=== PATIENT | female | born 1990 | race Caucasian/White ===

== ENCOUNTER 2018-04-22 08:08 | Emergency (ER) | payer MEDICAID, SELFPAY ==
[2018-04-22 08:12] VITALS: BP 136/86; PULSE 71; RESP 16; TEMP 36.7; O2SAT 98
--- NOTE | 2018-04-22 08:23 | W.ED.GENAD ---
Discharge Plan Discharge Details Chief Complaint: Nausea/Vomit/Diar Clinical Impression: Diarrhea Reason For Visit: diarrhea Primary Care Provider: Linda Mason ED Provider: Leroy Nguyen Disposition Patient Disposition: HOME Home Meds and New Rx's Prescriptions: Continue omeprazole 40 MG capsule,delayed release(DR/EC) 40 mg PO DAILY RF: 0 famotidine [Pepcid] 20 MG tablet 20 mg PO DAILY RF: 0 albuterol sulfate [ProAir RespiClick] 90 MCG aerosol powdr breath activated 90 mcg Inhalation 2 inh q 4-6 hours RF: 0 etonogestrel [Nexplanon] 68 MG implant 1 ea Intradermal DIRECTED RF: 0 ondansetron 4 MG tablet,disintegrating 4 mg PO Q6H PRN PRN (Reason: Nausea) Qty: 7 RF: 0 Discharge Instructions Instructions: Acute Diarrhea (ED) Stand Alone Forms: Work Release Discharge Data Discharge Physician: Leroy Nguyen Medical Decision Making MDM Narrative Medical decision making narrative: Patient here with diarrhea since 3am otherwise no symptoms. no recent travel, fevres, abx so do not feel stool studies indicated at this time. She has no abdominal pain or other symptoms to warrant imaging and is well hyddrated on exam so do not feel labs or IVF indicated. She states she came because she had to call out of work and they demanded a work note so she came here. I encouraged pcp f/u if no better in a week and return precautions given HPI - General Adult General Mode of arrival: ambulatory. Date/Time Provider Initiated Documentation: 04/22/18 08:23. Limitations to Documentation: no limitations. Information obtained by: patient. History of Present Illness 28 year old F presents to the emergency department with the chief complaint of diarrhea, described as mild, with intensity rated at 3. Quality is described as other (diarrhea), Patient reports no radiation. Patient started experiencing this hour(s) (5) and it has been other (improving). other things that improve symptom(s), (imodium) No exacerbating factors reported . Patient notes no other symptoms.. Patient did receive the following treatments prior to arrival, other (immodium) Related Data Home Medications Medication Instructions Recorded Confirmed etonogestrel [Nexplanon] 1 ea INTRADERMAL DIRECTED 07/07/16 04/22/18 albuterol sulfate [ProAir 90 mcg INHALATION 2 inh q 4-6 hours 02/06/18 04/22/18 RespiClick] famotidine [Pepcid] 20 mg PO DAILY tab-cap 02/06/18 04/22/18 omeprazole 40 mg PO DAILY tab-cap 02/06/18 02/08/18 Previous Rx's Medication Instructions Recorded ondansetron 4 mg PO Q6H PRN PRN #7 tabef 12/26/17 Allergies Allergy/AdvReac Type Severity Reaction Status Date / Time No Known Allergies Allergy Unverified 02/08/18 08:46 General Stated Complaint: Nausea/Vomit/Diar LO: 4 Review of Systems Review of Systems All systems reviewed & are unremarkable except as noted in HPI and below Constitutional Denies chills, Denies fever(s) and Denies weakness Eyes Patient Denies loss of vision ENT Denies change in voice Cardiovascular Denies chest pain and Denies dyspnea Respiratory Denies dyspnea Gastrointestinal Denies abdominal pain, Reports diarrhea, Denies nausea and Denies vomiting Genitourinary Denies dysuria Musculoskeletal Denies joint swelling Integumentary/Breasts Denies rash Neurologic Denies loss of vision and Denies weakness Psychiatric Denies depression Endocrine Denies cold intolerance and Denies heat intolerance Allergic/Immunologic Reports urticaria PFSH Family History Mother Diabetes Essential hypertension Hyperlipidemia Thyroid disease Grandmother Diabetes Breast cancer Grandmother Cancer Medical History BV (bacterial vaginosis) COPD (chronic obstructive pulmonary disease) Dyspepsia Foot pain Gestational diabetes HSV (herpes simplex virus) infection Left wrist pain Obesity Palpitations Social History Smoking/Tobacco Use Status: Current-Occasional Surgical History Open Carpal Tunnel release Tonsillectomy and adenoidectomy Exam Const General: no acute distress Orientation: alert [facility] Head: normal to inspection Ears: external ears normal General nose exam: external nose normal Mouth: moist mucous membranes Eyes General: appearance normal, both eyes and all related structures Neck Neck: normal visual inspection Resp Effort & Inspection: normal respiratory effort and able to speak in complete sentences Cardio Rate: regular rate GI Palpation: soft and nontender Skin General skin exam: no rashes or lesions noted Neuro General: alert and oriented x3 Extrem General: normal to inspection Psych Mental Status: mental status grossly normal Course Vital Signs Temperature 36.7 C 04/22/18 08:12 Pulse 71 04/22/18 08:12 Respiratory Rate 16 04/22/18 08:12 Blood Pressure 136/86 04/22/18 08:12 Pulse Oximetry 98 04/22/18 08:12 Temperature 36.7 C 04/22/18 08:12 Pulse 71 04/22/18 08:12 Respiratory Rate 16 04/22/18 08:12 Blood Pressure 136/86 04/22/18 08:12 Pulse Oximetry 98 04/22/18 08:12
--- NOTE | 2018-04-22 08:28 | ED.GENADUL_ITS ---
Discharge Plan Discharge Details Chief Complaint: Nausea/Vomit/Diar Clinical Impression: Diarrhea Reason For Visit: diarrhea Primary Care Provider: Linda Mason ED Provider: Leroy Nguyen Disposition Patient Disposition: HOME Home Meds and New Rx's Prescriptions: Continue omeprazole 40 MG capsule,delayed release(DR/EC) 40 mg PO DAILY RF: 0 famotidine [Pepcid] 20 MG tablet 20 mg PO DAILY RF: 0 albuterol sulfate [ProAir RespiClick] 90 MCG aerosol powdr breath activated 90 mcg Inhalation 2 inh q 4-6 hours RF: 0 etonogestrel [Nexplanon] 68 MG implant 1 ea Intradermal DIRECTED RF: 0 ondansetron 4 MG tablet,disintegrating 4 mg PO Q6H PRN PRN (Reason: Nausea) Qty: 7 RF: 0 Discharge Instructions Instructions: Acute Diarrhea (ED) Stand Alone Forms: Work Release Discharge Data Discharge Physician: Leroy Nguyen Medical Decision Making MDM Narrative Medical decision making narrative: Patient here with diarrhea since 3am otherwise no symptoms. no recent travel, fevres, abx so do not feel stool studies indicated at this time. She has no abdominal pain or other symptoms to warrant imaging and is well hyddrated on exam so do not feel labs or IVF indicated. She states she came because she had to call out of work and they demanded a work note so she came here. I encouraged pcp f/u if no better in a week and return precautions given HPI - General Adult General Mode of arrival: ambulatory . Date/Time Provider Initiated Documentation: 04/22/18 08:23 . Limitations to Documentation: no limitations . Information obtained by: patient . History of Present Illness 28 year old F presents to the emergency department with the chief complaint of diarrhea, described as mild, with intensity rated at 3. Quality is described as other (diarrhea), Patient reports no radiation. Patient started experiencing this hour(s) (5) and it has been other (improving). other things that improve symptom(s), (imodium) No exacerbating factors reported . Patient notes no other symptoms.. Patient did receive the following treatments prior to arrival, other (immodium) Related Data Home Medications Medication Instructions Recorded Confirmed etonogestrel [Nexplanon] 1 ea INTRADERMAL DIRECTED 07/07/16 04/22/18 albuterol sulfate [ProAir 90 mcg INHALATION 2 inh q 4-6 hours 02/06/18 04/22/18 RespiClick] famotidine [Pepcid] 20 mg PO DAILY tab-cap 02/06/18 04/22/18 omeprazole 40 mg PO DAILY tab-cap 02/06/18 02/08/18 Previous Rx's Medication Instructions Recorded ondansetron 4 mg PO Q6H PRN PRN #7 tabef 12/26/17 Allergies Allergy/AdvReac Type Severity Reaction Status Date / Time No Known Allergies Allergy Unverified 02/08/18 08:46 General Stated Complaint: Nausea/Vomit/Diar LO: 4 Review of Systems Review of Systems All systems reviewed & are unremarkable except as noted in HPI and below Constitutional Denies chills, Denies fever(s) and Denies weakness Eyes Patient Denies loss of vision ENT Denies change in voice Cardiovascular Denies chest pain and Denies dyspnea Respiratory Denies dyspnea Gastrointestinal Denies abdominal pain, Reports diarrhea, Denies nausea and Denies vomiting Genitourinary Denies dysuria Musculoskeletal Denies joint swelling Integumentary/Breasts Denies rash Neurologic Denies loss of vision and Denies weakness Psychiatric Denies depression Endocrine Denies cold intolerance and Denies heat intolerance Allergic/Immunologic Reports urticaria PFSH Family History Mother Diabetes Essential hypertension Hyperlipidemia Thyroid disease Grandmother Diabetes Breast cancer Grandmother Cancer Medical History BV (bacterial vaginosis) COPD (chronic obstructive pulmonary disease) Dyspepsia Foot pain Gestational diabetes HSV (herpes simplex virus) infection Left wrist pain Obesity Palpitations Social History Smoking/Tobacco Use Status: Current-Occasional Surgical History Open Carpal Tunnel release Tonsillectomy and adenoidectomy Exam Const General: no acute distress Orientation: alert [facility] Head: normal to inspection Ears: external ears normal General nose exam: external nose normal Mouth: moist mucous membranes Eyes General: appearance normal, both eyes and all related structures Neck Neck: normal visual inspection Resp Effort & Inspection: normal respiratory effort and able to speak in complete sentences Cardio Rate: regular rate GI Palpation: soft and nontender Skin General skin exam: no rashes or lesions noted Neuro General: alert and oriented x3 Extrem General: normal to inspection Psych Mental Status: mental status grossly normal Course Vital Signs Temperature 36.7 C 04/22/18 08:12 Pulse 71 04/22/18 08:12 Respiratory Rate 16 04/22/18 08:12 Blood Pressure 136/86 04/22/18 08:12 Pulse Oximetry 98 04/22/18 08:12 Temperature 36.7 C 04/22/18 08:12 Pulse 71 04/22/18 08:12 Respiratory Rate 16 04/22/18 08:12 Blood Pressure 136/86 04/22/18 08:12 Pulse Oximetry 98 04/22/18 08:12
== END 2018-04-22 08:39 | disposition home or self-care (01) ==
PROVIDERS: Emergency Provider Emergency Medicine; PCP Nurse Practitioner Family
DX: R19.7 Diarrhea, unspecified (principal); J44.9 Chronic obstructive pulmonary disease, unspecified; F17.210 Nicotine dependence, cigarettes, uncomplicated
CPT/HCPCS: 99281

== ENCOUNTER 2018-07-07 18:51 | Emergency (ER) | payer MEDICAID, SELFPAY ==
[2018-07-07 19:01] VITALS: BP 159/89; PULSE 81; RESP 17; TEMP 36.5; O2SAT 98
--- NOTE | 2018-07-07 19:05 | W.ED.GENAD ---
Discharge Plan Disposition Patient Disposition: HOME Condition: Good Discharge Details Chief Complaint: Headache Clinical Impression: Migraine Reason For Visit: bad head ache ED Provider: Cecilio Lemus Home Meds and New Rx's Prescriptions: No Action sumatriptan succinate [Imitrex] 25 mg Tablet 25 mg PO ONCE RF: 0 famotidine [Pepcid] 20 mg Tablet 20 mg PO DAILY RF: 0 etonogestrel [Nexplanon] 68 mg Implant RF: 0 Discharge Instructions Instructions: Migraine Headache (ED) Additional Instructions: If you notice any worsening of your symptoms, or any new symptoms such as vomiting, diarrhea, fever, chills, shortness of breath, chest pain, numbness, weakness, or fainting , please return immediately to the emergency department for reevaluation. Please follow up with your primary care provider as soon as possible for reassessment and reevaluation. As always, it was a pleasure participating in your medical care today. Stand Alone Forms: Work Release Medical Decision Making This is a pleasant 28-year-old female with a past medical history of migraine headaches, who presents today for headache. She states that her headache is consistent with her previous migraines that she has had in the past. She comes in today though because it is not alleviated by her Imitrex and home treatments. Physical exam demonstrates no neurologic deficits, no red flags and family history, no signs of meningitis or nuchal rigidity. We will give a migraine cocktail, hydrate, and reassess. 8 PM The patient's headache is completely resolved after medical management. She feels well, and still demonstrates a normal neurologic exam. I feel she can be safely discharged home with close follow-up with her PCP. I have extensively reviewed the treatment plan with the patient. I have addressed all patient concerns at this time. I have also discussed the plan with the admitting physician and they agree with the current assessment and plan and have agreed to assume responsibility for the patient. All parties demonstrate verbal understanding and agreement with our assessment and plan at this time. HPI General Date/Time Provider Initiated Documentation: 07/07/18 19:03. HPI Narrative: This is a pleasant 28-year-old female with no significant past medical history except for migraines for which she takes occasional Imitrex who presents today for evaluation of headache. The patient states that her headache began 2 days ago, it was mild in nature and similar to her previous migraine headaches. She drank some fluids and took NSAIDs, and then tried taking Imitrex today but she has had no improvement of her symptoms in spite of this. She states that the headache is worse with light and loud noise, improved by nothing. She does have some funny squiggles in her vision occasionally, but denies any dark curtain over her vision, or other ocular complaints. Patient states that her headache is the same consistency as other headaches but just usually does not last this long. The patient denies any headache red flags of worst headache of life, thunderclap headache, neck pain, fever, chills, concerning family history of polycystic kidney disease, Marfan syndrome, Aaliyah-Danlos syndrome, abdominal aortic aneurysm, aortic dissection, or intracranial aneurysm. Patient has no other complaints at this time. She denies any IV or illicit drug use. She denies any pertinent family history. She does admit to some mild nausea but denies any significant vomiting. She denies any fever or chills. She denies any other sick contacts. Related Data Home Medications Medication Instructions Recorded Confirmed etonogestrel [Nexplanon] 07/07/18 famotidine [Pepcid] 20 mg PO DAILY 07/07/18 07/07/18 sumatriptan succinate [Imitrex] 25 mg PO ONCE 07/07/18 07/07/18 Allergies Allergy/AdvReac Type Severity Reaction Status Date / Time No Known Allergies Allergy Unverified 07/07/18 19:05 General Stated Complaint: Headache LO: 2 Review of Systems Review of Systems All systems reviewed & are unremarkable except as noted in HPI and below PFSH Social History Smoking/Tobacco Use Status: Never Exam Narrative Exam Narrative: 1.Const: Well-nourished, Well-developed, appearing stated age 2.Eyes: PERRL, no conjunctival injection, and symmetrical lids. 3.ENT: Atraumatic external nose and ears. Moist MM. Neck: Symmetric, trachea midline, No thyromegaly. Patient demonstrates good movement of cervical neck. There is no nuchal rigidity, no nuchal tenderness. Patient is able to flex the neck without any difficulty or significant pain. Negative Kernig's and Brudzinski sign. 4.CVS: +S1/S2, No murmurs or gallops. Peripheral pulses 2+ and equal in all extremities. Brisk capillary refill in all extremities. 5.RESP: Unlabored respiratory effort. Clear to auscultation bilaterally. No wheezes rales or rhonchi 6.GI: Soft, Nontender/Nondistended, No hepatosplenomegaly. No guarding or rebound. 7.MSK: Normocephalic/Atraumatic, Extremities w/o deformity or ttp No cyanosis or clubbing, Normal movement of all extremities 8.Skin: Warm, Dry. No rashes or lesions. 9.Neuro: aquatic centre manager II-XII grossly intact. Sensation grossly intact, no focal neurologic deficits. There is no evidence of raccoon eyes, barfield sign, CSF rhinorrhea, mastoid tenderness, cranial crepitus, hemotympanum, exophthalmos, or hyphema. 10.Psych: (AAO) x3. Appropriate mood and affect Course Vital Signs Temperature 36.5 C 07/07/18 19:01 Pulse 81 07/07/18 19:01 Respiratory Rate 17 07/07/18 19:01 Blood Pressure 159/89 H 07/07/18 19:01 Pulse Oximetry 98 07/07/18 19:01 Temperature 36.5 C 07/07/18 19:01 Temperature Source Temporal Artery Scan 07/07/18 19:01 Pulse 81 07/07/18 19:01 Respiratory Rate 17 07/07/18 19:01 Blood Pressure 159/89 H 07/07/18 19:01 Blood Pressure Position Supine 07/07/18 19:01 Pulse Oximetry 98 07/07/18 19:01 Oxygen Delivery Method Room Air 07/07/18 19:01 Oxygen Flow Rate 0 07/07/18 19:01 Pain Level 10 07/07/18 19:01
[2018-07-07] MEDS: Normal Saline 1,000 ML 1000 ML IV (19:17)
[2018-07-07] MEDS: Acetaminophen 500 MG TAB 1000 MG PO (19:18)
[2018-07-07] MEDS: diphenhydrAMINE 25 MG CAP PO (19:18)
[2018-07-07] MEDS: Prochlorperazine 10 MG/2 ML VIAL IVP (19:19)
[2018-07-07] MEDS: Ketorolac 30 MG/ML VIAL IVP (19:19)
[2018-07-07] MEDS: methylPREDNISolone SUCC 125 MG VIAL IVP (19:20)
[2018-07-07 20:05] VITALS: BP 140/66; PULSE 76; RESP 16; TEMP 36.5; O2SAT 98
== END 2018-07-07 20:07 | disposition home or self-care (01) ==
LOC: ER 20:12
PROVIDERS: Emergency Provider Student in an Organized Health Care Education/Training Program
DX: G43.909 Migraine, unspecified, not intractable, without status migrainosus (principal)
CPT/HCPCS: 96361; 96374; 96375; 99284; J0780; J1885; J2930

== ENCOUNTER 2019-02-01 06:44 | Emergency (ER) | payer MEDICAID, SELFPAY ==
[2019-02-01] VITALS (8 sets, daily range): BP systolic 114–130; BP diastolic 67–103; PULSE 64–88; RESP 16–18; TEMP 36.3–36.6; O2SAT 86–100
--- NOTE | 2019-02-01 06:50 | ED.GENADUL_ITS ---
Discharge Plan Disposition Patient Disposition: HOME Condition: Good Discharge Details Chief Complaint: Nausea/Vomit/Diar Clinical Impression: Gastroenteritis Primary Care Provider: Linda Mason ED Provider: Cecilio Lemus Home Meds and New Rx's Prescriptions: New prochlorperazine maleate [Compazine] 10 mg tablet 10 mg PO DAILY Qty: 5 RF: 0 No Action omeprazole 40 MG capsule,delayed release(DR/EC) 40 mg PO DAILY RF: 0 famotidine [Pepcid] 20 MG tablet 20 mg PO DAILY RF: 0 albuterol sulfate [ProAir RespiClick] 90 MCG aerosol powdr breath activated 90 mcg Inhalation 2 inh q 4-6 hours RF: 0 etonogestrel [Nexplanon] 68 MG implant 1 ea Intradermal DIRECTED RF: 0 ondansetron 4 MG tablet,disintegrating 4 mg PO Q6H PRN PRN (Reason: Nausea) Qty: 7 RF: 0 Discharge Instructions Instructions: Gastroenteritis (ED) Additional Instructions: Please take the Compazine as needed for nausea. I suspect your symptoms are secondary to a mild viral illness. Please continue to hydrate and drink 10 to 12 cups of water or Gatorade per day. If you notice any worsening of your symptoms, or any new symptoms such as worsening vomiting, worse diarrhea, fever, chills, shortness of breath, chest pain, numbness, weakness, or fainting , please return immediately to the emergency department for reevaluation. Please follow up with your primary care provider as soon as possible for reassessment and reevaluation. As always, it was a pleasure participating in your medical care today. Stand Alone Forms: Work Release Referrals: Linda Mason [Primary Care Provider] - Discharge Data Discharge Date/Time-TO BE ENTERED AT DEPARTURE: 02/01/19 08:58 Medical Decision Making <Junaid Mohamud MD - Last Filed: 02/01/19 20:46> Patient presents to ED with nausea, vomiting and diarrhea for the last 24 hours. She is afebrile here with normal vital signs. Her abdomen is benign. Will place IV to give fluids and Phenergan. Laboratory studies are pending. Patient is not . Patient will be signed out to Dr. Lemus to follow-up on labs and reevaluate patient for ability to tolerate p.o. <Cecilio Lemus DO - Last Filed: 02/01/19 08:49> The case is signed out to me by my colleague Dr. Mohamud. We are pending labs and reassessment. Labs have returned, no significant abnormalities are noted, minimally elevated white count, no electrolyte abnormalities, normal renal function. The patient does have control on board, and had her period 2 days ago. Not . The patient denies any red flags of recent foreign travel, fever, recent antibiotic use. Repeat abdominal exam demonstrates no abdominal tenderness. Signs and symptoms appear consistent with a mild gastroenteritis. Patient has been able to tolerate p.o. here well, shows no more significant complaints. She states that she feels much better at this time. I did discuss further work-up and hydration versus going home, and the patient states that she is she feels much better she would like to go home. I do feel this is notably reasonable. Patient's vital signs remain reassuring. I suspect her symptoms are secondary to a mild viral etiology. We discussed the importance of continued fluids at home, close follow-up, and reassess. I have extensively reviewed the treatment plan and discharge instructions with the patient. I have addressed all patient concerns at this time. The patient was made aware of what symptoms to monitor for that would warrant a return to the emergency department. Discussed the plan with the patient, they demonstrate verbal understanding and agreement with our assessment and plan at this time. HPI <Junaid Mohamud MD - Last Filed: 02/01/19 20:46> General Mode of arrival: ambulatory . Date/Time Provider Initiated Documentation: 02/01/19 06:46 . Limitations to Documentation: no limitations . Information obtained by: patient . HPI Narrative: Patient presents to ED with complaint of nausea, vomiting and diarrhea for 24 hours now. At this point she is unable to keep anything down. She continues to have dry heaves and diarrhea. She did try taking Zofran ODT this morning but is continued to vomit. She has no abdominal pain. She has had hot flashes and cold spells but no fevers and chills per se. She continues to make urine. There is no hematemesis or hematochezia. There has been no travel outside of the [place], consumption of contaminated food or water that she is aware of, association with ill contacts. Related Data Home Medications Medication Instructions Recorded Confirmed etonogestrel [Nexplanon] 1 ea INTRADERMAL DIRECTED 07/07/16 04/22/18 ondansetron 4 mg PO Q6H PRN PRN #7 tabef 12/26/17 04/22/18 albuterol sulfate [ProAir 90 mcg INHALATION 2 inh q 4-6 hours 02/06/18 04/22/18 RespiClick] famotidine [Pepcid] 20 mg PO DAILY tab-cap 02/06/18 04/22/18 omeprazole 40 mg PO DAILY tab-cap 02/06/18 02/08/18 prochlorperazine maleate 10 mg PO DAILY #5 tab 02/01/19 [Compazine] Previous Rx's Medication Instructions Recorded ondansetron 4 mg PO Q6H PRN PRN #7 tabef 12/26/17 prochlorperazine maleate 10 mg PO DAILY #5 tab 02/01/19 [Compazine] Allergies Allergy/AdvReac Type Severity Reaction Status Date / Time No Known Allergies Allergy Unverified 02/08/18 08:46 General LO: 4 Review of Systems <Junaid Mohamud MD - Last Filed: 02/01/19 20:46> Review of Systems As documented in HPI otherwise negative as below. Const: no fever, chills, weakness Resp: no cough, SOB, pleuritic pain CV: no CP, diaphoresis, edema, syncope GI: no abdominal pain; positive nausea, vomiting, diarrhea Neuro: no headache, numbness, focal weakness, confusion PFSH <Junaid Mohamud MD - Last Filed: 02/01/19 20:46> Medical History Dyspepsia (Chronic) HSV (herpes simplex virus) infection (Chronic) Obesity (Chronic) Palpitations (Chronic) Gestational diabetes (Resolved) Surgical History Open Carpal Tunnel release (Inactive) Tonsillectomy and adenoidectomy (Inactive) Social History Smoking/Tobacco Use Status: Current-Occasional Tobacco Type: cigarettes Alcohol Intake: never Drug use: Never Substance use type: does not use Do you feel safe at home: Yes Do you feel safe in your relationship?: Yes Exam <Junaid Mohamud MD - Last Filed: 02/01/19 20:46> Narrative Exam Narrative: Vitals: Afebrile, normal vitals. Const: Obese female in NAD. HEENT: NC/AT. Normal facial exam. Eyes: Normal conjunctiva and sclera. Neck: Supple. Trachea midline. Lungs: Normal respiratory effort. Lungs with a few scattered wheezes. Cor: RRR without murmur/gallop. GI: Soft. NT/ND. No guarding or rebound. Neuro: A+O x 3. CN grossly in tact. Good strength and no focal deficit. Ext: No C/C/E. No deformity or tenderness. Skin: Warm and dry without rash. Sign Out <Junaid Mohamud MD - Last Filed: 02/01/19 20:46> Sign Out Data: Sign Out Comment: follow up on labs and evaluate for ability to tolerate PO Last updated by Junaid Mohamud MD at 02/01/19 07:49
[2019-02-01] MEDS: Lactated Ringers 1,000 ML 1000 ML IV (07:18)
[2019-02-01] MEDS: Normal Saline Flush 10 ML SYR IVP (07:19)
--- NOTE | 2019-02-01 07:31 | NUR.NOTE ---
Nursing Note: Patient was asked for a urine to test a prior to the administration of medication. She reported to this ad writer that i have the nexplenon, and i just finished my period so No i am not and so you don't need a pee for that.
[2019-02-01 07:34] LABS: Abs Immature Grans 0.03 k/cumm (0.0-0.09); Absolute Basophil Count 0.03 k/cumm (0.0-0.2); Absolute Eosinophil Count 0.08 k/cumm (0.0-0.7); Absolute Lymphocyte Count 1.24 k/cumm (1.2-3.4); Basophils % 0.2; Eosinophils % 0.6; HCT 41.6 % (36.0-46.0); HGB 13.9 g/dL (12.0-15.5); Immature Grans % 0.2; Lymphocytes % 9.3; Mean Corp. HGB Concentration 33.4 g/dL (32.0-36.0); Mean Corpuscular Hemoglobin 29.1 pg (27.0-33.0); Mean Platelet Volume 11.2 fL (8.0-11.0); Neutrophils % 86.7; Platelet Count 288 x1000/uL (130-400); RBC 4.78 m/cumm (4.00-5.20); RBC Distribution Width 13.1 % (11.7-14.6); White Blood Cell Count 13.28 k/cumm (4.4-10.8)
[2019-02-01 07:35] LABS: Absolute Neutrophil Count 11.51 k/cumm (1.2-6.7)
[2019-02-01 07:56] LABS: ALT 24 U/L (12-78); AST 15 U/L (15-37); Albumin 3.8 g/dL (3.4-5.0); Alkaline Phosphatase 68 U/L (46-116); Anion Gap 11.1 mmol/L (3-11); BUN 11 mg/dL (7-18); Bilirubin, Total 0.6 mg/dL (0.2-1.0); CO2 23.9 mmol/L (21.0-32.0); CREATININE 0.86 mg/dL (0.55-1.02); Calcium 9.3 mg/dL (8.5-10.1); Chloride 102 mmol/L (98-107); Glucose 132 mg/dL (70-100); Magnesium 2.1 mg/dL (1.8-2.4); Potassium 3.9 mmol/L (3.5-5.1); Sodium 137 mmol/L (136-145); Total Protein 7.9 g/dL (6.4-8.2)
== END 2019-02-01 08:58 | disposition home or self-care (01) ==
PROVIDERS: Emergency Medicine; Emergency Provider Student in an Organized Health Care Education/Training Program; PCP Nurse Practitioner Family
DX: K52.9 Noninfective gastroenteritis and colitis, unspecified (principal)
CPT/HCPCS: 36415; 80053; 81025; 96361; 96365; 83735; 85025

== ENCOUNTER 2019-02-22 05:35 | Emergency (ER) | payer MEDICAID, SELFPAY ==
[2019-02-22 05:39] VITALS: BP 138/73; PULSE 57; RESP 20; TEMP 36.8; O2SAT 100
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
[2019-02-22] MEDS: Ondansetron 4 MG/2 ML VIAL IVP (05:53)
[2019-02-22] MEDS: Normal Saline Flush 10 ML SYR IVP (05:54)
[2019-02-22] MEDS: Lactated Ringers 1,000 ML 1000 ML IV (05:54)
[2019-02-22 07:13] LABS: Abs Immature Grans 0.06 k/cumm (0.0-0.09); Basophils % 0.2; Eosinophils % 0.1; HCT 38.1 % (36.0-46.0); HGB 13.2 g/dL (12.0-15.5); Immature Grans % 0.3; Lymphocytes % 10.2; Mean Corp. HGB Concentration 34.6 g/dL (32.0-36.0); Mean Corpuscular Hemoglobin 29.3 pg (27.0-33.0); Mean Corpuscular Volume 84.7 fL (80-95); Mean Platelet Volume 11.5 fL (8.0-11.0); Neutrophils % 82.2; Platelet Count 279 x1000/uL (130-400); RBC Distribution Width 12.6 % (11.7-14.6); White Blood Cell Count 18.55 k/cumm (4.4-10.8)
[2019-02-22 07:16] LABS: Absolute Basophil Count 0.04 k/cumm (0.0-0.2); Absolute Eosinophil Count 0.02 k/cumm (0.0-0.7); Absolute Lymphocyte Count 1.89 k/cumm (1.2-3.4); Absolute Neutrophil Count 15.25 k/cumm (1.2-6.7)
[2019-02-22] MEDS: FAMOTIDINE 20 MG/50 ML BAG 200 MG IVPB (07:30)
[2019-02-22 07:41] LABS: ALT 19 U/L (12-78); AST 11 U/L (15-37); Alkaline Phosphatase 65 U/L (46-116); Anion Gap 14.2 mmol/L (3-11); BUN 11 mg/dL (7-18); Bilirubin, Total 1.2 mg/dL (0.2-1.0); CO2 19.8 mmol/L (21.0-32.0); CREATININE 1.05 mg/dL (0.55-1.02); Calcium 9.4 mg/dL (8.5-10.1); Chloride 105 mmol/L (98-107); Glucose 123 mg/dL (70-100); Lipase 112 U/L (73-393); Potassium 3.5 mmol/L (3.5-5.1); Sodium 139 mmol/L (136-145); Total Protein 7.9 g/dL (6.4-8.2)
[2019-02-22 07:58] VITALS: BP 128/62; PULSE 68; RESP 20; TEMP 36.8; O2SAT 100
== END 2019-02-22 07:57 | disposition home or self-care (01) ==
PROVIDERS: Emergency Provider Emergency Medicine; PCP Nurse Practitioner Family
DX: R11.2 Nausea with vomiting, unspecified (principal)
CPT/HCPCS: 36415; 80053; 83690; 96361; 96374; 99284; 85025

== ENCOUNTER 2019-03-14 18:03 | Emergency (ER) | payer MEDICAID, SELFPAY ==
[2019-03-14 18:10] VITALS: BP 133/86; PULSE 84; RESP 16; TEMP 36.6; O2SAT 99
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
== END 2019-03-14 19:05 | disposition other institution (70) ==
PROVIDERS: Emergency Provider Emergency Medicine; PCP Nurse Practitioner Family
DX: S90.852A Superficial foreign body, left foot, initial encounter (principal); W45.8XXA Other foreign body or object entering through skin, initial encounter; Z53.29 Procedure and treatment not carried out because of patient's decision for other reasons
CPT/HCPCS: 99282

== ENCOUNTER 2019-03-15 11:33 | Emergency (ER) | payer MEDICAID, SELFPAY ==
[2019-03-15 11:36] VITALS: BP 158/107; PULSE 85; RESP 20; TEMP 37; O2SAT 100
--- NOTE | 2019-03-15 11:41 | DI.RAD_ITS ---
SYMPTOMS/DIAGNOSIS: STEPPED ON GLASS, PLANTAR ASPECT PROXIMAL TO 3RD TOE LEFT FOOT: No fracture or dislocation is seen. There is a small ossicle near the navicular as well as an additional ossicle lateral to the cuboid. There is a tiny plantar spur. IMPRESSION: No acute abnormality.
--- NOTE | 2019-03-15 11:43 | ED.GENADUL_ITS ---
Discharge Plan Disposition Patient Disposition: HOME Condition: Good Discharge Details Chief Complaint: Laceration Clinical Impression: Laceration Primary Care Provider: Linda Mason ED Provider: Cecilio Lemus Home Meds and New Rx's Prescriptions: No Action omeprazole 40 MG capsule,delayed release(DR/EC) 40 mg PO DAILY RF: 0 famotidine [Pepcid] 20 MG tablet 20 mg PO DAILY RF: 0 ProAir RespiClick 90 MCG aerosol powdr breath activated 90 mcg Inhalation 2 inh q 4-6 hours RF: 0 Nexplanon 68 MG implant 1 ea Intradermal DIRECTED RF: 0 ondansetron 4 MG tablet,disintegrating 4 mg PO Q6H PRN PRN (Reason: Nausea) Qty: 7 RF: 0 prochlorperazine maleate [Compazine] 10 mg tablet 10 mg PO DAILY Qty: 5 RF: 0 Discharge Instructions Instructions: Laceration (ED) Additional Instructions: At this time there is no radiographic evidence or exam evidence of significant foreign body can be seen. There may be extremely small pieces that we cannot see, however the risk of further exploration and probing of your foot is higher than the risk of their presence. The body will be able to exude on its own any very small pieces. Please apply triple antibiotic regularly to your foot. Use the walking boot as needed to help reduce the stress and pressure on your foot. If you notice any worsening of your symptoms, or any new symptoms such as vomiting, diarrhea, fever, chills, shortness of breath, chest pain, numbness, weakness, or fainting , please return immediately to the emergency department for reevaluation. Please follow up with your primary care provider as soon as possible for reassessment and reevaluation. As always, it was a pleasure participating in your medical care today. Stand Alone Forms: Work Release Referrals: Linda Mason [Primary Care Provider] - Medical Decision Making This is a 28-year-old female whose tetanus status is up-to-date who presents today for laceration/abrasion potential foreign body in her left foot. Yesterday she stepped on something which cause notable pain while barefoot. She did wash out her foot. She came to the ER for further assessment but unfortunately eloped before imaging was performed. She went home and states that she was able to get out a very small tiny piece of glass, but she comes in now wanting to make sure that there is still no foreign body. Patient denies any other complaints, no neurovascular compromise, no involvement of deep structures. Bedside probing shows no evidence of foreign body. We will get an x-ray and reassess. X-ray shows no evidence of foreign body per radiology. No other significant abnormalities. Recommend triple antibiotic ointment, and keeping off the foot as often as possible to allow for good healing. We discussed red flags which return. I have extensively reviewed the treatment plan and discharge instructions with the patient. I have addressed all patient concerns at this time. The patient was made aware of what symptoms to monitor for that would warrant a return to the emergency department. Discussed the plan with the patient, they demonstrate verbal understanding and agreement with our assessment and plan at this time. HPI General Date/Time Provider Initiated Documentation: 03/15/19 11:35 . HPI Narrative: This is a 28-year-old female who presents today for evaluation of mild laceration to the plantar aspect of her left foot. Yesterday she was walking around barefoot when she felt that she stepped on something with her left foot. She came to the ER, but unfortunately eloped prior to imaging. While at home she did pick at the lesion on the plantar aspect of her foot and to take out a very small piece of glass. However today she notes still continued mild pain she want to be checked out when the ER was less busy to make sure that there was nothing left in the foot. Including any glass. Patient denies any numbness tingling or weakness. Pain is only located at the distal aspect of the foot. She denies any active bleeding or other complaints. Tetanus is been updated in the last 10 years. Related Data Home Medications Medication Instructions Recorded Confirmed Nexplanon 1 ea INTRADERMAL DIRECTED 07/07/16 03/15/19 ondansetron 4 mg PO Q6H PRN PRN #7 tabef 12/26/17 03/15/19 ProAir RespiClick 90 mcg INHALATION 2 inh q 4-6 hours 02/06/18 03/15/19 famotidine [Pepcid] 20 mg PO DAILY tab-cap 02/06/18 03/15/19 omeprazole 40 mg PO DAILY tab-cap 02/06/18 03/15/19 prochlorperazine maleate 10 mg PO DAILY #5 tab 02/01/19 03/15/19 [Compazine] Previous Rx's Medication Instructions Recorded ondansetron 4 mg PO Q6H PRN PRN #7 tabef 12/26/17 prochlorperazine maleate 10 mg PO DAILY #5 tab 02/01/19 [Compazine] Allergies Allergy/AdvReac Type Severity Reaction Status Date / Time No Known Allergies Allergy Unverified 03/15/19 11:37 General Stated Complaint: Laceration LO: 4 Review of Systems Review of Systems All systems reviewed & are unremarkable except as noted in HPI and below PFSH Social History Smoking/Tobacco Use Status: Former Tobacco Use Alcohol Intake: never Drug use: Never Substance use type: does not use Do you feel safe at home: Yes Do you feel safe in your relationship?: Yes Exam Narrative Exam Narrative: 1.Const: Well-nourished, Well-developed, appearing stated age 2.Eyes: PERRL, no conjunctival injection, and symmetrical lids. 3.ENT: Atraumatic external nose and ears. Moist MM. Neck: Symmetric, trachea midline, No thyromegaly. 4.CVS: +S1/S2, No murmurs or gallops. Peripheral pulses 2+ and equal in all extremities. Brisk capillary refill in all extremities. 5.RESP: Unlabored respiratory effort. Clear to auscultation bilaterally. No wheezes rales or rhonchi 6.GI: Soft, Nontender/Nondistended, No hepatosplenomegaly. No guarding or rebound. 7.MSK: Normocephalic, Extremities w/o deformity or ttp No cyanosis or clubbing, Normal movement of all extremities. Plantar aspect of the foot just proximal to the third toe at the ball of the foot demonstrates a small superficial laceration. Exploration shows no evidence of foreign body, active bleeding or other significant abnormality. No evidence of deep tissue involvement. Normal flexion and extension of the toes with no other abnormalities or deficits. Brisk capillary refill distally to the injury site. 8.Skin: Warm, Dry. 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 Sensation grossly intact, no focal neurologic deficits. 10.Psych: (AAO) x3. Appropriate mood and affect Course Vital Signs Temperature 37.0 C 03/15/19 11:36 Pulse 85 03/15/19 11:36 Respiratory Rate 20 03/15/19 11:36 Blood Pressure 158/107 H 03/15/19 11:36 Pulse Oximetry 100 03/15/19 11:36 Temperature 37.0 C 03/15/19 11:36 Pulse 85 03/15/19 11:36 Respiratory Rate 20 03/15/19 11:36 Respiratory Effort Non-Labored 03/15/19 11:36 Blood Pressure 158/107 H 03/15/19 11:36 Pulse Oximetry 100 03/15/19 11:36 Oxygen Delivery Method Room Air 03/15/19 11:36 Oxygen Flow Rate 0 03/15/19 11:36
== END 2019-03-15 11:58 | disposition home or self-care (01) ==
PROVIDERS: Emergency Provider Student in an Organized Health Care Education/Training Program; PCP Nurse Practitioner Family
DX: S91.312A Laceration without foreign body, left foot, initial encounter (principal); W25.XXXA Contact with sharp glass, initial encounter
CPT/HCPCS: 29515; 99283; 73630

== ENCOUNTER 2019-06-04 14:31 | Outpatient (REF) | payer MEDICAID, SELFPAY ==
[2019-06-05 14:17] LABS: Chlamydia Result Negative; GC Result Negative; Specimen Description URINE
== END 2019-06-04 14:51 ==
LOC: LBN 14:31
PROVIDERS: PCP Nurse Practitioner Family; Visit Provider Nurse Practitioner Women's Health
DX: Z11.3 Encounter for screening for infections with a predominantly sexual mode of transmission (principal)
CPT/HCPCS: 87491; 87591

== ENCOUNTER 2019-06-07 20:22 | Emergency (ER) | payer OTHER, SELFPAY ==
[2019-06-07 20:26] VITALS: BP 122/71; PULSE 89; RESP 16; TEMP 36.7; O2SAT 100
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
[2019-06-07 22:06] VITALS: BP 127/72; PULSE 80; RESP 14; TEMP 36.4; O2SAT 99
== END 2019-06-07 22:10 | disposition home or self-care (01) ==
PROVIDERS: Emergency Provider Student in an Organized Health Care Education/Training Program; PCP Nurse Practitioner Family
DX: S06.0X0A Concussion without loss of consciousness, initial encounter (principal); S00.83XA Contusion of other part of head, initial encounter; M79.645 Pain in left finger(s); V43.52XA Car driver injured in collision with other type car in traffic accident, initial encounter
CPT/HCPCS: 99284; 70450; 73140

== ENCOUNTER 2019-08-05 08:21 | Emergency (ER) | payer MEDICAID, SELFPAY ==
[2019-08-05 08:26] VITALS: BP 132/99; PULSE 70; RESP 16; TEMP 36.9; O2SAT 99
--- NOTE | 2019-08-05 08:41 | ED.GENADUL_ITS ---
Discharge Plan Disposition Patient Disposition: HOME Condition: Improving Discharge Details Chief Complaint: Nausea/Vomit/Diar Clinical Impression: Gastroenteritis and colitis, viral Primary Care Provider: Linda Mason ED Provider: Linda Noriega Home Meds and New Rx's Prescriptions: Continued promethazine 25 mg tablet 25 mg PO Q6H PRN (Reason: nausea and vomiting) Qty: 10 RF: 0 sumatriptan succinate [Imitrex] 25 mg Tablet 25 mg PO ONCE RF: 0 famotidine [Pepcid] 20 mg Tablet 20 mg PO DAILY RF: 0 Nexplanon 68 mg Implant RF: 0 Discharge Instructions Instructions: Gastroenteritis (ED) Additional Instructions: Drink plenty of fluids. Advance diet as tolerated. Avoid dairy products for the next 2 days. Rest activities as tolerated. Use nausea medication as prescribed this will cause mild drowsiness. Observe for any increase in abdominal pain, development of fevers, worsening ill feeling or alarming symptoms. Return for any worsening or concerns sooner if needed. Recheck with PCP for persistence of symptoms lasting greater than 2 to 3 days as discussed Stand Alone Forms: Work Release Medical Decision Making This is a 29-year-old patient who presents for complaints of nausea vomiting and diarrhea which began at 10:00 last evening. Patient reports several episodes of vomiting overnight reports approximately 6-10 episodes. Patient does report associated nonbloody diarrhea. Patient reports intermittent abdominal cramping which is diffuse also reported as epigastric discomfort. Patient denies radiating pain to the back. Patient did try a Zofran around 530 this morning wi thout relief of her vomiting. Patient does report body aches and malaise. Denies measured fever or chills but does report mild nasal congestion and cough. Patient does report feeling mildly dehydrated at this time. 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 Patient denies chest pain, difficulty breathing of shortness of breath or wheezing. Again patient reports her abdominal discomfort as cramping and intermittent. Patient's abdominal exam does reveal mild diffuse abdominal discomfort. No obvious peritoneal signs, rebound or guarding. No right lower quadrant abdominal pain with palpation of McBurney's point. Patient's vital signs reviewed. Labs as well as IV fluids and nausea medication ordered. Patient is currently menstruating and does not have a concern of however will do [id number] urine to be sure. After reevaluation after patient received IV and initial dose of medication patient has not persistently vomited, abdominal pain feels improved and she is feeling significantly better resting comfortably at the bedside. CBC reviewed, remainder of labs still pending. Patient continues to feel improved. Vital signs remained stable. Patient reports abdominal pain improved. Reexamination of abdomen exam; remains benign. Patient's labs were reviewed. No significant lab abnormalities. Patient's urinalysis reviewed. Urine testing negative. At this time will provide patient prescription for Phenergan as this was most effective to control her nausea and improve her abdominal discomfort. Encouraged conservative treatments as well as pushing fluids by mouth. Alarming symptoms of abdominal pain were discussed for which patient should have return. Patient reports her understanding, is requesting discharge at this time. The patient was stable and requested discharge. Prior to discharge, my usual and customary return precautions were reviewed with the patient - this included follow-up i nstructions and reasons to return to the Emergency Department if conditions worsens, does not improve as expected, or other new concerns arise. HPI General Date/Time Provider Initiated Documentation: 08/05/19 08:29 . HPI Narrative: This is a 29-year-old patient who presents to the emergency room this morning for several episodes of nausea vomiting and diarrhea. Patient reports symptoms began at approximately 10:00 last evening. Patient reports vomiting approximately 5-10 times overnight. Patient reports 2-3 episodes of nonbloody diarrhea. Patient does report abdominal cramping intermittently. Patient does report cramping is diffuse. Patient does report resolution of abdominal pain intermittently. Patient currently menstruating and is not concerned with . Patient denies blood in the vomitus. Patient does report mild epigastric discomfort. Mild body ache, mild nasal congestion, mild cough. No fevers. No headache or dizziness. Denies urinary urgency, frequency or dysuria. No other concerns or complaints. Try to Zofran at approximately 530 this morning from her mother with no relief. Related Data Home Medications Medication Instructions Recorded Confirmed Nexplanon 07/07/18 famotidine [Pepcid] 20 mg PO DAILY 07/07/18 02/22/19 sumatriptan succinate [Imitrex] 25 mg PO ONCE 07/07/18 02/22/19 promethazine 25 mg PO Q6H PRN #10 tab 02/22/19 Previous Rx's Medication Instructions Recorded promethazine 25 mg PO Q6H PRN #10 tab 02/22/19 Allergies Allergy/AdvReac Type Severity Reaction Status Date / Time No Known Allergies Allergy Unverified 08/05/19 08:28 General Stated Complaint: Nausea/Vomit/Diar LO: 3 PFSH Social History Smoking/Tobacco Use Status: Former Tobacco Use Alcohol Intake: never Drug use: Never Do you feel safe at home: Yes Do you feel safe in your relationship?: Yes Course Vital Signs Vital signs: Vital Signs Temperature 36.9 C 08/05/19 08:26 Pulse 70 08/05/19 08:26 Respiratory Rate 16 08/05/19 08:26 Blood Pressure 132/99 H 08/05/19 08:26 Pulse Oximetry 99 08/05/19 08:26 Temperature 36.9 C 08/05/19 08:26 Temperature Source Temporal Artery Scan 08/05/19 08:26 Pulse 70 08/05/19 08:26 Respiratory Rate 16 08/05/19 08:26 Respiratory Effort Non-Labored 08/05/19 08:26 Blood Pressure 132/99 H 08/05/19 08:26 Blood Pressure Position Sitting 08/05/19 08:26 Pulse Oximetry 99 08/05/19 08:26 Oxygen Delivery Method Room Air 08/05/19 08:26 Oxygen Flow Rate 0 08/05/19 08:26 Pain Level 4 08/05/19 08:26
[2019-08-05] MEDS: Normal Saline 1,000 ML 1000 ML IV (08:54)
[2019-08-05 09:03] LABS: Abs Immature Grans 0.02 k/cumm (0.0-0.09); Absolute Basophil Count 0.02 k/cumm (0.0-0.2); Absolute Lymphocyte Count 1.58 k/cumm (1.2-3.4); Absolute Monocyte Count 0.56 k/cumm (0.11-0.7); Absolute Neutrophil Count 8.21 k/cumm (1.2-6.7); Basophils % 0.2; HCT 43.1 % (36.0-46.0); HGB 14.3 g/dL (12.0-15.5); Immature Grans % 0.2; Lymphocytes % 15.1; Mean Corp. HGB Concentration 33.2 g/dL (32.0-36.0); Mean Corpuscular Hemoglobin 28.3 pg (27.0-33.0); Mean Corpuscular Volume 85.2 fL (80-95); Mean Platelet Volume 11.2 fL (8.0-11.0); Monocytes % 5.3; Neutrophils % 78.2; Platelet Count 293 x1000/uL (130-400); RBC 5.06 m/cumm (4.00-5.20); RBC Distribution Width 12.7 % (11.7-14.6); White Blood Cell Count 10.49 k/cumm (4.4-10.8)
[2019-08-05 09:14] LABS: ALT 12 U/L (14-59); AST 12 U/L (15-37); Albumin 4.1 g/dL (3.4-5.0); Alkaline Phosphatase 55 U/L (46-116); Anion Gap 10.2 mmol/L (3-11); BUN 10 mg/dL (7-18); Bilirubin, Total 0.9 mg/dL (0.2-1.0); CO2 25.8 mmol/L (21.0-32.0); CREATININE 0.91 mg/dL (0.55-1.02); Calcium 9.1 mg/dL (8.5-10.1); Chloride 106 mmol/L (98-107); Glucose 109 mg/dL (74-106); Magnesium 2.1 mg/dL (1.8-2.4); Potassium 3.8 mmol/L (3.5-5.1); Sodium 142 mmol/L (136-145); Total Protein 8.2 g/dL (6.4-8.2)
[2019-08-05 09:58] LABS: Bilirubin Negative (Negative); Blood Trace-intact (Negative); Clarity Clear (Clear); Glucose Negative (Negative); Ketones 15 mg/dL (Negative); Leukocyte Esterase Negative (Negative); Nitrite Negative (Negative); Specific Gravity 1.015 (1.005-1.025)
[2019-08-05 10:07] LABS: Bacteria Rare HPF (Negative); Casts Negative LPF (Negative); Crystals Negative HPF (Negative); Epithelial Cells Few HPF (Negative); Mucus Moderate (Negative); RBC 0-2 HPF (0-2); WBC 0-2 HPF (0-5)
[2019-08-05 10:08] LABS: C & S Indicated? No
[2019-08-05 11:02] VITALS: BP 121/77; PULSE 77; RESP 16; O2SAT 100
== END 2019-08-05 11:30 | disposition home or self-care (01) ==
PROVIDERS: Emergency Provider Physician Assistant; PCP Nurse Practitioner Family
DX: A08.4 Viral intestinal infection, unspecified (principal); R10.13 Epigastric pain
CPT/HCPCS: 36415; 80053; 81025; 87449; 96361; 96365; 99284; 81003; 81015; 83735; 85025; 99281

== ENCOUNTER 2019-08-22 08:41 | Emergency (ER) | payer MEDICAID, SELFPAY ==
[2019-08-22 08:44] VITALS: BP 135/95; PULSE 70; RESP 16; TEMP 36.7; O2SAT 99
--- NOTE | 2019-08-22 08:47 | W.ED.GENAD ---
Discharge Plan Disposition Patient Disposition: HOME Condition: Good Discharge Details Chief Complaint: Nausea/Vomit/Diar Clinical Impression: URI (upper respiratory infection), Nausea & vomiting Primary Care Provider: Linda Mason ED Provider: Kayla Stark Home Meds and New Rx's Prescriptions: New albuterol sulfate 90 mcg/actuation aerosol powdr breath activated 2 inh IH Q4H PRN (Reason: shortness of breath or wheezing) Qty: 1 RF: 0 benzonatate [Tessalon Perles] 100 mg capsule 100 mg PO TID PRN (Reason: cough) Qty: 14 RF: 0 ondansetron 4 mg tablet,disintegrating 4 mg PO Q6H PRN (Reason: nausea and vomiting) Qty: 14 RF: 0 Continued Nexplanon 68 mg implant 1 implant Intradermal DIRECTED Qty: 1 RF: 0 omeprazole 40 MG capsule,delayed release(DR/EC) 40 mg PO DAILY RF: 0 ProAir RespiClick 90 MCG aerosol powdr breath activated 90 mcg Inhalation 2 inh q 4-6 hours RF: 0 promethazine 25 mg tablet 25 mg PO Q6H PRN (Reason: nausea and vomiting) Qty: 10 RF: 0 sumatriptan succinate [Imitrex] 25 mg Tablet 25 mg PO ONCE RF: 0 famotidine [Pepcid] 20 mg Tablet 20 mg PO DAILY RF: 0 Discharge Instructions Instructions: Upper Respiratory Infection (ED), Acute Nausea and Vomiting (ED) Additional Instructions: Encourage nausea and vomiting. You may use the Zofran as prescribed if you have any recurrent nausea. Tessalon Perles to help with cough. Please use your albuterol inhaler as previously advised to help with any recurrence of wheezing or shortness of breath. Attached is information on cyclical vomiting syndrome. Please begin cutting back on marijuana usage. Please follow-up with primary care next week for reevaluation. If you develop fever/chills, difficulty breathing, inability stay hydrated or other new/worsening symptoms please seek care urgently once again. Stand Alone Forms: Work Release Referrals: Linda Mason [Primary Care Provider] - Discharge Data Discharge Date/Time-TO BE ENTERED AT DEPARTURE: 08/22/19 10:08 Medical Decision Making Patient is a pleasant 29-year-old female presenting today with chief complaint of URI. States that she has had upper respiratory symptoms for the past 3 days with sore throat, cough, congestion. She reports the cough is worse when supine. States she is had difficulty sleeping secondary to this. She denies any fevers or chills. Endorses intermittent body aches. Also reports that this morning she developed nausea and vomiting. Reports she is vomited x3. No hematemesis. No change in bowel habits. Denies any abdominal pain. Patient reports she did receive her yearly influenza vaccine. Patient does have a history of asthma but reports she has not been taking her any inhaler as she typically does. Says she has not used her inhaler since prior to becoming ill. On exam, patient appears nontoxic. Vital signs within normal limits. Lung exam significant for expiratory wheezing. She does sound quite congested but no focal areas of crackles or rhonchi are noted. Will obtain chest x-ray and give nebulizer. Patient does have an albuterol inhaler but reports she has not been using this. Abdominal exam is benign. Patient feels improved after nebulizer. Lungs are since cleared. She does still have a nonproductive cough and intermittent laryngitis. She reports improvement of her nausea after the ODT Zofran. We will refill her Zofran. She reports she does still have Phenergan at home. Encourage hydration. She does appear hydrated with stable vital signs, I do not feel that further IV hydration is warranted at this time. Her symptoms are most consistent with viral etiology. We discussed supportive care. Will prescribe Tessalon Perles to help with cough. Advised more upright position his cough is worse at night when laying supine. We will refill her inhaler. Will give work note at patient request. Regard to the patient's nausea and vomiting. She is been here multiple times this year for this and reports that she has had this more so than just when she came here. I did discuss with her the possibility of cannabinoid induced hyperemesis syndrome as the patient reports she smokes 5-6 bowls of marijuana daily. She does believe that this may be the driving source of recurrent issue and is interested in cutting back. We will give her further information on this. Chest x-ray reviewed by radiologist: The heart is not enlarged. The lungs are clear and well expanded. No pleural effusion seen. Mediastinal contours appear intact. The chartIMPRESSION: That sounds him the iron is a computer questions Normal chest Discussed these findings with the patient. She did have such good relief with the nebulizer, I feel that her beginning her inhaled albuterol would likely be of great benefit. I advised that her symptoms sound viral in nature and there is no focal finding to suggest a bacterial source and the need for antibiotics. I did advise symptomatic management. I will refill her albuterol. Will prescribe Tessalon Perles. We will also prescribe Zofran as this seemed to work well for her here. She will cut back on marijuana usage with goal of cessation. I did advise that she should follow-up with her primary care for reevaluation in 1 week. She was given return precautions. She is feeling much improved at this point. All of her questions and concerns were addressed and she is agreement this plan. HPI General Mode of arrival: ambulatory. Date/Time Provider Initiated Documentation: 08/22/19 08:42. Limitations to Documentation: no limitations. Information obtained by: patient and RN notes reviewed. History of Present Illness 29 year old F presents to the emergency department with the chief complaint of URI with GI upset, described as moderate, with intensity rated at 6 (endorses sore throat). Quality is described as aching, Patient started experiencing this day(s) (URI x 3 days, N/V this AM) and it has been constant. No relieving factors improve symptom(s), No exacerbating factors reported . Patient notes cough, fever/chills (endorses chills, no fevers), loss of appetite, nausea/vomiting (currently nauseated, vomited x 3 this AM) and shortness of breath; denies chest pain, diaphoresis, headaches, rash and weakness. Patient did receive the following treatments prior to arrival, none Related Data Home Medications Medication Instructions Recorded Confirmed ProAir RespiClick 90 mcg INHALATION 2 inh q 4-6 hours 02/06/18 08/22/19 omeprazole 40 mg PO DAILY tab-cap 02/06/18 08/22/19 famotidine [Pepcid] 20 mg PO DAILY 07/07/18 08/22/19 sumatriptan succinate [Imitrex] 25 mg PO ONCE 07/07/18 08/22/19 promethazine 25 mg PO Q6H PRN #10 tab 02/22/19 08/22/19 etonogestrel 68 mg subdermal 1 implant INTRADERMAL DIRECTED 10/15/19 01/02/20 implant #1 each albuterol sulfate 2 inh IH Q4H PRN #1 each 08/22/19 benzonatate [Tessalon Perles] 100 mg PO TID PRN #14 cap 08/22/19 ondansetron 4 mg PO Q6H PRN #14 tab 08/22/19 Previous Rx's Medication Instructions Recorded promethazine 25 mg PO Q6H PRN #10 tab 02/22/19 etonogestrel 68 mg subdermal 1 implant INTRADERMAL DIRECTED 06/04/19 implant #1 each albuterol sulfate 2 inh IH Q4H PRN #1 each 08/22/19 benzonatate [Tessalon Perles] 100 mg PO TID PRN #14 cap 08/22/19 ondansetron 4 mg PO Q6H PRN #14 tab 08/22/19 Allergies Allergy/AdvReac Type Severity Reaction Status Date / Time No Known Allergies Allergy Unverified 08/22/19 08:49 General LO: 3 Review of Systems Constitutional Constitutional: Reports as per HPI, Reports chills, Reports fatigue, Denies fever(s), Denies headache(s) and Reports poor appetite Eyes Eyes: Reports as per HPI, Denies eye discharge and Denies irritation ENT Ears, Nose, Mouth, and Throat: Reports as per HPI and Denies headache(s) Cardiovascular Cardiovascular: Reports as per HPI, Denies chest pain and Reports dyspnea Respiratory Respiratory: Reports as per HPI, Reports chest congestion, Reports cough, Denies excessive phlegm production, Denies pain on inspiration, Denies pain with cough, Reports dyspnea and Reports wheezing Gastrointestinal Gastrointestinal: Reports as per HPI, Denies abdominal pain, Denies change in bowel habits, Reports nausea and Reports vomiting Genitourinary Genitourinary: Denies system reviewed and no additional complaints, except as docu, Denies abnormal vaginal bleeding, Denies dysuria, Denies flank pain, Denies urinary urgency and Denies vaginal discharge Integumentary/Breasts Skin/Breast: Reports as per HPI and Denies rash Neurologic Neurologic: Reports as per HPI and Denies headache(s) Endocrine Endocrine: Reports fatigue Allergic/Immunologic Allergic/Immunologic: Reports wheezing PFSH Medical History GERD (gastroesophageal reflux disease) (Chronic) HSV (herpes simplex virus) infection (Chronic) Migraine (Chronic) Obesity (Chronic) Palpitations (Chronic) Presence of subdermal contraceptive implant (Acute) Surgical History Open Carpal Tunnel release (Inactive) 04/08/[address] Pemberton Tonsillectomy and adenoidectomy (Inactive) Social History Smoking/Tobacco Use Status: Former Tobacco Use Alcohol Intake: never Drug use: Daily Substance use type: marijuana Do you feel safe at home: Yes Do you feel safe in your relationship?: Yes Exam Const General: cooperative, healthy appearing, comfortable, no acute distress, well developed and well groomed Nutritional Appearance: well nourished and overweight Orientation: alert and awake [facility] Head: normal to inspection, normocephalic and atraumatic Ears: hearing grossly normal bilaterally, external ears normal and TM's normal bilaterally General nose exam: external nose normal and nares normal Face and sinus: normal facial exam, sinuses nontender and face symmetric Mouth: oral mucosae normal, lip normal, tongue normal, oropharynx normal and moist mucous membranes Teeth and gingiva: dentition normal Throat: posterior oropharynx abnormal (mild erythema), tonsils normal and uvula midline Eyes General: appearance normal, both eyes and all related structures Neck Neck: normal visual inspection, full ROM, no lymphadenopathy and no meningeal signs Resp Effort & Inspection: normal respiratory effort, able to speak in complete sentences and no respiratory distress Auscultation: no rales, no rhonchi and wheezes (diffuse intermittent expiratory wheezes) Cardio Rate: regular rate Rhythm: regular rhythm Heart Sounds: S1 normal and S2 normal GI Inspection: normal to inspection Palpation: soft, no hepatosplenomegaly, not firm, no guarding, not rigid and nontender Percussion: normal to percussion Auscultation: normal bowel sounds Skin General skin exam: no rashes or lesions noted Neuro General: alert and awake Cognition: normal cognition Speech: speech normal Gait: normal gait Psych Appearance: grossly normal and well kempt Mental Status: mental status grossly normal Speech and Movement: speech and movement normal
[2019-08-22] MEDS: Ondansetron O.D.T. 4 MG TABEF PO (09:05)
[2019-08-22] MEDS: Albuterol 2.5 MG/3 ML INH SOLN VIAL UPD (09:10)
--- NOTE | 2019-08-22 09:30 | DI.RAD_ITS ---
EXAM: XR CHEST 2V PA LATERAL XR CHEST 2V PA LATERAL CLINICAL HISTORY: cough cough TECHNIQUE: 2D digital imaging was performed. COMPARISON: CHEST 2 VIEWS PA,LAT from 09/21/2017 FINDINGS: The heart is not enlarged. The lungs are clear and well expanded. No pleural effusion seen. Mediastin al contours appear intact. IMPRESSION: Normal chest
== END 2019-08-22 10:08 | disposition home or self-care (01) ==
PROVIDERS: Emergency Provider Physician Assistant; PCP Nurse Practitioner Family
DX: J06.9 Acute upper respiratory infection, unspecified (principal); R11.2 Nausea with vomiting, unspecified
CPT/HCPCS: 94640; 99284; 71046; 99283; J7613

== ENCOUNTER 2020-02-05 21:37 | Emergency (ER) | payer MEDICAID, SELFPAY ==
[2020-02-05 21:50] VITALS: PULSE 96; RESP 18; TEMP 36.6; O2SAT 98
--- NOTE | 2020-02-05 22:17 | ED.GENADUL_ITS ---
Discharge Plan Disposition Patient Disposition: HOME Condition: Stable Discharge Details Chief Complaint: Nausea/Vomit/Diar Clinical Impression: Nausea vomiting and diarrhea Primary Care Provider: Linda Mason ED Provider: Tsohia Peres Home Meds and New Rx's Prescriptions: New ondansetron HCl [Zofran] 4 mg tablet 4 mg PO Q8H PRN (Reason: nausea and vomiting) Qty: 10 RF: 0 promethazine 25 mg tablet 25 mg PO Q6H PRN (Reason: nausea and vomiting) Qty: 10 RF: 0 No Action Nexplanon 68 mg implant 1 implant Intradermal DIRECTED Qty: 1 RF: 0 omeprazole 40 MG capsule,delayed release(DR/EC) 40 mg PO DAILY RF: 0 ProAir RespiClick 90 MCG aerosol powdr breath activated 90 mcg Inhalation 2 inh q 4-6 hours RF: 0 promethazine 25 mg tablet 25 mg PO Q6H PRN (Reason: nausea and vomiting) Qty: 10 RF: 0 albuterol sulfate 90 mcg/actuation aerosol powdr breath activated 2 inh IH Q4H PRN (Reason: shortness of breath or wheezing) Qty: 1 RF: 0 benzonatate [Tessalon Perles] 100 mg capsule 100 mg PO TID PRN (Reason: cough) Qty: 14 RF: 0 ondansetron 4 mg tablet,disintegrating 4 mg PO Q6H PRN (Reason: nausea and vomiting) Qty: 14 RF: 0 sumatriptan succinate [Imitrex] 25 mg Tablet 25 mg PO ONCE RF: 0 famotidine [Pepcid] 20 mg Tablet 20 mg PO DAILY RF: 0 Discharge Instructions Instructions: Acute Nausea and Vomiting (ED) Additional Instructions: Follow up with primary care provider in 3-5 days. Return to ED sooner if any worsening or concerns. Increase oral fluids. Take medications as prescribed. Try to abstain from marijuana for approximately 3 days see if this alleviates her symptoms. Also try capsaicin topical cream which get [id number] apply to your abdomen and see if this helps nausea and vomiting. Stand Alone Forms: Work Release Referrals: Linda Mason [Primary Care Provider] - Medical Decision Making 29-year-old female presents to the ED for nausea vomiting diarrhea last 3 days. She does have a history of cyclical vomiting syndrome, GERD, migraine headaches. Patient does state that she smokes daily marijuana. She has generalized abdominal tenderness to palpation. She denies any sick contacts. Patient states she has been unable to hold anything down today. She denies any hematemesis or hematochezia. No other complaints at this time. She does state that she ran out of her ondansetron prescription and promethazine prescription. Exam: CT Abdomen And Pelvis With Contrast Exam date and time: 02/05/2020 10:39 PM Age: 29 years old Clinical indication: Nausea and vomiting; Abdominal pain; Generalized; Patient HX: N/v/d/ abd COMPARISON: CT ABD PELVIS WITH CONTRAST 02/08/2018 10:47 AM FINDINGS: Liver: Normal. No mass. Gallbladder and bile ducts: Normal. No calcified stones. No ductal dilation. Pancreas: Normal. No ductal dilation. Spleen: Normal. No splenomegaly. Adrenals: Normal. No mass. Kidneys and ureters: Normal. No hydronephrosis. Stomach and bowel: Large and small bowel loops are unremarkable. No obstruction. No edema. Appendix: No evidence of appendicitis. Intraperitoneal space: No free pelvic fluid. Vasculature: Unremarkable. No abdominal aortic aneurysm. Lymph nodes: Unremarkable. No enlarged lymph nodes. Bladder: Unremarkable as visualized. Reproductive: 3.3 cm left ovarian nonspecific cyst. No surrounding inflammation. Normal appearing uterus. Normal right ovary. Bones/joints: Unremarkable. No acute fracture. Soft tissues: Unremarkable. IMPRESSION: 1. No bowel obstruction or inflammatory bowel features. No gastric distention or outlet obstruction evident. 2. No gallstones. No biliary dilatation. 3. Normal pancreas. 4. Left ovarian 3.3 cm nonspecific cyst. Outpatient nonemergent ultrasound is recommended. Thank you for allowing us to participate in the care of your patient. Dictated and Authenticated by: Guillermo De La Cruz, 00 14: Patient has been resting comfortably with no further vomiting after 1 dose of Zofran IV here in department. CT abdomen pelvis due to WBC count of 20.24. No other signs of infection or explanation for leukocytosis. No evidence for UTI however there is large blood, 20-50 RBCs. Patient is requesting work note and prescription for Zofran and Phenergan plan is patient discharged home discussed strict return instructions, verbalized understanding. This text was generated using [employer] system, please disregard any oddities of phrase or misspellings. HPI General Mode of arrival: ambulatory . Date/Time Provider Initiated Documentation: 02/05/20 22:05 . Limitations to Documentation: no limitations . Information obtained by: patient . HPI Narrative: 29-year-old female presents to the ED for nausea vomiting diarrhea last 3 days. She does have a history of cyclical vomiting syndrome, GERD, migraine headaches. Patient does state that she smokes daily marijuana. She has generalized abdominal tenderness to palpation. She denies any sick contacts. Patient states she has been unable to hold anything down today. She denies any hematemesis or hematochezia. No other complaints at this time. She does state that she ran out of her ondansetron prescription and promethazine prescription. Related Data Home Medications Medication Instructions Recorded Confirmed ProAir RespiClick 90 mcg INHALATION 2 inh q 4-6 hours 02/06/18 02/05/20 omeprazole 40 mg PO DAILY tab-cap 02/06/18 02/05/20 famotidine [Pepcid] 20 mg PO DAILY 07/07/18 02/05/20 sumatriptan succinate [Imitrex] 25 mg PO ONCE 07/07/18 02/05/20 promethazine 25 mg PO Q6H PRN #10 tab 02/22/19 02/05/20 etonogestrel 68 mg subdermal 1 implant INTRADERMAL DIRECTED 06/04/19 02/05/20 implant #1 each albuterol sulfate 2 inh IH Q4H PRN #1 each 08/22/19 02/05/20 benzonatate [Tessalon Perles] 100 mg PO TID PRN #14 cap 08/22/19 02/05/20 ondansetron 4 mg PO Q6H PRN #14 tab 08/22/19 02/05/20 ondansetron HCl [Zofran] 4 mg PO Q8H PRN #10 tab 02/06/20 promethazine 25 mg PO Q6H PRN #10 tab 02/06/20 Previous Rx's Medication Instructions Recorded promethazine 25 mg PO Q6H PRN #10 tab 02/22/19 etonogestrel 68 mg subdermal 1 implant INTRADERMAL DIRECTED 06/04/19 implant #1 each albuterol sulfate 2 inh IH Q4H PRN #1 each 08/22/19 benzonatate [Tessalon Perles] 100 mg PO TID PRN #14 cap 08/22/19 ondansetron 4 mg PO Q6H PRN #14 tab 08/22/19 ondansetron HCl [Zofran] 4 mg PO Q8H PRN #10 tab 02/06/20 promethazine 25 mg PO Q6H PRN #10 tab 02/06/20 Allergies Allergy/AdvReac Type Severity Reaction Status Date / Time No Known Allergies Allergy Unverified 08/22/19 08:49 General Stated Complaint: Nausea/Vomit/Diar LO: 3 Review of Systems Narrative: Constitutional: Negative for weight loss, alert and oriented, well groomed, normal body habitus, appears comfortable. HEENT: Denies trauma, headaches, blurry vision, nasal discharge, sore throat, trouble swallowing. Chest: Denies chest pain, palpitations, irregular rhythm, hypertension. Respiratory: Denies Shortness of breath, cough, hemoptysis. GI: Denies constipation. Positive nausea vomiting diarrhea. Positive abdominal pain. : Denies dysuria, hematuria, flank pain, rectal bleeding. Neuro: Denies dizziness, blurry vision, weakness, syncope, headache or facial numbness. Hematologic: Denies easy bruising, intolerance to heat or cold, hair loss. PFSH Medical History GERD (gastroesophageal reflux disease) (Chronic) HSV (herpes simplex virus) infection (Chronic) Migraine (Chronic) Obesity (Chronic) Palpitations (Chronic) Presence of subdermal contraceptive implant (Acute) Surgical History Open Carpal Tunnel release (Inactive) 04/08/[address] Pemberton Tonsillectomy and adenoidectomy (Inactive) Family History Mother Diabetes Essential hypertension Hyperlipidemia Thyroid disease Grandmother Diabetes Breast cancer Grandmother Cancer Social History Smoking/Tobacco Use Status: Former Tobacco Use Alcohol Intake: never Drug use: Never Substance use type: marijuana Do you feel safe at home: Yes Do you feel safe in your relationship?: Yes Exam Narrative Exam Narrative: Constitutional: Alert and oriented x3. Appears stated age. Normal body habitus. Head: Normocephalic, no trauma. Eyes: Pupils PERRLA, Red reflex noted, EOM's intact. Eyelids symmetrical without lesions, discharge, or swelling. ENT: Bilateral TM's WNL, External ear normal to inspection, no mastoid TTP, swelling, or erythema, Nasal turbinates WNL, no nasal discharge. Normal dentition, Posterior pharynx WNL, no exudate. Chest: RRR, Normal S1, S2, distal pulses intact. Resp: Lungs clear to auscultation bilaterally, no wheezes, rales, or rhonchi. Abdominal: Generalized abdominal pain with palpation. Musculoskeletal: Normal gait, 5/5 strength to all four extremities. Skin: No suspicious rashes or lesions. Capillary refill less than 2 sec. Neurologic: Cranial nerves II-XII intact. Alert and oriented x 3. DTR's intact. Hematologic/Lymphatic: No ecchymosis, no lymphadenopathy. Course Vital Signs Vital signs: Vital Signs Temperature 36.6 C 02/05/20 21:50 Pulse 96 H 02/05/20 21:50 Respiratory Rate 18 02/05/20 21:50 Pulse Oximetry 98 02/05/20 21:50 Temperature 36.6 C 02/05/20 21:50 Temperature Source Temporal Artery Scan 02/05/20 21:50 Pulse 96 H 02/05/20 21:50 Respiratory Rate 18 02/05/20 21:50 Respiratory Effort 02/05/20 21:53 Blood Pressure Position Sitting 02/05/20 21:50 Pulse Oximetry 98 02/05/20 21:50 Oxygen Delivery Method Room Air 02/05/20 21:50 Oxygen Flow Rate 0 02/05/20 21:50 Pain Level 4 02/05/20 21:50
--- NOTE | 2020-02-05 22:30 | DI.CT_ITS ---
EXAM: CT ABDOMEN PELVIS W CLINICAL HISTORY: N/V/D abdominal pain. TECHNIQUE: Imaging Protocol: Axial computed tomography images with coronal and sagittal reformatted images were created and reviewed CONTRAST MATERIAL: Intravenous: Omnipaque 350 Contrast volume:100 ml Oral: no COMPARISON: CT ABD PELVIS WITH CONTRAST from 02/08/2018 FINDINGS: ABDOMEN: Lung Bases: Normal where visualized. Liver: Normal density. No measurable mass. Gallbladder and biliary tract: No radiodense calculus or dilation. Pancreas: Normal density, no abnormal calcifications or inflammatory process. Spleen: Normal. Kidneys: Normal size, contour and axis. No radiodense stones or obstructive uropathy. No masses seen. Adrenal glands: No masses seen. Abdominal Aorta: Abdominal portion non-dilated. PELVIS: Bladder: Symmetric distention, no gross wall thickening. Bowel: No obstruction or bowel wall thickening. No evidence of appendicitis. Peritoneal cavity: No ascites, collection or mesenteric inflammatory response. Bones: Within normal limits. Reproductive organs: Small left ovarian cyst versus dominant follicle.. Lymph nodes: Unremarkable. Impression: Unremarkable CT scan of the abdomen and pelvis. RADIATION DOSE DELIVERED: 1,082.64mGy.cm Total DLP DATA REPOSITORY: All CT scans at this facility are submitted to the National Radiology Data Registry (NRDR) Dose Index Registry (DIR) with the [employer] (A[employer]). RADIATION OPTIMIZATION: All CT scans at this facility use at least one of these dose optimization te chniques: automated exposure control; mA and/or kV adjustment per patient size (includes targeted exa ms where dose is matched to clinical indication); or iterative reconstruction.
[2020-02-05 22:32] LABS: Abs Immature Grans 0.06 k/cumm (0.0-0.09); Absolute Basophil Count 0.04 k/cumm (0.0-0.2); Absolute Eosinophil Count 0.12 k/cumm (0.0-0.7); Absolute Lymphocyte Count 1.76 k/cumm (1.2-3.4); Absolute Monocyte Count 0.87 k/cumm (0.11-0.7); Absolute Neutrophil Count 17.39 k/cumm (1.2-6.7); Basophils % 0.2; Eosinophils % 0.6; HGB 14.5 g/dL (12.0-15.5); Immature Grans % 0.3 %; Lymphocytes % 8.7; Mean Corp. HGB Concentration 33.7 g/dL (32.0-36.0); Mean Corpuscular Hemoglobin 29.1 pg (27.0-33.0); Mean Corpuscular Volume 86.3 fL (80-95); Mean Platelet Volume 11.2 fL (8.0-11.0); Monocytes % 4.3; Neutrophils % 85.9; Platelet Count 290 x1000/uL (130-400); RBC 4.98 m/cumm (4.00-5.20); RBC Distribution Width 12.5 % (11.7-14.6); White Blood Cell Count 20.24 k/cumm (4.4-10.8)
[2020-02-05 22:45] LABS: ALT 25 U/L (14-59); AST 17 U/L (15-37); Albumin 4.5 g/dL (3.4-5.0); Alkaline Phosphatase 62 U/L (46-116); Anion Gap 11.2 mmol/L (3-11); BUN 13 mg/dL (7-18); CO2 24.8 mmol/L (21.0-32.0); CREATININE 1.15 mg/dL (0.55-1.02); Calcium 9.3 mg/dL (8.5-10.1); Chloride 102 mmol/L (98-107); Glucose 128 mg/dL (74-106); Lipase 140 U/L (73-393); Potassium 3.9 mmol/L (3.5-5.1); Sodium 138 mmol/L (136-145); Total Protein 8.5 g/dL (6.4-8.2)
[2020-02-05] MEDS: Ondansetron 4 MG/2 ML VIAL IVP (22:56)
[2020-02-05] MEDS: Normal Saline - Diluent 50 ML VIAL IV (23:00)
[2020-02-05] MEDS: Omnipaque 350 MG/ML 100 ML BTL IJ (23:00)
[2020-02-05 23:40] LABS: Bilirubin Negative (Negative); Blood Large (Negative); Clarity Sl Cloudy (Clear); Glucose Negative (Negative); Ketones Negative (Negative); Leukocyte Esterase Negative (Negative); Nitrite Negative (Negative)
[2020-02-05 23:44] LABS: Bacteria Few HPF (Negative); C & S Indicated? No; Casts Negative LPF (Negative); Crystals Negative HPF (Negative); Epithelial Cells Few HPF (Negative); Mucus Negative (Negative); RBC 20-50 HPF (0-2); WBC Negative HPF (0-5)
--- NOTE | 2020-02-06 00:07 | DI.VRAD_ITS ---
PROCEDURE INFORMATION: Exam: CT Abdomen And Pelvis With Contrast Exam date and time: 02/05/2020 10:39 PM Age: 29 years old Clinical indication: Nausea and vomiting; Abdominal pain; Generalized; Patient HX: N/v/d/ abd TECHNIQUE: Imaging protocol: Computed tomography of the abdomen and pelvis with intravenous contrast. Radiation optimization: All CT scans at this facility use at least one of these dose optimization techniques: automated exposure control; mA and/or kV adjustment per patient size (includes targeted exams where dose is matched to clinical indication); or iterative reconstruction. Contrast material: OMNI 350; Contrast volume: 100 ml; Contrast route: INTRAVENOUS (IV); COMPARISON: CT ABD PELVIS WITH CONTRAST 02/08/2018 10:47 AM FINDINGS: Liver: Normal. No mass. Gallbladder and bile ducts: Normal. No calcified stones. No ductal dilation. Pancreas: Normal. No ductal dilation. Spleen: Normal. No splenomegaly. Adrenals: Normal. No mass. Kidneys and ureters: Normal. No hydronephrosis. Stomach and bowel: Large and small bowel loops are unremarkable. No obstruction. No edema. Appendix: No evidence of appendicitis. Intraperitoneal space: No free pelvic fluid. Vasculature: Unremarkable. No abdominal aortic aneurysm. Lymph nodes: Unremarkable. No enlarged lymph nodes. Bladder: Unremarkable as visualized. Reproductive: 3.3 cm left ovarian nonspecific cyst. No surrounding inflammation. Normal appearing uterus. Normal right ovary. Bones/joints: Unremarkable. No acute fracture. Soft tissues: Unremarkable. IMPRESSION: 1. No bowel obstruction or inflammatory bowel features. No gastric distention or outlet obstruction evident. 2. No gallstones. No biliary dilatation. 3. Normal pancreas. 4. Left ovarian 3.3 cm nonspecific cyst. Outpatient nonemergent ultrasound is recommended. Dictated and Authenticated by: Guillermo De La Cruz MD. Ordering:OVI Pope MD
[2020-02-06 00:16] VITALS: BP 121/59; PULSE 74; RESP 16; O2SAT 98
== END 2020-02-06 00:20 | disposition home or self-care (01) ==
PROVIDERS: Emergency Provider Registered Nurse Emergency; PCP Nurse Practitioner Family
DX: R11.2 Nausea with vomiting, unspecified (principal); R19.7 Diarrhea, unspecified; R10.84 Generalized abdominal pain; R11.15 Cyclical vomiting syndrome unrelated to migraine; K21.9 Gastro-esophageal reflux disease without esophagitis; F12.10 Cannabis abuse, uncomplicated; D72.829 Elevated white blood cell count, unspecified
CPT/HCPCS: 36415; 80053; 81025; 83690; 96374; 99285; 74177; 81003; 81015; 85025; 99284; J2405; J3490

== ENCOUNTER 2020-04-14 08:16 | Outpatient (CLI) | payer MEDICAID, SELFPAY ==
[2020-04-16 09:35] LABS: SARS-CoV-2 RNA Undetected (Undetected); SARS-CoV-2 Specimen Source Nasopharynx
== END 2020-04-14 08:36 ==
PROVIDERS: PCP Nurse Practitioner Family; Visit Provider Nurse Practitioner Family
DX: Z20.828 Contact with and (suspected) exposure to other viral communicable diseases (principal)
CPT/HCPCS: U0003

== ENCOUNTER 2020-06-20 05:07 | Emergency (ER) | payer MEDICAID, SELFPAY ==
[2020-06-20 05:11] VITALS: BP 145/94; PULSE 94; RESP 16; TEMP 36; O2SAT 98
--- NOTE | 2020-06-20 05:19 | W.ED.GENAD ---
Discharge Plan Disposition Patient Disposition: HOME Condition: Good Discharge Details Clinical Impression: Diarrhea Primary Care Provider: Linda Mason ED Provider: Cecilio Lmeus Home Meds and New Rx's Prescriptions: Continued Nexplanon 68 mg implant 1 implant Intradermal DIRECTED Qty: 1 RF: 0 omeprazole 40 MG capsule,delayed release(DR/EC) 40 mg PO DAILY RF: 0 ProAir RespiClick 90 MCG aerosol powdr breath activated 90 mcg Inhalation 2 inh q 4-6 hours RF: 0 promethazine 25 mg tablet 25 mg PO Q6H PRN (Reason: nausea and vomiting) Qty: 10 RF: 0 albuterol sulfate 90 mcg/actuation aerosol powdr breath activated 2 inh IH Q4H PRN (Reason: shortness of breath or wheezing) Qty: 1 RF: 0 benzonatate [Tessalon Perles] 100 mg capsule 100 mg PO TID PRN (Reason: cough) Qty: 14 RF: 0 sumatriptan succinate [Imitrex] 25 mg Tablet 25 mg PO ONCE RF: 0 famotidine [Pepcid] 20 mg Tablet 20 mg PO DAILY RF: 0 ondansetron HCl [Zofran] 4 mg tablet 4 mg PO Q8H PRN (Reason: nausea and vomiting) Qty: 10 RF: 0 Discharge Instructions Instructions: Acute Diarrhea (ED) Additional Instructions: Please bring back a stool sample for further testing. Please continue to take the Imodium at home as needed. Please feel free to advance your diet with small amounts of Pepto-Bismol and yogurt with live culture to revitalize your gut cheyanne. Drink plenty of fluids. If you notice any worsening of your symptoms, or any new symptoms such as vomiting, diarrhea, fever, chills, shortness of breath, chest pain, numbness, weakness, or fainting , please return immediately to the emergency department for reevaluation. Please follow up with your primary care provider as soon as possible for reassessment and reevaluation. As always, it was a pleasure participating in your medical care today. Stand Alone Forms: Work Release Referrals: Linda Mason [Primary Care Provider] - Medical Decision Making 30-year-old female presents today for evaluation of diarrhea. Patient states that for the last 2 days she has had roughly 20 episodes of diarrhea per day. It is watery, nonbloody, with no associated pain. She does admit to mild occasional cramping. This all started she states that after she went and ate [employer]. She states that she has had some coworkers with similar symptoms. She denies any vomiting. She denies any numbness tingling or weakness. She denies any antibiotics foreign travel camping or drinking from streams or ponds. She has no other complaints at this time. No other modifying factors. She has been taking Imodium and this has not been helping significantly. She has been able to drink plenty of fluids well and feels well hydrated. Exam demonstrates a well-hydrated female, vital signs stable. No signs of abdominal tenderness or acute surgical abdomen. No indication for emergent imaging. Discussed IV, fluids, and labs, but patient has deferred stating she feels well hydrated feels otherwise fine and does not need additional IV work-up at this time. I did offer stool studies, and the patient states that she just had a bowel movement and would like to take a cab home for this for further testing. Patient has requested a work note for work, I do feel this is reasonable and we will give this. This time patient feels otherwise well and would like to go home. Will recommend starting Pepto-Bismol and yogurt with live culture to reestablish gut cheyanne. Discussed red flags for which to return. At this time patient shows no signs of toxic megacolon, or acute life-threatening etiology requiring further work-up. I have extensively reviewed the treatment plan and discharge instructions with the patient. I have addressed all patient concerns at this time. The patient was made aware of what symptoms to monitor for that would warrant a return to the emergency department. Discussed the plan with the patient, they demonstrate verbal understanding and agreement with our assessment and plan at this time. Of note I did discuss with the patient the importance of following up with her PCP for follow-up with the stool study cultures. HPI General Date/Time Provider Initiated Documentation: 06/20/20 05:10. HPI Narrative: 30-year-old female presents today for evaluation of diarrhea. Patient states that for the last 2 days she has had roughly 20 episodes of diarrhea per day. It is watery, nonbloody, with no associated pain. She does admit to mild occasional cramping. This all started she states that after she went and ate [employer]. She states that she has had some coworkers with similar symptoms. She denies any vomiting. She denies any numbness tingling or weakness. She denies any antibiotics foreign travel camping or drinking from streams or ponds. She has no other complaints at this time. No other modifying factors. She has been taking Imodium and this has not been helping significantly. She has been able to drink plenty of fluids well and feels well hydrated. Related Data Home Medications Medication Instructions Recorded Confirmed ProAir RespiClick 90 mcg INHALATION 2 inh q 4-6 hours 02/06/18 02/05/20 omeprazole 40 mg PO DAILY tab-cap 02/06/18 02/05/20 famotidine [Pepcid] 20 mg PO DAILY 07/07/18 02/05/20 sumatriptan succinate [Imitrex] 25 mg PO ONCE 07/07/18 02/05/20 promethazine 25 mg PO Q6H PRN #10 tab 02/22/19 02/05/20 etonogestrel 68 mg subdermal 1 implant INTRADERMAL DIRECTED 06/04/19 02/05/20 implant #1 each albuterol sulfate 2 inh IH Q4H PRN #1 each 08/22/19 02/05/20 benzonatate [Tessalon Perles] 100 mg PO TID PRN #14 cap 08/22/19 02/05/20 ondansetron HCl [Zofran] 4 mg PO Q8H PRN #10 tab 02/06/20 Previous Rx's Medication Instructions Recorded promethazine 25 mg PO Q6H PRN #10 tab 02/22/19 etonogestrel 68 mg subdermal 1 implant INTRADERMAL DIRECTED 06/04/19 implant #1 each albuterol sulfate 2 inh IH Q4H PRN #1 each 08/22/19 benzonatate [Tessalon Perles] 100 mg PO TID PRN #14 cap 08/22/19 ondansetron HCl [Zofran] 4 mg PO Q8H PRN #10 tab 02/06/20 Allergies Allergy/AdvReac Type Severity Reaction Status Date / Time No Known Allergies Allergy Unverified 06/20/20 05:19 General Stated Complaint: Abd Prob LO: 3 Review of Systems All systems reviewed & are unremarkable except as noted in HPI and below PFSH Medical History GERD (gastroesophageal reflux disease) HSV (herpes simplex virus) infection Migraine Obesity Palpitations Presence of subdermal contraceptive implant Surgical History Open Carpal Tunnel release 04/08/[address] Pemberton Tonsillectomy and adenoidectomy Family History Mother Diabetes Essential hypertension Hyperlipidemia Thyroid disease Grandmother Diabetes Breast cancer Grandmother Cancer Social History Smoking/Tobacco Use Status: Current every day Tobacco Type: cigarettes Smoking risk assessment performed?: Yes Alcohol Intake: current Alcohol Intake frequency: holidays/special occasions only Drug use: Daily Substance use type: marijuana Do you feel safe at home: Yes Do you feel safe in your relationship?: Yes Exam Narrative Exam Narrative: 1.Const: Well-nourished, Well-developed, appearing stated age 2.Eyes: PERRL, no conjunctival injection, and symmetrical lids. 3.ENT: Atraumatic external nose and ears. Moist MM. Neck: Symmetric, trachea midline, No thyromegaly. 4.CVS: +S1/S2, No murmurs or gallops. Peripheral pulses 2+ and equal in all extremities. Brisk capillary refill in all extremities. 5.RESP: Unlabored respiratory effort. Clear to auscultation bilaterally. No wheezes rales or rhonchi 6.GI: Soft, Nontender/Nondistended, No hepatosplenomegaly. No guarding or rebound. No pain McBurney's point, negative Pete sign 7.MSK: Normocephalic/Atraumatic, Extremities w/o deformity or ttp No cyanosis or clubbing, Normal movement of all extremities 8.Skin: Warm, Dry. No rashes or lesions. 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 Sensation grossly intact, no focal neurologic deficits. 10.Psych: (AAO) x3. Appropriate mood and affect Course Vital Signs Vital signs: Vital Signs Temperature 36.0 C L 06/20/20 05:11 Pulse 94 H 06/20/20 05:11 Respiratory Rate 16 06/20/20 05:11 Blood Pressure 145/94 H 06/20/20 05:11 Pulse Oximetry 98 06/20/20 05:11 Temperature 36.0 C L 06/20/20 05:11 Temperature Source Temporal Artery Scan 06/20/20 05:11 Pulse 94 H 06/20/20 05:11 Respiratory Rate 16 06/20/20 05:11 Blood Pressure 145/94 H 06/20/20 05:11 Blood Pressure Position Sitting 06/20/20 05:11 Pulse Oximetry 98 06/20/20 05:11 Oxygen Delivery Method Room Air 06/20/20 05:11 Oxygen Flow Rate 0 06/20/20 05:11
== END 2020-06-20 05:25 | disposition home or self-care (01) ==
PROVIDERS: Emergency Provider Student in an Organized Health Care Education/Training Program; PCP Nurse Practitioner Family
DX: R19.7 Diarrhea, unspecified (principal)
CPT/HCPCS: 99282

== ENCOUNTER 2020-06-22 07:05 | Emergency (ER) | payer MEDICAID, SELFPAY ==
[2020-06-22 07:12] VITALS: BP 140/98; PULSE 80; TEMP 36.9; O2SAT 99
--- NOTE | 2020-06-22 07:20 | ED.GENADUL_ITS ---
Discharge Plan Disposition Patient Disposition: HOME Condition: Stable Discharge Details Clinical Impression: Vomiting Primary Care Provider: Linda Mason ED Provider: Odalys Pierre Home Meds and New Rx's Prescriptions: Continued Nexplanon 68 mg implant 1 implant Intradermal DIRECTED Qty: 1 RF: 0 omeprazole 40 MG capsule,delayed release(DR/EC) 40 mg PO DAILY RF: 0 ProAir RespiClick 90 MCG aerosol powdr breath activated 90 mcg Inhalation 2 inh q 4-6 hours RF: 0 albuterol sulfate 90 mcg/actuation aerosol powdr breath activated 2 inh IH Q4H PRN (Reason: shortness of breath or wheezing) Qty: 1 RF: 0 benzonatate [Tessalon Perles] 100 mg capsule 100 mg PO TID PRN (Reason: cough) Qty: 14 RF: 0 sumatriptan succinate [Imitrex] 25 mg Tablet 25 mg PO ONCE RF: 0 famotidine [Pepcid] 20 mg Tablet 20 mg PO DAILY RF: 0 ondansetron HCl [Zofran] 4 mg tablet 4 mg PO Q8H PRN (Reason: nausea and vomiting) Qty: 10 RF: 0 Discharge Instructions Instructions: Acute Nausea and Vomiting (ED) Additional Instructions: Please return immediately to the emergency department if you develop any new or worsening symptoms, if your condition does not improve as expected, or if you become otherwise concerned. It is extremely important that you call soon as possible to make an appointment to be seen in follow-up for this visit by your primary care doctor. Stand Alone Forms: Work Release Referrals: Linda Mason [Primary Care Provider] - Discharge Data Discharge Date/Time-TO BE ENTERED AT DEPARTURE: 06/22/20 12:25 Medical Decision Making <Cecilio Lemus DO - Last Filed: 06/27/20 01:36> 30-year-old female who presents for nausea vomiting. Exam demonstrates noted with benign abdomen, nontender, no evidence of an acute surgical abdomen. No evidence of tympanic bowel sounds, distention, hypoactive bowel sounds to suggest obstruction. Mucous membranes are dry. No indication for emergent imaging at this time. This time I do feel it reasonable to sergio ydrate the patient, give Zofran, treat her current symptoms. We will give Zofran, liter normal saline, monitor electrolytes, monitor closely and reassess. Patient will be signed out to my colleague Dr. Odalys Pierre. <Odalys Pierre MD - Last Filed: 06/30/20 21:12> Pt signed out to me at time of shift change by Dr. Lemus with labs, reassessment pending. Pt states to me on my assessment that her symptoms are exactly consistent with her episodic nausea/vomiting that occurs every 1-2 months, at times requiring ED visits for rehydration. Pt states that as her symptoms are expected for her and in no way atypical she would like to defer imaging. Plan for continued hydration, will monitor. Labs show WBC 10.08, normal AG, normal lipase. Pt continuing to recieve IVF, states that she is feeling improved and would like to go home. Awaiting UA. UA shows ketones, RBCs. Pt not per nursing. Currently having her period. Pt requesting d/c, states that she feels much better and would like to go home, states that she has zofran at home. I had a lengthy discussion with Patient regarding return to emergency department precautions, home care, and importance of outpatient follow-up. Pt verbalizes understanding of the plan and is amenable. Patient discharged to home with clear plan for outpatient follow- up. All questions were answered. Disposition decision was made weighing the risks and benefits of hospitalization versus outpatient treatment, the risk for further decompensation, and the patient's wishes. Medical Records Medical records reviewed: Yes I reviewed the patient's medical records. Lab Data Lab results reviewed: Yes I reviewed the patient's lab results. Labs: Laboratory Tests Range/Units 06/22/20 06/22/20 06/22/20 07:37 07:37 07:37 WBC (4.4-10.8) 10^3/uL 10.08 RBC (3.93-5.22) 10^6/uL 4.87 Hgb (11.2-15.7) g/dL 14.1 Hct (36.0-46.0) % 43.2 MCV (80-95) fL 88.7 MCH (27.0-33.0) pg 29.0 MCHC (32.0-36.0) % 32.6 RDW (11.7-14.6) % 12.3 Plt Count (130-400) 10^3/uL 315 MPV (8.0-11.0) fL 10.8 Immature Gran % 0.5 Neutrophils % 75.4 Lymphocytes % 16.0 Monocytes % 6.0 Eosinophils % 1.5 Basophils % 0.6 Nucleated RBC % % 0 Absolute Neutrophils (1.2-6.7) 10^3/uL 7.61 H Absolute Lymphocytes (1.2-3.4) 10^3/uL 1.61 Absolute Monocytes (0.1-0.8) 10^3/uL 0.60 Absolute Eosinophils (0.0-0.7) 10^3/uL 0.15 Absolute Basophils (0.0-0.2) 10^3/uL 0.06 Sodium (136-145) mmol/L 136 Potassium (3.5-5.1) mmol/L 3.7 Chloride (98-107) mmol/L 102 Carbon Dioxide (21.0-32.0) mmol/L 26.5 Anion Gap (3-11) mmol/L 7.5 BUN (7-18) mg/dL 12 Creatinine (0.55-1.02) mg/dL 0.92 Estimated GFR/1.73 m2 (mL/min/1.73m2) >= 60.00 Glucose (74-106) mg/dL 110 H Calcium (8.5-10.1) mg/dL 9.0 Total Bilirubin (0.2-1.0) mg/dL 1.2 H AST (15-37) U/L 20 ALT (14-59) U/L 23 Alkaline Phosphatase (46-116) U/L 60 Total Protein (6.4-8.2) g/dL 8.2 Albumin (3.4-5.0) g/dL 4.0 Lipase (73-393) U/L 86 Urine Color (Yellow) Urine Clarity (Clear) Urine pH (5-8) Ur Specific [place] (1.005-1.025) Urine Protein (Negative) mg/dL Urine Ketones (Negative) mg/dL Urine Blood (Negative) Urine Nitrite (Negative) Urine Bilirubin (Negative) Urine Urobilinogen (Up TO 0.2) EU/dL Ur Leukocyte Esterase (Negative) Urine RBC (0-2) HPF Urine WBC (0-5) HPF Ur Epithelial Cells (Negative) HPF Urine Crystals (Negative) HPF Urine Bacteria (Negative) HPF Urine Casts (Negative) LPF Urine Mucus (Negative) Urine Other (Negative) Ur Culture Indicated? Urine Glucose (Negative) mg/dL Range/Units 06/22/20 06/22/20 09:08 10:13 WBC (4.4-10.8) 10^3/uL RBC (3.93-5.22) 10^6/uL Hgb (11.2-15.7) g/dL Hct (36.0-46.0) % MCV (80-95) fL MCH (27.0-33.0) pg MCHC (32.0-36.0) % RDW (11.7-14.6) % Plt Count (130-400) 10^3/uL MPV (8.0-11.0) fL Immature Gran % Neutrophils % Lymphocytes % Monocytes % Eosinophils % Basophils % Nucleated RBC % % Absolute Neutrophils (1.2-6.7) 10^3/uL Absolute Lymphocytes (1.2-3.4) 10^3/uL Absolute Monocytes (0.1-0.8) 10^3/uL Absolute Eosinophils (0.0-0.7) 10^3/uL Absolute Basophils (0.0-0.2) 10^3/uL Sodium (136-145) mmol/L Potassium (3.5-5.1) mmol/L Chloride (98-107) mmol/L Carbon Dioxide (21.0-32.0) mmol/L Anion Gap (3-11) mmol/L BUN (7-18) mg/dL Creatinine (0.55-1.02) mg/dL Estimated GFR/1.73 m2 (mL/min/1.73m2) Glucose (74-106) mg/dL Calcium (8.5-10.1) mg/dL Total Bilirubin (0.2-1.0) mg/dL AST (15-37) U/L ALT (14-59) U/L Alkaline Phosphatase (46-116) U/L Total Protein (6.4-8.2) g/dL Albumin (3.4-5.0) g/dL Lipase (73-393) U/L Urine Color (Yellow) [place] Yellow Urine Clarity (Clear) Sl cloudy Clear Urine pH (5-8) 5.5 6.5 Ur Specific [place] (1.005-1.025) >= 1.030 H >= 1.030 H Urine Protein (Negative) mg/dL 30 H Negative Urine Ketones (Negative) mg/dL 15 H 80 H Urine Blood (Negative) Large H Moderate H Urine Nitrite (Negative) Negative Negative Urine Bilirubin (Negative) Small H Small H Urine Urobilinogen (Up TO 0.2) EU/dL 2.0 H >=8.0 Ur Leukocyte Esterase (Negative) Trace H Negative Urine RBC (0-2) HPF 5-10 H 3-5 H Urine WBC (0-5) HPF 10-20 H 0-2 Ur Epithelial Cells (Negative) HPF Many Moderate Urine Crystals (Negative) HPF Negative Negative Urine Bacteria (Negative) HPF Few Few Urine Casts (Negative) LPF Negative Negative Urine Mucus (Negative) Moderate Moderate Urine Other (Negative) Rare spermatozoa Ur Culture Indicated? No/sq. contamination No/sq. contamination Urine Glucose (Negative) mg/dL Negative Negative HPI <Cecilio Lemus, - Last Filed: 06/27/20 01:36> General Date/Time Provider Initiated Documentation: 06/22/20 07:13 . HPI Narrative: 30-year-old female with a past medical history of GERD, asthma, control, currently on her period, presents today for evaluation of nausea and vomiting. Patient was seen and assessed Monday 3 days ago at that time she had complaint of prolonged diarrhea. She deferred work-up at that time, and lose given the option for stool studies outpatient. Thankfully her symptoms actually resolved that day with continued Imodium use. However she states that since then her symptoms have transitioned from diarrhea to now having nausea and vomiting. She states that she has vomited 10-20 times per day for the last 2 days, she denies any blood or hematemesis. She denies any significant abdominal pain. She moved to the improvement of her symptoms with hot showers. She denies any other sick contacts. No other complaints at this time. Related Data Home Medications Medication Instructions Recorded Confirmed ProAir RespiClick 90 mcg INHALATION 2 inh q 4-6 hours 02/06/18 06/29/20 omeprazole 40 mg PO DAILY tab-cap 02/06/18 06/29/20 famotidine [Pepcid] 20 mg PO DAILY 07/07/18 06/29/20 sumatriptan succinate [Imitrex] 25 mg PO ONCE 07/07/18 06/29/20 etonogestrel 68 mg subdermal 1 implant INTRADERMAL DIRECTED 06/04/19 06/29/20 implant #1 each albuterol sulfate 2 inh IH Q4H PRN #1 each 08/22/19 06/29/20 benzonatate [Tessalon Perles] 100 mg PO TID PRN #14 cap 08/22/19 06/29/20 ondansetron HCl [Zofran] 4 mg PO Q8H PRN #10 tab 02/06/20 06/29/20 Previous Rx's Medication Instructions Recorded etonogestrel 68 mg subdermal 1 implant INTRADERMAL DIRECTED 06/04/19 implant #1 each albuterol sulfate 2 inh IH Q4H PRN #1 each 08/22/19 benzonatate [Tessalon Perles] 100 mg PO TID PRN #14 cap 08/22/19 ondansetron HCl [Zofran] 4 mg PO Q8H PRN #10 tab 02/06/20 Allergies Allergy/AdvReac Type Severity Reaction Status Date / Time No Known Allergies Allergy Unverified 06/22/20 07:15 General Stated Complaint: Nausea/Vomit/Diar LO: 3 Review of Systems <Cecilio Lemus DO - Last Filed: 06/27/20 01:36> All systems reviewed & are unremarkable except as noted in HPI and below PFSH <Cecilio Lemus DO - Last Filed: 06/27/20 01:36> Medical History GERD (gastroesophageal reflux disease) HSV (herpes simplex virus) infection Migraine Obesity Palpitations Presence of subdermal contraceptive implant Surgical History Open Carpal Tunnel release 04/08/[address] Pemberton Tonsillectomy and adenoidectomy Family History Mother Diabetes Essential hypertension Hyperlipidemia Thyroid disease Grandmother Diabetes Breast cancer Grandmother Cancer Social History Smoking/Tobacco Use Status: Current every day Tobacco Type: cigarettes Smoking risk assessment performed?: Yes Alcohol Intake: current Alcohol Intake frequency: holidays/special occasions only Drug use: Daily Substance use type: marijuana Do you feel safe at home: Yes Do you feel safe in your relationship?: Yes Exam <Cecilio Metcalf MariahDO - Last Filed: 06/27/20 01:36> Narrative Exam Narrative: 1.Const: Well-nourished, Well-developed, appearing stated age 2.Eyes: PERRL, no conjunctival injection, and symmetrical lids. 3.ENT: Atraumatic external nose and ears. Dry MM. Neck: Symmetric, trachea midline, No thyromegaly. 4.CVS: +S1/S2, No murmurs or gallops. Peripheral pulses 2+ and equal in all extremities. Brisk capillary refill in all extremities. 5.RESP: Unlabored respiratory effort. Clear to auscultation bilaterally. No wheezes rales or rhonchi 6.GI: Soft, Nontender/Nondistended, No hepatosplenomegaly. No guarding or rebound. No pain McBurney's point, negative Pete sign. 7.MSK: Normocephalic/Atraumatic, Extremities w/o deformity or ttp No cyanosis or clubbing, Normal movement of all extremities 8.Skin: Warm, Dry. No rashes or lesions. 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 Sensation grossly intact, no focal neurologic deficits. 10.Psych: (AAO) x3. Appropriate mood and affect Course <Cecilio Metcalf Mariah - Last Filed: 06/27/20 01:36> Vital Signs Vital signs: Vital Signs Temperature 36.9 C 06/22/20 07:12 Pulse 80 06/22/20 07:12 Blood Pressure 140/98 H 06/22/20 07:12 Pulse Oximetry 99 06/22/20 07:12 Temperature 36.9 C 06/22/20 07:12 Temperature Source Temporal Artery Scan 06/22/20 07:12 Pulse 80 06/22/20 07:12 Respiratory Effort Non-Labored 06/22/20 07:14 Blood Pressure 140/98 H 06/22/20 07:12 Blood Pressure Position Sitting 06/22/20 07:12 Pulse Oximetry 99 06/22/20 07:12 Oxygen Delivery Method Room Air 06/22/20 07:12 Oxygen Flow Rate 0 06/22/20 07:12 Pain Level 4 06/22/20 07:12 Sign Out <Cecilio Lemus DO - Last Filed: 06/27/20 01:36> Sign Out Data: Sign Out Comment: Nausea and vomiting for the last 2 days, requesting to hold off on CT imaging. Rehydrating, checking labs and giving Zofran. Last updated by Cecilio Lemus DO at 06/22/20 07:40
[2020-06-22] MEDS: Normal Saline 1,000 ML 1000 ML IV ×2 (07:48→09:55)
[2020-06-22] MEDS: Ondansetron 4 MG/2 ML VIAL IVP (07:48)
[2020-06-22 07:52] LABS: Abs Immature Grans 0.05 10^3/uL (0.0-0.06); Absolute Basophil Count 0.06 10^3/uL (0.0-0.2); Absolute Eosinophil Count 0.15 10^3/uL (0.0-0.7); Absolute Lymphocyte Count 1.61 10^3/uL (1.2-3.4); Absolute Neutrophil Count 7.61 10^3/uL (1.2-6.7); Basophils % 0.6; Eosinophils % 1.5; HCT 43.2 % (36.0-46.0); HGB 14.1 g/dL (11.2-15.7); Immature Grans % 0.5; MCHC 32.6 % (32.0-36.0); MCV 88.7 fL (80-95); MPV 10.8 fL (8.0-11.0); Neutrophils % 75.4; Nucleated RBC 0 %; Platelet Count 315 10^3/uL (130-400); RBC 4.87 10^6/uL (3.93-5.22); RDW 12.3 % (11.7-14.6); RDW-SD 39.8 fL; WBC 10.08 10^3/uL (4.4-10.8)
[2020-06-22 07:58] LABS: Lipase 86 U/L (73-393)
[2020-06-22 08:02] LABS: ALT 23 U/L (14-59); AST 20 U/L (15-37); Alkaline Phosphatase 60 U/L (46-116); Anion Gap 7.5 mmol/L (3-11); BUN 12 mg/dL (7-18); Bilirubin, Total 1.2 mg/dL (0.2-1.0); CO2 26.5 mmol/L (21.0-32.0); CREATININE 0.92 mg/dL (0.55-1.02); Chloride 102 mmol/L (98-107); Glucose 110 mg/dL (74-106); Potassium 3.7 mmol/L (3.5-5.1); Sodium 136 mmol/L (136-145); Total Protein 8.2 g/dL (6.4-8.2)
--- NOTE | 2020-06-22 09:10 | NUR.NOTE ---
06/22/2020 @ 0910. spoke with patient and after verifying her identity, relayed negative covid test result to her.
[2020-06-22 09:16] LABS: Bilirubin Small (Negative); Blood Large (Negative); Clarity Sl Cloudy (Clear); Glucose Negative (Negative); Ketones 15 mg/dL (Negative); Leukocyte Esterase Trace (Negative); Nitrite Negative (Negative); Specific Gravity >= 1.030 (1.005-1.025); pH 5.5 (5-8)
[2020-06-22 09:34] LABS: Bacteria Few HPF (Negative); C & S Indicated? No/Sq. Contamination; Casts Negative LPF (Negative); Crystals Negative HPF (Negative); Epithelial Cells Many HPF (Negative); Mucus Moderate (Negative)
[2020-06-22 10:17] LABS: Bilirubin Small (Negative); Blood Moderate (Negative); Clarity Clear (Clear); Glucose Negative (Negative); Ketones 80 mg/dL (Negative); Leukocyte Esterase Negative (Negative); Nitrite Negative (Negative); Specific Gravity >= 1.030 (1.005-1.025); Urobilinogen >=8.0 EU/dL (Up TO 0.2); pH 6.5 (5-8)
[2020-06-22 10:35] LABS: Bacteria Few HPF (Negative); C & S Indicated? No/Sq. Contamination; Casts Negative LPF (Negative); Crystals Negative HPF (Negative); Epithelial Cells Moderate HPF (Negative); Mucus Moderate (Negative); WBC 0-2 HPF (0-5)
== END 2020-06-22 12:25 | disposition home or self-care (01) ==
PROVIDERS: Student in an Organized Health Care Education/Training Program; Emergency Provider Student in an Organized Health Care Education/Training Program; PCP Nurse Practitioner Family
DX: R11.2 Nausea with vomiting, unspecified (principal); Z03.818 Encounter for observation for suspected exposure to other biological agents ruled out
CPT/HCPCS: 36415; 80053; 81025; 83690; 96361; 96374; 99284; 81003; 81015; 85025; J2405

== ENCOUNTER 2020-06-29 03:42 | Emergency (ER) | payer MEDICAID, SELFPAY ==
[2020-06-29 03:46] VITALS: BP 138/91; PULSE 77; RESP 16; TEMP 36.4; O2SAT 98
--- NOTE | 2020-06-29 03:55 | ED.GENADUL_ITS ---
Discharge Plan Disposition Patient Disposition: HOME Condition: Good Discharge Details Clinical Impression: Nausea & vomiting, Cyclic vomiting syndrome Primary Care Provider: Linda Mason ED Provider: Cecilio Lemus Home Meds and New Rx's Prescriptions: Continued Nexplanon 68 mg implant 1 implant Intradermal DIRECTED Qty: 1 RF: 0 omeprazole 40 MG capsule,delayed release(DR/EC) 40 mg PO DAILY RF: 0 ProAir RespiClick 90 MCG aerosol powdr breath activated 90 mcg Inhalation 2 inh q 4-6 hours RF: 0 albuterol sulfate 90 mcg/actuation aerosol powdr breath activated 2 inh IH Q4H PRN (Reason: shortness of breath or wheezing) Qty: 1 RF: 0 benzonatate [Tessalon Perles] 100 mg capsule 100 mg PO TID PRN (Reason: cough) Qty: 14 RF: 0 sumatriptan succinate [Imitrex] 25 mg Tablet 25 mg PO ONCE RF: 0 famotidine [Pepcid] 20 mg Tablet 20 mg PO DAILY RF: 0 ondansetron HCl [Zofran] 4 mg tablet 4 mg PO Q8H PRN (Reason: nausea and vomiting) Qty: 10 RF: 0 Discharge Instructions Instructions: Cyclic Vomiting Syndrome (ED) Additional Instructions: At this time your blood work is very reassuring. Your vomiting may be secondary to a virus, however there is a chance this could be something called cyclic vomiting syndrome. This is oftentimes related to chronic marijuana use. Hot s howers often help improve the symptoms. Usually the resolution is to be completely off of all cannabinoid products for greater than a month. Please continue to drink plenty of fluids at home. Take the Zofran as needed. If you notice any worsening of your symptoms, or any new symptoms such as vomiting, diarrhea, fever, chills, shortness of breath, chest pain, numbness, weakness, or fainting , please return immediately to the emergency department for reevaluation. Please follow up with your primary care provider as soon as possible for reassessment and reevaluation. As always, it was a pleasure participating in your medical care today. Stand Alone Forms: Work Release Referrals: Linda Mason [Primary Care Provider] - Medical Decision Making 30-year-old female with a past medical history of GERD, HSV, migraine, control, presents today for vomiting. Actually seen the patient about a week and a half ago, at which time she had had an episode of vomiting with some diarrhea. This eventually resolved on its own and she had complete resolution of her symptoms, her daughter then subsequently came down with a viral gastroenteritis illness, had vomiting and diarrhea and then her symptoms just resolved in the past 48 hours. In the early hours of the morning the patient again woke up and had multiple episodes of vomiting. No blood. No diarrhea. No abdominal pain. Just mild nausea. She denies any other complaints at this time. She does take hot showers this is slightly improved her symptoms. She does smoke marijuana daily. She did take Zofran at home but this did not help her symptoms. She demonstrates dry mucous membranes on exam, no abdominal tenderness or signs of acute surgical abdomen whatsoever. Will rehydrate, get basic labs, give Zofran, monitor closely and reassess. Differential again includes viral gastroenteritis, mild gastritis, or potentially cyclic vomiting syndrome. 5 AM Patient doing well, symptoms resolved, labs normal. Tolerating p.o. with no vomiting. Patient feels ready to go home. Symptoms consistent with mild gastroenteritis versus cyclic vomiting syndrome. Discussed the importance of potentially avoiding cannabis, as well as home remedies. I have extensively reviewed the treatment plan and discharge instructions with the patient. I have addressed all patient concerns at this time. The patient was made aware of what symptoms to monitor for that would warrant a return to the emergency department. Discussed the plan with the patient, they demonstrate verbal understanding and agreement with our assessment and plan at this time. HPI General Date/Time Provider Initiated Documentation: 06/29/20 03:47 . HPI Narrative: 30-year-old female with a past medical history of GERD, HSV, migraine, control, presents today for vomiting. Actually seen the patient about a week and a half ago, at which time she had had an episode of vomiting with some diarrhea. This eventually resolved on its own and she had complete resolution of her symptoms, her daughter then subsequently came down with a viral gastroenteritis illness, had vomiting and diarrhea and then her symptoms just resolved in the past 48 hours. In the early hours of the morning the patient again woke up and had multiple episodes of vomiting. No blood. No diarrhea. No abdominal pain. Just mild nausea. She denies any other complaints at this time. She does take hot showers this is slightly improved her symptoms. She does smoke marijuana daily. She did take Zofran at home but this did not help her symptoms. Related Data Home Medications Medication Instructions Recorded Confirmed ProAir RespiClick 90 mcg INHALATION 2 inh q 4-6 hours 02/06/18 06/29/20 omeprazole 40 mg PO DAILY tab-cap 02/06/18 06/29/20 famotidine [Pepcid] 20 mg PO DAILY 07/07/18 06/29/20 sumatriptan succinate [Imitrex] 25 mg PO ONCE 07/07/18 06/29/20 etonogestrel 68 mg subdermal 1 implant INTRADERMAL DIRECTED 06/04/19 06/29/20 implant #1 each albuterol sulfate 2 inh IH Q4H PRN #1 each 08/22/19 06/29/20 benzonatate [Tessalon Perles] 100 mg PO TID PRN #14 cap 08/22/19 06/29/20 ondansetron HCl [Zofran] 4 mg PO Q8H PRN #10 tab 02/06/20 06/29/20 Previous Rx's Medication Instructions Recorded etonogestrel 68 mg subdermal 1 implant INTRADERMAL DIRECTED 06/04/19 implant #1 each albuterol sulfate 2 inh IH Q4H PRN #1 each 08/22/19 benzonatate [Tessalon Perles] 100 mg PO TID PRN #14 cap 08/22/19 ondansetron HCl [Zofran] 4 mg PO Q8H PRN #10 tab 02/06/20 Allergies Allergy/AdvReac Type Severity Reaction Status Date / Time No Known Allergies Allergy Unverified 06/22/20 07:15 General Stated Complaint: Nausea/Vomit/Diar LO: 3 Review of Systems All systems reviewed & are unremarkable except as noted in HPI and below PFSH Medical History GERD (gastroesophageal reflux disease) HSV (herpes simplex virus) infection Migraine Obesity Palpitations Presence of subdermal contraceptive implant Surgical History Open Carpal Tunnel release 04/08/[address] Pemberton Tonsillectomy and adenoidectomy Family History Mother Diabetes Essential hypertension Hyperlipidemia Thyroid disease Grandmother Diabetes Breast cancer Grandmother Cancer Social History Smoking/Tobacco Use Status: Current every day Tobacco Type: cigarettes Smoking risk assessment performed?: Yes Alcohol Intake: current Alcohol Intake frequency: holidays/special occasions only Drug use: Daily Substance use type: marijuana Do you feel safe at home: Yes Do you feel safe in your relationship?: Yes Exam Narrative Exam Narrative: 1.Const: Well-nourished, Well-developed, appearing stated age 2.Eyes: PERRL, no conjunctival injection, and symmetrical lids. 3.ENT: Atraumatic external nose and ears. Dry MM. Neck: Symmetric, trachea midline, No thyromegaly. 4.CVS: +S1/S2, No murmurs or gallops. Peripheral pulses 2+ and equal in all extremities. Brisk capillary refill in all extremities. 5.RESP: Unlabored respiratory effort. Clear to auscultation bilaterally. No wheezes rales or rhonchi 6.GI: Soft, Nontender/Nondistended, No hepatosplenomegaly. No guarding or rebound. No pain at McBurney point, negative Pete sign 7.MSK: Normocephalic/Atraumatic, Extremities w/o deformity or ttp No cyanosis or clubbing, Normal movement of all extremities 8.Skin: Warm, Dry. No rashes or lesions. 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 Sensation grossly intact, no focal neurologic deficits. 10.Psych: (AAO) x3. Appropriate mood and affect Course Vital Signs Vital signs: Vital Signs Temperature 36.4 C L 06/29/20 03:46 Pulse 77 06/29/20 03:46 Respiratory Rate 16 06/29/20 03:46 Blood Pressure 138/91 H 06/29/20 03:46 Pulse Oximetry 98 06/29/20 03:46 Temperature 36.4 C L 06/29/20 03:46 Temperature Source Skin 06/29/20 03:46 Pulse 77 06/29/20 03:46 Respiratory Rate 16 06/29/20 03:46 Blood Pressure 138/91 H 06/29/20 03:46 Blood Pressure Position Sitting 06/29/20 03:46 Pulse Oximetry 98 06/29/20 03:46 Pain Level 0 06/29/20 03:46
[2020-06-29] MEDS: Normal Saline 1,000 ML 1000 ML IV (04:11)
[2020-06-29] MEDS: Ondansetron 4 MG/2 ML VIAL IVP (04:12)
[2020-06-29 04:19] LABS: Abs Immature Grans 0.04 10^3/uL (0.0-0.06); Absolute Basophil Count 0.07 10^3/uL (0.0-0.2); Absolute Eosinophil Count 0.32 10^3/uL (0.0-0.7); Absolute Lymphocyte Count 1.76 10^3/uL (1.2-3.4); Absolute Monocyte Count 0.61 10^3/uL (0.1-0.8); Absolute Neutrophil Count 7.37 10^3/uL (1.2-6.7); Basophils % 0.7; Eosinophils % 3.1; HCT 38.7 % (36.0-46.0); HGB 12.6 g/dL (11.2-15.7); Immature Grans % 0.4; Lymphocytes % 17.3; MCHC 32.6 % (32.0-36.0); MCV 89.2 fL (80-95); MPV 11.2 fL (8.0-11.0); Neutrophils % 72.5; Nucleated RBC 0 %; Platelet Count 277 10^3/uL (130-400); RBC 4.34 10^6/uL (3.93-5.22); RDW 12.4 % (11.7-14.6); RDW-SD 40.6 fL; WBC 10.17 10^3/uL (4.4-10.8)
[2020-06-29 04:36] LABS: ALT 18 U/L (14-59); AST 15 U/L (15-37); Albumin 3.6 g/dL (3.4-5.0); Alkaline Phosphatase 53 U/L (46-116); Anion Gap 9.3 mmol/L (3-11); BUN 9 mg/dL (7-18); Bilirubin, Total 0.4 mg/dL (0.2-1.0); CO2 26.7 mmol/L (21.0-32.0); CREATININE 0.92 mg/dL (0.55-1.02); Calcium 8.7 mg/dL (8.5-10.1); Chloride 104 mmol/L (98-107); Glucose 113 mg/dL (74-106); Lipase 132 U/L (73-393); Potassium 3.9 mmol/L (3.5-5.1); Sodium 140 mmol/L (136-145); Total Protein 7.4 g/dL (6.4-8.2)
[2020-06-29 04:58] VITALS: BP 120/70; PULSE 70; RESP 16; O2SAT 100
== END 2020-06-29 05:05 | disposition home or self-care (01) ==
LOC: ER 04:49
PROVIDERS: Emergency Provider Student in an Organized Health Care Education/Training Program; PCP Nurse Practitioner Family
DX: R11.2 Nausea with vomiting, unspecified (principal); R11.15 Cyclical vomiting syndrome unrelated to migraine; F12.10 Cannabis abuse, uncomplicated
CPT/HCPCS: 80053; 83690; 96361; 96374; 99284; 85025; 99283; J2405

== ENCOUNTER 2020-07-18 02:56 | Emergency (ER) | payer MEDICAID, SELFPAY ==
[2020-07-18 03:01] VITALS: BP 130/86; PULSE 70; RESP 16; TEMP 36.5; O2SAT 99
--- NOTE | 2020-07-18 03:51 | ED.GENADUL_ITS ---
Discharge Plan Disposition Patient Disposition: HOME Condition: Good Discharge Details Clinical Impression: Nausea & vomiting Primary Care Provider: Linda Mason ED Provider: Junaid Mohamud Home Meds and New Rx's Prescriptions: Continued Nexplanon 68 mg implant 1 implant Intradermal DIRECTED Qty: 1 RF: 0 omeprazole 40 MG capsule,delayed release(DR/EC) 40 mg PO DAILY RF: 0 ProAir RespiClick 90 MCG aerosol powdr breath activated 90 mcg Inhalation 2 inh q 4-6 hours RF: 0 albuterol sulfate 90 mcg/actuation aerosol powdr breath activated 2 inh IH Q4H PRN (Reason: shortness of breath or wheezing) Qty: 1 RF: 0 benzonatate [Tessalon Perles] 100 mg capsule 100 mg PO TID PRN (Reason: cough) Qty: 14 RF: 0 sumatriptan succinate [Imitrex] 25 mg Tablet 25 mg PO ONCE RF: 0 famotidine [Pepcid] 20 mg Tablet 20 mg PO DAILY RF: 0 ondansetron HCl [Zofran] 4 mg tablet 4 mg PO Q8H PRN (Reason: nausea and vomiting) Qty: 10 RF: 0 Discharge Instructions Instructions: Acute Nausea and Vomiting (ED) Additional Instructions: Clear liquids until able to tolerate and advance slowly. May repeat zofran is necessary. Follow-up with primary care if continued symptoms over the weekend. Return to ED for persistent vomiting, abdominal pain, spiking fevers. Referrals: Linda Mason [Primary Care Provider] - Medical Decision Making Patient reports continued nausea despite taking Zofran at home before coming in. Patient has history of multiple visits to the ED for nausea vomiting. States that she stopped smoking marijuana since her last visit. Has a benign abdomen and otherwise looks well. IV was placed. CMP ordered. Fluids and Compazine ordered. CMP hemolyzed. Patient did receive Compazine and some of the fluid. However, her mother called stating that she had to go into work. Patient therefore reque sted discharge as there was no one home to watch her children. She did report feeling better. Repeat CMP not obtained. Patient discharged at her request. Medical Records Medical records reviewed: Yes I reviewed the patient's medical records. HPI General Mode of arrival: ambulatory . Date/Time Provider Initiated Documentation: 07/18/20 03:51 . Limitations to Documentation: no limitations . Information obtained by: patient, RN notes reviewed and old records reviewed . HPI Narrative: Patient presents to ED with complaint of nausea, vomiting and diarrhea. Patient reports diarrhea for the last couple of days. It does seem to be getting better but tonight she developed vomiting about 6 hours prior to arrival. She has nausea but no real abdominal pain. No fever that she is aware of. No Covid exposure. No respiratory symptoms. No loss of smell or taste. She has had multiple visits to this ED for similar complaints. Reports that she stopped using marijuana since her last visit. Reports that mother has had vomiting and diarrhea earlier this week. Related Data Home Medications Medication Instructions Recorded Confirmed ProAir RespiClick 90 mcg INHALATION 2 inh q 4-6 hours 02/06/18 06/29/20 omeprazole 40 mg PO DAILY tab-cap 02/06/18 06/29/20 famotidine [Pepcid] 20 mg PO DAILY 07/07/18 06/29/20 sumatriptan succinate [Imitrex] 25 mg PO ONCE 07/07/18 06/29/20 etonogestrel 68 mg subdermal 1 implant INTRADERMAL DIRECTED 06/04/19 06/29/20 implant #1 each albuterol sulfate 2 inh IH Q4H PRN #1 each 08/22/19 06/29/20 benzonatate [Tessalon Perles] 100 mg PO TID PRN #14 cap 08/22/19 06/29/20 ondansetron HCl [Zofran] 4 mg PO Q8H PRN #10 tab 02/06/20 06/29/20 Previous Rx's Medication Instructions Recorded etonogestrel 68 mg subdermal 1 implant INTRADERMAL DIRECTED 06/04/19 implant #1 each albuterol sulfate 2 inh IH Q4H PRN #1 each 08/22/19 benzonatate [Tessalon Perles] 100 mg PO TID PRN #14 cap 08/22/19 ondansetron HCl [Zofran] 4 mg PO Q8H PRN #10 tab 02/06/20 Allergies Allergy/AdvReac Type Severity Reaction Status Date / Time No Known Allergies Allergy Unverified 06/22/20 07:15 General Stated Complaint: Nausea/Vomit/Diar LO: 3 Review of Systems Narrative: As documented in HPI otherwise negative as below. Const: no fever, chills, weakness Resp: no cough, SOB, pleuritic pain CV: no CP, diaphoresis, edema, syncope GI: no abdominal pain Neuro: no headache, numbness, focal weakness, confusion PFSH Medical History GERD (gastroesophageal reflux disease) HSV (herpes simplex virus) infection Migraine Obesity Palpitations Presence of subdermal contraceptive implant Surgical History Open Carpal Tunnel release 04/08/[address] Pemberton Tonsillectomy and adenoidectomy Family History Mother Diabetes Essential hypertension Hyperlipidemia Thyroid disease Grandmother Diabetes Breast cancer Grandmother Cancer Social History Smoking/Tobacco Use Status: Current every day Tobacco Type: cigarettes Smoking risk assessment performed?: Yes Alcohol Intake: current Alcohol Intake frequency: holidays/special occasions only Drug use: Daily Substance use type: marijuana Do you feel safe at home: Yes Do you feel safe in your relationship?: Yes Exam Narrative Exam Narrative: Const: Obese female in NAD. HEENT: NC/AT. Normal facial exam. Eyes: Normal conjunctiva and sclera. Neck: Supple. Trachea midline. Lungs: Normal respiratory effort. Lungs are clear. Cor: RRR without murmur/gallop. Good radial pulses. GI: Soft. NT/ND. No guarding or rebound. Neuro: A+O x 3. Normal speech, mentation, gait. Cranial nerves II - XII g rossly intact. No gross motor or sensory deficit. Ext: No C/C/E. Skin: Warm and dry without rash. Course Vital Signs Vital signs: Vital Signs Temperature 97.7 F 07/18/20 03:01 Pulse 70 07/18/20 03:01 Respiratory Rate 16 07/18/20 03:01 Blood Pressure 130/86 07/18/20 03:01 Pulse Oximetry 99 07/18/20 03:01 Temperature 97.7 F 07/18/20 03:01 Temperature Source Skin 07/18/20 03:01 Pulse 70 07/18/20 03:01 Respiratory Rate 16 07/18/20 03:01 Respiratory Effort Non-Labored 07/18/20 03:15 Blood Pressure 130/86 07/18/20 03:01 Pulse Oximetry 99 07/18/20 03:01 Oxygen Delivery Method Room Air 07/18/20 03:01 Oxygen Flow Rate 0 07/18/20 03:01 Pain Level 0 07/18/20 03:01
[2020-07-18] MEDS: Lactated Ringers 1,000 ML 1000 ML IV (04:11)
[2020-07-18] MEDS: Prochlorperazine 10 MG/2 ML VIAL IVP (04:11)
== END 2020-07-18 04:30 | disposition home or self-care (01) ==
PROVIDERS: Emergency Provider Emergency Medicine; PCP Nurse Practitioner Family
DX: R11.2 Nausea with vomiting, unspecified (principal); R19.7 Diarrhea, unspecified
CPT/HCPCS: 36415; 80053; 81025; 96361; 96374; 99284; J0780

== ENCOUNTER 2020-10-08 10:08 | Emergency (ER) | payer MEDICAID, SELFPAY ==
[2020-10-08 10:10] VITALS: BP 161/92; PULSE 71; TEMP 36.6; O2SAT 99
--- NOTE | 2020-10-08 10:15 | DI.RAD_ITS ---
EXAM: XR RIBS RT W PA LAT CHEST CLINICAL HISTORY: s/p fall onto R side, r/o fx. TECHNIQUE: 2D digital imaging was performed. COMPARISON: CR XR CHEST 2V PA LATERAL from 08/22/2019 FINDINGS: There are no obvious right rib fractures identified on these right rib views. No lung contusion or p neumothorax. No pleural effusion. Lungs are clear. Heart size normal. No mediastinal widening IMPRESSION: No significant pulmonary findings. No pneumothorax. No obvious rib fractures. DATA REPOSITORY: RADIATION DOSE DELIVERED:
--- NOTE | 2020-10-08 10:24 | W.ED.GENAD ---
Discharge Plan Disposition Patient Disposition: HOME Condition: Stable Discharge Details Clinical Impression: Fracture of proximal phalanx of digit of right hand, Sprain of shoulder, right Primary Care Provider: Linda Mason ED Provider: Adriana Dos Santos Home Meds and New Rx's Prescriptions: Continued Nexplanon 68 mg implant 1 implant Intradermal DIRECTED Qty: 1 RF: 0 omeprazole 40 MG capsule,delayed release(DR/EC) 40 mg PO DAILY RF: 0 ProAir RespiClick 90 MCG aerosol powdr breath activated 90 mcg Inhalation 2 inh q 4-6 hours RF: 0 albuterol sulfate 90 mcg/actuation aerosol powdr breath activated 2 inh IH Q4H PRN (Reason: shortness of breath or wheezing) Qty: 1 RF: 0 benzonatate [Tessalon Perles] 100 mg capsule 100 mg PO TID PRN (Reason: cough) Qty: 14 RF: 0 sumatriptan succinate [Imitrex] 25 mg Tablet 25 mg PO DIRECTED PRNRF: 0 famotidine [Pepcid] 20 mg Tablet 20 mg PO DAILY RF: 0 ondansetron HCl [Zofran] 4 mg tablet 4 mg PO Q8H PRN (Reason: nausea and vomiting) Qty: 10 RF: 0 Discharge Instructions Instructions: Finger Fracture (ED), Shoulder Sprain (ED) Additional Instructions: Rest, ice, and elevate the affected area as much as possible. Alternate tylenol and motrin as needed and directed for pain. Take the tramadol for pain not relieved with Tylenol or ibuprofen. Call the orthopedist office today to schedule a follow-up appointment for reevaluation within the next week. Return immediately to the emergency department if you develop any worsening or new concerning symptoms. Stand Alone Forms: Work Release Referrals: Trino Chavez MD [ [facility] STAFF PHYSICIAN] - Discharge Data Discharge Physician: Adriana Dos Santos Medical Decision Making 30 old female presents with right shoulder and hand pain status post fall onto her right upper extremity onto ice yesterday. She has tenderness palpation overlying the right mid to distal clavicle, right shoulder, right scapula, right trapezius and right anterior lateral shoulder. She also has edema and ecchymosis of the right dorsal and volar hand. There is no deformity. She has neurovascular intact. She has fairly good range of motion at the right shoulder so doubt proximal humerus fracture. Will refer for x-rays and give a dose of Tylenol and place Lidoderm patch and reassess. Right shoulder, clavicle, scapula, ribs x-rays negative. Right hand x-ray notes a right fourth proximal phalanx fracture. X-rays reviewed with Dr. Chavez and agrees with plan for volar splint. Volar splint placed at bedside. Patient placed on orthopedic follow-up list. She was given 2 tabs of tramadol ago. Instructed on the importance of RICE. Usual and customary return precautions given prior to discharge. Medical Records Medical records reviewed: Yes I reviewed the patient's medical records. Imaging Data Radiologic Study: Radiologist's impression: XR RIBS RT W PA LAT CHEST CLINICAL HISTORY: s/p fall onto R side, r/o fx. TECHNIQUE: 2D digital imaging was performed. COMPARISON: CR XR CHEST 2V PA LATERAL from 08/22/2019 FINDINGS: There are no obvious right rib fractures identified on these right rib views. No lung contusion or pneumothorax. No pleural effusion. Lungs are clear. Heart size normal. No mediastinal widening IMPRESSION: No significant pulmonary findings. No pneumothorax. No obvious rib fractures. XR SHOULDER RT COMPLETE 2+V CLINICAL HISTORY: s/p fall, r/o acute fx. TECHNIQUE: 2D digital imaging was performed. COMPARISON: No exams were available for comparison FINDINGS: There is no evidence fracture or dislocation no abnormal soft tissue calcifications. Subacromial space is not diminished. AC joint is not distracted. No obvious clavicle fracture IMPRESSION: No fractures evident in the right shoulder. XR HAND RT COMPLETE CLINICAL HISTORY: s/p fall onto R arm, r/o fx. TECHNIQUE: 2D digital imaging was performed. COMPARISON: CR,XR XR THUMB LT from 06/07/2019 FINDINGS: There is a fracture on the medial aspect of the base of the proximal phalanx of the 4th-ring finger. This violates the metacarpophalangeal joint surface. There is overlying soft tissue swelling. No radiopaque foreign body. IMPRESSION: There is a fracture at the base of the proximal phalanx of the 4th finger. HPI General Mode of arrival: ambulatory. Date/Time Provider Initiated Documentation: 10/08/20 10:12. Limitations to Documentation: no limitations. Information obtained by: patient. HPI Narrative: Patient is a 30-year-old female who presents to the ED with complaint of right shoulder and hand pain after slip and fall onto ice yesterday. Patient states she fell onto her outstretched right arm. She took ibuprofen 2 hours ago. She denies head injury, LOC or vomiting. She denies difficulty breathing or abdominal pain. Related Data Home Medications Medication Instructions Recorded Confirmed ProAir RespiClick 90 mcg INHALATION 2 inh q 4-6 hours 02/06/18 10/08/20 omeprazole 40 mg PO DAILY tab-cap 02/06/18 10/08/20 famotidine [Pepcid] 20 mg PO DAILY 07/07/18 10/08/20 sumatriptan succinate [Imitrex] 25 mg PO DIRECTED PRN 07/07/18 10/08/20 etonogestrel 68 mg subdermal 1 implant INTRADERMAL DIRECTED 06/04/19 10/08/20 implant #1 each albuterol sulfate 2 inh IH Q4H PRN #1 each 08/22/19 10/08/20 benzonatate [Tessalon Perles] 100 mg PO TID PRN #14 cap 08/22/19 10/08/20 ondansetron HCl [Zofran] 4 mg PO Q8H PRN #10 tab 02/06/20 10/08/20 Previous Rx's Medication Instructions Recorded etonogestrel 68 mg subdermal 1 implant INTRADERMAL DIRECTED 06/04/19 implant #1 each albuterol sulfate 2 inh IH Q4H PRN #1 each 08/22/19 benzonatate [Tessalon Perles] 100 mg PO TID PRN #14 cap 08/22/19 ondansetron HCl [Zofran] 4 mg PO Q8H PRN #10 tab 02/06/20 Allergies Allergy/AdvReac Type Severity Reaction Status Date / Time No Known Allergies Allergy Unverified 10/08/20 10:16 General Stated Complaint: Orthopedic LO: 3 Review of Systems All systems reviewed & are unremarkable except as noted in HPI and below Constitutional Constitutional: Reports as per HPI, Denies chills and Denies fever(s) Eyes Eyes: Denies blurry vision ENT Ears, Nose, Mouth, and Throat: Denies dizziness, Denies sore throat and Denies throat swelling Cardiovascular Cardiovascular: Denies chest pain and Denies dyspnea Respiratory Respiratory: Denies cough and Denies dyspnea Gastrointestinal Gastrointestinal: Denies abdominal pain, Denies diarrhea and Denies vomiting Genitourinary Genitourinary: Denies hematuria and Denies dysuria Musculoskeletal Musculoskeletal: Denies back pain, Denies numbness and Reports other (R clavicle/shoulder/rib/hand pain) Integumentary/Breasts Skin/Breast: Denies lesions and Denies rash Neurologic Neurologic: Denies dizziness, Denies localized weakness and Denies numbness Allergic/Immunologic Allergic/Immunologic: Denies throat swelling PFSH Medical History GERD (gastroesophageal reflux disease) HSV (herpes simplex virus) infection Migraine Obesity Palpitations Presence of subdermal contraceptive implant Surgical History Open Carpal Tunnel release 04/08/[address] Pemberton Tonsillectomy and adenoidectomy Family History Mother Diabetes Essential hypertension Hyperlipidemia Thyroid disease Grandmother Diabetes Breast cancer Grandmother Cancer Social History Smoking/Tobacco Use Status: Current every day Tobacco Type: cigarettes Smoking risk assessment performed?: Yes Alcohol Intake: current Alcohol Intake frequency: holidays/special occasions only Drug use: Daily Substance use type: marijuana Do you feel safe at home: Yes Do you feel safe in your relationship?: Yes Exam Const General: cooperative, healthy appearing and no acute distress [place] Head: normal to inspection Mouth: oral mucosae normal Eyes General: appearance normal, both eyes and all related structures Neck Neck: normal visual inspection Chest Chest/axillae images: 1. Tenderness to palpation to right anterior superior chest. No crepitus, ecchymosis, edema, or open wounds. Resp Effort & Inspection: normal respiratory effort and able to speak in complete sentences Cardio Rate: regular rate Skin General skin exam: no rashes or lesions noted Neuro General: patient alert, patient awake and patient oriented x3 Motor: muscle tone normal throughout Extrem General: normal to inspection and full ROM Shoulder/upper arm images: 1. Tender to palpation of the mid to distal clavicle. 2. Tenderness palpation overlying right trapezius. 3. Tenderness to palpation overlying right superior scapula. 4. Tender to palpation to right anterior lateral shoulder. Hand/finger images: 1. Tenderness, edema, ecchymosis 2. Tenderness, edema, ecchymosis. Other: She has fairly good active range of motion of right shoulder. There is no right shoulder deformity noted. There is no right snuffbox tenderness. She has normal range of motion at the right wrist and elbow. Right radial and ulnar pulses intact. Psych Appearance: grossly normal Affect: normal affect Course Vital Signs Vital signs: Vital Signs Temperature 97.9 F 10/08/20 10:10 Pulse 71 10/08/20 10:10 Blood Pressure 161/92 H 10/08/20 10:10 Pulse Oximetry 99 10/08/20 10:10 Temperature 97.9 F 10/08/20 10:10 Temperature Source Temporal Artery Scan 10/08/20 10:10 Pulse 71 10/08/20 10:10 Respiratory Effort Non-Labored 10/08/20 10:15 Blood Pressure 161/92 H 10/08/20 10:10 Blood Pressure Position Sitting 10/08/20 10:10 Pulse Oximetry 99 10/08/20 10:10 Oxygen Delivery Method Room Air 10/08/20 10:10 Oxygen Flow Rate 0 10/08/20 10:10 Pain Level 8 10/08/20 10:10 Procedures Orthopedic Splinting/Casting Injury #1: Side: right Upper Extremity Injury Location: finger Upper Extremity Immobilizer: volar splint
--- NOTE | 2020-10-08 10:30 | DI.RAD_ITS ---
EXAM: XR HAND RT COMPLETE CLINICAL HISTORY: s/p fall onto R arm, r/o fx. TECHNIQUE: 2D digital imaging was performed. COMPARISON: CR,XR XR THUMB LT from 06/07/2019 FINDINGS: There is a fracture on the medial aspect of the base of the proximal phalanx of the 4th-ring finger. This violates the metacarpophalangeal joint surface. There is overlying soft tissue swelling. No r adiopaque foreign body. IMPRESSION: There is a fracture at the base of the proximal phalanx of the 4th finger. DATA REPOSITORY: RADIATION DOSE DELIVERED:
--- NOTE | 2020-10-08 10:30 | DI.RAD_ITS ---
EXAM: XR SHOULDER RT COMPLETE 2+V CLINICAL HISTORY: s/p fall, r/o acute fx. TECHNIQUE: 2D digital imaging was performed. COMPARISON: No exams were available for comparison FINDINGS: There is no evidence fracture or dislocation no abnormal soft tissue calcifications. Subacromial spa ce is not diminished. AC joint is not distracted. No obvious clavicle fracture IMPRESSION: No fractures evident in the right shoulder. DATA REPOSITORY: RADIATION DOSE DELIVERED:
[2020-10-08] MEDS: Lidocaine 5% Patch 1 PATCH TP (10:55)
[2020-10-08] MEDS: Acetaminophen 325 MG TAB 650 MG PO (10:55)
[2020-10-08 12:01] VITALS: BP 141/91; PULSE 72; RESP 20; TEMP 36.6; O2SAT 100
== END 2020-10-08 12:17 | disposition home or self-care (01) ==
PROVIDERS: Emergency Provider Physician Assistant; PCP Nurse Practitioner Family
DX: S62.644A Nondisplaced fracture of proximal phalanx of right ring finger, initial encounter for closed fracture (principal); S43.401A Unspecified sprain of right shoulder joint, initial encounter; R07.81 Pleurodynia; W00.0XXA Fall on same level due to ice and snow, initial encounter
CPT/HCPCS: 29105; 81025; 99284; 71046; 71100; 73030; 73130

== ENCOUNTER 2020-12-04 04:35 | Emergency (ER) | payer MEDICAID, SELFPAY ==
[2020-12-04 04:38] VITALS: BP 164/93; PULSE 77; RESP 16; TEMP 36.6; O2SAT 100
--- NOTE | 2020-12-04 04:44 | ED.GENADUL_ITS ---
Discharge Plan Disposition Patient Disposition: HOME Condition: Improving Discharge Details Clinical Impression: Cannabinoid hyperemesis syndrome Primary Care Provider: Linda Mason ED Provider: Junaid Mohamud Home Meds and New Rx's Prescriptions: Continued Nexplanon 68 mg implant 1 implant Intradermal DIRECTED Qty: 1 RF: 0 omeprazole 40 MG capsule,delayed release(DR/EC) 40 mg PO DAILY RF: 0 ProAir RespiClick 90 MCG aerosol powdr breath activated 90 mcg Inhalation 2 inh q 4-6 hours RF: 0 albuterol sulfate 90 mcg/actuation aerosol powdr breath activated 2 inh IH Q4H PRN (Reason: shortness of breath or wheezing) Qty: 1 RF: 0 benzonatate [Tessalon Perles] 100 mg capsule 100 mg PO TID PRN (Reason: cough) Qty: 14 RF: 0 sumatriptan succinate [Imitrex] 25 mg Tablet 25 mg PO DIRECTED PRNRF: 0 famotidine [Pepcid] 20 mg Tablet 20 mg PO DAILY RF: 0 ondansetron HCl [Zofran] 4 mg tablet 4 mg PO Q8H PRN (Reason: nausea and vomiting) Qty: 10 RF: 0 Discharge Instructions Instructions: Acute Nausea and Vomiting (ED) Additional Instructions: You should consider discontinuing use of marijuana. Clear liquid/bland diet for today. Follow-up with primary care next week if continued problems. Return to ED for fever, abdominal pain, persistent vomiting. Referrals: Linda Mason [Primary Care Provider] - Medical Decision Making Patient presenting with nausea/vomiting since after midnight. History of si milar event with ED visits in the past. Is a daily marijuana smoker. Has a benign abdomen. test is negative. Has not had prolonged emesis only a few hours. With prior history of same, do not feel laboratory studies indicated. Will treat with IM promethazine and reevaluate. 05:30 -patient feeling better and tolerating oral liquids. Mother will come and pick her up as she is quite sleepy from the medication. Follow-up with primary care as needed. Return to ED if problems. Medical Records Medical records reviewed: Yes I reviewed the patient's medical records. HPI General Mode of arrival: ambulatory . Date/Time Provider Initiated Documentation: 12/04/20 04:44 . Limitations to Documentation: no limitations . Information obtained by: patient and RN notes reviewed . HPI Narrative: Patient presents to ED with complaint of nausea and vomiting onset after midnight today. She has previous ED visits for same. She continues to smoke marijuana on a daily basis. She did try her Zofran at home prior to coming in. She has no abdominal pain just discomfort from vomiting. She has no fever, cough, shortness of breath, chest pain. No real diarrhea. Related Data Home Medications Medication Instructions Recorded Confirmed ProAir RespiClick 90 mcg INHALATION 2 inh q 4-6 hours 02/06/18 10/08/20 omeprazole 40 mg PO DAILY tab-cap 02/06/18 10/08/20 famotidine [Pepcid] 20 mg PO DAILY 07/07/18 10/08/20 sumatriptan succinate [Imitrex] 25 mg PO DIRECTED PRN 07/07/18 10/08/20 etonogestrel 68 mg subdermal 1 implant INTRADERMAL DIRECTED 06/04/19 10/08/20 implant #1 each albuterol sulfate 2 inh IH Q4H PRN #1 each 08/22/19 10/08/20 benzonatate [Tessalon Perles] 100 mg PO TID PRN #14 cap 08/22/19 10/08/20 ondansetron HCl [Zofran] 4 mg PO Q8H PRN #10 tab 02/06/20 10/08/20 Previous Rx's Medication Instructions Recorded etonogestrel 68 mg subdermal 1 implant INTRADERMAL DIRECTED 06/04/19 implant #1 each albuterol sulfate 2 inh IH Q4H PRN #1 each 08/22/19 benzonatate [Tessalon Perles] 100 mg PO TID PRN #14 cap 08/22/19 ondansetron HCl [Zofran] 4 mg PO Q8H PRN #10 tab 02/06/20 Allergies Allergy/AdvReac Type Severity Reaction Status Date / Time No Known Allergies Allergy Unverified 10/08/20 10:16 General Stated Complaint: Nausea/Vomit/Diar LO: 4 Review of Systems Narrative: As documented in HPI otherwise negative as below. Const: no fever, chills, weakness Resp: no cough, SOB, pleuritic pain CV: no CP, diaphoresis, edema, syncope GI: no abdominal pain, diarrhea Neuro: no headache, numbness, focal weakness, confusion PFSH Medical History GERD (gastroesophageal reflux disease) HSV (herpes simplex virus) infection Migraine Obesity Palpitations Presence of subdermal contraceptive implant Surgical History Open Carpal Tunnel release 04/08/[address] Pemberton Tonsillectomy and adenoidectomy Family History Mother Diabetes Essential hypertension Hyperlipidemia Thyroid disease Grandmother Diabetes Breast cancer Grandmother Cancer Social History Smoking/Tobacco Use Status: Current every day Tobacco Type: cigarettes Smoking risk assessment performed?: Yes Alcohol Intake: current Alcohol Intake frequency: holidays/special occasions only Drug use: Daily Substance use type: marijuana Do you feel safe at home: Yes Do you feel safe in your relationship?: Yes Exam Narrative Exam Narrative: Const: WDWN female in NAD. HEENT: NC/AT. Normal facial exam. Eyes: Normal conjunctiva and sclera. Neck: Supple. Trachea midline. Lungs: Normal respiratory effort. Cor: RRR. Good radial pulses. GI: Soft. NT/ND. No guarding or rebound. Neuro: A+O x 3. Normal speech, mentation, gait. Cranial nerves II - XII grossly intact. No gross motor or sensory deficit. Skin: Warm and dry without rash. Course Vital Signs Vital signs: Vital Signs Temperature 97.9 F 12/04/20 04:38 Pulse 77 12/04/20 04:38 Respiratory Rate 16 12/04/20 04:38 Blood Pressure 164/93 H 12/04/20 04:38 Pulse Oximetry 100 12/04/20 04:38 Temperature 97.9 F 12/04/20 04:38 Temperature Source Temporal Artery Scan 12/04/20 04:38 Pulse 77 12/04/20 04:38 Respiratory Rate 16 12/04/20 04:38 Respiratory Effort 12/04/20 04:43 Blood Pressure 164/93 H 12/04/20 04:38 Blood Pressure Position Sitting 12/04/20 04:38 Pulse Oximetry 100 12/04/20 04:38 Oxygen Delivery Method Room Air 12/04/20 04:38 Oxygen Flow Rate 0 12/04/20 04:38
[2020-12-04 05:35] VITALS: BP 122/84; PULSE 71; RESP 18; TEMP 36.6; O2SAT 100
== END 2020-12-04 05:38 | disposition home or self-care (01) ==
PROVIDERS: Emergency Provider Emergency Medicine; PCP Nurse Practitioner Family
DX: F12.188 Cannabis abuse with other cannabis-induced disorder (principal)
CPT/HCPCS: 96372; 99284; 99283

== ENCOUNTER 2020-12-27 14:21 | Emergency (ER) | payer MEDICAID, SELFPAY ==
[2020-12-27 14:28] VITALS: BP 166/96; PULSE 60; RESP 20; TEMP 36.7; O2SAT 100
[2020-12-27] MEDS: diphenhydrAMINE 50 MG/ML VIAL 25 MG IVP (14:57)
[2020-12-27] MEDS: Prochlorperazine 10 MG/2 ML VIAL IVP (14:59)
--- NOTE | 2020-12-27 15:05 | ED.GENADUL_ITS ---
Discharge Plan Disposition Patient Disposition: HOME Condition: Stable Discharge Details Clinical Impression: Nausea and vomiting, Cannabinoid hyperemesis syndrome Primary Care Provider: Linda Mason ED Provider: Carmine Pierre Home Meds and New Rx's Prescriptions: Continued Nexplanon 68 mg implant 1 implant Intradermal DIRECTED Qty: 1 RF: 0 omeprazole 40 MG capsule,delayed release(DR/EC) 40 mg PO DAILY RF: 0 ProAir RespiClick 90 MCG aerosol powdr breath activated 90 mcg Inhalation 2 inh q 4-6 hours RF: 0 albuterol sulfate 90 mcg/actuation aerosol powdr breath activated 2 inh IH Q4H PRN (Reason: shortness of breath or wheezing) Qty: 1 RF: 0 sumatriptan succinate [Imitrex] 25 mg Tablet 25 mg PO DIRECTED PRNRF: 0 famotidine [Pepcid] 20 mg Tablet 20 mg PO DAILY RF: 0 ondansetron HCl [Zofran] 4 mg tablet 4 mg PO Q8H PRN (Reason: nausea and vomiting) Qty: 10 RF: 0 Discharge Instructions Instructions: Acute Nausea and Vomiting (ED) Additional Instructions: Please drink small amounts of fluid often in order to stay hydrated. Maintain a clear liquid diet today. You may advance your diet slowly tomorrow to bland foods including rice and chicken soup. Advance diet slowly the following day as tolerated. Please stop smoking marijuana now. This is causing your episodes of nausea and vomiting. Please contact your primary care physician to arrange follow-up. Please talk to your doctor about COVID-19 vaccination as soon as possible. Return to the ER for any worsening or new concerning symptoms. Referrals: Linda Mason [Primary Care Provider] - Discharge Data Discharge Date/Time-TO BE ENTERED AT DEPARTURE: 12/27/20 16:10 Medical Decision Making 1515 -- 30-year-old female with history of cannabinoid hyperemesis syndrome, continues to use marijuana, here with nausea and vomiting since early this morning. Patient has no abdominal pain and abdominal exam is benign. Plan to check screening labs to assess for electrolyte abnormalities and biliary disease. We will give IV fluid and antiemetic Compazine IV as well as Benadryl IV. 1600 --patient reassessed and is feeling much better after antiemetic. Labs reviewed and nondiagnostic. LFTs normal. Electrolytes normal. Plan for outpatient follow-up. Patient was encouraged to stop using marijuana. She is also encouraged to have COVID-19 vaccination. She will speak with her doctor about this. Disposition decision was made weighing the risks and benefits of hospitalization versus outpatient treatment, the risk for further decompensation, and the patient's wishes. The patient was stable and requested discharge. Prior to discharge, my usual and customary return precautions were reviewed with the patient - this included follow-up instructions and reason to return to the emergency department if condition worsens, does not improve as expected, or other new concerns arise. HPI General Mode of arrival: ambulatory . Date/Time Provider Initiated Documentation: 12/27/20 14:30 . Limitations to Documentation: no limitations . Information obtained by: patient . HPI Narrative: 30-year-old female with history of cannabinoid hyperemesis syndrome, presents with chief complaint of n ausea. Patient notes nausea and vomiting since 3 AM today. Patient states she is vomited approximately 10-15 times. She denies associated abdominal pain. No fever. She did try a Zofran ODT but notes that oral Zofran typically does not help her symptoms when severe. Related Data Home Medications Medication Instructions Recorded Confirmed ProAir RespiClick 90 mcg INHALATION 2 inh q 4-6 hours 02/06/18 12/27/20 omeprazole 40 mg PO DAILY tab-cap 02/06/18 12/27/20 famotidine [Pepcid] 20 mg PO DAILY 07/07/18 12/27/20 sumatriptan succinate [Imitrex] 25 mg PO DIRECTED PRN 07/07/18 12/27/20 etonogestrel 68 mg subdermal 1 implant INTRADERMAL DIRECTED 06/04/19 12/27/20 implant #1 each albuterol sulfate 2 inh IH Q4H PRN #1 each 08/22/19 12/27/20 ondansetron HCl [Zofran] 4 mg PO Q8H PRN #10 tab 02/06/20 12/27/20 Previous Rx's Medication Instructions Recorded etonogestrel 68 mg subdermal 1 implant INTRADERMAL DIRECTED 06/04/19 implant #1 each albuterol sulfate 2 inh IH Q4H PRN #1 each 08/22/19 ondansetron HCl [Zofran] 4 mg PO Q8H PRN #10 tab 02/06/20 Allergies Allergy/AdvReac Type Severity Reaction Status Date / Time No Known Allergies Allergy Unverified 12/27/20 14:33 General Stated Complaint: Nausea/Vomit/Diar LO: 3 Review of Systems All systems reviewed & are unremarkable except as noted in HPI and below Constitutional Constitutional: Denies fever(s) Gastrointestinal Gastrointestinal: Reports as per HPI and Denies abdominal pain Genitourinary Genitourinary: Denies dysuria PFSH Medical History GERD (gastroesophageal reflux disease) HSV (herpes simplex virus) infection Migraine Obesity Palpitations Presence of subdermal contraceptive implant Surgical History Open Carpal Tunnel release 04/08/[address] Pemberton Tonsillectomy and adenoidectomy Family History Mother Diabetes Essential hypertension Hyperlipidemia Thyroid disease Grandmother Diabetes Breast cancer Grandmother Cancer Social History Smoking/Tobacco Use Status: Former Tobacco Use Smoking risk assessment performed?: Yes Alcohol Intake: current Alcohol Intake frequency: holidays/special occasions only Drug use: Daily Substance use type: marijuana Do you feel safe at home: Yes Do you feel safe in your relationship?: Yes Exam Const General: cooperative and no acute distress Nutritional Appearance: well nourished Orientation: alert and awake HENMT Mouth: moist mucous membranes Eyes Conjunctivae: normal conjunctivae Sclera: normal sclerae Neck Neck: trachea midline Resp Auscultation: clear to auscultation bilaterally, no rales, no rhonchi and no wheezes Cardio Rate: regular rate and not tachycardic Rhythm: regular rhythm GI Palpation: soft, not firm, no guarding, no masses, not rigid and nontender Skin General skin exam: no rashes or lesions noted Neuro General: patient alert, patient awake, patient oriented x3 and tone normal Extrem General: no edema Psych Appearance: grossly normal Mental Status: mental status grossly normal Speech and Movement: speech and movement normal Course Vital Signs Vital signs: Vital Signs Temperature 36.7 C 12/27/20 14:28 Pulse 60 12/27/20 14:28 Respiratory Rate 20 12/27/20 14:28 Blood Pressure 166/96 H 12/27/20 14:28 Pulse Oximetry 100 12/27/20 14:28 Temperature 36.7 C 12/27/20 14:28 Temperature Source Skin 12/27/20 14:28 Pulse 60 12/27/20 14:28 Respiratory Rate 20 12/27/20 14:28 Respiratory Effort Non-Labored 12/27/20 14:32 Blood Pressure 166/96 H 12/27/20 14:28 Blood Pressure Position Sitting 12/27/20 14:28 Pulse Oximetry 100 12/27/20 14:28 Oxygen Delivery Method Room Air 12/27/20 14:28 Oxygen Flow Rate 0 12/27/20 14:28 Pain Level 0 12/27/20 14:28
[2020-12-27 15:09] LABS: Abs Immature Grans 0.04 10^3/uL (0.0-0.06); Absolute Basophil Count 0.07 10^3/uL (0.0-0.2); Absolute Eosinophil Count 0.08 10^3/uL (0.0-0.7); Absolute Lymphocyte Count 1.25 10^3/uL (1.2-3.4); Absolute Monocyte Count 0.59 10^3/uL (0.1-0.8); Absolute Neutrophil Count 11.42 10^3/uL (1.2-6.7); Basophils % 0.5; Eosinophils % 0.6; HGB 14.7 g/dL (11.2-15.7); Immature Grans % 0.3; Lymphocytes % 9.3; MCH 29.3 pg (27.0-33.0); MCHC 33.4 % (32.0-36.0); MCV 87.8 fL (80-95); MPV 11.6 fL (8.0-11.0); Monocytes % 4.4; Neutrophils % 84.9; Nucleated RBC 0 %; Platelet Count 268 10^3/uL (130-400); RBC 5.01 10^6/uL (3.93-5.22); RDW 12.6 % (11.7-14.6); RDW-SD 40.5 fL; WBC 13.45 10^3/uL (4.4-10.8)
[2020-12-27] MEDS: Lactated Ringers 1,000 ML 1000 ML IV (15:09)
[2020-12-27 15:54] LABS: ALT 21 U/L (14-59); AST 16 U/L (15-37); Alkaline Phosphatase 62 U/L (46-116); Anion Gap 10.8 mmol/L (3-11); BUN 7 mg/dL (7-18); Bilirubin, Total 0.9 mg/dL (0.2-1.0); CO2 24.2 mmol/L (21.0-32.0); CREATININE 0.9 mg/dL (0.55-1.02); Calcium 8.8 mg/dL (8.5-10.1); Chloride 105 mmol/L (98-107); Glucose 111 mg/dL (74-106); Potassium 4.2 mmol/L (3.5-5.1); Sodium 140 mmol/L (136-145); Total Protein 7.9 g/dL (6.4-8.2)
[2020-12-27 16:00] VITALS: BP 120/60; PULSE 69; RESP 18; TEMP 36.4; O2SAT 100
[2020-12-27 16:01] LABS: Lipase 133 U/L (73-393)
== END 2020-12-27 16:10 | disposition home or self-care (01) ==
PROVIDERS: Emergency Provider Student in an Organized Health Care Education/Training Program; PCP Nurse Practitioner Family
DX: R11.2 Nausea with vomiting, unspecified (principal); F12.90 Cannabis use, unspecified, uncomplicated
CPT/HCPCS: 36415; 80053; 83690; 96361; 96374; 96375; 99284; 85025; 99283; J0780; J1200

== ENCOUNTER 2021-04-16 16:41 | Emergency (ER) | payer MEDICAID, SELFPAY ==
[2021-04-16 16:46] VITALS: BP 131/96; PULSE 78; RESP 16; TEMP 36.5; O2SAT 97
--- NOTE | 2021-04-16 16:55 | W.ED.GENAD ---
Discharge Plan Disposition Patient Disposition: HOME Condition: Stable Discharge Details Clinical Impression: Migraine Primary Care Provider: Linda Mason ED Provider: Leroy Nguyen Home Meds and New Rx's Prescriptions: Continued ProAir RespiClick 90 MCG aerosol powdr breath activated 90 mcg Inhalation 2 inh q 4-6 hours RF: 0 albuterol sulfate 90 mcg/actuation aerosol powdr breath activated 2 inh IH Q4H PRN (Reason: shortness of breath or wheezing) Qty: 1 RF: 0 sumatriptan succinate [Imitrex] 25 mg Tablet 25 mg PO DIRECTED PRNRF: 0 famotidine [Pepcid] 20 mg Tablet 20 mg PO DAILY RF: 0 ondansetron HCl [Zofran] 4 mg tablet 4 mg PO Q8H PRN (Reason: nausea and vomiting) Qty: 10 RF: 0 Discharge Instructions Instructions: Migraine Headache (ED) Additional Instructions: follow up with your primary care provider within 1-2 weeks if you feel more ill, have fevers or persistent vomit return to the emergency department Stand Alone Forms: Work Release Medical Decision Making 30 yo female with hx of migraines, cannabinoid hypermesis in the past and continues to smoke marijuana daily and denies other drug use, comes in with pain in her head similar to her prior migraines. She states it started around 1am and she took imitrex without relief and has had n/v so came here. She denies fevers, chills, chest pain, dyspnea. She has no meningismus on exam. She has no swelling around the eye or face, perrl, eomi with no pain. She localizes the pain to the left frontal head. The pain started slowly, not thunderclap in description so doubt SAH. Her headache seems typical of her prior migraines, will hold on imaging and treat with compazine, decadron and benadryl and reassess. 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 She has antiemetics at home per patient. Advised to f/u with pcp and return precautions given Differential Diagnosis Differential Diagnosis: migraine, tension headache, cluster headache Medical Records Medical records reviewed: Yes I reviewed the patient's medical records. HPI General Mode of arrival: ambulatory. Date/Time Provider Initiated Documentation: 04/16/21 16:43. Limitations to Documentation: no limitations. Information obtained by: patient. History of Present Illness 30 year old F presents to the emergency department with the chief complaint of migraine, described as moderate, Patient started experiencing this hour(s) (16) and it has been constant. No relieving factors improve symptom(s), No exacerbating factors reported . Patient notes nausea/vomiting. Patient did receive the following treatments prior to arrival, none Related Data Home Medications Medication Instructions Recorded Confirmed ProAir RespiClick 90 mcg INHALATION 2 inh q 4-6 hours 02/06/18 04/16/21 famotidine [Pepcid] 20 mg PO DAILY 07/07/18 04/16/21 sumatriptan succinate [Imitrex] 25 mg PO DIRECTED PRN 07/07/18 04/16/21 albuterol sulfate 2 inh IH Q4H PRN #1 each 08/22/19 04/16/21 ondansetron HCl [Zofran] 4 mg PO Q8H PRN #10 tab 02/06/20 04/16/21 Previous Rx's Medication Instructions Recorded albuterol sulfate 2 inh IH Q4H PRN #1 each 08/22/19 ondansetron HCl [Zofran] 4 mg PO Q8H PRN #10 tab 02/06/20 Allergies Allergy/AdvReac Type Severity Reaction Status Date / Time No Known Allergies Allergy Unverified 04/16/21 16:50 General Stated Complaint: Headache LO: 3 Review of Systems All systems reviewed & are unremarkable except as noted in HPI and below Constitutional Constitutional: Denies chills, Denies fever(s) and Denies weakness Cardiovascular Cardiovascular: Denies chest pain and Denies dyspnea Respiratory Respiratory: Denies cough and Denies dyspnea Gastrointestinal Gastrointestinal: Denies abdominal pain Musculoskeletal Musculoskeletal: Denies joint swelling Neurologic Neurologic: Denies weakness Psychiatric Psychiatric: Denies depression [facility] Medical History (Updated 04/16/21 @ 18:20 by Leroy Nguyen MD) Encounter for removal of subdermal contraceptive implant 01/2021. Pt declines reinsertion 2/2 bleeding pattern. Will decide on LARC in near future. GERD (gastroesophageal reflux disease) HSV (herpes simplex virus) infection Migraine Obesity Palpitations Surgical History Open Carpal Tunnel release 04/08/[address] Pemberton Tonsillectomy and adenoidectomy Family History Mother Diabetes Essential hypertension Hyperlipidemia Thyroid disease Grandmother Diabetes Breast cancer Grandmother Cancer Social History (Updated 02/01/21 @ 10:05 by Bibi Birmingham MD) Smoking/Tobacco Use Status: Former Tobacco Use Smoking risk assessment performed?: Yes Alcohol Intake: current Alcohol Intake frequency: holidays/special occasions only Drug use: Daily Substance use type: marijuana Household members: other Details: Children: Festus Barboza. BF. Number of Children: 2 current occupation: [employer]. Do you feel safe at home: Yes Do you feel safe in your relationship?: Yes Exam Const General: no acute distress Orientation: alert HENMT Head: normal to inspection Ears: external ears normal General nose exam: external nose normal Mouth: moist mucous membranes Eyes General: appearance normal, both eyes and all related structures Neck Neck: normal visual inspection Resp Effort & Inspection: normal respiratory effort and able to speak in complete sentences Cardio Rate: regular rate Skin General skin exam: no rashes or lesions noted Neuro General: patient alert and patient oriented x3 Extrem General: normal to inspection Psych Mental Status: mental status grossly normal Course Vital Signs Vital signs: Vital Signs Temperature 36.5 C 04/16/21 16:46 Pulse 78 04/16/21 16:46 Respiratory Rate 16 04/16/21 16:46 Blood Pressure 131/96 H 04/16/21 16:46 Pulse Oximetry 97 04/16/21 16:46 Temperature 36.5 C 04/16/21 16:46 Temperature Source Skin 04/16/21 16:46 Pulse 78 04/16/21 16:46 Respiratory Rate 16 04/16/21 16:46 Respiratory Effort Non-Labored 04/16/21 16:51 Blood Pressure 131/96 H 04/16/21 16:46 Blood Pressure Position Sitting 04/16/21 16:46 Pulse Oximetry 97 04/16/21 16:46 Oxygen Delivery Method Room Air 04/16/21 16:46 Oxygen Flow Rate 0 04/16/21 16:46 Pain Level 9 04/16/21 16:46
[2021-04-16] MEDS: Normal Saline 1,000 ML 1000 ML IV (17:24)
[2021-04-16] MEDS: Dexamethasone 10 MG/ML VIAL IVP (17:24)
[2021-04-16] MEDS: diphenhydrAMINE 50 MG/ML VIAL 25 MG IVP (17:24)
[2021-04-16] MEDS: Prochlorperazine 10 MG/2 ML VIAL IVP (17:25)
[2021-04-16 18:15] VITALS: BP 122/73; PULSE 68; TEMP 36.3; O2SAT 99
== END 2021-04-16 18:33 | disposition home or self-care (01) ==
PROVIDERS: Emergency Provider Emergency Medicine; PCP Nurse Practitioner Family
DX: G43.809 Other migraine, not intractable, without status migrainosus (principal)
CPT/HCPCS: 36415; 96361; 96374; 96375; 99284; J0780; J1100; J1200

== ENCOUNTER 2021-05-17 10:22 | Emergency (ER) | payer MEDICAID, SELFPAY ==
[2021-05-17 10:28] VITALS: BP 129/84; PULSE 82; RESP 16; TEMP 36.8; O2SAT 99
--- NOTE | 2021-05-17 10:51 | ED.GENADUL_ITS ---
Discharge Plan Disposition Patient Disposition: HOME Condition: Good Discharge Details Clinical Impression: Fever, Rash Primary Care Provider: Linda Mason ED Provider: Kamilla Harris Home Meds and New Rx's Prescriptions: Continued ProAir RespiClick 90 MCG aerosol powdr breath activated 90 mcg Inhalation 2 inh q 4-6 hours RF: 0 albuterol sulfate 90 mcg/actuation aerosol powdr breath activated 2 inh IH Q4H PRN (Reason: shortness of breath or wheezing) Qty: 1 RF: 0 sumatriptan succinate [Imitrex] 25 mg Tablet 25 mg PO DIRECTED PRNRF: 0 famotidine [Pepcid] 20 mg Tablet 20 mg PO DAILY RF: 0 ondansetron HCl [Zofran] 4 mg tablet 4 mg PO Q8H PRN (Reason: nausea and vomiting) Qty: 10 RF: 0 Nexplanon 68 mg Implant 1 implant SUBDERMAL DIRECTED RF: 0 Discharge Instructions Instructions: Fever in Adults (ED), Acute Rash (ED) Additional Instructions: Do not return to work until you have been negative Covid test and youv are fever free greater than 24 hours Please return earlier should you have any new or worsening symptoms including persistent fever greater than 5 days Take ibuprofen 600 mg every 8 hours with food Take Tylenol 650 mg every 4-6 hours May take Benadryl as needed for rash Stand Alone Forms: Work Release Discharge Data Discharge Date/Time-TO BE ENTERED AT DEPARTURE: 05/17/21 11:10 Medical Decision Making Patient appears well, she is alert and oriented, she is afebrile and nontoxic here Her family has coxsackievirus and I suspect she likely has the same She only had a fever for 12 hours, I will have her follow-up with her doctor I did do a Covid swab and have given her ibuprofen and Tylenol She given low threshold to return and is aware that she should have reassessment within the 48 hours She is alert and oriented and otherwise appears well Given low threshold to return with new or worsening complaints No evidence of meningismus Medical Records Medical records reviewed: Yes I reviewed the patient's medical records. Lab Data Lab results reviewed: Yes I reviewed the patient's lab results. HPI General Mode of arrival: ambulatory . Date/Time Provider Initiated Documentation: 05/17/21 10:38 . Limitations to Documentation: no limitations . Information obtained by: patient . HPI Narrative: This 31-year-old female presents with rash and fever. She states her symptoms started yesterday. She states that she has rash to bilateral hands and feet. She is also had fever. Last night temp was 102. She took Tylenol and ibuprofen this morning and did not check her temperature. She denies any chance of . She states her kids are both sick with [id number]-[id number]-mouth syndrome. She denies history of IV drug abuse. She is otherwise reportedly healthy and vaccinated. She does not have her Covid vaccine reportedly. She denies any cough, runny nose, nausea, vomiting, dizziness. She denies any urinary symptoms. Related Data Home Medications Medication Instructions Recorded Confirmed ProAir RespiClick 90 mcg INHALATION 2 inh q 4-6 hours 02/06/18 05/17/21 famotidine [Pepcid] 20 mg PO DAILY 07/07/18 05/17/21 sumatriptan succinate [Imitrex] 25 mg PO DIRECTED PRN 07/07/18 05/17/21 albuterol sulfate 2 inh IH Q4H PRN #1 each 08/22/19 05/17/21 ondansetron HCl [Zofran] 4 mg PO Q8H PRN #10 tab 02/06/20 05/17/21 Nexplanon 1 implant SUBDERMAL DIRECTED 05/17/21 05/17/21 Previous Rx's Medication Instructions Recorded albuterol sulfate 2 inh IH Q4H PRN #1 each 08/22/19 ondansetron HCl [Zofran] 4 mg PO Q8H PRN #10 tab 02/06/20 Allergies Allergy/AdvReac Type Severity Reaction Status Date / Time No Known Allergies Allergy Unverified 05/17/21 10:36 General Stated Complaint: RashLesion LO: 3 Review of Systems All systems reviewed & are unremarkable except as noted in HPI and below PFSH Medical History (Updated 05/17/21 @ 10:54 by ZACK Pritchard) Encounter for removal of subdermal contraceptive implant 01/2021. Pt declines reinsertion 2/2 bleeding pattern. Will decide on LARC in near future. GERD (gastroesophageal reflux disease) HSV (herpes simplex virus) infection Migraine Obesity Palpitations Surgical History Open Carpal Tunnel release 8/19/[address] Pemberton Tonsillectomy and adenoidectomy Family History Mother Diabetes Essential hypertension Hyperlipidemia Thyroid disease Grandmother Diabetes Breast cancer Grandmother Cancer Social History (Updated 02/01/21 @ 10:05 by Bibi Birmingham MD) Smoking/Tobacco Use Status: Former Tobacco Use Smoking risk assessment performed?: Yes Alcohol Intake: current Alcohol Intake frequency: holidays/special occasions only Drug use: Daily Substance use type: marijuana Household members: other Details: Children: Festus Barboza. BF. Number of Children: 2 current occupation: [employer]. Do you feel safe at home: Yes Do you feel safe in your relationship?: Yes Exam Const General: cooperative, comfortable and no acute distress HENMT Other: Uvula midline, oropharynx patent Eyes Pupils: PERRL Neck Other: No meningismus Resp Effort & Inspection: normal respiratory effort Auscultation: clear to auscultation bilaterally Skin Other: see note Neuro General: patient alert and patient oriented x3 Extrem General: normal to inspection Other: Lacy rash noted to dorsum of hand and feet, no additional rashes, neurovascularly intact No petechiae or purpura Course Vital Signs Vital signs: Vital Signs Temperature 36.8 C 05/17/21 10:28 Pulse 82 05/17/21 10:28 Respiratory Rate 16 05/17/21 10:28 Blood Pressure 129/84 05/17/21 10:28 Pulse Oximetry 99 05/17/21 10:28 Temperature 36.8 C 05/17/21 10:28 Temperature Source Skin 05/17/21 10:28 Pulse 82 05/17/21 10:28 Respiratory Rate 16 05/17/21 10:28 Respiratory Effort 05/17/21 10:38 Blood Pressure 129/84 05/17/21 10:28 Blood Pressure Position Sitting 05/17/21 10:28 Pulse Oximetry 99 05/17/21 10:28 Oxygen Delivery Method Room Air 05/17/21 10:28 Oxygen Flow Rate 0 05/17/21 10:28 Pain Level 3 05/17/21 10:28
[2021-05-18 15:52] LABS: COVID-19 RT-PCR UVMMC Result Negative (Negative)
== END 2021-05-17 11:10 | disposition home or self-care (01) ==
PROVIDERS: Emergency Provider Physician Assistant; PCP Nurse Practitioner Family
DX: R21 Rash and other nonspecific skin eruption (principal); R50.9 Fever, unspecified; Z20.822 Contact with and (suspected) exposure to COVID-19; Z03.818 Encounter for observation for suspected exposure to other biological agents ruled out
CPT/HCPCS: 99282; U0003; 99283

== ENCOUNTER 2021-08-11 08:51 | Emergency (ER) | payer MEDICAID, SELFPAY ==
--- NOTE | 2021-08-11 08:52 | W.ED.GENAD ---
Discharge Plan Disposition Patient Disposition: HOME Condition: Improving Discharge Details Clinical Impression: Nausea and vomiting in prior to 22 weeks gestation Primary Care Provider: Linda Mason ED Provider: Adriana Dos Santos Home Meds and New Rx's Prescriptions: New ondansetron 4 mg tablet,disintegrating 4 mg PO TID PRN (Reason: nausea and vomiting) Qty: 6 RF: 0 Continued ProAir RespiClick 90 MCG aerosol powdr breath activated 90 mcg Inhalation 2 inh q 4-6 hours RF: 0 albuterol sulfate 90 mcg/actuation aerosol powdr breath activated 2 inh IH Q4H PRN (Reason: shortness of breath or wheezing) Qty: 1 RF: 0 sumatriptan succinate [Imitrex] 25 mg Tablet 25 mg PO DIRECTED PRNRF: 0 famotidine [Pepcid] 20 mg Tablet 20 mg PO DAILY RF: 0 ondansetron HCl [Zofran] 4 mg tablet 4 mg PO Q8H PRN (Reason: nausea and vomiting) Qty: 10 RF: 0 Nexplanon 68 mg Implant 1 implant SUBDERMAL DIRECTED RF: 0 No Action metoclopramide HCl [Reglan] 10 mg tablet 10 mg PO Q6H PRN (Reason: nausea and vomiting) Qty: 1 RF: 0 Discharge Instructions Instructions: Nausea and Vomiting in (ED) Additional Instructions: Your lab work and ultrasound today is reassuring and indicate that you are likely in the stages of early . It is recommended that you have a repeat hormone test in 48 hours and follow-up with women's wellness for the results. Drink plenty of fluids and get plenty of rest. A prescription for Zofran has been sent electronically to your pharmacy. Take this as needed and directed for nausea and vomiting. Go directly up to women's wellness now to be evaluated today. Return immediately to the emergency department if you develop any worsening or new concerning symptoms. Referrals: [facility] [Provider Group] Discharge Data Discharge Date/Time-TO BE ENTERED AT DEPARTURE: 08/11/21 13:25 Discharge Physician: Adriana Dos Santos Medical Decision Making 31-year-old female G3, P2 L2 A0 with a positive home test yesterday presents with vomiting and lower abdominal pain since 4 AM. Vitals within normal limits. Patient appears comfortable and nontoxic. Her abdomen is soft and nontender. Point of care test here positive. Differential diagnosis includes nausea and vomiting in first trimester, hyperemesis gravidarum, electrolyte abnormality, UTI, cannabinoid hyperemesis syndrome. Will obtain an ultrasound due to report of pain. Will obtain screening labs, urinalysis and give a dose of Zofran and fluids and reassess. Capsaicin cream initially ordered due to her history of cannabinoid hyperemesis syndrome prior to knowing she was and will hold on applying this topical medication pending response to IV meds and discussion with OB. Labs and imaging reviewed. White blood cell count 12. Normal electrolytes. Beta quant 571. Urinalysis negative. Pelvic US notes: IMPRESSION: 1. Normal sonographic appearance of the kidneys. 2. Normal-appearing uterus with endometrial stripe within normal limits. 3. 1 mm round anechoic cystic area in the endometrium. It is too small for further characterization. Follow-up with serial beta HCG levels is recommended. A follow-up obstetrical ultrasound should be considered in this patient in 5-6 weeks. 4. Unremarkable bilateral ovaries. 5. No sonographic evidence of an ectopic . Patient reassessed and she feels much better. Will call OB for recommendations. Discussed with Dr. Birmingham who recommends that patient proceed to women's wellness for evaluation there now as she had a scheduled appointment for this afternoon. Will follow up with patient for serial hCGs. Just prior to discharge, patient had return of nausea and dry heaving. She was given a dose of Zofran ODT with improvement and discharged to proceed to women's wellness. The capsaicin cream was not applied but she requested it upon discharge and she was given the tube by nursing to go. She was advised to discuss with women's wellness to confirm if they are ok with use of this as review of capsaicin notes that it is safe for use in . Imaging Data Radiologic Study: Radiologist's impression: US PELVIS TRANSVAGINAL CLINICAL HISTORY: , lower abd cramping, r/o ectopic. TECHNIQUE: Transabdominal and transvaginal pelvic ultrasound was performed using standard protocol. COMPARISON: US OB US 2-3 TRIMESTER TRANSABD*P from 04/12/2016 FINDINGS: KIDNEYS: Kidneys are symmetric in size. No evidence of renal calculi. No evidence of hydronephrosis. No renal mass or cyst identified. UTERUS: Position: Anteverted. Size: 8.8 long by 4.7 AP by 4.2 transverse cm Endometrium: 1.1 cm. Normal for patient's menstrual status. There is a 1 mm round anechoic cyst in the endometrium. It is too small for further characterization. Myometrium: Unremarkable. Cervix: Unremarkable. OVARIES: Right: 3.2 x 3.1 x 2.4 cm Cyst or mass: None. Left: 2.5 x 1.5 x 1.3 cm Cyst or mass: None. DOPPLER: Color: Symmetric and uniform flow to both ovaries. No hyperemia. Duplex: Normal ovarian arterial waveforms visualized. CUL-DE-SAC: Free fluid: None. Other: No evidence of a pelvic mass to suggest ectopic. IMPRESSION: 1. Normal sonographic appearance of the kidneys. 2. Normal-appearing uterus with endometrial stripe within normal limits. 3. 1 mm round anechoic cystic area in the endometrium. It is too small for further characterization. Follow-up with serial beta HCG levels is recommended. A follow-up obstetrical ultrasound should be considered in this patient in 5-6 weeks. 4. Unremarkable bilateral ovaries. 5. No sonographic evidence of an ectopic . 6. Results of this exam have been verbally communicated with provider. HPI General Mode of arrival: ambulatory. Date/Time Provider Initiated Documentation: 08/11/21 08:52. Limitations to Documentation: no limitations. Information obtained by: patient. HPI Narrative: Patient is a 31-year-old female [id number] presents to the ED with a complaint of vomiting and lower abdominal cramping since 4 AM. Patient states she is 1 week late on her. And took a home test yesterday which was positive. She called women's wellness and they scheduled an appointment with ultrasound on her today at 2:40 PM. Patient states she has vomited several times which is mainly been clear. She states her abdominal cramping is lower and currently 4/10. She has not taken any medication for her pain or vomiting. She has been smoking marijuana 2-3 times daily and states she last smoked yesterday. She denies any fever or urinary symptoms. Related Data Home Medications Medication Instructions Recorded Confirmed ProAir RespiClick 90 mcg INHALATION 2 inh q 4-6 hours 02/06/18 08/11/21 famotidine [Pepcid] 20 mg PO DAILY 07/07/18 08/11/21 sumatriptan succinate [Imitrex] 25 mg PO DIRECTED PRN 07/07/18 08/11/21 albuterol sulfate 2 inh IH Q4H PRN #1 each 08/22/19 08/11/21 ondansetron HCl [Zofran] 4 mg PO Q8H PRN #10 tab 02/06/20 08/11/21 Nexplanon 1 implant SUBDERMAL DIRECTED 05/17/21 08/11/21 metoclopramide HCl 10 mg tablet 10 mg PO Q6H PRN #1 tab 08/11/21 08/11/21 ondansetron 4 mg PO TID PRN #6 tab 08/11/21 08/11/21 Previous Rx's Medication Instructions Recorded albuterol sulfate 2 inh IH Q4H PRN #1 each 08/22/19 ondansetron HCl [Zofran] 4 mg PO Q8H PRN #10 tab 02/06/20 metoclopramide HCl 10 mg tablet 10 mg PO Q6H PRN #1 tab 08/11/21 ondansetron 4 mg PO TID PRN #6 tab 08/11/21 Allergies Allergy/AdvReac Type Severity Reaction Status Date / Time No Known Allergies Allergy Unverified 05/17/21 10:36 General LO: 3 Review of Systems All systems reviewed & are unremarkable except as noted in HPI and below Constitutional Constitutional: Reports as per HPI, Denies chills and Denies fever(s) Eyes Eyes: Denies blurry vision ENT Ears, Nose, Mouth, and Throat: Denies dizziness, Denies sore throat and Denies throat swelling Cardiovascular Cardiovascular: Denies chest pain and Denies dyspnea Respiratory Respiratory: Denies cough and Denies dyspnea Gastrointestinal Gastrointestinal: Reports abdominal pain, Denies diarrhea and Reports vomiting Genitourinary Genitourinary: Denies hematuria and Denies dysuria Musculoskeletal Musculoskeletal: Denies back pain and Denies numbness Integumentary/Breasts Skin/Breast: Denies lesions and Denies rash Neurologic Neurologic: Denies dizziness, Denies localized weakness and Denies numbness Allergic/Immunologic Allergic/Immunologic: Denies throat swelling PFSH All Active Problems (Updated 08/11/21 @ 14:04 by Patsy Plaza MD) with inconclusive viability (Acute) Nausea and vomiting in prior to 22 weeks gestation (Acute) Cannabinoid hyperemesis syndrome (Acute) Obesity (Chronic) Medical History (Updated 08/11/21 @ 14:04 by Patsy Plaza MD) Cannabinoid hyperemesis syndrome Fever GERD (gastroesophageal reflux disease) H/O herpes genitalis (04/11/16) Hepatitis C antibody positive in blood (04/11/16) HSV (herpes simplex virus) infection Migraine Palpitations Rash Surgical History Open Carpal Tunnel release 04/08/[address] Pemberton Tonsillectomy and adenoidectomy Family History Mother Diabetes Essential hypertension Hyperlipidemia Thyroid disease Grandmother Diabetes Breast cancer Grandmother Cancer Social History (Updated 02/01/21 @ 10:05 by Bibi Birmingham MD) Smoking/Tobacco Use Status: Former Tobacco Use Quit Date: 08/10/21 Smoking risk assessment performed?: Yes Alcohol Intake: former Drug use: Daily Substance use type: marijuana Household members: other Details: Children: Festus Barboza. BF. Number of Children: 2 current occupation: [employer]. Do you feel safe at home: Yes Do you feel safe in your relationship?: Yes Exam Const General: cooperative, healthy appearing and no acute distress HENMT Head: normal to inspection Face and sinus: normal facial exam Eyes General: appearance normal, both eyes and all related structures EOM: EOM intact bilaterally Neck Neck: normal visual inspection and No submandibular swelling Lymphatic: no lymphadenopathy noted Chest Chest: normal inspection of the chest and no tenderness Resp Effort & Inspection: normal respiratory effort and able to speak in complete sentences Auscultation: clear to auscultation bilaterally Cardio Rate: regular rate Rhythm: regular rhythm GI Inspection: normal to inspection Palpation: soft, not firm, not rigid and nontender Auscultation: normal bowel sounds Skin General skin exam: no rashes or lesions noted Neuro General: patient alert, patient awake and patient oriented x3 Cognition: normal cognition Speech: speech normal Motor: muscle tone normal throughout Sensory Exam: no sensory deficits noted Extrem General: normal to inspection, full ROM, capillary refill normal, no calf tenderness bilaterally and no edema Psych Appearance: grossly normal Mental Status: mental status grossly normal Speech and Movement: speech and movement normal Affect: normal affect
[2021-08-11 09:30] VITALS: BP 116/75; PULSE 79; RESP 16; TEMP 36.6; O2SAT 100
[2021-08-11 09:45] LABS: Abs Immature Grans 0.05 10^3/uL (0.0-0.06); Absolute Basophil Count 0.06 10^3/uL (0.0-0.2); Absolute Eosinophil Count 0.09 10^3/uL (0.0-0.7); Absolute Lymphocyte Count 1.08 10^3/uL (1.2-3.4); Absolute Monocyte Count 0.39 10^3/uL (0.1-0.8); Absolute Neutrophil Count 11.22 10^3/uL (1.2-6.7); Basophils % 0.5; Eosinophils % 0.7; HCT 41.8 % (36.0-46.0); HGB 13.4 g/dL (11.2-15.7); Immature Grans % 0.4; Lymphocytes % 8.4; MCH 29.3 pg (27.0-33.0); MCHC 32.1 % (32.0-36.0); MCV 91.3 fL (80-95); MPV 11.4 fL (8.0-11.0); Nucleated RBC 0 %; Platelet Count 280 10^3/uL (130-400); RBC 4.58 10^6/uL (3.93-5.22); RDW 12.1 % (11.7-14.6); RDW-SD 40.9 fL
--- NOTE | 2021-08-11 10:00 | DI.US_ITS ---
Exam(s) US PELVIS TRANSVAGINAL EXAM: US PELVIS TRANSVAGINAL CLINICAL HISTORY: , lower abd cramping, r/o ectopic. TECHNIQUE: Transabdominal and transvaginal pelvic ultrasound was performed using standard protocol. COMPARISON: US OB US 2-3 TRIMESTER TRANSABD*P from 04/12/2016 FINDINGS: KIDNEYS: Kidneys are symmetric in size. No evidence of renal calculi. No evidence of hydronephrosis. No renal mass or cyst identified. UTERUS: Position: Anteverted. Size: 8.8 long by 4.7 AP by 4.2 transverse cm Endometrium: 1.1 cm. Normal for patient's menstrual status. There is a 1 mm round anechoic cyst in th e endometrium. It is too small for further characterization. Myometrium: Unremarkable. Cervix: Unremarkable. OVARIES: Right: 3.2 x 3.1 x 2.4 cm Cyst or mass: None. Left: 2.5 x 1.5 x 1.3 cm Cyst or mass: None. DOPPLER: Color: Symmetric and uniform flow to both ovaries. No hyperemia. Duplex: Normal ovarian arterial waveforms visualized. CUL-DE-SAC: Free fluid: None. Other: No evidence of a pelvic mass to suggest ectopic. IMPRESSION: 1. Normal sonographic appearance of the kidneys. 2. Normal-appearing uterus with endometrial stripe within normal limits. 3. 1 mm round anechoic cystic area in the endometrium. It is too small for further characterization. Follow-up with serial beta HCG levels is recommended. A follow-up obstetrical ultrasound should be considered in this patient in 5-6 weeks. 4. Unremarkable bilateral ovaries. 5. No sonographic evidence of an ectopic . 6. Results of this exam have been verbally communicated with provider. DATA REPOSITORY:
[2021-08-11 10:02] LABS: ALT 20 U/L (14-59); AST 13 U/L (15-37); Albumin 4.1 g/dL (3.4-5.0); Alkaline Phosphatase 53 U/L (46-116); Anion Gap 7.3 mmol/L (3-11); BUN 10 mg/dL (7-18); Bilirubin, Total 0.6 mg/dL (0.2-1.0); CO2 26.7 mmol/L (21.0-32.0); CREATININE 0.8 mg/dL (0.55-1.02); Calcium 9.1 mg/dL (8.5-10.1); Chloride 103 mmol/L (98-107); Glucose 135 mg/dL (74-106); Potassium 4.3 mmol/L (3.5-5.1); Sodium 137 mmol/L (136-145); Total Protein 8.2 g/dL (6.4-8.2)
[2021-08-11 10:33] LABS: HCG Quant, Pregnancy 571 mIU/mL (1-3)
[2021-08-11 11:05] LABS: Bilirubin Negative (Negative); Blood Negative (Negative); Clarity Clear (Clear); Glucose Negative (Negative); Ketones Negative (Negative); Leukocyte Esterase Negative (Negative); Nitrite Negative (Negative); Specific Gravity 1.015 (1.005-1.025); Urobilinogen 0.2 EU/dL (Up TO 0.2); pH 6.5 (5-8)
[2021-08-11] MEDS: Ondansetron 4 MG/2 ML VIAL IVP (11:16)
[2021-08-11] MEDS: Normal Saline 1,000 ML 1000 ML IV (11:17)
--- NOTE | 2021-08-11 11:21 | NUR.NOTE ---
Nursing Note:Pt medicated as ordered, no current N/V, out ti DI w/tech for ultrasound.
--- NOTE | 2021-08-11 11:52 | NUR.NOTE ---
Nursing Note: Pt return from ultrasound, IVF infusing, reports nausea is better, continue to monitor.
--- NOTE | 2021-08-11 12:41 | NUR.NOTE ---
Nursing Note: Pt ambulatory to BR, upon return she began dry-heaving, provider aware. Order recieved for anti-emetic.
[2021-08-11] MEDS: Ondansetron O.D.T. 4 MG TABEF PO (12:44)
[2021-08-11 13:30] VITALS: BP 122/80; PULSE 70; RESP 18; TEMP 36.9; O2SAT 100
== END 2021-08-11 13:25 | disposition home or self-care (01) ==
PROVIDERS: Emergency Provider Physician Assistant; PCP Nurse Practitioner Family
DX: O21.8 Other vomiting complicating pregnancy (principal); R10.30 Lower abdominal pain, unspecified; Z3A.01 Less than 8 weeks gestation of pregnancy
CPT/HCPCS: 80053; 81025; 96361; 96374; 99284; 76830; 76856; 81003; 84702; 85025; J2405

== ENCOUNTER 2021-08-16 04:12 | Outpatient (CLI) | payer MEDICAID, SELFPAY ==
[2021-08-16 13:08] LABS: HCG Quant, Pregnancy 4293 mIU/mL (1-3)
== END 2021-08-16 04:13 | disposition home or self-care (01) ==
LOC: LBO 04:13
PROVIDERS: PCP Nurse Practitioner Family; Visit Provider Obstetrics & Gynecology
DX: O36.80X0 Pregnancy with inconclusive fetal viability, not applicable or unspecified (principal)
CPT/HCPCS: 36415; 84702

== ENCOUNTER 2021-10-08 03:29 | Outpatient (CLI) | payer MEDICAID, SELFPAY ==
[2021-10-08 10:18] LABS: Kit/Specimen SENT
[2021-10-08 10:26] LABS: Absolute Basophil Count 0.06 10^3/uL (0.0-0.2); Absolute Eosinophil Count 0.18 10^3/uL (0.0-0.7); Absolute Lymphocyte Count 1.76 10^3/uL (1.2-3.4); Absolute Monocyte Count 0.69 10^3/uL (0.1-0.8); Absolute Neutrophil Count 11.98 10^3/uL (1.2-6.7); Basophils % 0.4; Eosinophils % 1.2; HGB 12.9 g/dL (11.2-15.7); Immature Grans % 0.7; Lymphocytes % 11.9; MCH 29.5 pg (27.0-33.0); MCHC 33.1 % (32.0-36.0); MCV 89.2 fL (80-95); Monocytes % 4.7; Neutrophils % 81.1; Nucleated RBC 0 %; Platelet Count 280 10^3/uL (130-400); RBC 4.37 10^6/uL (3.93-5.22); RDW 12.4 % (11.7-14.6); RDW-SD 40.8 fL; WBC 14.77 10^3/uL (4.4-10.8)
[2021-10-08 11:11] LABS: TSH (W/Ref FT4) 0.43 uIU/mL (0.36-3.74)
[2021-10-08 11:58] LABS: *AMPHETAMINES SCREEN URINE Negative (Negative); *BARBITURATES SCREEN URINE Negative (Negative); *BENZODIAZEPINES SCREEN URINE Negative (Negative); Cannabinoids THC Positive (Negative); Cocaine Screen,Urine Negative (Negative); METHADONE URINE SCREEN Negative (Negative); OPIATES URINE SCREEN Positive (Negative)
[2021-10-08 11:59] LABS: Tricyclic Antidepressants Negative (Negative)
[2021-10-11 11:25] LABS: Varicella IgG Antibody Positive (See Note)
[2021-10-11 11:28] LABS: Hepatitis B Surface Ag Negative (Negative)
[2021-10-11 11:35] LABS: Rubella IgG Ab (UVM) Positive (See Note)
[2021-10-11 11:52] LABS: HIV-1/2 Ag & Ab Screen Negative (Negative)
[2021-10-11 14:14] LABS: HCV RNA Qualitative Undetected (Undetected)
[2021-10-11 15:05] LABS: Syphilis IgG w/Reflex Nonreactive (Nonreactive)
[2021-10-11 15:33] LABS: Chlamydia Result Negative (Negative); GC Result Negative (Negative)
[2021-10-14 08:56] LABS: Buprenorphine Negative ng/mL (Cutoff: 5.0); Norbuprenorphine Negative ng/mL (Cutoff: 2.5)
== END 2021-10-08 03:30 | disposition home or self-care (01) ==
LOC: LBO 03:30
PROVIDERS: Advanced Practice Midwife; PCP Nurse Practitioner Family; Visit Provider Obstetrics & Gynecology Gynecology
DX: Z34.91 Encounter for supervision of normal pregnancy, unspecified, first trimester (principal); Z86.32 Personal history of gestational diabetes
CPT/HCPCS: 36415; 80307; 86787; 86850; 86900; 86901; 87340; 87389; 87491; 87522; 87591; 84443; 85025; 86762; 86780; 87086

== ENCOUNTER 2021-10-08 12:14 | Outpatient (REF) | payer MEDICAID, SELFPAY ==
--- NOTE | 2021-10-08 09:15 | PAPFT_PTH ---
PATIENT: Anais Kim LOC: [facility] U#:[id number] AGE/SX: 31/F ROOM: RE10/08/[address]: Maxine Rodriguez CNM : 1990 BED: DIS: 10/08/2021 SPEC #: [id number] RECD: 10/08/21 13:03 STATUS: RAVINDER REQ #: [id number] NATASHA: 10/08/21 09:[address]: Maxine Rodriguez DEPT: [facility] Cytology RECD BY: Kamilla Villalobos ENTERED: 10/08/21 13:04 SP TYPE: PAPFT OTHR DR: Linda Mason Tissues: 1 - CX/ENDOCX FOR PAP SMEARS Procedures: PAP THIN PREP/UVM Screening HPV DNA PROBE Comments: [id number] (HPV 16 & 18/45 - UNSUITABLE FOR ANALYSIS)
== END 2021-10-08 12:15 | disposition home or self-care (01) ==
LOC: LBN 12:14
PROVIDERS: PCP Nurse Practitioner Family; Visit Provider Advanced Practice Midwife
DX: Z12.4 Encounter for screening for malignant neoplasm of cervix (principal); Z11.51 Encounter for screening for human papillomavirus (HPV); R87.610 Atypical squamous cells of undetermined significance on cytologic smear of cervix (ASC-US); R87.810 Cervical high risk human papillomavirus (HPV) DNA test positive
CPT/HCPCS: 88142; 87624

== ENCOUNTER 2021-11-29 01:31 | Outpatient (CLI) | payer MEDICAID, SELFPAY ==
--- NOTE | 2021-11-29 06:31 | DI.US_ITS ---
Exam(s) US OB 2-3 TRIMESTER EXAM: US OB 2-3 TRIMESTER CLINICAL HISTORY: anatomy,Z34.92. TECHNIQUE: Transabdominal obstetrical ultrasound performed. COMPARISON: No exams were available for comparison FINDINGS: Transabdominal obstetrical ultrasound performed. FINDINGS: Number of fetuses: One. position: Variable Placental grade: 1 Placental location: Anterior no evidence of previa. BIOMETRIC DATA: BPD: 48 millimeters, 20+ 3 weeks HC: 186 millimeters, 20+ 6 weeks AC: 161 mm, 21+1 weeks FL: 33 millimeters, 20+ 3 weeks Cisterna Magna: 6 millimeter Cerebellum: 2.0 cm EFW: 382 grams, 99 percentile Composite Age: 20+ 5 weeks EDC by US: 13 April 2022 Heart Rate: 139 BPM Amniotic fluid: Amount of fluid is visually within normal limits. ANATOMICAL SURVEY: Four-chambered heart: Unremarkable. LVOT: Unremarkable. RVOT: Unremarkable. Left-sided stomach: Unremarkable. urinary bladder: Unremarkable. Bilateral kidneys: Unremarkable. Three-vessel cord: Unremarkable. Cord insertion: Unremarkable. Umbilical artery velocity: Unremarkable. Posterior fossa:Unremarkable. ventricles: Unremarkable. nose: Unremarkable. lips: Unremarkable. palate: Unremarkable. spine: Unremarkable. Two arms and two legs: Unremarkable. IMPRESSION: 1. Single live intrauterine gestation as above. 2. Normal anatomic survey. DATA REPOSITORY:
== END 2021-11-29 01:51 ==
PROVIDERS: PCP Nurse Practitioner Family; Visit Provider Advanced Practice Midwife
DX: Z34.92 Encounter for supervision of normal pregnancy, unspecified, second trimester (principal); Z3A.20 20 weeks gestation of pregnancy
CPT/HCPCS: 76805

== ENCOUNTER 2022-02-10 20:27 | Emergency (ER) | payer MEDICAID, SELFPAY ==
[2022-02-10 20:30] VITALS: BP 121/62; PULSE 99; RESP 18; TEMP 36.8; O2SAT 99
[2022-02-10 20:39] VITALS: RESP 18
[2022-02-10] MEDS: Lactated Ringers 1,000 ML 1000 ML IV (20:57)
[2022-02-10] MEDS: Metoclopramide 10 MG/2 ML VIAL IVP (21:13)
--- NOTE | 2022-02-10 21:47 | W.ED.GENAD ---
Discharge Plan Disposition Patient Disposition: HOME Condition: Stable Discharge Details Clinical Impression: Nausea & vomiting, , Marijuana use Primary Care Provider: Linda Mason ED Provider: Kamilla Harris Home Meds and New Rx's Prescriptions: New metoclopramide HCl [Reglan] 10 mg tablet 10 mg PO Q6H PRNQty: 10 0RF Continued ondansetron HCl 8 mg tablet 8 mg PO Q8H PRN (Reason: nausea and vomiting) Qty: 60 1RF (DME) FreeStyle Lite Strips Strip See Rx Instructions .Route Qty: 100 3RF Rx Instructions: 4 times daily aspirin [Adult Low Dose Aspirin] 81 mg tablet,delayed release (DR/EC) 81 mg PO DAILY Qty: 90 3RF Rx Instructions: to take 1 tablet alternating every other day with 2 tablets for remainder of (DME) blood-glucose meter [FreeStyle Lite Meter] Kit See Rx Instructions .Route Qty: 1 0RF Rx Instructions: use 4 times daily (DME) lancets [FreeStyle Lancets] 28 gauge misc See Rx Instructions .Route Qty: 100 3RF Rx Instructions: 4 times daily prenat.vits,enriqueta,rzq-kvne-xryum Tablet 1 tab PO DAILY valacyclovir [Valtrex] 1 gram tablet 1,000 mg PO DAILY Qty: 30 3RF ProAir RespiClick 90 MCG aerosol powdr breath activated 90 mcg Inhalation 2 inh q 4-6 hours albuterol sulfate 90 mcg/actuation aerosol powdr breath activated 2 inh IH Q4H PRN (Reason: shortness of breath or wheezing) Qty: 1 0RF famotidine [Pepcid] 20 mg Tablet 20 mg PO DAILY Discharge Instructions Instructions: (ED), Acute Nausea and Vomiting (ED) Additional Instructions: Take Reglan as needed for nausea and vomiting Return with abdominal pain, or she develop new or worsening complaints Stay hydrated Discharge Data Discharge Date/Time-TO BE ENTERED AT DEPARTURE: 02/10/22 22:03 Medical Decision Making heart rate 135 135 patient has no abdominal tenderness on exam She appears well and her vitals are stable Able to tolerate p.o. Given prescription for Reglan for home Denies vaginal bleeding Able to tolerate p.o., reports symptomatic improvement Medical Records Medical records reviewed: Yes I reviewed the patient's medical records. Lab Data Lab results reviewed: Yes I reviewed the patient's lab results. HPI General Date/Time Provider Initiated Documentation: 02/10/22 20:29. HPI Narrative: This 31-year-old female presents 30 weeks status post smoking marijuana prior to arrival. She states approximately an hour prior to onset of symptoms she smokes marijuana. She states that she began to feel nauseous and very lightheaded which is why she presents. She denies any abdominal pain or vaginal bleeding. She denies any chest pain or shortness of breath. Related Data Home Medications Medication Instructions Recorded Confirmed albuterol sulfate 90 mcg/actuation 90 mcg inhalation 2 inh q 4-6 hours 02/06/18 02/10/22 breath activated powder inhaler (ProAir RespiClick) famotidine 20 mg tablet (Pepcid) 20 mg PO DAILY 07/07/18 02/10/22 albuterol sulfate 90 mcg/actuation 2 inh inhalation Q4H PRN shortness 08/22/19 02/10/22 breath activated powder inhaler of breath or wheezing #1 ea prenat.vits,enriqueta,vni-plyb-xccmy 1 tab PO DAILY 08/25/21 02/10/22 aspirin 81 mg tablet,delayed 81 mg PO DAILY #90 tabs 10/08/21 02/10/22 release (Adult Low Dose Aspirin) blood sugar diagnostic (FreeStyle #100 ea 10/08/21 11/05/21 Lite Strips) blood-glucose meter (FreeStyle #1 ea 10/08/21 11/05/21 Lite Meter kit) lancets 28 gauge (FreeStyle #100 ea 10/08/21 11/05/21 Lancets) ondansetron HCl 8 mg tablet 8 mg PO Q8H PRN nausea and 10/08/21 02/10/22 vomiting #60 tabs valacyclovir 1 gram tablet 1,000 mg PO DAILY #30 tabs 12/13/21 02/10/22 (Valtrex) metoclopramide HCl 10 mg tablet 10 mg PO Q6H PRN #10 tabs 02/10/22 (Reglan) Previous Rx's Medication Instructions Recorded albuterol sulfate 90 mcg/actuation 2 inh inhalation Q4H PRN shortness 08/22/19 breath activated powder inhaler of breath or wheezing #1 ea aspirin 81 mg tablet,delayed 81 mg PO DAILY #90 tabs 10/08/21 release (Adult Low Dose Aspirin) blood sugar diagnostic (FreeStyle #100 ea 10/08/21 Lite Strips) blood-glucose meter (FreeStyle #1 ea 10/08/21 Lite Meter kit) lancets 28 gauge (FreeStyle #100 ea 10/08/21 Lancets) ondansetron HCl 8 mg tablet 8 mg PO Q8H PRN nausea and 10/08/21 vomiting #60 tabs valacyclovir 1 gram tablet 1,000 mg PO DAILY #30 tabs 12/13/21 (Valtrex) metoclopramide HCl 10 mg tablet 10 mg PO Q6H PRN #10 tabs 02/10/22 (Reglan) Allergies Allergy/AdvReac Type Severity Reaction Status Date / Time No Known Allergies Allergy Verified 02/10/22 20:35 General Stated Complaint: GenMedical LO: 4 Review of Systems All systems reviewed & are unremarkable except as noted in HPI and below PFSH All Active Problems (Updated 02/10/22 @ 21:56 by ZACK Pritchard) Nausea & vomiting (Acute) (Acute) Marijuana use (Acute) COVID-19 affecting in second trimester (Acute) High risk HPV infection (Acute) ASCUS (atypical squamous cells of undetermined significance) on gynecologic Papanicolaou smear complicating , antepartum (Acute) Repeat PAP PP Positive urine drug screen (Acute) initial UDS + opiates and THC, patient had reported THC use COVID-19 affecting in first trimester (Acute) Cystic fibrosis carrier, antepartum (Acute) Hepatitis C antibody positive in blood (Acute 04/11/16) H/O herpes genitalis (Acute 04/11/16) GERD (gastroesophageal reflux disease) (Chronic) History of gestational diabetes in prior , currently (Acute) (Acute) Cannabinoid hyperemesis syndrome (Acute) Obesity (Chronic) Medical History (Updated 02/10/22 @ 21:56 by ZACK Pritchard) Cannabinoid hyperemesis syndrome Fever HSV (herpes simplex virus) infection Migraine Palpitations Rash Surgical History Open Carpal Tunnel release 04/08/[address] Pemberton Tonsillectomy and adenoidectomy Family History (Updated 10/08/21 @ 09:05 by Maxine Rodriguez CNM) Mother Diabetes Essential hypertension Hyperlipidemia Thyroid disease Asthma Grandmother Diabetes Breast cancer Grandmother Cancer Self Asthma Sister Essential hypertension Social History (Updated 10/08/21 @ 09:06 by Maxine Rodriguez CNM) Smoking/Tobacco Use Status: Former Tobacco Use Quit Date: 08/10/21 Smoking risk assessment performed?: Yes Alcohol Intake: former Drug use: Daily Substance use type: marijuana Household members: other Details: Children: Castillo Barboza FOB Number of Children: 2 current occupation: [employer]. Do you feel safe at home: Yes Do you feel safe in your relationship?: Yes History History 4 Para 2 Hx # Term Pregnancies 1 Multiple births 0 Hx # Pregnancies 1 Ectopic pregnancies 0 AB induced 0 Hx Number of Living Children 2 AB spontaneous 0 Past Pregnancies Del. Date GA/Weeks # Preg Succ Route Wgt Sex Labor Lgth Anesthesia Location [facility] 09/28/13 42 No vaginal 3543.69 g Female [facility] [place] 05/06/16 39 No vaginal 3345.244 g Male 24 [facility] Delivery Date: 05/06/16 Last Updated by: Maxien Rodriguez CNM induced due to elevated BG's Exam Const General: cooperative and no acute distress [facility] Head: normal to inspection Other: moist mucous membranes Eyes Pupils: PERRL Resp Effort & Inspection: normal respiratory effort Auscultation: clear to auscultation bilaterally GI Inspection: normal to inspection Other: Gravid uterus without tenderness Skin General skin exam: no rashes or lesions noted Neuro General: patient alert and patient oriented x3 Extrem Other: No peripheral edema Course Vital Signs Vital signs: Vital Signs Temperature 36.8 C 02/10/22 20:30 Pulse 99 H 02/10/22 20:30 Respiratory Rate 18 02/10/22 20:30 Blood Pressure 121/62 02/10/22 20:30 Pulse Oximetry 99 02/10/22 20:30 Temperature 36.8 C 02/10/22 20:30 Temperature Source Oral 02/10/22 20:30 Pulse 99 H 02/10/22 20:30 Respiratory Rate 18 02/10/22 20:39 Respiratory Effort 02/10/22 20:39 Respiratory Depth Normal 02/10/22 20:39 Respiratory Pattern Normal 02/10/22 20:39 Blood Pressure 121/62 02/10/22 20:30 Blood Pressure Position Sitting 02/10/22 20:30 Pulse Oximetry 99 02/10/22 20:30 Oxygen Delivery Method Room Air 02/10/22 20:30 Oxygen Flow Rate 0 02/10/22 20:30 Pain Level 0 02/10/22 20:30
[2022-02-10] MEDS: Metoclopramide 10 MG TAB PO (22:04)
[2022-02-10 22:05] VITALS: BP 122/62; PULSE 87; RESP 19; O2SAT 99
== END 2022-02-10 22:03 | disposition home or self-care (01) ==
PROVIDERS: Emergency Provider Physician Assistant; PCP Nurse Practitioner Family
DX: O99.323 Drug use complicating pregnancy, third trimester (principal); F12.90 Cannabis use, unspecified, uncomplicated; O21.2 Late vomiting of pregnancy; Z3A.30 30 weeks gestation of pregnancy
CPT/HCPCS: 96361; 96374; 99284; J2765

== ENCOUNTER → 2022-03-04 00:33 | Outpatient (CLI) | payer MEDICAID, SELFPAY ==
--- NOTE | 2022-03-04 07:15 | DI.US_ITS ---
Exam(s) US OB HILARY WEIGHT EXAM: US OB HILARY WEIGHT CLINICAL HISTORY: covid infection in ,U07.1,O98.512. TECHNIQUE: Transabdominal obstetrical ultrasound performed. COMPARISON: US US OB 2-3 TRIMESTER from 11/29/2021 FINDINGS: Transabdominal obstetrical ultrasound performed. FINDINGS: Number of fetuses: One. position: Cephalic. Placental location: There is a grade 1 anterior placenta. No evidence of previa. BIOMETRIC DATA: BPD: 85 mm = 34 weeks 2 days HC: 312 mm = 35 weeks 0 days AC: 293 mm = 33 weeks 2 days FL: 68 mm = 35 weeks 0 days EFW: 2332 grms 73% Composite Age: 34 weeks 3 days EDC: 04/12/2022 Heart Rate: 132BPM Amniotic fluid index: 14.7 cm. Visually, amount of fluid is within normal limits. IMPRESSION: 1. Single live intrauterine gestation as above. 2. Estimated weight is 2332gms. This is the 73 percentile. 3. Amniotic fluid index is 14.7 cm. Visually within normal limits. DATA REPOSITORY:
== END ==
PROVIDERS: PCP Nurse Practitioner Family; Visit Provider Advanced Practice Midwife
DX: O98.513 Other viral diseases complicating pregnancy, third trimester (principal); U07.1 COVID-19; Z3A.34 34 weeks gestation of pregnancy
CPT/HCPCS: 76816

== ENCOUNTER 2022-03-04 16:40 | Outpatient (REF) | payer MEDICAID, SELFPAY ==
[2022-03-04 12:29] LABS: *AMPHETAMINES SCREEN URINE Negative (Negative); *BARBITURATES SCREEN URINE Negative (Negative); *BENZODIAZEPINES SCREEN URINE Negative (Negative); Cannabinoids THC Negative (Negative); Cocaine Screen,Urine Negative (Negative); METHADONE URINE SCREEN Negative (Negative); OPIATES URINE SCREEN Negative (Negative); Tricyclic Antidepressants Negative (Negative)
[2022-03-09 13:30] LABS: Buprenorphine Negative ng/mL (Cutoff: 5.0); Norbuprenorphine Negative ng/mL (Cutoff: 2.5)
== END 2022-03-04 16:41 | disposition home or self-care (01) ==
LOC: LBN 16:40
PROVIDERS: PCP Nurse Practitioner Family; Visit Provider Advanced Practice Midwife
DX: O99.323 Drug use complicating pregnancy, third trimester (principal); Z3A.33 33 weeks gestation of pregnancy
CPT/HCPCS: 80307

== ENCOUNTER 2022-03-25 19:47 | Outpatient (CLI) | payer MEDICAID, SELFPAY ==
[2022-03-25 20:29] VITALS: BP 131/84; PULSE 92; TEMP 36.5
--- NOTE | 2022-03-25 21:10 | W.OBNST ---
Date of service: 03/25/22 Time of Service: 20:20 NST Evaluation Reason for NST Reasons for Nonstress Test: OTHER, SEE COMMENT Reason for NST Other: abd pain Gestational Age Gestational Age in Weeks and Days: 36 Weeks and 0Days Test and Monitor Explained Test/Monitor Explained: Test Explained, Monitor Explained and Patient Verbalized Understanding Vital Signs Blood Pressure: 131/84 Pulse: 92 Temperature: 97.7 F Urine Results Urine Protein: Negative Urine Ketones: Negative Urine Glucose: Negative Urine Blood: Negative NST Information Date on Monitor: 03/25/22 Time on Monitor: 20:14 Date off Monitor: 03/25/22 Time off Monitor: 20:34 Total Time on Monitor: 20 NST Interventions: None NST Evaluation Patient States Movement: Present FHR Baseline: 135 Variability: Moderate 6-25 bpm Accelerations: 15x15 and Prolonged Decelerations: None NST Results: Reactive Note NST Note Note: Victoria presents for NST due to feeling more raquel cano contractions today and occasional sharp pain down toward vagina. Denies bleeding, leaking or pressure. Baby has been active. She has been trying to stay cool by swimming today. Is in no distress. NST is reactive and reassuring and no contractions noted on toco. Nursing palpated abdomen and denies being able to palpate contractions but reports that when patient feels the sharp pain it is when baby is moving. VE cervix is closed 50% vtx -3 cervix is medium consistency and posterior. GBS obtained as she missed her appointment this past week. She is comfortable going home feeling reassured by NST and VE. She has appointment in office this week. Reports BG's have been stable. AN NST Reviewed and Verified by: Maxine Rodriguez
[2022-03-25 21:13] VITALS: BP 131/84; PULSE 92; TEMP 36.5
== END 2022-03-25 20:43 | disposition home or self-care (01) ==
LOC: BCD 19:53 → OBS 20:45
PROVIDERS: PCP Nurse Practitioner Family; Visit Provider Advanced Practice Midwife
DX: O26.893 Other specified pregnancy related conditions, third trimester (principal); R10.9 Unspecified abdominal pain; Z3A.36 36 weeks gestation of pregnancy
CPT/HCPCS: 59025; 87081

== ENCOUNTER 2022-04-16 13:08 | Observation (INO) | payer MEDICAID, SELFPAY ==
[2022-04-16 13:18] VITALS: BP 138/80; PULSE 84
[2022-04-16 13:20] VITALS: RESP 16; TEMP 37
--- NOTE | 2022-04-16 13:42 | HPE_ITS ---
Date of service: 04/16/22 Time of Service: 13:42 Assessment and Plan Assessment and plan (1) Uterine contractions: Status: Acute Assessment and plan: 1. Not in active labor on arrival, will observe and reassess in 2-4 hours for change 2. Discharge to home if no cervical change with expectant management. [facility] OB-HPI Labor/Delivery History of Present Illness Reason for Visit: labor check Chief Complaint: Uterine Contractions. ANNIE Calculator Estimated Delivery Date Method Current WG Current Estimate 04/22/22 Ultrasound #2 39w 1d Other Estimates 04/13/22 LMP (Uncertain) 40w 3d 04/19/22 Ultrasound #1 39w 4d History of Present Expected Delivery Route/Plan - CNM FOB - [place]ancho[place] English (1st baby together, has one other child previously, 6 mos old) BB yes to circ Pt wants to reach down to deliver her baby on her own GBS negative Specific Issues/Plan 1. Hx GDM with intolerance of GTT, BMI =30. 1a. Will start checking FS 2wks before new Ob visit- All WNL 1b. Still checking glucose occasionally and WNL. 2. 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 3. Hx HSV II; Prophylaxis at 35-36 weeks, recommend 1000 mg daily dose as she had been previously prescribed 500 mg QD__ 4. Hx of induction due to elevated BG's, per records, patient was induced at 3 9w1d 5. Anais and partner unvaccinated for COVID- Had covid at 4-6 weeks gestation will start low dose ASA 5a. 2nd Covid infection early November - growth ultrasound at 32 weeks; 73% growth HILARY 14.7 no evidence of previa 6. Chronic Marijuana use, UDS repeated at 33 wks and is negative. Repeat @ 36 wks ___ 7. 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 Has Hep C; RNA quant at initial is undetectable 8. Initial UDS + opiates and THC reviewed with patient, she denies opiate use, UDS @ 33 wks is negative 9. Desires tubal ligation-MD consult 3rd trimester 03/04/22-consent signed 10. Pap ASCUS + HPV, treated for BV as well 11a. Colposcopy 11/05, no biopsies needed, plan to repeat PAP PP Assessment: History Reviewed & Current Review of Systems All systems reviewed & are unremarkable except as noted in HPI and below PFSH All Active Problems (Updated 04/16/22 @ 14:50 by Maxine Rodriguez CNM) Uterine contractions (Acute) COVID-19 affecting in second trimester (Acute) High risk HPV infection (Acute) ASCUS (atypical squamous cells of undetermined significance) on gynecologic Papanicolaou smear complicating , antepartum (Acute) Repeat PAP PP Positive urine drug screen (Acute) initial UDS + opiates and THC, patient had reported THC use COVID-19 affecting in first trimester (Acute) Cystic fibrosis carrier, antepartum (Acute) Hepatitis C antibody positive in blood (Acute 04/11/16) H/O herpes genitalis (Acute 04/11/16) GERD (gastroesophageal reflux disease) (Chronic) History of gestational diabetes in prior , currently (Acute) (Acute) Cannabinoid hyperemesis syndrome (Acute) Obesity (Chronic) Medical History Cannabinoid hyperemesis syndrome Fever HSV (herpes simplex virus) infection Migraine Palpitations Rash Surgical History Open Carpal Tunnel release 04/08/[address] Pemberton Tonsillectomy and adenoidectomy Family History Mother Diabetes Essential hypertension Hyperlipidemia Thyroid disease Asthma Grandmother Diabetes Breast cancer Grandmother Cancer Self Asthma Sister Essential hypertension Social History Smoking/Tobacco Use Status: Former Tobacco Use Quit Date: 08/10/21 Smoking risk assessment performed?: Yes Alcohol Intake: former Drug use: Daily Substance use type: marijuana Household members: other Details: Children: Castillo Barboza FOB Number of Children: 2 current occupation: [employer]. Do you feel safe at home: Yes Do you feel safe in your relationship?: Yes History History 4 Para 2 Hx # Term Pregnancies 1 Multiple births 0 Hx # Pregnancies 1 Ectopic pregnancies 0 AB induced 0 Hx Number of Living Children 2 AB spontaneous 0 Past Pregnancies Del. Date GA/Weeks # Preg Succ Route Wgt Sex Labor Lgth Anesth esia Location Prov Complic 09/28/13 42 No vaginal 7 lb 13 oz [facility] [place] 05/06/16 39 No vaginal 7 lb 6 oz [facility] Delivery Date: 05/06/16 Last Updated by: Maxine Rodriguez CNM induced due to elevated BG's Meds Allergies and Home Medications Allergies Allergy/AdvReac Type Severity Reaction Status Date / Time No Known Allergies Allergy Verified 04/16/22 14:42 Home Medications Medication Instructions Recorded Confirmed Type albuterol sulfate 90 mcg/actuation 90 mcg inhalation 2 inh q 4-6 hours 02/06/18 04/16/22 History breath activated powder inhaler (ProAir RespiClick) famotidine 20 mg tablet (Pepcid) 20 mg PO DAILY 07/07/18 04/16/22 History albuterol sulfate 90 mcg/actuation 2 inh inhalation Q4H PRN shortness 08/22/19 04/16/22 Rx breath activated powder inhaler of breath or wheezing #1 ea prenat.vits,enriqueta,hjt-vyze-ixblv 1 tab PO DAILY 08/25/21 04/16/22 History aspirin 81 mg tablet,delayed 81 mg PO DAILY #90 tabs 10/08/21 04/16/22 Rx release (Adult Low Dose Aspirin) blood sugar diagnostic (FreeStyle #100 ea 10/08/21 04/14/22 Rx Lite Strips) blood-glucose meter (FreeStyle #1 ea 10/08/21 04/14/22 Rx Lite Meter kit) lancets 28 gauge (FreeStyle #100 ea 10/08/21 04/14/22 Rx Lancets) ondansetron HCl 8 mg tablet 8 mg PO Q8H PRN nausea and 10/08/21 04/16/22 Rx vomiting #60 tabs metoclopramide HCl 10 mg tablet 10 mg PO Q6H PRN #10 tabs 02/10/22 04/16/22 Rx (Reglan) valacyclovir 1 gram tablet 1,000 mg PO DAILY #30 tabs 03/22/22 04/16/22 Rx (Valtrex) Exam Physical Exam Vital signs: Temp Pulse Resp BP 98.6 F 84 16 138/80 08/27/22 13:20 04/16/22 13:18 04/16/22 13:20 04/16/22 13:18 Vital Signs Reviewed: Yes Detailed Labor and Delivery Exam Dilation: 0.5 Effacement (%): 30 station: -2 Cervix position: posterior Consistency: medium Dotson Score: Cervical Points Exam 0 1 2 3 Dilation Closed 1-2cm 3-4 cm 5-6cm Effacement 0-30% 40-50% 60-70% 80% Consistency Firm Medium Soft Station -3 -2 -1,0 +1,+2 Position Posterior Mid Anterior DOTSON Score(Cervical Ripeness Score): 2 Amniotic Membrane Status: Intact Contraction Frequency(min): 3-5 Contraction Duration(sec): 40-60 Contraction Intensity: Mild/Moderate Fetus A Heart Rate Baseline: 135 Monitor Accelerations: 15 X 15 Monitor Decelerations: None Variability: Moderate (6-25 BPM) Presentation: Cephalic Categories: Category I HEENT Exam HEENT Exam: Normal (visual exam) Neck Exam Neck Exam: Normal (visual exam) Chest/Brest/Axilla Exam Chest Exam: Not Done Breast Exam Breast Exam: Not Done Respiratory Exam Respiratory Exam: Normal Cardiovascular Exam Cardiovascular Exam: Normal Abdominal Exam Abdominal Exam: Normal (gravid uterus size equals dates) Exam Exam: Normal Extremities Exam Extremities Exam: Normal Back/Spine/Pelvis Exam Back Exam: Not Done Pelvis Adequate: Yes Skin Exam Skin Exam: Normal Neurological Exam Neurological Exam: Normal Psychiatric Exam Psychiatric Exam: Normal (feels frustrated with lack of progress, sad due to Father in law passing away this morning from Cancer.) Results Results Group Beta Strep: Negative Blood Type: A+ Rubella Status: Immune Varicella Immunity: Immune Lab Results: Panorama Low Risk Trisomy 21/18/13 monosomy X and triploidy, male gender. 1 hour glucose 135 Risk Assessment Risk for Shoulder Dystocia Historical/Initial OB: POSITIVE FOR: Pre- BMI>30; NEGATIVE FOR: Pelvic Abnormality, Previous Shoulder Dystocia or Previous Macrosomia Counseling: history of gestational diabetes, delivered early for that at 36 weeks, BMI elevated, encouraged to keep weight gain to 25 lb Date/Initial: 10/08/21 [facility] Risk for Pre-Eclampsia Yes, if one or more: NEGATIVE FOR: Hx Pre-E/Gest HTN, Chronic HTN, Multiple Gestation, Pre-gestational DM, Renal Disease, Systemic Lupus or APA Syndrome Yes, if 2 or more: POSITIVE FOR: BMI>30; NEGATIVE FOR: Nulliparity, Age>= 35 yrs, >10yr btwn pregnancies, ethinicty, Mother/Sister w/ Pre-E or Previous IUGR Risk for Post- Hemorrhage Initial: NEGATIVE FOR: Multiple Gestation, Previous PPH, Known Clotting Deficiency, Grand Multiparity or Anticoagulation Risks Reviewed Risks Reviewed Upon Admission: Yes
--- NOTE | 2022-04-16 15:01 | W.PM.OBDISCH ---
Date of service: 04/16/22 Time of Service: 15:02 DS: Diagnosis Discharge Diagnosis (1) Uterine contractions: Status: Acute Asessment and Plan: 1. no cervical changes over 90 minutes, patient prefers discharge to home to await active labor 2. reassuring status 3. RTO 04/21 as scheduled if not in labor prior to that time. Discharge Plan Disposition Patient Disposition: HOME Condition: Good Discharge Details Reason For Visit: labor check Admit Date/Time: 04/16/22 13:08 Admit Provider: Maxine Rodriguez Attending Provider: Maxine Rodriguez Primary Care Provider: Linda Mason Hospital Course Hospital Course: No cervical changes on 2 exams greater than 90 minutes apart. Patient prefers discharge to home to watch and wait for labor. I reviewed signs of labor and when / how to call provider system administration manager when she believes she needs to come to the hospital. She has appointment 04/21. Home Meds and New Rx's Prescriptions: Continued ondansetron HCl 8 mg tablet 8 mg PO Q8H PRN (Reason: nausea and vomiting) Qty: 60 1RF (DME) FreeStyle Lite Strips Strip See Rx Instructions .Route Qty: 100 3RF Rx Instructions: 4 times daily aspirin [Adult Low Dose Aspirin] 81 mg tablet,delayed release (DR/EC) 81 mg PO DAILY Qty: 90 3RF Rx Instructions: to take 1 tablet alternating every other day with 2 tablets for remainder of (DME) blood-glucose meter [FreeStyle Lite Meter] Kit See Rx Instructions .Route Qty: 1 0RF Rx Instructions: use 4 times daily (DME) lancets [FreeStyle Lancets] 28 gauge misc See Rx Instructions .Route Qty: 100 3RF Rx Instructions: 4 times daily prenat.vits,enriqueta,[id number] Tablet 1 tab PO DAILY ProAir RespiClick 90 MCG aerosol powdr breath activated 90 mcg Inhalation 2 inh q 4-6 hours valacyclovir [Valtrex] 1 gram tablet 1,000 mg PO DAILY Qty: 30 3RF albuterol sulfate 90 mcg/actuation aerosol powdr breath activated 2 inh IH Q4H PRN (Reason: shortness of breath or wheezing) Qty: 1 0RF famotidine [Pepcid] 20 mg Tablet 20 mg PO DAILY metoclopramide HCl [Reglan] 10 mg tablet 10 mg PO Q6H PRNQty: 10 0RF Discharge Instructions Activity:: Activity as Tolerated Equipment/Supplies:: No Equipment Needed Diet:: As Tolerated Discharge Orders Discharge Orders: Discharge Order (Routine); Ordered 04/16/22 Ordered By: Maxine Rodriguez OB:DS Summary Summary Procedures: ante patient, no summary to do. Contraception Discussed Contraception Discussed: No (labor check only), Status at Discharge Functional status at discharge: independent ambulation Overall status at discharge: patient is back to baseline Mental Status: mental status grossly normal Speech and Movement: speech and movement normal Mood: congruent mood Affect: normal affect Time Spent with Patient providing and/or coordinating discharge services: Less than 30 minutes Exam Physical Exam Vital signs: Temp Pulse Resp BP 98.6 F 84 16 138/80 04/16/22 13:20 04/16/22 13:18 04/16/22 13:20 04/16/22 13:18 Vital Signs Reviewed: Yes Constitutional Constitutional: no acute distress HEENT Exam HEENT Exam: Normal (normal visual exam) Neck Exam Neck Exam: Not Done Respiratory Exam Respiratory Exam: Normal Cardiovascular Exam Cardiovascular Exam: Normal Abdominal Exam Abdomen: Other (antepartum patient, uterus size equals dates. ) Rectal Exam Rectal Exam: Not Done Exam Comments: normal visual exam, no lesions noted. Extremities Exam Extremity Exam: Normal Back/Spine/Pelvis Exam Back Exam: Not Done Skin Exam Skin Exam: Normal Neurological Exam Neurological Exam: Normal Psychiatric Exam Psychiatric Exam: Normal PFSH All Active Problems (Updated 04/16/22 @ 14:50 by Maxine Rodriguez CNM) Uterine contractions (Acute) COVID-19 affecting in second trimester (Acute) High risk HPV infection (Acute) ASCUS (atypical squamous cells of undetermined significance) on gynecologic Papanicolaou smear complicating , antepartum (Acute) Repeat PAP PP Positive urine drug screen (Acute) initial UDS + opiates and THC, patient had reported THC use COVID-19 affecting in first trimester (Acute) Cystic fibrosis carrier, antepartum (Acute) Hepatitis C antibody positive in blood (Acute 04/11/16) H/O herpes genitalis (Acute 04/11/16) GERD (gastroesophageal reflux disease) (Chronic) History of gestational diabetes in prior , currently (Acute) (Acute) Cannabinoid hyperemesis syndrome (Acute) Obesity (Chronic) Medical History Cannabinoid hyperemesis syndrome Fever HSV (herpes simplex virus) infection Migraine Palpitations Rash Surgical History Open Carpal Tunnel release 04/08/[address] Pemberton Tonsillectomy and adenoidectomy Family History Mother Diabetes Essential hypertension Hyperlipidemia Thyroid disease Asthma Grandmother Diabetes Breast cancer Grandmother Cancer Self Asthma Sister Essential hypertension Social History Smoking/Tobacco Use Status: Former Tobacco Use Quit Date: 08/10/21 Smoking risk assessment performed?: Yes Alcohol Intake: former Drug use: Daily Substance use type: marijuana Household members: other Details: Children: Castillo Barboza FOWoody Number of Children: 2 current occupation: [employer]. Do you feel safe at home: Yes Do you feel safe in your relationship?: Yes History History 4 Para 2 Hx # Term Pregnancies 1 Multiple births 0 Hx # Pregnancies 1 Ectopic pregnancies 0 AB induced 0 Hx Number of Living Children 2 AB spontaneous 0 Past Pregnancies Del. Date GA/Weeks # Preg Succ Route Wgt Sex Labor Lgth Anesthesia Location Prov [facility] 09/28/13 42 No vaginal 7 lb 13 oz Female 24 regional [place] 05/06/16 39 No vaginal 7 lb 6 oz Male 24 regional CN [place] Delivery Date: 05/06/16 Last Updated by: Maxine Rodriguez CNM induced due to elevated BG's DS: Data Vitals/I&O Vitals and I&O: Vital Signs Temperature 98.6 F 04/16/22 13:20 Pulse 84 04/16/22 13:18 Respiratory Rate 16 04/16/22 13:20 Blood Pressure 138/80 04/16/22 13:18
== END 2022-04-16 15:15 | disposition home or self-care (01) ==
PROVIDERS: Admitting Provider Advanced Practice Midwife; PCP Nurse Practitioner Family; Visit Provider Advanced Practice Midwife
DX: O47.1 False labor at or after 37 completed weeks of gestation (principal); Z3A.39 39 weeks gestation of pregnancy
CPT/HCPCS: G0378

== ENCOUNTER 2022-04-19 02:54 | Inpatient (IN) | payer MEDICAID, SELFPAY ==
[2022-04-19] VITALS (49 sets, daily range): BP systolic 111–161; BP diastolic 51–83; PULSE 70–108; RESP 16–20; TEMP 36.5–37.3; O2SAT 96–100; BMI 35.1
--- NOTE | 2022-04-19 02:56 | HPE_ITS ---
Date of service: 04/19/22 Time of Service: 02:40 Assessment and Plan Assessment and plan (1) Rupture, membranes, premature: Status: Acute Assessment and plan: 1. ROM confirmed with nitrazine and ferning as well as visualization of fluid leaking, SROM at 0130, clear fluid 2. Admit and treat expectantly, if no active labor in next 4 hours will consider augmentation 3. CBC, CMP, A1c, Type and screen and COVID test obtained 4. Expect NVD (2) Uterine contractions: Status: Acute Assessment and plan: 1. Irregular contractions, will observe for increase in intensity and frequency, expectant management at this time (3) H/O herpes genitalis: Status: Acute Assessment and plan: 1. SSE negative for visible lesions, patient denies symptoms, has been taking Valtrex 2. Admit and observe for active labor will augment as indicated. AN (4) Hepatitis C antibody positive in blood: Status: Acute Assessment and plan: 1. HCV RNA undetectable in , will repeat on admission. AN (5) History of gestational diabetes in prior , currently : Status: Acute Assessment and plan: 1. A1c and CMP ordered, patient has reported normal fingerstick BG's since 1 hour glucose in this was 135 and she was unable to tolerate 3 hour test. (6) Cystic fibrosis carrier, antepartum: Status: Acute Assessment and plan: 1. FOB declined testing when patient status was CF trait + 2. 2 other children are not affected. KH OB-HPI Labor/Delivery History of Present Illness Reason for Visit: spontaneous rupture of membranes Chief Complaint: Suspected Rupture of Membranes , Associated Signs and Symptoms of Suspected ROM: small gushes of clear fluid since 0130. Ferning and nitrazine positive on exam fluid crosses over examiner's glove onto pad under patient as w peyton. AN. ANNIE Calculator Estimated Delivery Date Method Current WG Current Estimate 04/22/22 Ultrasound #2 39w 4d Other Estimates 04/13/22 LMP (Uncertain) 40w 6d 04/19/22 Ultrasound #1 40w 0d History of Present Expected Delivery Route/Plan - CNM FOB - Castillo English (1st baby together, has one other child previously, 6 mos old) BB yes to circ Pt wants to reach down to deliver her baby on her own GBS negative Specific Issues/Plan 1. Hx GDM with intolerance of GTT, BMI =30. 1a. Will start checking FS 2wks before new Ob visit- All WNL 1b. Still checking glucose occasionally and WNL. 2. 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 3. Hx HSV II; Prophylaxis at 35-36 weeks, recommend 1000 mg daily dose as she had been previously prescribed 500 mg QD__ 4. Hx of induction due to elevated BG's, per records, patient was induced at 39w1d 5. Anais and partner unvaccinated for COVID- Had covid at 4-6 weeks gestation will start low dose ASA 5a. 2nd Covid infection early November - growth ultrasound at 32 weeks; 73% growth HILARY 14.7 no evidence of previa 6. Chronic Marijuana use, UDS repeated at 33 wks and is negative. Repeat @ 36 wks ___ 7. 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 Has Hep C; RNA quant at initial is undetectable 8. Initial UDS + opiates and THC reviewed with patient, she denies opiate use, UDS @ 33 wks is negative 9. Desires tubal ligation-MD consult 3rd trimester 03/04/22-consent signed 10. Pap ASCUS + HPV, treated for BV as well 11a. Colposcopy 11/05, no biopsies needed, plan to repeat PAP PP Assessment: History Reviewed & Current Informed Consent Informed Consent: Other (SSE for confirmation of ROM) Review of Systems All systems reviewed & are unremarkable except as noted in HPI and below Genitourinary Comments: leaking fluid vaginally PFSH All Active Problems (Updated 04/19/22 @ 03:12 by Maxine Rodriguez CNM) Rupture, membranes, premature (Acute) Uterine contractions (Acute) COVID-19 affecting in second trimester (Acute) High risk HPV infection (Acute) ASCUS (atypical squamous cells of undetermined significance) on gynecologic Papanicolaou smear complicating , antepartum (Acute) Repeat PAP PP Positive urine drug screen (Acute) initial UDS + opiates and THC, patient had reported THC use COVID-19 affecting in first trimester (Acute) Cystic fibrosis carrier, antepartum (Acute) Hepatitis C antibody positive in blood (Acute 04/11/16) H/O herpes genitalis (Acute 04/11/16) GERD (gastroesophageal reflux disease) (Chronic) History of gestational diabetes in prior , currently (Acute) (Acute) Cannabinoid hyperemesis syndrome (Acute) Obesity (Chronic) Medical History Cannabinoid hyperemesis syndrome Fever HSV (herpes simplex virus) infection Migraine Palpitations Rash Surgical History Open Carpal Tunnel release 04/08/[address] Pemberton Tonsillectomy and adenoidectomy Family History Mother Diabetes Essential hypertension Hyperlipidemia Thyroid disease Asthma Grandmother Diabetes Breast cancer Grandmother Cancer Self Asthma Sister Essential hypertension Social History Smoking/Tobacco Use Status: Former Tobacco Use Quit Date: 08/10/21 Smoking risk assessment performed?: Yes Alcohol Intake: former Drug use: Daily Substance use type: marijuana Household members: other Details: Children: Castillo Barboza FOWoody Number of Children: 2 current occupation: [employer]. Do you feel safe at home: Yes Do you feel safe in your relationship?: Yes History History 4 Para 2 Hx # Term Pregnancies 1 Multiple births 0 Hx # Pregnancies 1 Ectopic pregnancies 0 AB induced 0 Hx Number of Living Children 2 AB spontaneous 0 Past Pregnancies Del. Date GA/Weeks # Preg Succ Route Wgt Sex Labor Lgth Anesth esia Location [facility] 09/28/13 42 No vaginal 7 lb 13 oz Female 24 regional [place] 05/06/16 39 No vaginal 7 lb 6 oz Male 24 regional CN [facility] Delivery Date: 05/06/16 Last Updated by: Maxine Rodriguez CNM induced due to elevated BG's Meds Allergies and Home Medications Allergies Allergy/AdvReac Type Severity Reaction Status Date / Time No Known Allergies Allergy Verified 04/19/22 03:02 Home Medications Medication Instructions Recorded Confirmed Type albuterol sulfate 90 mcg/actuation 90 mcg inhalation 2 inh q 4-6 hours 02/06/18 04/19/22 History breath activated powder inhaler (ProAir RespiClick) famotidine 20 mg tablet (Pepcid) 20 mg PO DAILY 07/07/18 04/19/22 History albuterol sulfate 90 mcg/actuation 2 inh inhalation Q4H PRN shortness 08/22/19 04/19/22 Rx breath activated powder inhaler of breath or wheezing #1 ea prenat.vits,enriqueta,[id number] 1 tab PO DAILY 08/25/21 04/19/22 History aspirin 81 mg tablet,delayed 81 mg PO DAILY #90 tabs 10/08/21 04/19/22 Rx release (Adult Low Dose Aspirin) blood sugar diagnostic (FreeStyle #100 ea 10/08/21 04/14/22 Rx Lite Strips) blood-glucose meter (FreeStyle #1 ea 10/08/21 04/14/22 Rx Lite Meter kit) lancets 28 gauge (FreeStyle #100 ea 10/08/21 04/14/22 Rx Lancets) ondansetron HCl 8 mg tablet 8 mg PO Q8H PRN nausea and 10/08/21 04/19/22 Rx vomiting #60 tabs metoclopramide HCl 10 mg tablet 10 mg PO Q6H PRN #10 tabs 02/10/22 04/19/22 Rx (Reglan) valacyclovir 1 gram tablet 1,000 mg PO DAILY #30 tabs 03/22/22 04/19/22 Rx (Valtrex) Exam Physical Exam Vital signs: Temp Pulse Resp BP Pulse Ox 97.9 F 81 20 135/66 97 04/19/22 02:42 04/19/22 02:53 04/19/22 02:42 04/19/22 02:42 04/19/22 02:53 Vital Signs Reviewed: Yes Constitutional Constitutional: no acute distress and obese Detailed Labor and Delivery Exam Dilation: 1 Effacement (%): 50 station: -3 Cervix position: posterior Consistency: soft Dotson Score: Cervical Points Exam 0 1 2 3 Dilation Closed 1-2cm 3-4 cm 5-6cm Effacement 0-30% 40-50% 60-70% 80% Consistency Firm Medium Soft Station -3 -2 -1,0 +1,+2 Position Posterior Mid Anterior DOTSON Score(Cervical Ripeness Score): 4 Amniotic Membrane Status: Ruptured Rupture Method: Spontaneous Amniotic Fluid: Clear Nitrazine: Positive Ferning: Present Monitor Mode: External Contraction Frequency(min): 3-5 Contraction Duration(sec): 60 Contraction Intensity: Mild Fetus A Heart Rate Baseline: 120 Monitor Accelerations: 15 X 15 Monitor Decelerations: None Variability: Moderate (6-25 BPM) Presentation: Cephalic Categories: Category I Est. Weight: 7 lb 8 oz Date of Membrane Rupture: 04/19/22 Time of Membrane Rupture: 01:30 HEENT Exam HEENT Exam: Normal Neck Exam Neck Exam: Normal Chest/Brest/Axilla Exam Chest Exam: Normal Breast Exam Breast Exam: Normal Respiratory Exam Respiratory Exam: Normal Cardiovascular Exam Cardiovascular Exam: Normal Abdominal Exam Abdominal Exam: Normal (gravid uterus, size equals dates) Rectal Exam Rectal Exam: Not Done Exam Exam: Normal (leaking clear amniotic fluid) Extremities Exam Extremities Exam: Normal Back/Spine/Pelvis Exam Back Exam: Normal Pelvis Adequate: Yes Skin Exam Skin Exam: Normal Neurological Exam Neurological Exam: Normal Psychiatric Exam Psychiatric Exam: Normal Results Results Group Beta Strep: Negative Blood Type: A+ Rubella Status: Immune Varicella Immunity: Immune Lab Results: Hep B, Hep C, HIV, syphillis, GC CT negative. Panorama LR male, CF carrier po sitive, ( declined testing), 1 hour 135 and was not able to do 3 hour test so has been doing home glucose monitoring with reported BG's within normal ranges for third trimester. Risk Assessment Risk for Shoulder Dystocia Historical/Initial OB: POSITIVE FOR: Pre- BMI>30; NEGATIVE FOR: Pelvic Abnormality, Previous Shoulder Dystocia or Previous Macrosomia Counseling: history of gestational diabetes, delivered early for that at 36 weeks, BMI elevated, encouraged to keep weight gain to 25 lb Date/Initial: 10/08/21 Delivery Plan @ 40 wks: NVD expected Risk for Pre-Eclampsia Yes, if one or more: NEGATIVE FOR: Hx Pre-E/Gest HTN, Chronic HTN, Multiple Gestation, Pre-gestational DM, Renal Disease, Systemic Lupus or APA Syndrome Yes, if 2 or more: POSITIVE FOR: BMI>30; NEGATIVE FOR: Nulliparity, Age>= 35 yrs, >10yr btwn pregnancies, ethinicty, Mother/Sister w/ Pre-E or Previous IUGR Risk for Post- Hemorrhage Initial: NEGATIVE FOR: Multiple Gestation, Previous PPH, Known Clotting Deficiency, Grand Multiparity or Anticoagulation At Risk?: No Counseled re: Active Management: Yes Date/Initials: 04/19/22 Risks Reviewed Risks Reviewed Upon Admission: Yes (LR X 3, was taking ASA due to COVID in and initial BMI >30)
[2022-04-19] MEDS: Normal Saline Flush 10 ML SYR IVP (03:00)
[2022-04-19 03:21] LABS: HCT 30.5 % (36.0-46.0); HGB 10.6 g/dL (11.2-15.7); MCH 29.3 pg (27.0-33.0); MCHC 34.8 % (32.0-36.0); MCV 84 fL (80-95); MPV 11.1 fL (8.0-11.0); Platelet Count 226 10^3/uL (130-400); RBC 3.62 10^6/uL (3.93-5.22); RDW 13.2 % (11.7-14.6); RDW-SD 40.9 fL
[2022-04-19 03:33] LABS: Hemoglobin A1C 5.6 % (<5.7)
[2022-04-19 03:34] LABS: ALT 22 U/L (14-59); AST 21 U/L (15-37); Albumin 2.5 g/dL (3.4-5.0); Alkaline Phosphatase 127 U/L (46-116); Anion Gap 10.9 mmol/L (3-11); BUN 9 mg/dL (7-18); Bilirubin, Total 0.2 mg/dL (0.2-1.0); CO2 22.1 mmol/L (21.0-32.0); CREATININE 0.7 mg/dL (0.55-1.02); Calcium 8.5 mg/dL (8.5-10.1); Chloride 104 mmol/L (98-107); Estimated GFR 117.77 (mL/min/1.73m2); Glucose 121 mg/dL (74-106); Potassium 3.4 mmol/L (3.5-5.1); Sodium 137 mmol/L (136-145); Total Protein 6.5 g/dL (6.4-8.2)
[2022-04-19 03:58] LABS: Source Nasal/Nares
[2022-04-19 04:30] LABS: COVID-19 PCR Negative (Negative)
--- NOTE | 2022-04-19 06:09 | W.PM.OBNL1 ---
Date of service: 04/19/22 Time of Service: 06:15 Informed Consent Informed Consent: Augmentation of Labor and Other (SSE for confirmation of ROM) Pelvic Exam Comments: VE deferred, due to ROM and no evidence of active labor. Contractions Monitor Mode: External Contraction Frequency(min): irregular Contraction Duration(sec): 50-60 Intensity: Mild Fetus A Monitor: External (US) Heart Rate Baseline: 120 Variability: Moderate (6-25 BPM) Accelerations: 10 X 10 Decelerations: None Assessment and Plan Assessment and plan (1) Rupture, membranes, premature: Status: Acute Assessment and plan: 1. will give misoprostol 50 mcg and reassess in 4 hours or prn. 2. reviewed plan with patient who has used this medicaiton before and understands / agrees she would like to move forward with cervical ripening. Objective Abnormal lab results 04/19/22 04/19/22 Range/Units 03:08 03:08 WBC 17.00 H (4.4-10.8) 10^3/uL RBC 3.62 L (3.93-5.22) 10^6/uL Hgb 10.6 L (11.2-15.7) g/dL Hct 30.5 L (36.0-46.0) % MPV 11.1 H (8.0-11.0) fL Potassium 3.4 L (3.5-5.1) mmol/L Glucose 121 H (74-106) mg/dL Alkaline Phosphatase 127 H (46-116) U/L Albumin 2.5 L (3.4-5.0) g/dL Temp Pulse Resp BP Pulse Ox 97.7 F 88 18 134/69 98 04/19/22 05:12 04/19/22 05:12 04/19/22 05:12 04/19/22 05:12 04/19/22 03:03 Laboratory Results WBC 17.00 10^3/uL (4.4-10.8) H 04/19/22 03:08 RBC 3.62 10^6/uL (3.93-5.22) L 04/19/22 03:08 Hgb 10.6 g/dL (11.2-15.7) L 04/19/22 03:08 Hct 30.5 % (36.0-46.0) L 04/19/22 03:08 MCV 84 fL (80-95) 04/19/22 03:08 MCH 29.3 pg (27.0-33.0) 04/19/22 03:08 MCHC 34.8 % (32.0-36.0) 04/19/22 03:08 RDW 13.2 % (11.7-14.6) 04/19/22 03:08 Plt Count 226 10^3/uL (130-400) 04/19/22 03:08 MPV 11.1 fL (8.0-11.0) H 04/19/22 03:08 Sodium 137 mmol/L (136-145) 04/19/22 03:08 Potassium 3.4 mmol/L (3.5-5.1) L 04/19/22 03:08 Chloride 104 mmol/L (98-107) 04/19/22 03:08 Carbon Dioxide 22.1 mmol/L (21.0-32.0) 04/19/22 03:08 Anion Gap 10.9 mmol/L (3-11) 04/19/22 03:08 BUN 9 mg/dL (7-18) 04/19/22 03:08 Creatinine 0.7 mg/dL (0.55-1.02) 04/19/22 03:08 Est GFR (CKD-EPI 2020) 117.77 (mL/min/1.73m2) 04/19/22 03:08 Glucose 121 mg/dL (74-106) H 04/19/22 03:08 Hemoglobin A1c 5.6 % (<5.7) 04/19/22 03:08 Calcium 8.5 mg/dL (8.5-10.1) 04/19/22 03:08 Total Bilirubin 0.2 mg/dL (0.2-1.0) 04/19/22 03:08 AST 21 U/L (15-37) 04/19/22 03:08 ALT 22 U/L (14-59) 04/19/22 03:08 Alkaline Phosphatase 127 U/L (46-116) H 04/19/22 03:08 Total Protein 6.5 g/dL (6.4-8.2) 04/19/22 03:08 Albumin 2.5 g/dL (3.4-5.0) L 04/19/22 03:08 COVID-19 Source Nasal/Nares 04/19/22 03:30 SARS-CoV-2 (PCR) Negative (Negative) 04/19/22 03:30 Patient ABO/Rh A Positive 04/19/22 03:08 Antibody Screen NEGATIVE 04/19/22 03:08 Vital Signs Reviewed: Yes Subjective Interval history since last seen: Patient is observed sleeping without aid or medication. Wakens easily and agrees to moving forward with misoprostol for cervical ripening as she has had ROM >4 hours without labor onset. She has had this medication before and understands its use, risks, benefits and alternatives and denies questions. KH Results Hemoglobin/Hematocrit: Hgb 10.6 g/dL (11.2-15.7) L 04/19/22 03:08 Hct 30.5 % (36.0-46.0) L 04/19/22 03:08 Abnormal Lab Findings: Abnormal Labs 04/19/22 04/19/22 03:08 03:08 WBC 17.00 H RBC 3.62 L Hgb 10.6 L Hct 30.5 L MPV 11.1 H Potassium 3.4 L Glucose 121 H Alkaline Phosphatase 127 H Albumin 2.5 L
[2022-04-19] MEDS: miSOPROStol 50 MCG TAB SL (06:40)
--- NOTE | 2022-04-19 10:57 | W.PM.OBNL1 ---
Date of service: 04/19/22 Time of Service: 10:57 Informed Consent Informed Consent: Augmentation of Labor and Other (SSE for confirmation of ROM) Pelvic Exam Dilation: 2 Effacement (%): 50 station: -2 Cervix Position: posterior Consistency: medium Contractions Monitor Mode: None (palp. while in tub, now being placed back on monitor) Contraction Frequency(min): irregular 3-6 Contraction Duration(sec): 50-60 Intensity: Mild/Moderate Fetus A Monitor: Doppler (will be placed back on monitor now) Heart Rate Baseline: 130 Presentation: Vertex Assessment and Plan Assessment and plan (1) Rupture, membranes, premature: Status: Acute Assessment and plan: 1. Will give second dose of Misoprostol 50 mcg and reassess in 4 hours or prn. KH Objective Abnormal lab results 04/19/22 04/19/22 Range/Units 03:08 03:08 WBC 17.00 H (4.4-10.8) 10^3/uL RBC 3.62 L (3.93-5.22) 10^6/uL Hgb 10.6 L (11.2-15.7) g/dL Hct 30.5 L (36.0-46.0) % MPV 11.1 H (8.0-11.0) fL Potassium 3.4 L (3.5-5.1) mmol/L Glucose 121 H (74-106) mg/dL Alkaline Phosphatase 127 H (46-116) U/L Albumin 2.5 L (3.4-5.0) g/dL Temp Pulse Resp BP Pulse Ox 97.9 F 86 16 141/64 H 98 04/19/22 10:55 04/19/22 10:55 04/19/22 08:58 04/19/22 10:55 04/19/22 03:03 Laboratory Results WBC 17.00 10^3/uL (4.4-10.8) H 04/19/22 03:08 RBC 3.62 10^6/uL (3.93-5.22) L 04/19/22 03:08 Hgb 10.6 g/dL (11.2-15.7) L 04/19/22 03:08 Hct 30.5 % (36.0-46.0) L 04/19/22 03:08 MCV 84 fL (80-95) 04/19/22 03:08 MCH 29.3 pg (27.0-33.0) 04/19/22 03:08 MCHC 34.8 % (32.0-36.0) 04/19/22 03:08 RDW 13.2 % (11.7-14.6) 04/19/22 03:08 Plt Count 226 10^3/uL (130-400) 04/19/22 03:08 MPV 11.1 fL (8.0-11.0) H 04/19/22 03:08 Sodium 137 mmol/L (136-145) 04/19/22 03:08 Potassium 3.4 mmol/L (3.5-5.1) L 04/19/22 03:08 Chloride 104 mmol/L (98-107) 04/19/22 03:08 Carbon Dioxide 22.1 mmol/L (21.0-32.0) 04/19/22 03:08 Anion Gap 10.9 mmol/L (3-11) 04/19/22 03:08 BUN 9 mg/dL (7-18) 04/19/22 03:08 Creatinine 0.7 mg/dL (0.55-1.02) 04/19/22 03:08 Est GFR (CKD-EPI 2020) 117.77 (mL/min/1.73m2) 04/19/22 03:08 Glucose 121 mg/dL (74-106) H 04/19/22 03:08 Hemoglobin A1c 5.6 % (<5.7) 04/19/22 03:08 Calcium 8.5 mg/dL (8.5-10.1) 04/19/22 03:08 Total Bilirubin 0.2 mg/dL (0.2-1.0) 04/19/22 03:08 AST 21 U/L (15-37) 04/19/22 03:08 ALT 22 U/L (14-59) 04/19/22 03:08 Alkaline Phosphatase 127 U/L (46-116) H 04/19/22 03:08 Total Protein 6.5 g/dL (6.4-8.2) 04/19/22 03:08 Albumin 2.5 g/dL (3.4-5.0) L 04/19/22 03:08 COVID-19 Source Nasal/Nares 04/19/22 03:30 SARS-CoV-2 (PCR) Negative (Negative) 04/19/22 03:30 Patient ABO/Rh A Positive 04/19/22 03:08 Antibody Screen NEGATIVE 04/19/22 03:08 Vital Signs Reviewed: Yes Subjective Interval history since last seen: Anais is interested in moving forward with augmentation. Will do 1 more misoprostol and reassess in 4 hours. KH Results Hemoglobin/Hematocrit: Hgb 10.6 g/dL (11.2-15.7) L 04/19/22 03:08 Hct 30.5 % (36.0-46.0) L 04/19/22 03:08 Abnormal Lab Findings: Abnormal Labs 04/19/22 04/19/22 03:08 03:08 WBC 17.00 H RBC 3.62 L Hgb 10.6 L Hct 30.5 L MPV 11.1 H Potassium 3.4 L Glucose 121 H Alkaline Phosphatase 127 H Albumin 2.5 L
[2022-04-19] MEDS: miSOPROStol 50 MCG TAB PO (11:30)
--- NOTE | 2022-04-19 12:12 | W.PM.OBNL1 ---
Date of service: 04/19/22 Time of Service: 12:12 Informed Consent Informed Consent: Augmentation of Labor and Other (SSE for confirmation of ROM) Pelvic Exam Dilation: 2.5 Effacement (%): 80 station: -1 Cervix Position: posterior Consistency: soft Contractions Monitor Mode: External Contraction Frequency(min): 2 Contraction Duration(sec): 60 Intensity: Moderate/Strong Fetus A Monitor: External (US) Heart Rate Baseline: 150 Categories: Category II (occasional variable decel to 130 X 15 seconds not repetative, will use fluid bolus and position changes to mitigate. KH) Assessment and Plan Assessment and plan (1) Uterine contractions: Status: Acute Assessment and plan: 1. Reviewed pain management options. Patient is wanting epidural even if it means pitocin augmentation is needed. 2. Anesthesia notified and IV bolus to be started. Objective Abnormal lab results 04/19/22 04/19/22 Range/Units 03:08 03:08 WBC 17.00 H (4.4-10.8) 10^3/uL RBC 3.62 L (3.93-5.22) 10^6/uL Hgb 10.6 L (11.2-15.7) g/dL Hct 30.5 L (36.0-46.0) % MPV 11.1 H (8.0-11.0) fL Potassium 3.4 L (3.5-5.1) mmol/L Glucose 121 H (74-106) mg/dL Alkaline Phosphatase 127 H (46-116) U/L Albumin 2.5 L (3.4-5.0) g/dL Temp Pulse Resp BP Pulse Ox 97.9 F 86 16 141/64 H 98 04/19/22 12:03 04/19/22 10:55 04/19/22 08:58 04/19/22 10:55 04/19/22 03:03 Laboratory Results WBC 17.00 10^3/uL (4.4-10.8) H 04/19/22 03:08 RBC 3.62 10^6/uL (3.93-5.22) L 04/19/22 03:08 Hgb 10.6 g/dL (11.2-15.7) L 04/19/22 03:08 Hct 30.5 % (36.0-46.0) L 04/19/22 03:08 MCV 84 fL (80-95) 04/19/22 03:08 MCH 29.3 pg (27.0-33.0) 04/19/22 03:08 MCHC 34.8 % (32.0-36.0) 04/19/22 03:08 RDW 13.2 % (11.7-14.6) 04/19/22 03:08 Plt Count 226 10^3/uL (130-400) 04/19/22 03:08 MPV 11.1 fL (8.0-11.0) H 04/19/22 03:08 Sodium 137 mmol/L (136-145) 04/19/22 03:08 Potassium 3.4 mmol/L (3.5-5.1) L 04/19/22 03:08 Chloride 104 mmol/L (98-107) 04/19/22 03:08 Carbon Dioxide 22.1 mmol/L (21.0-32.0) 04/19/22 03:08 Anion Gap 10.9 mmol/L (3-11) 04/19/22 03:08 BUN 9 mg/dL (7-18) 04/19/22 03:08 Creatinine 0.7 mg/dL (0.55-1.02) 04/19/22 03:08 Est GFR (CKD-EPI 2020) 117.77 (mL/min/1.73m2) 04/19/22 03:08 Glucose 121 mg/dL (74-106) H 04/19/22 03:08 Hemoglobin A1c 5.6 % (<5.7) 04/19/22 03:08 Calcium 8.5 mg/dL (8.5-10.1) 04/19/22 03:08 Total Bilirubin 0.2 mg/dL (0.2-1.0) 04/19/22 03:08 AST 21 U/L (15-37) 04/19/22 03:08 ALT 22 U/L (14-59) 04/19/22 03:08 Alkaline Phosphatase 127 U/L (46-116) H 04/19/22 03:08 Total Protein 6.5 g/dL (6.4-8.2) 04/19/22 03:08 Albumin 2.5 g/dL (3.4-5.0) L 04/19/22 03:08 COVID-19 Source Nasal/Nares 04/19/22 03:30 SARS-CoV-2 (PCR) Negative (Negative) 04/19/22 03:30 Patient ABO/Rh A Positive 04/19/22 03:08 Antibody Screen NEGATIVE 04/19/22 03:08 Subjective Interval history since last seen: requesting epidural. Victoria is aware that epidural may cause contractions to space out. She is aware that pitocin may be needed. She prefers epidural at this time. Anesthesia contacted. KH Results Hemoglobin/Hematocrit: Hgb 10.6 g/dL (11.2-15.7) L 04/19/22 03:08 Hct 30.5 % (36.0-46.0) L 04/19/22 03:08 Abnormal Lab Findings: Abnormal Labs 04/19/22 04/19/22 03:08 03:08 WBC 17.00 H RBC 3.62 L Hgb 10.6 L Hct 30.5 L MPV 11.1 H Potassium 3.4 L Glucose 121 H Alkaline Phosphatase 127 H Albumin 2.5 L
[2022-04-19] MEDS: Lactated Ringers 1,000 ML 125 ML IV (12:45)
--- NOTE | 2022-04-19 12:45 | ANES.PREOP_ITS ---
General Info Date of Service Date Performed: 04/19/22 Height: 5 ft 11 in Weight: 114.305 kg Body Mass Index (BMI): 35.1 Meds Allergies and Home Medications Allergies Allergy/AdvReac Type Severity Reaction Status Date / Time No Known Allergies Allergy Verified 04/19/22 03:02 Home Medication Medication Instructions Recorded albuterol sulfate 90 mcg/actuation 90 mcg inhalation 2 inh q 4-6 hours 02/06/18 breath activated powder inhaler (ProAir RespiClick) famotidine 20 mg tablet (Pepcid) 20 mg PO DAILY 07/07/18 albuterol sulfate 90 mcg/actuation 2 inh inhalation Q4H PRN shortness 08/22/19 breath activated powder inhaler of breath or wheezing #1 ea prenat.vits,enriqueta,kwd-ofst-iqnsu 1 tab PO DAILY 08/25/21 aspirin 81 mg tablet,delayed 81 mg PO DAILY #90 tabs 10/08/21 release (Adult Low Dose Aspirin) blood sugar diagnostic (FreeStyle #100 ea 10/08/21 Lite Strips) blood-glucose meter (FreeStyle #1 ea 10/08/21 Lite Meter kit) lancets 28 gauge (FreeStyle #100 ea 10/08/21 Lancets) ondansetron HCl 8 mg tablet 8 mg PO Q8H PRN nausea and 10/08/21 vomiting #60 tabs metoclopramide HCl 10 mg tablet 10 mg PO Q6H PRN #10 tabs 02/10/22 (Reglan) valacyclovir 1 gram tablet 1,000 mg PO DAILY #30 tabs 03/22/22 (Valtrex) Current Visit Medications: Current Medications Generic Name Dose Route Start Last Admin Trade Name Freq PRN Reason Stop Dose Admin Albuterol Sulfate 2 puff 04/19/22 07:19 Albuterol Hfa 8 Gm 60 Puff Inh IH Q4H PRN PRN shortness of breath or wheezing Bupivacaine HCl 0 ml 04/19/22 12:35 Bupivacaine 0.25% Pres-Free 10 Ml Vial EP 04/19/22 12:36 NOW ONE Fentanyl 0 mcg 04/19/22 12:35 Fentanyl 100 Mcg/2 Ml Vial EP 04/19/22 12:36 NOW ONE Fentanyl/Ropivacaine 200 ml 04/19/22 12:45 Fentanyl/Ropivacaine 2 Mcg/Ml And 0.1% 200 Ml Cadd Cassette EP DIRECTED LALO Sodium Chloride 500 mls @ 0 mls/hr 04/19/22 02:54 Saline 500ml Bag IV PRN PRN As Directed Ringer's Solution 500 mls @ 500 mls/hr 04/19/22 12:17 IV 04/19/22 13:16 BOLUS ONE Ringer's Solution 500 mls @ 500 mls/hr 04/19/22 12:35 IV 04/19/22 13:34 BOLUS ONE IV Miscellaneous Supplies 1 each 04/19/22 03:00 Iv Access IV DIRECTED LALO Sodium Chloride 0 ml 04/19/22 02:54 04/19/22 03:00 Normal Saline Flush 10 Ml Syr IVP 10 ml PRN PRN Administration PFSH Active Problems Active Problems: Problem Status Onset Code Rupture, membranes, premature O42.90 Uterine contractions O47.9 COVID-19 affecting in second trimester O98.512, U07.1 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 ASCUS (atypical squamous cells of undetermined significance) on gynecologic Papanicolaou smear complicating , antepartum Positive urine drug screen R82.5 COVID-19 affecting in first trimester O98.511, U07.1 Cystic fibrosis carrier, 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 Pemberton Tonsillectomy and adenoidectomy Tobacco Smoking/Tobacco Use Status: Former Tobacco Use Alcohol Alcohol Intake: former Substance Use Substance use: Daily Substance use type: marijuana Details: Hx IV drug use, clean x 12 years although opiates found in urine at 1st visit. None since Prental History History 4 Para 2 Hx # Term Pregnancies 1 Multiple births 0 Hx # Pregnancies 1 Ectopic pregnancies 0 AB induced 0 Hx Number of Living Children 2 AB spontaneous 0 Past Pregnancies Del. Date GA/Weeks # Preg Succ Route Wgt Sex Labor Lgth Anesth esia Location Prov [facility] 09/28/13 42 No vaginal 3543.69 g Female [facility] [place] 05/06/16 39 No vaginal 3345.244 g Male [facility] [place] [facility] Delivery Date: 05/06/16 Last Updated by: Maxine Rodriguez CNM induced due to elevated BG's Vital Signs and Lab Results Vital Signs Most Recent Vital Signs in EMR: Most Recent Vital Signs Temp Pulse Resp BP Pulse Ox 36.6 C 86 16 141/64 H 98 04/19/22 12:03 04/19/22 10:55 04/19/22 08:58 04/19/22 10:55 04/19/22 03:03 Lab Results Result Diagrams: 04/19/22 03:08 04/19/22 03:08 Blood Type / Crossmatch: Patient ABO/Rh A Positive 04/19/22 Antibody Screen NEGATIVE 04/19/22 Complete Blood Count: White Blood Count 17.00 10^3/uL (4.4-10.8) H 04/19/22 03:08 Red Blood Count 3.62 10^6/uL (3.93-5.22) L 04/19/22 03:08 Hemoglobin 10.6 g/dL (11.2-15.7) L 04/19/22 03:08 Hematocrit 30.5 % (36.0-46.0) L 04/19/22 03:08 Platelet Count 226 10^3/uL (130-400) 04/19/22 03:08 Complete Metabolic Panel: Sodium Level 137 mmol/L (136-145) 04/19/22 03:08 Potassium Level 3.4 mmol/L (3.5-5.1) L 04/19/22 03:08 Chloride Level 104 mmol/L (98-107) 04/19/22 03:08 Carbon Dioxide Level 22.1 mmol/L (21.0-32.0) 04/19/22 03:08 Blood Urea Nitrogen 9 mg/dL (7-18) 04/19/22 03:08 Creatinine 0.7 mg/dL (0.55-1.02) 04/19/22 03:08 Calcium Level 8.5 mg/dL (8.5-10.1) 04/19/22 03:08 Albumin 2.5 g/dL (3.4-5.0) L 04/19/22 03:08 Glucose Level 121 mg/dL (74-106) H 04/19/22 03:08 Hemoglobin A1c 5.6 % (<5.7) 04/19/22 03:08 Liver Function Panel: Alanine Aminotransferase (ALT/SGPT) 22 U/L (14-59) 04/19/22 03: 08 Aspartate Amino Transf (AST/SGOT) 21 U/L (15-37) 04/19/22 03:08 Coagulation Panel: No Data to Display Cardiac Panel: No Data to Display Arterial Blood Gas: No Data to Display Venous Blood Gas: No Data to Display Pancreas Panel: No Data to Display Thyroid Panel: No Data to Display Infectious Disease: Coronavirus (COVID-19)(PCR) Negative (Negative) 04/19/22 03:30 Coronavirus 2019 Source Nasal/Nares 04/19/22 03:30 Blood Cultures: No Data to Display Toxicology Panel: No Data to Display Panel: No Data to Display Anesthesia Assessment and Plan Anesthesia History Personal History: No History of Anesthesia Complications Family History: No Family History of Anesthesia Complications Exercise Tolerance Exercise Tolerance: Metabolic Equivalents>4 Pertinent Negatives Pertinent Negatives: No Major Cardiovascular Symptoms or Complaints and No Major Pulmonary Symptoms or Complaints Cardiac & Pulmonary Exam Cardiac Exam: Normal S1/S2 Heart Sounds Pulmonary Exam: Clear Bilateral Breath Sounds Implantable Cardiac Device Does patient have a Pacemaker or an ICD?: No Airway Exam Known Difficult Airway: No Mallampati Class: 3 Mouth Opening: Normal (> 3cm) Thyromental Distance: Greater than 3 cm Neck Range of Motion: Full ROM Neck Circumference: Normal Teeth Condition: Normal Dentition ASA Classification ASA Score: ASA 2 Emergency Case?: No NPO Status NPO Status: NPO Clears >2 hours, Solids >8 hours Status Status: Confirmed Anesthesia Plan Resuscitation Status: Full Code Anesthesia Technique: Epidural Anesthesia Airway Planned: Natural Airway Monitors Used: Standard Monitors
[2022-04-19] MEDS: fentaNYL 100 MCG/2 ML VIAL (13:18)
[2022-04-19] MEDS: Bupivacaine 0.25% Pres-Free 10 ML VIAL (13:25)
[2022-04-19] MEDS: FentaNYL/ROPIvacaine 2 mcg/ml and 0.1% 200 ML CADD Cassette EP (13:26)
--- NOTE | 2022-04-19 13:37 | W.PM.OBNL1 ---
Date of service: 04/19/22 Time of Service: 13:37 Informed Consent Informed Consent: Augmentation of Labor and Other (SSE for confirmation of ROM) Pelvic Exam Comments: VE deferred Contractions Monitor Mode: External Contraction Frequency(min): 2-3 Contraction Duration(sec): 50-60 Intensity: Moderate Fetus A Monitor: External (US) Heart Rate Baseline: 145 Variability: Moderate (6-25 BPM) Categories: Category II (will observe and reposition, BP is stable. status post epidural) Accelerations: 15 X 15 Decelerations: Variable Assessment and Plan Assessment and plan (1) Rupture, membranes, premature: Status: Acute Assessment and plan: 1. 12 hours status post SROM, jules regularly. KH (2) Uterine contractions: Status: Acute Assessment and plan: 1. Will reassess VE in next 30-60 minutes for cervical changes 2. Contractions remain regular. KH Objective Abnormal lab results 04/19/22 04/19/22 Range/Units 03:08 03:08 WBC 17.00 H (4.4-10.8) 10^3/uL RBC 3.62 L (3.93-5.22) 10^6/uL Hgb 10.6 L (11.2-15.7) g/dL Hct 30.5 L (36.0-46.0) % MPV 11.1 H (8.0-11.0) fL Potassium 3.4 L (3.5-5.1) mmol/L Glucose 121 H (74-106) mg/dL Alkaline Phosphatase 127 H (46-116) U/L Albumin 2.5 L (3.4-5.0) g/dL Temp Pulse Resp BP Pulse Ox 97.9 F 81 16 125/58 L 100 04/19/22 12:03 04/19/22 13:33 04/19/22 08:58 04/19/22 13:33 04/19/22 13:19 Laboratory Results WBC 17.00 10^3/uL (4.4-10.8) H 04/19/22 03:08 RBC 3.62 10^6/uL (3.93-5.22) L 04/19/22 03:08 Hgb 10.6 g/dL (11.2-15.7) L 04/19/22 03:08 Hct 30.5 % (36.0-46.0) L 04/19/22 03:08 MCV 84 fL (80-95) 04/19/22 03:08 MCH 29.3 pg (27.0-33.0) 04/19/22 03:08 MCHC 34.8 % (32.0-36.0) 04/19/22 03:08 RDW 13.2 % (11.7-14.6) 04/19/22 03:08 Plt Count 226 10^3/uL (130-400) 04/19/22 03:08 MPV 11.1 fL (8.0-11.0) H 04/19/22 03:08 Sodium 137 mmol/L (136-145) 04/19/22 03:08 Potassium 3.4 mmol/L (3.5-5.1) L 04/19/22 03:08 Chloride 104 mmol/L (98-107) 04/19/22 03:08 Carbon Dioxide 22.1 mmol/L (21.0-32.0) 04/19/22 03:08 Anion Gap 10.9 mmol/L (3-11) 04/19/22 03:08 BUN 9 mg/dL (7-18) 04/19/22 03:08 Creatinine 0.7 mg/dL (0.55-1.02) 04/19/22 03:08 Est GFR (CKD-EPI 2020) 117.77 (mL/min/1.73m2) 04/19/22 03:08 Glucose 121 mg/dL (74-106) H 04/19/22 03:08 Hemoglobin A1c 5.6 % (<5.7) 04/19/22 03:08 Calcium 8.5 mg/dL (8.5-10.1) 04/19/22 03:08 Total Bilirubin 0.2 mg/dL (0.2-1.0) 04/19/22 03:08 AST 21 U/L (15-37) 04/19/22 03:08 ALT 22 U/L (14-59) 04/19/22 03:08 Alkaline Phosphatase 127 U/L (46-116) H 04/19/22 03:08 Total Protein 6.5 g/dL (6.4-8.2) 04/19/22 03:08 Albumin 2.5 g/dL (3.4-5.0) L 04/19/22 03:08 COVID-19 Source Nasal/Nares 04/19/22 03:30 SARS-CoV-2 (PCR) Negative (Negative) 04/19/22 03:30 Patient ABO/Rh A Positive 04/19/22 03:08 Antibody Screen NEGATIVE 04/19/22 03:08 Vital Signs Reviewed: Yes Subjective Interval history since last seen: resting more comfortably since epidural was placed. KH Results Hemoglobin/Hematocrit: Hgb 10.6 g/dL (11.2-15.7) L 04/19/22 03:08 Hct 30.5 % (36.0-46.0) L 04/19/22 03:08 Abnormal Lab Findings: Abnormal Labs 04/19/22 04/19/22 03:08 03:08 WBC 17.00 H RBC 3.62 L Hgb 10.6 L Hct 30.5 L MPV 11.1 H Potassium 3.4 L Glucose 121 H Alkaline Phosphatase 127 H Albumin 2.5 L
--- NOTE | 2022-04-19 13:42 | W.ANESNEU ---
Epidural/Spinal Catheter Date Performed: 04/19/22 Procedure Start: 13:06 Procedure Stop: 13:34 Requesting Provider: Maxine Rodriguez Procedure Location: Obstetrics Reason Performed: Labor Epidural Standard Monitors Applied: Blood Pressure, SpO2 and See EMR for corresponding vital signs Patient Position: Sitting Sedation Given (Indicate Dose Given): No Sedation given Patient Mental Status: Awake Sterility: Hand Hygiene, Surgical Cap, Surgical Mask, Sterile Gloves, Sterile Drape/Sheet and Chlorhexidine Procedure Location: L3-L4 Interspace Epidural Needle: Tuohy 17 Guage Needle Length: 3.5 Inch Needle Approach: Midline Epidural Procedure: Skin Prepped, Sterile Drape Placed, 1% Lidocaine to skin and subcutaneous tissue with 25G needle, Tuohy Needle placed, KAROL to Saline Used, Epidural Catheter Placed, Negative Heme, Negative CSF Flow and Tuohy Needle Removed Catheter Placed?: Catheter Placed Test Dose (Indicate Dose Given): 3ml 1.5% Lidocaine with 1:200K Epinephrine Given Loss of Resistance Depth (cm): 9 Catheter depth at skin (cm): 15 Dressing: Sorbaview Dressing Placed, Mastisol Used and Dressing reinforced with Tape Epidural Provider Bolus (Indicate Dose Given): Total bolus dose given in 3-5 ml divided doses and Total Bupivacaine 0.25% Given (ml) Dose:: 7 ml Additives (Indicate Dose Given ): Fentanyl PF Dose:: 100 mcg Infusion Medication: Medication Infusion Began Medication Infusion: Ropivacaine 0.1% with Fentanyl 2mcg/ml Maintenance Infusion Rate (ml/hour): 10 PCEA Bolus Dose (ml): 5 Post Procedure Pain score (0-10): 0 Block Level: N/A Paresthesia: Left (needle repositioned) Paresthesia Duration: Transient Ultrasound: Not Used Number of Attempts (See previous attempts in note section): 2 Procedure Tolerated: No Complications and Patient tolerated well Procedure Outcome: Successful Procedure Comment:: Bilateral thigh numbness, able to bend kaleb knees but weak Performed By: Suzanna Eid Supervised By: Judith Oconnor
[2022-04-19] MEDS: Oxytocin/Normal Saline 30 UNIT/500 ML BAG 95 UNITS IV (15:28)
--- NOTE | 2022-04-19 15:42 | OBVDS_ITS ---
Date of service: 04/19/22 Time of Service: 15:42 OB Labor/ Delivery Information Baby A Delivery Delivery Method: Spontaneaous Presentation: Vertex Vertex Position: Right Occipital Anterior Cord Description-Baby A: 3 Vessels and Clamped/Cut Amniotic Fluid: Clear Estimated Blood Loss: 200 Delivery Outcome: Liveborn Infant Complications: none Infant Transferred: Remains with Mother Note: Anais Kim presented with SROM and not in active labor. She had 2 doses of 50 mcg of Misoprostol and progressed to 9.5 cm. Due to repetative variable decelerations to 90, we attempted to push and reduce anterior lip of cervix. She pushed effectively and baby's head presented onto perineum at 1523. Gentle downward traction was applied and there was no movement of head or shoulders, We employed McRobert's maneuver immediately and proposal manager writer was able to feel the posterior shoulder which was moving forward and then anterior shoulder was still under symphysis, and we used supra pubic pressure from Mother's lower right suprapubic area and anterior shoulder moved easily and shoulder and body was delivered by 1524. Baby was placed onto Mother's lower abdomen, until cord stopped pulsing then was double clamped and cut by MGM. Positive family bonding noted. score 8 at one minute and 8 at 5 minutes. weight 8lb 5 oz. Baby nicolasa Barbosa will be circumcised. The couple plan tubal ligation for contraception. Expect normal PP course. Providers Nurse Flavoring Machine Operator: Maxine Rodriguez Nurse: Froylan Freedman Nurse: Aime Amin Labor/Delivery Information Number of Babies in Womb: 1 Steroids Given: None Reason Steroids Not Administered: N/A Group Beta Strep: Negative Rubella Status: Immune Blood Type: A+ Varicella Immunity: Immune Shoulder Dystocia: Yes Stages of Labor Onset of Labor Date: 04/19/22 Complete Dilatation Date: 04/19/22 Complete Dilatation Time: 15:14 ROM Baby A: 04/19/22 ROM Baby A: 01:30 ROM Total Time- Baby A: [id number] Delivery Date-Baby A: 04/19/22 Infant Delivery Time-Baby A: 15:24 Labor Stage 2 Duration: 10 minutes Placenta Delivery Date-Baby A: 04/19/22 Placenta Delivery Time-Baby A: 15:32 Labor-Stage 3 Duration: 8 minutes Placenta Status: Delivered Baby A Gender: Male Gestational Status: Term (39-41.6 wks) Gestational Age in Weeks/Days: 39 Weeks and 4 Days Score-1 Minute Interval(Baby A) Heart Rate-1 minute: 100 BPM or Greater Respiratory Effort- 1 minute: Spontaneous/Strong Cry Muscle Tone-1 minute: Minimal Flexion/Extension Reflex Response-1 minute: Prompt Response Color-1 minute: Bluish Hands or Feet Total Score-1 minute: 8 Score-5 Minute Interval(Baby A) Heart Rate- 5 minute: 100 BPM or Greater Respiratory Effort-5 minute: Spontaneous/Strong Cry Muscle Tone-5 minute: Active Movement Reflex Response-5 minute: Prompt Response Color-5 minute: Bluish Hands or Feet Total Score- 5 minute: 9 Shoulder Dystocia Delivery Times Date of Delivery of Head: 04/19/22 Time of Delivery of the Head: 15: Head to Body Delivery Interval(minutes): 1 Verify No Fundal Pressure Applied Fundal Pressure: No Pressure Applied Arm Under Sympisis Arm Under Symphisis: Left Interventions 1st Intervention: Date: 04/19/22 Time: 15:23 SD Intervention: Gentle Traction 2nd Intervention: Date: 04/19/22 Time: 15:23 SD Intervention: McRobert's Maneuver 3rd Intervention: Date: 04/19/22 Time: 15:23 SD Intervention: Koehler's Maneuver 4th Intervention: Date: 04/19/22 Time: 15:23 SD Intervention: Suprapubic Pressure
[2022-04-20 04:30] VITALS: BP 134/82; PULSE 102; RESP 18; TEMP 36.4
[2022-04-20] MEDS: Ibuprofen 600 MG TAB PO ×2 (04:44→10:59)
[2022-04-20] MEDS: Acetaminophen 325 MG TAB 650 MG PO ×2 (04:44→09:11)
[2022-04-20 09:01] VITALS: BP 113/76; PULSE 74; RESP 16; TEMP 36.4; O2SAT 98
--- NOTE | 2022-04-20 09:11 | NUR.NOTE ---
Patient and significant other recently experienced the loss of significant others father (04/18/22). Requested resources to mental health/counselors within the community. Resources/phone numbers provided to patient. Patient and significant other informed that there are mental health crisis recourses available 13/03 and not to hesitate to reach out for their own and infants safety.
--- NOTE | 2022-04-20 10:55 | DSE_ITS ---
Date of service: 04/20/22 Time of Service: 10:55 DS: Diagnosis Discharge Diagnosis (1) Rupture, membranes, premature: Status: Acute Asessment and Plan: Caring for baby independently. Pain is managed well with oral analgesics. Voiding without difficulty. Bottlefeeding. Victoria requests to return home to prepare her home for the baby's arrival. She will return in 1-2 hours The baby will have a circumcision while she is away and she completed the circumcision form with Hali Del Cid CNM A - stable mother and baby, Post day 1. P - Discharge to home today. Routine post instructions. [facility] and glucose testing. Discharge Plan Disposition Patient Disposition: HOME Condition: Good Discharge Details Reason For Visit: Spontaneous Rupture of Membranes Admit Date/Time: 04/19/22 02:54 Admit Provider: Maxine Rodriguez Attending Provider: Maxine Rodrigeuz Primary Care Provider: Linda Mason Home Meds and New Rx's Prescriptions: No Action ondansetron HCl 8 mg tablet 8 mg PO Q8H PRN (Reason: nausea and vomiting) Qty: 60 1RF (DME) FreeStyle Lite Strips Strip See Rx Instructions .Route Qty: 100 3RF Label Comments: PRN Rx Instructions: 4 times daily aspirin [Adult Low Dose Aspirin] 81 mg tablet,delayed release (DR/EC) 81 mg PO DAILY Qty: 90 3RF Rx Instructions: to take 1 tablet alternating every other day with 2 tablets for remainder of (DME) blood-glucose meter [FreeStyle Lite Meter] Kit See Rx Instructions .Route Qty: 1 0RF Label Comments: PRN Rx Instructions: use 4 times daily (DME) lancets [FreeStyle Lancets] 28 gauge misc See Rx Instructions .Route Qty: 100 3RF Rx Instructions: 4 times daily prenat.vits,enriqueta,fhs-knwx-gukpz Tablet 1 tab PO DAILY ProAir RespiClick 90 MCG aerosol powdr breath activated 90 mcg Inhalation 2 inh q 4-6 hours valacyclovir [Valtrex] 1 gram tablet 1,000 mg PO DAILY Qty: 30 3RF albuterol sulfate 90 mcg/actuation aerosol powdr breath activated 2 inh IH Q4H PRN (Reason: shortness of breath or wheezing) Qty: 1 0RF famotidine [Pepcid] 20 mg Tablet 20 mg PO DAILY metoclopramide HCl [Reglan] 10 mg tablet 10 mg PO Q6H PRNQty: 10 0RF Discharge Instructions Activity:: Activity as Tolerated Equipment/Supplies:: No Equipment Needed Diet:: As Tolerated Discharge Orders Discharge Orders: Discharge Order (Routine); Ordered 04/20/22 Ordered By: Maxine Poon OB:DS Summary Summary Vaginal Delivery Method: Spontaneaous Episiotomy Description: None Laceration Description: None Laceration Extension: N/A Contraception Discussed Contraception Discussed: Yes Contraceptive Plan: Tubal Ligation, [place] Gender-Baby A: Male weight: 8 lb 5.688 oz Status at Discharge Functional status at discharge: independent ambulation Overall status at discharge: patient is back to baseline Mental Status: mental status grossly normal Speech and Movement: speech and movement normal Mood: congruent mood Affect: normal affect Exam Physical Exam Vital signs: Temp Pulse Resp BP Pulse Ox 97.5 F L 74 16 113/76 98 04/20/22 09:01 04/20/22 09:01 04/20/22 09:01 04/20/22 09:01 04/20/22 09:01 PFS All Active Problems (Updated 04/19/22 @ 03:12 by Maxine Rodriguez CNM) Rupture, membranes, premature (Acute) Uterine contractions (Acute) COVID-19 affecting in second trimester (Acute) High risk HPV infection (Acute) ASCUS (atypical squamous cells of undetermined significance) on gynecologic Papanicolaou smear complicating , antepartum (Acute) Repeat PAP PP Positive urine drug screen (Acute) initial UDS + opiates and THC, patient had reported THC use COVID-19 affecting in first trimester (Acute) Cystic fibrosis carrier, antepartum (Acute) Hepatitis C antibody positive in blood (Acute 04/11/16) H/O herpes genitalis (Acute 04/11/16) GERD (gastroesophageal reflux disease) (Chronic) History of gestational diabetes in prior , currently (Acute) (Acute) Cannabinoid hyperemesis syndrome (Acute) Obesity (Chronic) Medical History Cannabinoid hyperemesis syndrome Fever HSV (herpes simplex virus) infection Migraine Palpitations Rash Surgical History Open Carpal Tunnel release 04/08/[address] Pemberton Tonsillectomy and adenoidectomy Family History Mother Diabetes Essential hypertension Hyperlipidemia Thyroid disease Asthma Grandmother Diabetes Breast cancer Grandmother Cancer Self Asthma Sister Essential hypertension Social History Smoking/Tobacco Use Status: Former Tobacco Use Quit Date: 08/10/21 Smoking risk assessment performed?: Yes Alcohol Intake: former Drug use: Daily Substance use type: marijuana Details: Hx IV drug use, clean x 12 years although opiates found in urine at 1st visit. None since Household members: other Details: Children: Castillo Barboza FOB Number of Children: 2 current occupation: [employer]. Do you feel safe at home: Yes Do you feel safe in your relationship?: Yes Additional Social history: Pt denies History History 4 Para 2 Hx # Term Pregnancies 1 Multiple births 0 Hx # Pregnancies 1 Ectopic pregnancies 0 AB induced 0 Hx Number of Living Children 2 AB spontaneous 0 Past Pregnancies Del. Date GA/Weeks # Preg Succ Route Wgt Sex Labor Lgth Anesth esia Location [facility] 09/28/13 42 No vaginal 7 lb 13 oz Female [facility] [place] 05/06/16 39 No vaginal 7 lb 6 oz Male 24 [facility] CN M [facility] Delivery Date: 05/06/16 Last Updated by: Maxine Rodriguez CNM induced due to elevated BG's DS: Data Vitals/I&O Vitals and I&O: Vital Signs Temperature 97.5 F L 04/20/22 09:01 Pulse 74 04/20/22 09:01 Pulse Rhythm Regular 04/20/22 07:50 Respiratory Rate 16 04/20/22 09:01 Blood Pressure 113/76 04/20/22 09:01 Blood Pressure Mean 88 04/20/22 09:01 Pulse Oximetry 98 04/20/22 09:01 Oxygen Delivery Method Room Air 04/19/22 02:54 Oxygen Flow Rate 0 04/19/22 02:54 Pain Level 4 04/20/22 09:11 Comment 04/20/22 09:01 Intake & Output 04/19/22 04/19/22 04/20/22 11:59 23:59 11:59 Intake Total 5 / 0053.115 5183.417 / 1381.417 Output Total 50 / 325 275 / 325 Balance -45 / 5397.295 3450.417 / 1056.417 Weight 252 lb 252 lb Intake: IV 5 / 9471.810 1185.417 / 1381.417 Output: Urine 50 / 325 275 / 325 Other: Urine Color Pale Bright Red Yellow Urine Appearance Clear Clots Urine Odor None Normal Comment Missed hat Straight cath at this time Voiding Methods Toilet Toilet
[2022-04-20 12:42] LABS: HCV RNA Qualitative Undetected (Undetected)
--- NOTE | 2022-04-20 14:04 | W.ANESPOSTOP ---
Postoperative Evaluation Date, Time and Location Date Performed: 04/20/22 Time Performed: 13:58 Patient Location: Obstetrics Vital Signs Most Recent Imported Vital Signs: Most Recent Vital Signs Temp Pulse Resp BP Pulse Ox 36.4 C L 74 16 113/76 98 04/20/22 09:01 04/20/22 09:01 04/20/22 09:01 04/20/22 09:01 04/20/22 09:01 Pain Score Most Recent Pain Score: Most Recent Pain Score Pain Level [Lower Abdomen] 8 04/20/22 04:30 Pain Level 4 04/20/22 09:11 Assessment Mental Status: Awake (Alert & Oriented to Patient Baseline) Airway and Respiratory Function: Patent airway with normal (patient baseline) respiratory exam Cardiovascular Function: Hemodynamically Stable Hydration Status: Adequately Hydrated Nausea & Vomiting: No Nausea or Vomiting Pain: Pain is tolerable per patient Peripheral Nerve Block: Patient did not receive a nerve block
--- NOTE | 2022-04-20 14:22 | NUR.NOTE ---
Nursing Note: This nurse assumed care of patient at 04/20/22 at 1010.
== END 2022-04-20 11:20 | disposition home or self-care (01) | DRG 806 ==
PROVIDERS: Admitting Provider Advanced Practice Midwife; PCP Nurse Practitioner Family; Visit Provider Advanced Practice Midwife
DX: O42.013 Preterm premature rupture of membranes, onset of labor within 24 hours of rupture, third trimester (principal); O98.32 Other infections with a predominantly sexual mode of transmission complicating childbirth; Z37.0 Single live birth; O66.0 Obstructed labor due to shoulder dystocia; O76 Abnormality in fetal heart rate and rhythm complicating labor and delivery; A60.00 Herpesviral infection of urogenital system, unspecified; O99.214 Obesity complicating childbirth; E66.9 Obesity, unspecified; O99.62 Diseases of the digestive system complicating childbirth; O99.892 Other specified diseases and conditions complicating childbirth; N87.9 Dysplasia of cervix uteri, unspecified; Z3A.39 39 weeks gestation of pregnancy; K21.9 Gastro-esophageal reflux disease without esophagitis; Z14.1 Cystic fibrosis carrier; Z86.16 Personal history of COVID-19; Z87.891 Personal history of nicotine dependence
CPT/HCPCS: 36415; 80053; 85027; 86850; 86900; 86901; 87522; 87635; 83036; J3010

== ENCOUNTER 2022-06-14 12:53 | Outpatient (CLI) | payer MEDICAID, SELFPAY ==
[2022-06-14 14:54] LABS: Abs Immature Grans 0.04 10^3/uL (0.0-0.06); Absolute Basophil Count 0.04 10^3/uL (0.0-0.2); Absolute Eosinophil Count 0.09 10^3/uL (0.0-0.7); Absolute Monocyte Count 0.63 10^3/uL (0.1-0.8); Absolute Neutrophil Count 9.69 10^3/uL (1.2-6.7); Basophils % 0.3; Eosinophils % 0.7; HCT 39.8 % (36.0-46.0); HGB 12.9 g/dL (11.2-15.7); Immature Grans % 0.3; Lymphocytes % 16.7; MCH 27.6 pg (27.0-33.0); MCHC 32.4 % (32.0-36.0); MCV 85 fL (80-95); Platelet Count 314 10^3/uL (130-400); RBC 4.67 10^6/uL (3.93-5.22); RDW 12.9 % (11.7-14.6); RDW-SD 39.9 fL; WBC 12.59 10^3/uL (4.4-10.8)
[2022-06-14 15:24] LABS: Hemoglobin A1C 5.8 % (<5.7)
== END 2022-06-14 12:54 | disposition home or self-care (01) ==
LOC: LBO 12:53
PROVIDERS: Advanced Practice Midwife; PCP Nurse Practitioner Family; Visit Provider Obstetrics & Gynecology
DX: Z01.818 Encounter for other preprocedural examination (principal); Z86.32 Personal history of gestational diabetes
CPT/HCPCS: 36415; 85027; 86850; 86900; 86901; 83036; 85025

== ENCOUNTER 2022-06-15 06:06 | Day surgery (SDC) | payer MEDICAID, SELFPAY ==
[2022-06-15] VITALS (11 sets, daily range): BP systolic 112–138; BP diastolic 67–86; PULSE 46–81; RESP 12–19; TEMP 36.3–36.5; O2SAT 97–100; BMI 30.7
[2022-06-15] MEDS: Lactated Ringers 1,000 ML 125 ML IV (06:42)
--- NOTE | 2022-06-15 07:09 | W.ANESPRE ---
General Info Date of Service Date Performed: 06/15/22 Height: 5 ft 11 in Weight: 99.79 kg Body Mass Index (BMI): 30.7 Surgical Procedure: Operation Date: 06/15/22 07:40 Proposed Procedure Side Surgeon p Salpingectomy Laparoscopic Bilateral Victoria Montero DO Meds Allergies and Home Medications Allergies Allergy/AdvReac Type Severity Reaction Status Date / Time No Known Allergies Allergy Verified 06/14/22 12:04 Home Medication Medication Instructions Recorded albuterol sulfate 90 mcg/actuation 90 mcg inhalation 2 inh q 4-6 hours 02/06/18 breath activated powder inhaler (ProAir RespiClick) famotidine 20 mg tablet (Pepcid) 20 mg PO DAILY 07/07/18 albuterol sulfate 90 mcg/actuation 2 inh inhalation Q4H PRN shortness 08/22/19 breath activated powder inhaler of breath or wheezing #1 ea Current Visit Medications: Current Medications Generic Name Dose Route Start Last Admin Trade Name Freq PRN Reason Stop Dose Admin Ringer's Solution 1,000 mls @ 125 mls/hr 06/15/22 06:00 06/15/22 06:42 IV 07/14/22 23:59 125 mls/hr INFUSION LALO Administration IV Miscellaneous Supplies 1 each 06/15/22 06:00 Iv Access IV 07/14/22 23:59 DIRECTED LALO Sodium Chloride 0 ml 06/15/22 06:00 Normal Saline Flush 10 Ml Syr IV 07/14/22 23:59 PRN PRN Sodium Chloride 0 ml 06/15/22 06:00 Normal Saline 10 Ml Vial IJ 07/14/22 23:59 DIRECTED PRN Sterile Water 0 ml 06/15/22 06:00 Water,Injection,Sterile 10 Ml Vial IJ 07/14/22 23:59 DIRECTED PRN PFSH Active Problems Active Problems: Problem Status Onset Code Obesity GERD (gastroesophageal reflux disease) K21.9 Positive urine drug screen R82.5 ASCUS (atypical squamous cells of undetermined significance) on gynecologic Papanicolaou smear complicating , antepartum 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 Other specified counseling Z71.89 Medical History Medical History Cannabinoid hyperemesis syndrome Pt. states she quit smoking marajuana Cannabinoid hyperemesis syndrome COVID-19 affecting in first trimester COVID-19 affecting in second trimester Cystic fibrosis carrier, antepartum Fever H/O herpes genitalis (04/11/16) Hepatitis C antibody positive in blood (04/11/16) HSV (herpes simplex virus) infection Migraine Palpitations Pt. denies this Rash Surgical History Surgical History Open Carpal Tunnel release 04/08/[address] Pemberton Tonsillectomy and adenoidectomy Tobacco Smoking/Tobacco Use Status: Former Tobacco Use Alcohol Alcohol Intake: former Substance Use Substance use: Daily Substance use type: marijuana Details: Hx IV drug use, clean x 12 years although opiates found in urine at 1st visit. None since Prental History History 4 Para 3 Hx # Term Pregnancies 1 Multiple births 0 Hx # Pregnancies 1 Ectopic pregnancies 0 AB induced 0 Hx Number of Living Children 3 AB spontaneous 0 Past Pregnancies Del. Date GA/Weeks # Preg Succ Route Wgt Sex Labor Lgth Anesthesia Location [facility] 09/28/13 42 No vaginal 3543.69 g Female [address] [place] [address] [place] 05/06/16 39 No vaginal 3345.244 g Male [address] [place] [address] [facility] 04/19/22 39 No Yes vaginal 3770.487 g Male [facility] BOB Elaine Delivery Date: 05/06/16 Last Updated by: Maxine Rodriguez CNM induced due to elevated BG's Delivery Date: 04/19/22 Last Updated by: KASH Diallo Vital Signs and Lab Results Vital Signs Most Recent Vital Signs in EMR: Most Recent Vital Signs Temp Pulse Resp BP Pulse Ox 36.5 C 81 18 124/77 98 06/15/22 06:08 06/15/22 06:08 06/15/22 06:08 06/15/22 06:08 06/15/22 06:08 Point of Care Results Point of Care Results: POC- Test(urine) Negative 06/15/22 07:03 Lab Results Blood Type / Crossmatch: Patient ABO/Rh A Positive 06/14/22 Antibody Screen NEGATIVE 06/14/22 Complete Blood Count: White Blood Count 12.59 10^3/uL (4.4-10.8) H 06/14/22 14:43 Red Blood Count 4.67 10^6/uL (3.93-5.22) 06/14/22 14:43 Hemoglobin 12.9 g/dL (11.2-15.7) 06/14/22 14:43 Hematocrit 39.8 % (36.0-46.0) 06/14/22 14:43 Platelet Count 314 10^3/uL (130-400) 06/14/22 14:43 Complete Metabolic Panel: Hemoglobin A1c 5.8 % (<5.7) H 06/14/22 14:43 Liver Function Panel: No Data to Display Coagulation Panel: No Data to Display Cardiac Panel: No Data to Display Arterial Blood Gas: No Data to Display Venous Blood Gas: No Data to Display Pancreas Panel: No Data to Display Thyroid Panel: No Data to Display Infectious Disease: No Data to Display Blood Cultures: No Data to Display Toxicology Panel: No Data to Display Panel: No Data to Display Anesthesia Assessment and Plan Anesthesia History Personal History: No History of Anesthesia Complications Family History: No Family History of Anesthesia Complications Exercise Tolerance Exercise Tolerance: Metabolic Equivalents>4 Pertinent Negatives Pertinent Negatives: No Major Cardiovascular Symptoms or Complaints, No Major Pulmonary Symptoms or Complaints and No History of CVA/TIA Cardiac & Pulmonary Exam Cardiac Exam: Normal S1/S2 Heart Sounds Pulmonary Exam: Clear Bilateral Breath Sounds Cardiac and Pulmonary Comment:: Asthma, last inhaler use more than a week ago Implantable Cardiac Device Does patient have a Pacemaker or an ICD?: No Airway Exam Known Difficult Airway: No Mallampati Class: 3 Mouth Opening: Normal (> 3cm) Thyromental Distance: Greater than 3 cm Neck Range of Motion: Full ROM Neck Circumference: Thick Teeth Condition: Normal Dentition ASA Classification ASA Score: ASA 2 Emergency Case?: No NPO Status NPO Status: NPO Clears >2 hours, Solids >8 hours Status Status: Negative HCG Anesthesia Plan Resuscitation Status: Full Code Anesthesia Technique: General Anesthesia Airway Planned: Endotracheal Tube Monitors Used: Standard Monitors
[2022-06-15] MEDS: Bupivacaine 0.25% Pres-Free 30 ML VIAL (07:55)
--- NOTE | 2022-06-15 08:06 | FALL_PTH ---
PATIENT: Anais Kim LOC: [facility] U#:[id number] AGE/SX: 32/F ROOM: RE06/15/[address]: Victoria Montero DO : 1990 BED: DIS: 06/15/2022 SPEC #: [id number] RECD: 06/15/22 13:01 STATUS: RAVINDER RE #: [id number] NATASHA: 06/15/22 08:[address]: Victoria Montero DEPT: Surgical Specimen RECD BY: Kamilla Villalobos ENTERED: 06/15/22 13:02 SP TYPE: Fall OTHR DR: Linda Mason Tissues: 1 - FALLOPIAN TUBE (STERILIZATION) 2 - FALLOPIAN TUBE (STERILIZATION) Procedures: GROSS AND MICRO LEVEL 2 Comments: [id number]
--- NOTE | 2022-06-15 08:32 | ROE_ITS ---
Date of service: 06/15/22 Time of Service: 08:32 Operative Note Operative Note DATE OF PROCEDURE: 06/15/22 PRE-OP DIAGNOSIS: Undesired fertility POST-OP DIAGNOSIS: same PROCEDURE: Laparoscopic bilateral salpingectomy SURGEON: Victoria Montero HUMAN FACTORS ENGINEER: Patsy Plaza ANESTHESIA TYPE: Local By Surgeon and General LMA/ETT Refer to Anesthesia Record ESTIMATED BLOOD LOSS: 10 PATHOLOGY: other (1. Left fallopian tube 2. Right fallopian tube) COMPLICATIONS: None Patient was transported to: PACU Patient's condition: stable Indications: Undesired fertility Findings: Normal tubes, ovaries, uterus, appendix. No intra-abdominal or pelvic pathology noted Procedure Description: After full informed consent was obtained, patient was taken the operating suite with an IV running where she was placed in the dorsal supine position. En dotracheal intubation performed for the administration of general anesthesia with ease. She was then placed in the modified dorsolithotomy position and prepped and draped in usual sterile fashion. Exam under anesthesia revealed a uterus that was midline and mobile without evidence of pelvic or adnexal masses. Speculum was inserted and cervical os visualized. A Cyphoma uterine manipulator was placed through the cervix for uterine manipulation throughout the procedure. At this point attention was turned to the abdomen where quarter percent Marcaine was used to infiltrate at the umbilicus and a 10 mm vertical incision was made. With penetrating sharp towel clips the anterior abdominal wall was elevated and a varies needle inserted for CO2 gas insufflation to a maximum pressure of 15 mmHg. Once the pneumoperitoneum was created, a 12 mm bladeless sleeve and trocar were placed under direct visualization into the abdomen. The abdomen was inspected and found to be atraumatic and free of any abdominal or pelvic pathology. Attention was then turned to the right and left lower quadrant sequentially. Both areas were infiltrated with quarter percent Marcaine and under direct visualization a 5 mm port placed. At this point the uterus was elevated. The left fallopian tube elevated and cautery transected and removed through the 12 mm port. Similar procedure was carried out on the right fallopian tube and also removed through the 12 mm port. All pedicles were inspected and found to be hemostatic and at this point the procedure was terminated. CO2 gas was released, trochars were removed from the abdomen. The infraumbilical fascial incision was closed with 0 Vicryl suture in a simple interrupted fashion. Skin edges reapproximated with 4-0 undyed Monocryl and Steri-Strips and sterile dressings were placed. Hulka uterine manipulator that had been previously inserted was removed. Patient awoke from anesthesia and was taken to the recovery room in stable condition Complications: None apparent Pathology: 1. Left fallopian tube 2. Right fallopian tube EBL: 10 mL Fluids: Crystalloid per anesthesia
[2022-06-15] MEDS: Normal Saline 10 ML VIAL IJ (08:46)
[2022-06-15] MEDS: HYDROmorphone 2 MG/ML SYR IVP ×2 (08:46→09:04)
[2022-06-15] MEDS: LORazepam 2 MG/ML VIAL 0.5 MG IVP (09:11)
[2022-06-15] MEDS: oxyCODONE 5 mg/Acetaminophen 325 mg TAB PO (10:15)
--- NOTE | 2022-06-15 12:22 | W.ANESPOSTOP ---
Postoperative Evaluation Date, Time and Location Date Performed: 06/15/22 Time Performed: 10:31 Patient Location: Day Surgery Unit Vital Signs Most Recent Imported Vital Signs: Most Recent Vital Signs Temp Pulse Resp BP Pulse Ox 36.5 C 63 18 124/81 100 06/15/22 09:58 06/15/22 09:58 06/15/22 09:58 06/15/22 09:58 06/15/22 09:58 Pain Score Most Recent Pain Score: Most Recent Pain Score Pain Level 6 06/15/22 09:26 Assessment Mental Status: Awake (Alert & Oriented to Patient Baseline) Airway and Respiratory Function: Patent airway with normal (patient baseline) respiratory exam Cardiovascular Function: Hemodynamically Stable Hydration Status: Adequately Hydrated Nausea & Vomiting: No Nausea or Vomiting Pain: Pain is tolerable per patient Peripheral Nerve Block: Patient did not receive a nerve block
== END 2022-06-15 10:30 | disposition home or self-care (01) ==
PROVIDERS: PCP Nurse Practitioner Family; Visit Provider Obstetrics & Gynecology
PROC: (CPT 58661; principal; 2022-06-15 07:30)
DX: Z30.2 Encounter for sterilization (principal)
CPT/HCPCS: 58661; 88302; J1100; J1170; J1885; J2060; J2250; J2405; J2704; J3010

== ENCOUNTER 2022-08-18 13:23 | Emergency (ER) | payer MEDICAID, SELFPAY ==
[2022-08-18] VITALS (10 sets, daily range): BP systolic 127–145; BP diastolic 71–112; PULSE 77–123; RESP 16–28; TEMP 36.1–36.6; O2SAT 97–99
--- NOTE | 2022-08-18 13:30 | RT.EKG_ITS ---
APPROVED REPORT Exam: Resting ECG Reason for Exam: overdose Patient Location: E HR:101 bpm ECG Measurements Heart Rate 101 AXIS NH 135 P 35 QRSd 88 QRS 54 QT 349 T 17 QTc 452 Conclusion Sinus tachycardia...rate> 99
--- NOTE | 2022-08-18 13:44 | ED.GENADUL_ITS ---
Discharge Plan Disposition Patient Disposition: Home Condition: Improving Discharge Details Clinical Impression: Adverse drug reaction Primary Care Provider: Linda Mason ED Provider: Rudolph Sandy Home Meds and New Rx's Prescriptions: Continued ProAir RespiClick 90 MCG aerosol powdr breath activated 90 mcg Inhalation 2 inh q 4-6 hours albuterol sulfate 90 mcg/actuation aerosol powdr breath activated 2 inh IH Q4H PRN (Reason: shortness of breath or wheezing) Qty: 1 0RF ibuprofen 800 mg tablet 800 mg PO Q8H PRNQty: 60 0RF docusate sodium [Colace] 100 mg capsule 100 mg PO BID Qty: 30 0RF famotidine [Pepcid] 20 mg Tablet 20 mg PO DAILY Discharge Instructions Additional Instructions: Please avoid further use of street or illicit drugs. Home to rest today. May use provided Zofran as needed for nausea. Small, frequent sips of fluids to maintain hydration. Return to the emergency department for any acute concerns. Medical Decision Making 32-year-old female states she has been using illicitly obtained street opiates that she believes is fentanyl for 1 week time; its a powder that she snorts. Today after using she felt lightheaded and had slight racing heart. She subsequently took Narcan and developed nausea and diarrhea. She arrives actively vomiting with a pulse of 123. She is afebrile and interactive. Most consistent with acute withdrawal from opiate use. Patient IV access established, screening labs obtained, she is given fluids, antiemetic and anxiolytic. Patient improved with intervention and was able to sleep and stop vomiting. Her laboratories will note a white count of 15, likely due to stress demargination, hematocrit of 42, platelets 377. Electrolytes unremarkable, BUN 9, creatinine 0.9. Troponin negative. Patient observed with improvement. She is counseled to avoid illicit drug use. She is stable and appropriate for discharge. Lab Data Lab results reviewed: Yes I reviewed the patient's lab results. Labs: Laboratory Results - last 24 hr 08/18/22 08/18/22 08/18/22 14:02 14:02 14:02 WBC 15.98 H RBC 5.06 Hgb 13.6 Hct 42.5 MCV 84 MCH 26.9 L MCHC 32.0 RDW 12.4 Plt Count 377 MPV 10.3 Immature Gran % 0.6 Neutrophils % 76.9 Lymphocytes % 14.8 Monocytes % 4.9 Eosinophils % 2.3 Basophils % 0.5 Nucleated RBC % 0.0 Absolute Neutrophils 12.29 H Absolute Lymphocytes 2.37 Absolute Monocytes 0.78 Absolute Eosinophils 0.37 Absolute Basophils 0.08 Sodium 136 Potassium 3.7 Chloride 100 Carbon Dioxide 27.7 Anion Gap 8.3 BUN 9 Creatinine 0.9 Est GFR (CKD-EPI 2020) 86.57 Glucose 135 H Calcium 9.5 Magnesium 2.0 Total Bilirubin 0.3 AST 28 ALT 46 Alkaline Phosphatase 88 Troponin I < 50 Total Protein 9.2 H Albumin 4.0 Urine Color Urine Clarity Urine pH Ur Specific [place] Urine Protein Urine Ketones Urine Blood Urine Nitrite Urine Bilirubin Urine Urobilinogen Ur Leukocyte Esterase Urine RBC Urine WBC Ur Epithelial Cells Urine Crystals Urine Bacteria Urine Casts Urine Mucus Urine Other Ur Culture Indicated? Urine Glucose Salicylates < 2.8 Urine Opiates Screen Urine Methadone Screen Acetaminophen < 2 Ur Barbiturates Screen Ur Tricyclics Screen Ur Amphetamines Screen U Benzodiazepines Scrn Urine Cocaine Screen Ur THC Screen 08/18/22 08/18/22 14:13 14:13 WBC RBC Hgb Hct MCV MCH MCHC RDW Plt Count MPV Immature Gran % Neutrophils % Lymphocytes % Monocytes % Eosinophils % Basophils % Nucleated RBC % Absolute Neutrophils Absolute Lymphocytes Absolute Monocytes Absolute Eosinophils Absolute Basophils Sodium Potassium Chloride Carbon Dioxide Anion Gap BUN Creatinine Est GFR (CKD-EPI 2020) Glucose Calcium Magnesium Total Bilirubin AST ALT Alkaline Phosphatase Troponin I Total Protein Albumin Urine Color Yellow Urine Clarity Clear Urine pH 6.0 Ur Specific [place] 1.010 Urine Protein Negative Urine Ketones Negative Urine Blood Large H Urine Nitrite Negative Urine Bilirubin Negative Urine Urobilinogen 0.2 Ur Leukocyte Esterase Trace Urine RBC 5-10 H Urine WBC 0-2 Ur Epithelial Cells Moderate Urine Crystals Negative Urine Bacteria Few Urine Casts Negative Urine Mucus Negative Urine Other Negative Ur Culture Indicated? No Urine Glucose Negative Salicylates Urine Opiates Screen Negative Urine Methadone Screen Negative Acetaminophen Ur Barbiturates Screen Negative Ur Tricyclics Screen Negative Ur Amphetamines Screen Negative U Benzodiazepines Scrn Negative Urine Cocaine Screen Negative Ur THC Screen Negative HPI General Mode of arrival: ambulatory . Date/Time Provider Initiated Documentation: 08/18/22 13:33 . Limitations to Documentation: no limitations . Information obtained by: patient . History of Present Illness 32 year old F presents to the emergency department with the chief complaint of Nausea, vomiting, diarrhea after Narcan use, described as mild, Patient started experiencing this hour(s) and it has been intermittent. No relieving factors improve symptom(s), No exacerbating factors reported . Patient did receive the following treatments prior to arrival, none Related Data Home Medications Medication Instructions Recorded Confirmed albuterol sulfate 90 mcg/actuation 90 mcg inhalation 2 inh q 4-6 hours 02/06/18 08/18/22 breath activated powder inhaler (ProAir RespiClick) famotidine 20 mg tablet (Pepcid) 20 mg PO DAILY 07/07/18 08/18/22 albuterol sulfate 90 mcg/actuation 2 inh inhalation Q4H PRN shortness 08/22/19 08/18/22 breath activated powder inhaler of breath or wheezing #1 ea docusate sodium 100 mg capsule 100 mg PO BID #30 caps 06/15/22 08/18/22 (Colace) ibuprofen 800 mg tablet 800 mg PO Q8H PRN #60 tabs 06/15/22 08/18/22 Previous Rx's Medication Instructions Recorded albuterol sulfate 90 mcg/actuation 2 inh inhalation Q4H PRN shortness 08/22/19 breath activated powder inhaler of breath or wheezing #1 ea docusate sodium 100 mg capsule 100 mg PO BID #30 caps 06/15/22 (Colace) ibuprofen 800 mg tablet 800 mg PO Q8H PRN #60 tabs 06/15/22 Allergies Allergy/AdvReac Type Severity Reaction Status Date / Time No Known Allergies Allergy Verified 08/18/22 13:34 General Stated Complaint: OD/Poison LO: 3 Review of Systems Narrative: No chest pain or palpitations. [place] lightheaded without syncope. No recent illness. 8 systems were reviewed. PFSH All Active Problems (Updated 08/18/22 @ 16:06 by Rudolph Sandy MD) Adverse drug reaction (Acute) Status post bilateral salpingectomy (Acute) Obesity (Chronic) GERD (gastroesophageal reflux disease) (Chronic) Positive urine drug screen (Acute) initial UDS + opiates and THC, patient had reported THC use ASCUS (atypical squamous cells of undetermined significance) on gynecologic Papanicolaou smear complicating , antepartum (Acute) Repeat PAP PP High risk HPV infection (Acute) Other specified counseling (Acute) Medical History Cannabinoid hyperemesis syndrome Pt. states she quit smoking pia Cannabinoid hyperemesis syndrome COVID-19 affecting in first trimester COVID-19 affecting in second trimester Cystic fibrosis carrier, antepartum Fever H/O herpes genitalis (04/11/16) Hepatitis C antibody positive in blood (04/11/16) HSV (herpes simplex virus) infection Migraine Palpitations Pt. denies this Rash Surgical History Open Carpal Tunnel release 04/08/[address] Pemberton Tonsillectomy and adenoidectomy Family History Mother Diabetes Essential hypertension Hyperlipidemia Thyroid disease Asthma Grandmother Diabetes Breast cancer Grandmother Cancer Self Asthma Sister Essential hypertension Social History Smoking/Tobacco Use Status: Former Tobacco Use Quit Date: 08/10/21 Smoking risk assessment performed?: Yes Alcohol Intake: former Drug use: Daily Substance use type: marijuana Details: Hx IV drug use, clean x 12 years although opiates found in urine at 1st visit. None since Household members: other Details: Children: Castillo Barboza FOB Number of Children: 2 current occupation: [employer]. Do you feel safe at home: Yes Do you feel safe in your relationship?: Yes Additional Social history: Pt denies History History 4 Para 3 Hx # Term Pregnancies 1 Multiple births 0 Hx # Pregnancies 1 Ectopic pregnancies 0 AB induced 0 Hx Number of Living Children 3 AB spontaneous 0 Past Pregnancies Del. Date GA/Weeks # Preg Succ Route Wgt Sex Labor Lgth Anesth esia Location Prov Complic 09/28/13 42 No vaginal 3543.69 g Female [facility] [place] 05/06/16 39 No vaginal 3345.244 g Male [facility] 04/19/22 39 No Yes vaginal 3770.487 g Male regional Tesfaye Agrawal CNM Delivery Date: 05/06/16 Last Updated by: Maxine Rodriguez CNM induced due to elevated BG's Delivery Date: 04/19/22 Last Updated by: KASH Diallo Exam Narrative Exam Narrative: GEN: awake, alert, oriented 3. Pleasant, well groomed, interactive. HEAD: Normocephalic, atraumatic ENT: Mucous membranes moist, oropharynx unremarkable, External ear exam unremarkable EYES: PERRL, EOMI NECK: Full ROM, no REJI, no menigismus CHEST/RESP: Nontender, clear to auscultation bilateral, no wheeze/rhonchi/rales CARDIOVASCULAR: Regular and tachycardic, no murmur, rub sophie. 2+ Rad pulse bilateral ABDOMEN: Soft, nontender, no mass. +Bowel sounds EXT: Full ROM, no edema, no rash Neuro: Grossly normal neurologic exam, conversant, interactive. Psych: Speech fluent, thoughts congruent, affect anxious Course Vital Signs Vital signs: Vital Signs Temperature 36.1 C L 08/18/22 13:27 Pulse 123 H 08/18/22 13:27 Respiratory Rate 20 08/18/22 13:27 Blood Pressure 145/112 H 08/18/22 13:27 Pulse Oximetry 97 08/18/22 13:27 Temperature 36.1 C L 08/18/22 13:27 Temperature Source Temporal Artery Scan 08/18/22 13:27 Pulse 123 H 08/18/22 13:27 Respiratory Rate 20 08/18/22 13:30 Respiratory Effort Non-Labored 08/18/22 13:30 Respiratory Depth Normal 08/18/22 13:30 Respiratory Pattern Normal 08/18/22 13:30 Blood Pressure 145/112 H 08/18/22 13:27 Blood Pressure Position Sitting 08/18/22 13:27 Pulse Oximetry 97 08/18/22 13:27 Oxygen Delivery Method Room Air 08/18/22 13:27 Oxygen Flow Rate 0 08/18/22 13:27 Pain Level 0 08/18/22 13:27
[2022-08-18 14:07] LABS: Absolute Basophil Count 0.08 10^3/uL (0.0-0.2); Absolute Monocyte Count 0.78 10^3/uL (0.1-0.8); Basophils % 0.5; Eosinophils % 2.3; HCT 42.5 % (36.0-46.0); HGB 13.6 g/dL (11.2-15.7); Immature Grans % 0.6; Lymphocytes % 14.8; MCH 26.9 pg (27.0-33.0); MCV 84 fL (80-95); MPV 10.3 fL (8.0-11.0); Monocytes % 4.9; Neutrophils % 76.9; Platelet Count 377 10^3/uL (130-400); RBC 5.06 10^6/uL (3.93-5.22); RDW 12.4 % (11.7-14.6); WBC 15.98 10^3/uL (4.4-10.8)
[2022-08-18 14:11] LABS: Absolute Eosinophil Count 0.37 10^3/uL (0.0-0.7); Absolute Lymphocyte Count 2.37 10^3/uL (1.2-3.4); Absolute Neutrophil Count 12.29 10^3/uL (1.2-6.7)
[2022-08-18] MEDS: LORazepam 2 MG/ML VIAL 1 MG IVP (14:12)
[2022-08-18] MEDS: Normal Saline 1,000 ML 1000 ML IV ×2 (14:12→15:32)
[2022-08-18] MEDS: Ondansetron 4 MG/2 ML VIAL IVP (14:12)
[2022-08-18 14:25] LABS: ALT 46 U/L (14-59); AST 28 U/L (15-37); Alkaline Phosphatase 88 U/L (46-116); Anion Gap 8.3 mmol/L (3-11); BUN 9 mg/dL (7-18); Bilirubin, Total 0.3 mg/dL (0.2-1.0); CO2 27.7 mmol/L (21.0-32.0); CREATININE 0.9 mg/dL (0.55-1.02); Calcium 9.5 mg/dL (8.5-10.1); Chloride 100 mmol/L (98-107); Estimated GFR 86.57 (mL/min/1.73m2); Glucose 135 mg/dL (74-106); Potassium 3.7 mmol/L (3.5-5.1); Sodium 136 mmol/L (136-145); Total Protein 9.2 g/dL (6.4-8.2); Troponin I < 50 ng/L (<or=60)
[2022-08-18 14:32] LABS: Salicylate < 2.8 mg/dL (<2.8)
[2022-08-18 14:33] LABS: Acetaminophen < 2 ug/mL (10-30)
[2022-08-18 15:12] LABS: Clarity Clear (Clear)
[2022-08-18 15:13] LABS: Bilirubin Negative (Negative); Blood Large (Negative); Glucose Negative (Negative); Ketones Negative (Negative); Leukocyte Esterase Trace (Negative); Nitrite Negative (Negative); Urobilinogen 0.2 EU/dL (Up TO 0.2)
[2022-08-18 15:14] LABS: Bacteria Few HPF (Negative); C & S Indicated? No; Casts Negative LPF (Negative); Crystals Negative HPF (Negative); Epithelial Cells Moderate HPF (Negative); Mucus Negative (Negative); Other Cells Negative (Negative); WBC 0-2 HPF (0-5)
[2022-08-18 15:19] LABS: *AMPHETAMINES SCREEN URINE Negative (Negative); *BARBITURATES SCREEN URINE Negative (Negative); *BENZODIAZEPINES SCREEN URINE Negative (Negative); Cannabinoids THC Negative (Negative); Cocaine Screen,Urine Negative (Negative); METHADONE URINE SCREEN Negative (Negative); OPIATES URINE SCREEN Negative (Negative)
[2022-08-18 15:23] LABS: Tricyclic Antidepressants Negative (Negative)
--- NOTE | 2022-08-18 17:08 | NUR.NOTE ---
coral po given to go Nursing Note:
== END 2022-08-18 17:07 | disposition home or self-care (01) ==
PROVIDERS: Emergency Provider Emergency Medicine; PCP Nurse Practitioner Family
DX: R11.2 Nausea with vomiting, unspecified (principal); R19.7 Diarrhea, unspecified; T50.7X5A Adverse effect of analeptics and opioid receptor antagonists, initial encounter; Z86.16 Personal history of COVID-19
CPT/HCPCS: 36415; 80053; 80307; 93005; 96361; 96374; 96375; 99284; 80329; 81003; 81015; 83735; 84484; 85025; 93010; J2060; J2405

== ENCOUNTER 2022-09-11 11:55 | Emergency (ER) | payer MEDICAID, SELFPAY ==
[2022-09-11 12:00] VITALS: BP 159/83; PULSE 92; RESP 18; TEMP 36.8; O2SAT 99
--- NOTE | 2022-09-11 12:00 | RT.EKG_ITS ---
APPROVED REPORT Exam: Resting ECG Reason for Exam: dizziness Patient Location: E HR:92 bpm ECG Measurements Heart Rate 92 AXIS RI 139 P 51 QRSd 94 QRS 63 QT 372 T 30 QTc 461 Conclusion Sinus rhythm...normal P axis, V-rate 60- 99
--- NOTE | 2022-09-11 15:05 | NUR.NOTE ---
Nursing Note: PAtient did not want to wait to be seen
== END 2022-09-11 13:51 | disposition left against medical advice (07) ==
PROVIDERS: PCP Nurse Practitioner Family
DX: Z53.21 Procedure and treatment not carried out due to patient leaving prior to being seen by health care provider (principal); R42 Dizziness and giddiness
CPT/HCPCS: 93005; 93010

== ENCOUNTER 2022-09-12 22:40 | Emergency (ER) | payer MEDICAID, SELFPAY ==
[2022-09-12 22:45] VITALS: BP 139/87; PULSE 86; RESP 16; TEMP 36.5; O2SAT 100
--- NOTE | 2022-09-12 22:45 | RT.EKG_ITS ---
APPROVED REPORT Exam: Resting ECG Reason for Exam: feels dizzy Patient Location: E HR:68 bpm ECG Measurements Heart Rate 68 AXIS OR 153 P 55 QRSd 99 QRS 69 QT 404 T 32 QTc 429 Conclusion Sinus rhythm...normal P axis, V-rate 60- 99
--- NOTE | 2022-09-12 22:52 | W.ED.GENAD ---
Discharge Plan Disposition Patient Disposition: Home Condition: Improving Discharge Details Clinical Impression: Adverse drug reaction Primary Care Provider: Linda Mason ED Provider: Demetris Anand Home Meds and New Rx's Prescriptions: No Action ProAir RespiClick 90 MCG aerosol powdr breath activated 90 mcg Inhalation 2 inh q 4-6 hours albuterol sulfate 90 mcg/actuation aerosol powdr breath activated 2 inh IH Q4H PRN (Reason: shortness of breath or wheezing) Qty: 1 0RF ibuprofen 800 mg tablet 800 mg PO Q8H PRNQty: 60 0RF docusate sodium [Colace] 100 mg capsule 100 mg PO BID Qty: 30 0RF famotidine [Pepcid] 20 mg Tablet 20 mg PO DAILY Discharge Instructions Instructions: Narcotic Safety (ED) Additional Instructions: Please follow-up with your primary care physician. Discharge Data Discharge Date/Time-TO BE ENTERED AT DEPARTURE: 09/13/22 00:24 Medical Decision Making <ZACK Alba - Last Filed: 09/30/22 20:40> Patient is a pleasant 32-year-old female presenting today with chief complaint of having inhaled fentanyl all along with her normal marijuana. States that since then she has vomited x2. Has had general malaise, feeling slightly lightheaded and anxious. Past medical history is significant for obesity, GERD hyperemesis syndrome, hepatitis C. States a prior to smoked marijuana 1 to 2 hours ago, she had been feeling well and at baseline. Primarily concerned about her exposure to fentanyl. On exam, patient appears nontoxic. She appears quite anxious. She is hemodynamically stable. No respiratory compromise. She does not appear acutely dehydrated. She not actively vomiting. Will give Zofran and obtain EKG. After reassuring the patient and based on the time since she did have the ingestion of the fentanyl, will obtain EKG and reevaluate and discuss options. At the end of my shift, care transition to Dr. Bert Mccullough. 09/13 00: 10 patient resting comfortably no acute distress. Normoxic. No desaturation. Normal pupils, arousable. <Demetris Anand MD - Last Filed: 09/13/22 00:12> Patient is a pleasant 32-year-old female presenting today with chief complaint of having inhaled fentanyl all along with her normal marijuana. States that since then she has vomited x2. Has had general malaise, feeling slightly lightheaded and anxious. Past medical history is significant for obesity, GERD hyperemesis syndrome, hepatitis C. States a prior to smoked marijuana 1 to 2 hours ago, she had been feeling well and at baseline. Primarily concerned about her exposure to fentanyl. On exam, patient appears nontoxic. She appears quite anxious. She is hemodynamically stable. No respiratory compromise. She does not appear acutely dehydrated. She not actively vomiting. Will give Zofran and obtain EKG. After reassuring the patient and based on the time since she did have the ingestion of the fentanyl, will obtain EKG and reevaluate and discuss options. 09/13 00: 10 patient resting comfortably no acute distress. Normoxic. No desaturation. Normal pupils, arousable. HPI <ZACK Alba - Last Filed: 09/30/22 20:40> General Date/Time Provider Initiated Documentation: 09/12/22 22:51. Limitations to Documentation: no limitations. Information obtained by: patient and RN notes reviewed. History of Present Illness 32 year old F presents to the emergency department with the chief complaint of smoked marijuana, concerned for it containing fentanyl, feeling altered, and is localized to the abdomen (vomited x 2 prior to arrival, otherwise feels numb elsewhere). Patient started experiencing this minute(s) and it has been constant (still feels scared, abnormal but no further vomiting). No relieving factors improve symptom(s), Medication worsens symptoms (illicit substance) . Patient notes no other symptoms.. Patient did receive the following treatments prior to arrival, none Related Data Home Medications Medication Instructions Recorded Confirmed albuterol sulfate 90 mcg/actuation 90 mcg inhalation 2 inh q 4-6 hours 02/06/18 09/11/22 breath activated powder inhaler (ProAir RespiClick) famotidine 20 mg tablet (Pepcid) 20 mg PO DAILY 07/07/18 09/11/22 albuterol sulfate 90 mcg/actuation 2 inh inhalation Q4H PRN shortness 08/22/19 09/11/22 breath activated powder inhaler of breath or wheezing #1 ea docusate sodium 100 mg capsule 100 mg PO BID #30 caps 06/15/22 09/11/22 (Colace) ibuprofen 800 mg tablet 800 mg PO Q8H PRN #60 tabs 06/15/22 09/11/22 Previous Rx's Medication Instructions Recorded albuterol sulfate 90 mcg/actuation 2 inh inhalation Q4H PRN shortness 08/22/19 breath activated powder inhaler of breath or wheezing #1 ea docusate sodium 100 mg capsule 100 mg PO BID #30 caps 06/15/22 (Colace) ibuprofen 800 mg tablet 800 mg PO Q8H PRN #60 tabs 06/15/22 Allergies Allergy/AdvReac Type Severity Reaction Status Date / Time No Known Allergies Allergy Verified 08/18/22 13:34 General Stated Complaint: OD/Poison LO: 3 Review of Systems <ZACK Alba - Last Filed: 09/30/22 20:40> Constitutional Constitutional: Reports as per HPI, Denies chills, Denies fatigue, Denies fever(s) and Denies headache(s) ENT Ears, Nose, Mouth, and Throat: Denies headache(s) Cardiovascular Cardiovascular: Reports as per HPI, Denies chest pain and Denies dyspnea Respiratory Respiratory: Reports as per HPI, Denies cough and Denies dyspnea Gastrointestinal Gastrointestinal: Reports as per HPI Musculoskeletal Musculoskeletal: Reports as per HPI Integumentary/Breasts Skin/Breast: Reports as per HPI and Denies rash Neurologic Neurologic: Reports as per HPI and Denies headache(s) Endocrine Endocrine: Denies fatigue PFSH <ZACK Alba - Last Filed: 09/30/22 20:40> All Active Problems (Updated 09/18/22 @ 00:03 by SELVIN LAU) Status post bilateral salpingectomy (Acute) Obesity (Chronic) GERD (gastroesophageal reflux disease) (Chronic) Positive urine drug screen (Acute) initial UDS + opiates and THC, patient had reported THC use ASCUS (atypical squamous cells of undetermined significance) on gynecologic Papanicolaou smear complicating , antepartum (Acute) Repeat PAP PP High risk HPV infection (Acute) Other specified counseling (Acute) Medical History Cannabinoid hyperemesis syndrome Pt. states she quit smoking marajuana Cannabinoid hyperemesis syndrome COVID-19 affecting in first trimester COVID-19 affecting in second trimester Cystic fibrosis carrier, antepartum Fever H/O herpes genitalis (04/11/16) Hepatitis C antibody positive in blood (04/11/16) HSV (herpes simplex virus) infection Migraine Palpitations Pt. denies this Rash Surgical History Open Carpal Tunnel release 04/08/[address] Pemberton Tonsillectomy and adenoidectomy Family History Mother Diabetes Essential hypertension Hyperlipidemia Thyroid disease Asthma Grandmother Diabetes Breast cancer Grandmother Cancer Self Asthma Sister Essential hypertension Social History Smoking/Tobacco Use Status: Former Tobacco Use Quit Date: 08/10/21 Smoking risk assessment performed?: Yes Alcohol Intake: former Drug use: Daily Substance use type: marijuana Details: Hx IV drug use, clean x 12 years although opiates found in urine at 1st visit. None since Household members: other Details: Children: Castillo Barboza FOB Number of Children: 2 current occupation: [employer]. Do you feel safe at home: Yes Do you feel safe in your relationship?: Yes Additional Social history: Pt denies History History 4 Para 3 Hx # Term Pregnancies 1 Multiple births 0 Hx # Pregnancies 1 Ectopic pregnancies 0 AB induced 0 Hx Number of Living Children 3 AB spontaneous 0 Past Pregnancies Del. Date GA/Weeks # Preg Succ Route Wgt Sex Labor Lgth Anesthesia Location [facility] 09/28/13 42 No vaginal 3543.69 g Female [address] [place] [address] 05/06/16 39 No vaginal 3345.244 g Male [address] [place] [address] 04/19/22 39 No Yes vaginal 3770.487 g Male [facility] BOB [facility] Delivery Date: 05/06/16 Last Updated by: Maxine Rodriguez CNM induced due to elevated BG's Delivery Date: 04/19/22 Last Updated by: KASH Diallo Exam <ZACK Alba - Last Filed: 09/30/22 20:40> Const General: cooperative, healthy appearing, comfortable, no acute distress, well developed and anxious Nutritional Appearance: well nourished and overweight Orientation: alert and awake HENNV Head: normal to inspection Mouth: moist mucous membranes Resp Effort & Inspection: normal respiratory effort, able to speak in complete sentences and no respiratory distress Auscultation: clear to auscultation bilaterally, no rales, no rhonchi and no wheezes Cardio Rate: regular rate Rhythm: regular rhythm Heart Sounds: S1 normal and S2 normal GI Inspection: normal to inspection Palpation: soft, not rigid and nontender Back/Spine/Pelvis Back: no CVA tenderness Skin General skin exam: no rashes or lesions noted Trauma: no lacerations or abrasions Neuro General: patient alert and patient awake Cognition: normal cognition Speech: speech normal Gait: normal gait Psych Appearance: grossly normal and well kempt Mental Status: mental status grossly normal Speech and Movement: speech and movement normal Course <ZACK Alba - Last Filed: 09/30/22 20:40> Vital Signs Vital signs: Vital Signs Temperature 36.5 C 09/12/22 22:45 Pulse 86 09/12/22 22:45 Respiratory Rate 16 09/12/22 22:45 Blood Pressure 139/87 09/12/22 22:45 Pulse Oximetry 100 09/12/22 22:45 Temperature 36.5 C 09/12/22 22:45 Temperature Source Temporal Artery Scan 09/12/22 22:45 Pulse 86 09/12/22 22:45 Respiratory Rate 16 09/12/22 22:45 Respiratory Effort 09/12/22 22:48 Respiratory Depth Normal 09/12/22 22:48 Respiratory Pattern Normal 09/12/22 22:48 Blood Pressure 139/87 09/12/22 22:45 Blood Pressure Position Sitting 09/12/22 22:45 Pulse Oximetry 100 09/12/22 22:45 Oxygen Delivery Method Room Air 09/12/22 22:45 Oxygen Flow Rate 0 09/12/22 22:45 Pain Level 0 09/12/22 22:45 Sign Out <ZACK Alba - Last Filed: 09/30/22 20:40> Sign Out Data: Sign Out Comment: Care transitioned to Dr. Ortega with reevaluation pending. She had intake of THC and possibly fentanyl. No respiratory compromise. Nauseated, received zofran. ECG obtained. Last updated by Kayla Stark PA at 09/12/22 23:31
[2022-09-12] MEDS: Ondansetron O.D.T. 4 MG TABEF PO (23:21)
[2022-09-12 23:42] VITALS: PULSE 63; O2SAT 97
--- NOTE | 2022-09-13 11:00 | NUR.NOTE ---
Nursing Note: Accessed chart to determine orders for EKG and to determine whether or not one needs to be cancelled.
== END 2022-09-13 00:24 | disposition home or self-care (01) ==
PROVIDERS: Emergency Provider Emergency Medicine; PCP Nurse Practitioner Family
DX: R11.10 Vomiting, unspecified (principal); T40.415A Adverse effect of fentanyl or fentanyl analogs, initial encounter; T40.715A Adverse effect of cannabis, initial encounter; Z86.16 Personal history of COVID-19
CPT/HCPCS: 93005; 99283; 93010; 99284

== ENCOUNTER 2023-01-22 21:13 | Emergency (ER) | payer MEDICAID, SELFPAY ==
--- NOTE | 2023-01-22 21:15 | RT.EKG_ITS ---
APPROVED REPORT Exam: Resting ECG Reason for Exam: dizziness Patient Location: E HR:80 bpm ECG Measurements Heart Rate 80 AXIS [place] 145 P 31 QRSd 95 QRS 35 QT 373 T 21 QTc 431 Conclusion Sinus rhythm...normal P axis, V-rate 60- 99 Probable left atrial enlargement...P >50mS, <-0.10mV V1 sinus rhythm, normal axis, normal intervals., non ischemic
[2023-01-22 21:19] VITALS: BP 143/98; PULSE 110; RESP 20; O2SAT 100
[2023-01-22 22:49] LABS: Abs Immature Grans 0.03 10^3/uL (0.0-0.06); Absolute Basophil Count 0.08 10^3/uL (0.0-0.2); Basophils % 0.6; Eosinophils % 2.5; HCT 45.4 % (36.0-46.0); HGB 14.8 g/dL (11.2-15.7); Immature Grans % 0.2; Lymphocytes % 21.7; MCH 28.2 pg (27.0-33.0); MCHC 32.6 % (32.0-36.0); MCV 87 fL (80-95); MPV 12.3 fL (8.0-11.0); Monocytes % 4.8; Neutrophils % 70.2; Platelet Count 206 10^3/uL (130-400); RBC 5.24 10^6/uL (3.93-5.22); RDW 13.2 % (11.7-14.6); RDW-SD 41.6 fL
[2023-01-22] MEDS: LORazepam 2 MG/ML VIAL 1 MG IM (22:51)
[2023-01-22] MEDS: Ondansetron O.D.T. 4 MG TABEF PO (22:51)
[2023-01-22 22:52] LABS: Absolute Eosinophil Count 0.32 10^3/uL (0.0-0.7); Absolute Lymphocyte Count 2.73 10^3/uL (1.2-3.4); Absolute Neutrophil Count 8.85 10^3/uL (1.2-6.7)
[2023-01-22 23:05] LABS: ALT 25 U/L (14-59); AST 22 U/L (15-37); Albumin 4.3 g/dL (3.4-5.0); Alkaline Phosphatase 80 U/L (46-116); Anion Gap 9.2 mmol/L (3-11); BUN 12 mg/dL (7-18); Bilirubin, Total 0.6 mg/dL (0.2-1.0); CO2 26.8 mmol/L (21.0-32.0); CREATININE 0.9 mg/dL (0.55-1.02); Calcium 9.7 mg/dL (8.5-10.1); Chloride 100 mmol/L (98-107); Estimated GFR 86.57 (mL/min/1.73m2); Glucose 116 mg/dL (74-106); Magnesium 2.2 mg/dL (1.8-2.4); Potassium 3.8 mmol/L (3.5-5.1); Sodium 136 mmol/L (136-145); Total Protein 9.2 g/dL (6.4-8.2)
--- NOTE | 2023-01-22 23:15 | ED.GENADUL_ITS ---
Discharge Plan Disposition Patient Disposition: Home Discharge Details Clinical Impression: Foot injury, Left leg paresthesias, Nausea & vomiting Primary Care Provider: Linda Mason ED Provider: Kamilla Harris Home Meds and New Rx's Prescriptions: Continued ProAir RespiClick 90 MCG aerosol powdr breath activated 90 mcg Inhalation 2 inh q 4-6 hours albuterol sulfate 90 mcg/actuation aerosol powdr breath activated 2 inh IH Q4H PRN (Reason: shortness of breath or wheezing) Qty: 1 0RF ibuprofen 800 mg tablet 800 mg PO Q8H PRNQty: 60 0RF docusate sodium [Colace] 100 mg capsule 100 mg PO BID Qty: 30 0RF famotidine [Pepcid] 20 mg Tablet 20 mg PO DAILY Discharge Instructions Instructions: Acute Nausea and Vomiting (ED) Additional Instructions: Please follow-up with your primary care physician tomorrow Return earlier should you have new or worsening complaints Referrals: Linda Mason [Primary Care Provider] - Discharge Data Discharge Date/Time-TO BE ENTERED AT DEPARTURE: 01/22/23 23:34 Medical Decision Making Patient known to this facility, presents in no acute distress, nonfocal neurological exam Temp of 98.9, pulse repeat 98, blood pressure 140/90 White blood cell count 12,000, negative , electrolytes within normal limits After 1 mg of Ativan and fluids, patient feels markedly improved and is requesting discharge home Return precautions reviewed and patient expressed understanding Discharged home in stable condition with stable vitals, nontender abdominal exam, low suspicion for intra-abdominal pathology No electrolyte abnormality, ambulatory steady gait, HPI General Date/Time Provider Initiated Documentation: 01/22/23 22:03 . HPI Narrative: This 32-year-old female known to this facility comes to the emergency department with injury to her left foot, became tingly after stepping on something in the shower. States now her whole body is feeling tingly causing nausea and vomiting. Denies chest pain or shortness of breath. Denies weakness. Denies chance of . Related Data Home Medications Medication Instructions Recorded Confirmed albuterol sulfate 90 mcg/actuation 90 mcg inhalation 2 inh q 4-6 hours 02/06/18 09/11/22 breath activated powder inhaler (ProAir RespiClick) famotidine 20 mg tablet (Pepcid) 20 mg PO DAILY 07/07/18 09/11/22 albuterol sulfate 90 mcg/actuation 2 inh inhalation Q4H PRN shortness 08/22/19 09/11/22 breath activated powder inhaler of breath or wheezing #1 ea docusate sodium 100 mg capsule 100 mg PO BID #30 caps 06/15/22 09/11/22 (Colace) ibuprofen 800 mg tablet 800 mg PO Q8H PRN #60 tabs 06/15/22 09/11/22 Previous Rx's Medication Instructions Recorded albuterol sulfate 90 mcg/actuation 2 inh inhalation Q4H PRN shortness 08/22/19 breath activated powder inhaler of breath or wheezing #1 ea docusate sodium 100 mg capsule 100 mg PO BID #30 caps 06/15/22 (Colace) ibuprofen 800 mg tablet 800 mg PO Q8H PRN #60 tabs 06/15/22 Allergies Allergy/AdvReac Type Severity Reaction Status Date / Time No Known Allergies Allergy Verified 01/22/23 21:24 General Stated Complaint: Nausea/Vomit/Diar LO: 3 PFSH All Active Problems (Updated 01/22/23 @ 23:18 by ZACK Pritchard) Foot injury (Acute) Left leg paresthesias (Acute) Nausea & vomiting (Acute) Status post bilateral salpingectomy (Acute) Obesity (Chronic) GERD (gastroesophageal reflux disease) (Chronic) Positive urine drug screen (Acute) initial UDS + opiates and THC, patient had reported THC use ASCUS (atypical squamous cells of undetermined significance) on gynecologic Papanicolaou smear complicating , antepartum (Acute) Repeat PAP PP High risk HPV infection (Acute) Other specified counseling (Acute) Medical History Cannabinoid hyperemesis syndrome Pt. states she quit smoking [place]aju[place] Cannabinoid hyperemesis syndrome COVID-19 affecting in first trimester COVID-19 affecting in second trimester Cystic fibrosis carrier, antepartum Fever H/O herpes genitalis (04/11/16) Hepatitis C antibody positive in blood (04/11/16) HSV (herpes simplex virus) infection Migraine Palpitations Pt. denies this Rash Surgical History Open Carpal Tunnel release 04/08/[address] Pemberton Tonsillectomy and adenoidectomy Family History Mother Diabetes Essential hypertension Hyperlipidemia Thyroid disease Asthma Grandmother Diabetes Breast cancer Grandmother Cancer Self Asthma Sister Essential hypertension Social History Smoking/Tobacco Use Status: Former Tobacco Use Quit Date: 08/10/21 Smoking risk assessment performed?: Yes Alcohol Intake: former Drug use: Daily Substance use type: marijuana Details: Hx IV drug use, clean x 12 years although opiates found in urine at 1st visit. None since Household members: other Details: Children: Castillo Barboza FOB Number of Children: 2 current occupation: [employer]. Do you feel safe at home: Yes Do you feel safe in your relationship?: Yes Additional Social history: Pt denies History History 4 Para 3 Hx # Term Pregnancies 1 Multiple births 0 Hx # Pregnancies 1 Ectopic pregnancies 0 AB induced 0 Hx Number of Living Children 3 AB spontaneous 0 Past Pregnancies Del. Date GA/Weeks # Preg Succ Route Wgt Sex Labor Lgth Anesth esia Location Prov [facility] 09/28/13 42 No vaginal 3543.69 g Female [facility] [place] 05/06/16 39 No vaginal 3345.244 g Male [facility] [place] [facility] 04/19/22 39 No Yes vaginal 3770.487 g Male regional Tesfaye Agrawal CNM Delivery Date: 05/06/16 Last Updated by: Maxine Rodriguez CNM induced due to elevated BG's Delivery Date: 04/19/22 Last Updated by: KASH Diallo Exam Narrative Exam Narrative: Patient fully alert and oriented, ambulatory with steady gait, nonfocal neurological exam, pupils are round reactive to light and accommodation, no abdominal tenderness Course Vital Signs Vital signs: Vital Signs Pulse 110 H 01/22/23 21:19 Respiratory Rate 01/22/23 21:19 Blood Pressure 143/98 H 01/22/23 21:19 Pulse Oximetry 100 01/22/23 21:19 Pulse 110 H 01/22/23 21:19 Respiratory Rate 20 01/22/23 21:19 Respiratory Effort Normal 01/22/23 21:23 Blood Pressure 143/98 H 01/22/23 21:19 Pulse Oximetry 100 01/22/23 21:19 Oxygen Delivery Method Room Air 01/22/23 21:19 Oxygen Flow Rate 0 01/22/23 21:19 Lab/Test Results Lab/Test Results: Laboratory Tests Range/Units 01/22/23 01/22/23 22:20 22:20 WBC (4.4-10.8) 10^3/uL 12.60 H RBC (3.93-5.22) 10^6/uL 5.24 H Hgb (11.2-15.7) g/dL 14.8 Hct (36.0-46.0) % 45.4 MCV (80-95) fL 87 MCH (27.0-33.0) pg 28.2 MCHC (32.0-36.0) % 32.6 RDW (11.7-14.6) % 13.2 Plt Count (130-400) 10^3/uL 206 MPV (8.0-11.0) fL 12.3 H Immature Gran % 0.2 Neutrophils % 70.2 Lymphocytes % 21.7 Monocytes % 4.8 Eosinophils % 2.5 Basophils % 0.6 Nucleated RBC % (0.0-0.3) % 0.0 Absolute Neutrophils (1.2-6.7) 10^3/uL 8.85 H Absolute Lymphocytes (1.2-3.4) 10^3/uL 2.73 Absolute Monocytes (0.1-0.8) 10^3/uL 0.60 Absolute Eosinophils (0.0-0.7) 10^3/uL 0.32 Absolute Basophils (0.0-0.2) 10^3/uL 0.08 Sodium (136-145) mmol/L 136 Potassium (3.5-5.1) mmol/L 3.8 Chloride (98-107) mmol/L 100 Carbon Dioxide (21.0-32.0) mmol/L 26.8 Anion Gap (3-11) mmol/L 9.2 BUN (7-18) mg/dL 12 Creatinine (0.55-1.02) mg/dL 0.9 Est GFR (CKD-EPI 2020) (mL/min/1.73m2) 86.57 Glucose (74-106) mg/dL 116 H Calcium (8.5-10.1) mg/dL 9.7 Magnesium (1.8-2.4) mg/dL 2.2 Total Bilirubin (0.2-1.0) mg/dL 0.6 AST (15-37) U/L 22 ALT (14-59) U/L 25 Alkaline Phosphatase (46-116) U/L 80 Total Protein (6.4-8.2) g/dL 9.2 H Albumin (3.4-5.0) g/dL 4.3
[2023-01-22 23:19] LABS: HCG Qual (Serum) Negative
--- NOTE | 2023-01-23 10:20 | NUR.NOTE ---
Nursing Note: Acessed pt chart to determine how many EKG orders are in the chart and if a duplicate one needs to be deleted.
== END 2023-01-22 23:34 | disposition home or self-care (01) ==
PROVIDERS: Emergency Provider Physician Assistant; PCP Nurse Practitioner Family
DX: R11.2 Nausea with vomiting, unspecified (principal); R20.2 Paresthesia of skin; S99.922A Unspecified injury of left foot, initial encounter; X58.XXXA Exposure to other specified factors, initial encounter
CPT/HCPCS: 80053; 93005; 96372; 99284; 83735; 84703; 85025; 93010; J2060

== ENCOUNTER 2023-03-26 14:35 | Emergency (ER) | payer MEDICAID, SELFPAY ==
[2023-03-26 14:53] VITALS: BP 136/90; PULSE 74; RESP 20; TEMP 36.6; O2SAT 99
--- NOTE | 2023-03-26 16:51 | W.ED.GENAD ---
Discharge Plan Disposition Patient Disposition: Home Condition: Good Discharge Details Clinical Impression: Cellulitis of umbilicus Primary Care Provider: Linda Mason ED Provider: Kayla Stark Home Meds and New Rx's Prescriptions: Continued ProAir RespiClick 90 MCG aerosol powdr breath activated 90 mcg Inhalation 2 inh q 4-6 hours albuterol sulfate 90 mcg/actuation aerosol powdr breath activated 2 inh IH Q4H PRN (Reason: shortness of breath or wheezing) Qty: 1 0RF ibuprofen 800 mg tablet 800 mg PO Q8H PRNQty: 60 0RF docusate sodium [Colace] 100 mg capsule 100 mg PO BID Qty: 30 0RF famotidine [Pepcid] 20 mg Tablet 20 mg PO DAILY Discharge Instructions Instructions: Cellulitis (ED) Additional Instructions: As we discussed, the incision in your bellybutton looks well-healed and I do not see any indication of infection in that area. However, deeper to the bellybutton area is red and this is where the drainage appears to come from. Appears consistent with skin infection and possible abscess that is since ruptured. Please take the antibiotics as prescribed. Even if symptoms improve, please take the entire course. Please keep the bellybutton clean and dry. Please follow-up with your primary care in the next 3 to 4 days for reevaluation. If you develop fevers, chills, increased pain, spreading of the redness or other new/worsening symptom please seek care urgently once again. Referrals: Linda Mason [Primary Care Provider] - Discharge Data Discharge Date/Time-TO BE ENTERED AT DEPARTURE: 03/26/23 17:48 Medical Decision Making Patient is a pleasant 32 year old female presenting with c/c of umbilical pain and discharge. STates that she noted this when she awoke at 11AM today. STates that initially she had some nausea and chills but no fever. Was concerned that she is 8mo s/p tubal ligation with port site at the umbilicus. Concerned it could be tracking from that area. No abdominal pain. Denies vaginal d/c, no change in urinary or bowel habits. STates that she gets nausea when she has manipulation of the umbilicus. States that she is not currently having chills, pain, fevers, nausea. On exam, she appears nontoxic. Hemodynamically stable. Abdomen is benign and nontender. We did clean out the umbilicus which had some yellow/brown crusting. Was able to visualize the incision this appears to be at well-healed. No erythema, warmth or discharge from this area. However, deeper in the skin is erythematous. Likely, patient had cellulitis with a focal abscess that has since ruptured. She does report that she has some tenderness in the umbilicus yesterday that she typically does not clear to her look into her bellybutton secondary to the induce nausea. Do not see any evidence of septicemia, unlikely bacteremia or other more systemic illness. Patient and I discussed evaluation and treatment options. She would prefer to be d/c'ed to home with close f/u with PCP for cellulitis. Discused the likelihood of abscess that has opened leading to drainage. No evidence of deeper infection, abdomen is non-tender. Patient afebrile without antipyretics. Will treat with abx. Discussed supportive care. Prior to d/c patient started to have recurrent n/v. She believes that this is associated with manipulation of umbilicus. Nursing staff and myself discussed furhter evaluation with her abrupt change and patient would like to go home. She prefers to come back if things worsen and plan for close f/u wtih PCP. Gave her dose of zofran. She does have hx of recurrent nausea/vomiting, knows how to stay hydrated, we did review this. All of her questions and concerns were addressed, she si in agreement with this plan. HPI General Date/Time Provider Initiated Documentation: 03/26/23 16:51. Limitations to Documentation: no limitations. Information obtained by: patient, RN notes reviewed and old records reviewed. History of Present Illness 32 year old F presents to the emergency department with the chief complaint of painful, erythematous umbilicus with drainage, described as moderate, Quality is described as aching, and is localized to the abdomen. Patient reports no radiation. Patient started experiencing this hour(s) (1100) and it has been constant. No relieving factors improve symptom(s), No exacerbating factors reported . Patient notes fever/chills, malaise, nausea/vomiting and rash (erythema); denies chest pain, cough, headaches, loss of appetite and shortness of breath. Patient did receive the following treatments prior to arrival, none Related Data Home Medications Medication Instructions Recorded Confirmed albuterol sulfate 90 mcg/actuation 90 mcg inhalation 2 inh q 4-6 hours 02/06/18 09/11/22 breath activated powder inhaler (ProAir RespiClick) famotidine 20 mg tablet (Pepcid) 20 mg PO DAILY 07/07/18 09/11/22 albuterol sulfate 90 mcg/actuation 2 inh inhalation Q4H PRN shortness 08/22/19 09/11/22 breath activated powder inhaler of breath or wheezing #1 ea docusate sodium 100 mg capsule 100 mg PO BID #30 caps 06/15/22 09/11/22 (Colace) ibuprofen 800 mg tablet 800 mg PO Q8H PRN #60 tabs 06/15/22 09/11/22 Previous Rx's Medication Instructions Recorded albuterol sulfate 90 mcg/actuation 2 inh inhalation Q4H PRN shortness 08/22/19 breath activated powder inhaler of breath or wheezing #1 ea docusate sodium 100 mg capsule 100 mg PO BID #30 caps 06/15/22 (Colace) ibuprofen 800 mg tablet 800 mg PO Q8H PRN #60 tabs 06/15/22 Allergies Allergy/AdvReac Type Severity Reaction Status Date / Time No Known Allergies Allergy Verified 01/22/23 21:24 General Stated Complaint: Cellulitis LO: 3 Review of Systems Constitutional Constitutional: Reports as per HPI, Denies chills, Denies fatigue and Denies headache(s) ENT Ears, Nose, Mouth, and Throat: Denies headache(s) Cardiovascular Cardiovascular: Reports as per HPI, Denies chest pain and Denies dyspnea Respiratory Respiratory: Reports as per HPI, Denies cough and Denies dyspnea Gastrointestinal Gastrointestinal: Reports as per HPI Musculoskeletal Musculoskeletal: Reports as per HPI and Denies back pain Integumentary/Breasts Skin/Breast: Reports as per HPI and Denies rash Neurologic Neurologic: Reports as per HPI and Denies headache(s) Endocrine Endocrine: Denies fatigue PFSH All Active Problems (Updated 03/26/23 @ 17:14 by ZACK Alba) Cellulitis of umbilicus (Acute) Status post bilateral salpingectomy (Acute) Obesity (Chronic) GERD (gastroesophageal reflux disease) (Chronic) Positive urine drug screen (Acute) initial UDS + opiates and THC, patient had reported THC use ASCUS (atypical squamous cells of undetermined significance) on gynecologic Papanicolaou smear complicating , antepartum (Acute) Repeat PAP PP High risk HPV infection (Acute) Other specified counseling (Acute) Medical History Cannabinoid hyperemesis syndrome Pt. states she quit smoking pia Cannabinoid hyperemesis syndrome COVID-19 affecting in first trimester COVID-19 affecting in second trimester Cystic fibrosis carrier, antepartum Fever H/O herpes genitalis (04/11/16) Hepatitis C antibody positive in blood (04/11/16) HSV (herpes simplex virus) infection Migraine Palpitations Pt. denies this Rash Surgical History Open Carpal Tunnel release 04/08/[address] Pemberton Tonsillectomy and adenoidectomy Family History Mother Diabetes Essential hypertension Hyperlipidemia Thyroid disease Asthma Grandmother Diabetes Breast cancer Grandmother Cancer Self Asthma Sister Essential hypertension Social History Smoking/Tobacco Use Status: Former Tobacco Use Quit Date: 08/10/21 Smoking risk assessment performed?: Yes Alcohol Intake: former Drug use: Daily Substance use type: marijuana Details: Hx IV drug use, clean x 12 years although opiates found in urine at 1st visit. None since Household members: other Details: Children: Castillo Barboza FOB Number of Children: 2 current occupation: [employer]. Do you feel safe at home: Yes Do you feel safe in your relationship?: Yes Additional Social history: Pt denies History History 4 Para 3 Hx # Term Pregnancies 1 Multiple births 0 Hx # Pregnancies 1 Ectopic pregnancies 0 AB induced 0 Hx Number of Living Children 3 AB spontaneous 0 Past Pregnancies Del. Date GA/Weeks # Preg Succ Route Wgt Sex Labor Lgth Anesthesia Location Prov Complic 09/28/13 42 No vaginal 3543.69 g Female 24 [facility] [place] 05/06/16 39 No vaginal 3345.244 g Male [address] [place] [address] 04/19/22 39 No Yes vaginal 3770.487 g Male [facility] B[facility] Delivery Date: 05/06/16 Last Updated by: Maxine Rodriguez, CNM induced due to elevated BG's Delivery Date: 04/19/22 Last Updated by: KASH Diallo Exam Const General: cooperative, healthy appearing, comfortable, no acute distress and well developed Nutritional Appearance: well nourished and overweight Orientation: alert and awake [facility] Head: normal to inspection Mouth: moist mucous membranes Resp Effort & Inspection: normal respiratory effort, able to speak in complete sentences and no respiratory distress Auscultation: clear to auscultation bilaterally, no rales, no rhonchi and no wheezes Cardio Rate: regular rate Rhythm: regular rhythm Heart Sounds: S1 normal and S2 normal GI Inspection: other (erythema in umbilicus, incision well healed, crusted drainage) Palpation: soft, no hepatosplenomegaly, not firm, no guarding, no hernias, no masses, not rigid and nontender Percussion: normal to percussion Auscultation: normal bowel sounds Back/Spine/Pelvis Back: no CVA tenderness Skin General skin exam: erythema Neuro General: patient alert and patient awake Cognition: normal cognition Speech: speech normal Gait: normal gait Course Vital Signs Vital signs: Vital Signs Temperature 36.6 C 03/26/23 14:53 Pulse 74 03/26/23 14:53 Respiratory Rate 20 03/26/23 14:53 Blood Pressure 136/90 03/26/23 14:53 Pulse Oximetry 99 03/26/23 14:53 Temperature 36.6 C 03/26/23 14:53 Pulse 74 03/26/23 14:53 Respiratory Rate 20 03/26/23 14:53 Respiratory Effort Normal, Non-Labored 03/26/23 15:30 Blood Pressure 136/90 03/26/23 14:53 Pulse Oximetry 99 03/26/23 14:53 Oxygen Delivery Method Room Air 03/26/23 14:53 Oxygen Flow Rate 0 03/26/23 14:53
[2023-03-26] MEDS: Cephalexin 500 MG CAP PO (17:15)
[2023-03-26 17:33] VITALS: BP 162/99; PULSE 87; RESP 18; O2SAT 99
[2023-03-26] MEDS: Ondansetron O.D.T. 4 MG TABEF (17:33)
== END 2023-03-26 17:48 | disposition home or self-care (01) ==
PROVIDERS: Emergency Provider Physician Assistant; PCP Nurse Practitioner Family
DX: L03.316 Cellulitis of umbilicus (principal)
CPT/HCPCS: 99283; 99284

== ENCOUNTER 2023-04-04 15:01 | Outpatient (REF) | payer MEDICAID, SELFPAY ==
[2023-04-05 13:24] LABS: Chlamydia Result Negative (Negative); GC Result Negative (Negative)
== END 2023-04-04 15:02 | disposition home or self-care (01) ==
LOC: LBN 15:01
PROVIDERS: PCP Nurse Practitioner Family; Visit Provider Nurse Practitioner Women's Health
DX: Z11.3 Encounter for screening for infections with a predominantly sexual mode of transmission (principal)
CPT/HCPCS: 87491; 87591

== ENCOUNTER 2023-08-22 13:31 | Emergency (ER) | payer MEDICAID, SELFPAY ==
[2023-08-22 13:33] VITALS: BP 160/98; PULSE 96; RESP 15; TEMP 36.9; O2SAT 98
--- NOTE | 2023-08-22 14:37 | ED.GENADUL_ITS ---
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 LO: 4 Date/Time Provider Initiated Documentation: 08/22/23 13:42. Limitations to Documentation: no limitations. Information obtained by: patient, RN notes reviewed and old records reviewed. HPI Narrative: 33-year-old female presents to the ER with sensation of foreign body in her vagina, she reports that she was sleepwalking and may have doubled up on her tampon. She reports pressure in lower abdominal and pelvic cramping. She finished her menstrual period 4 days ago. She does have a history of vaginal herpes which she takes medication for it does appear that she is having an outbreak at this time. No significant discharge noted she does have herpes-like lesions noted to her external labia bilaterally. No foreign body noted on exam. Other past medical history includes hepatitis C, HSV, cystic fibrosis. Related Data Home Medications Medication Instructions Recorded Confirmed albuterol sulfate 90 mcg/actuation 90 mcg inhalation 2 inh q 4-6 hours 02/06/18 08/22/23 breath activated powder inhaler (ProAir RespiClick) famotidine 20 mg tablet (Pepcid) 20 mg PO DAILY 07/07/18 08/22/23 albuterol sulfate 90 mcg/actuation 2 inh inhalation Q4H PRN shortness 08/22/19 08/22/23 breath activated powder inhaler of breath or wheezing #1 ea docusate sodium 100 mg capsule 100 mg PO BID #30 caps 06/15/22 08/22/23 (Colace) ibuprofen 800 mg tablet 800 mg PO Q8H PRN #60 tabs 06/15/22 08/22/23 levonorgestrel 21 mcg/24 hours (8 1 device intrauterine ONCE #1 ea 04/05/23 08/22/23 yrs) 52 mg intrauterine device (Mirena) buprenorphine 8 mg-naloxone 2 mg tab sublingual 08/22/23 sublingual tablet Previous Rx's Medication Instructions Recorded albuterol sulfate 90 mcg/actuation 2 inh inhalation Q4H PRN shortness 08/22/19 breath activated powder inhaler of breath or wheezing #1 ea docusate sodium 100 mg capsule 100 mg PO BID #30 caps 06/15/22 (Colace) ibuprofen 800 mg tablet 800 mg PO Q8H PRN #60 tabs 06/15/22 levonorgestrel 21 mcg/24 hours (8 1 device intrauterine ONCE #1 ea 04/05/23 yrs) 52 mg intrauterine device (Mirena) Allergies Allergy/AdvReac Type Severity Reaction Status Date / Time No Known Allergies Allergy Verified 08/22/23 13:45 PFSH All Active Problems (Updated 08/22/23 @ 14:41 by Toshia Peres NP) Pelvic pain (Acute) Foreign body sensation, unspecified (Acute) IUD surveillance (Acute 04/05/23) Mirena Status post bilateral salpingectomy (Acute) Obesity (Chronic) GERD (gastroesophageal reflux disease) (Chronic) Positive urine drug screen (Acute) initial UDS + opiates and THC, patient had reported THC use ASCUS (atypical squamous cells of undetermined significance) on gynecologic Papanicolaou smear complicating , antepartum (Acute) Repeat PAP PP High risk HPV infection (Acute) Other specified counseling (Acute) Medical History Cannabinoid hyperemesis syndrome Pt. states she quit smoking marajuana Cannabinoid hyperemesis syndrome COVID-19 affecting in first trimester COVID-19 affecting in second trimester Cystic fibrosis carrier, antepartum Fever H/O herpes genitalis (04/11/16) Hepatitis C antibody positive in blood (04/11/16) HSV (herpes simplex virus) infection Migraine Palpitations Pt. denies this Rash Surgical History Open Carpal Tunnel release 04/08/[address] Pemberton Tonsillectomy and adenoidectomy Family History Mother Diabetes Essential hypertension Hyperlipidemia Thyroid disease Asthma Grandmother Diabetes Breast cancer Grandmother Cancer Self Asthma Sister Essential hypertension Social History Smoking/Tobacco Use Status: Former Tobacco Use Quit Date: 08/10/21 Smoking risk assessment performed?: Yes Alcohol Intake: former Drug use: Daily Substance use type: marijuana Details: Hx IV drug use, clean x 12 years although opiates found in urine at 1st visit. None since Household members: other Details: Children: Castillo Barboza FOB Number of Children: 2 current occupation: [employer]. Do you feel safe at home: Yes Do you feel safe in your relationship?: Yes Additional Social history: Pt denies Female Reproductive History Menstrual control method: progestin IUCD History History 4 Para 3 Hx # Term Pregnancies 1 Multiple births 0 Hx # Pregnancies 1 Ectopic pregnancies 0 AB induced 0 Hx Number of Living Children 3 AB spontaneous 0 Past Pregnancies Del. Date GA/Weeks # Preg Succ Route Wgt Sex Labor Lgth Anesth esia Location Prov Complic 09/28/13 42 No vaginal 3543.69 g Female 24 [facility] [place] 05/06/16 39 No vaginal 3345.244 g Male 24 [facility] [place] [facility] 04/19/22 39 No Yes vaginal 3770.487 g Male regional Tesfaye Agrawal CNM Delivery Date: 05/06/16 Last Updated by: Maxine Rodriguez CNM induced due to elevated BG's Delivery Date: 04/19/22 Last Updated by: KASH Diallo Exam General: bimanual renal exam normal bilaterally External Female Exam: externally tender bilaterally, lesion bilateral labial nodule (multiple) 0.2 in, no lacerations and no ecchymosis Speculum Exam - Vagina: normal vaginal discharge, no foreign bodies, no lesions and No vaginal bleeding Speculum Exam - Cervix: normal appearance of the cervix, closed and normal vervical discharge Bimanual Exam- Vagina & Uterus: normal palpation and non-tender OB/External & Speculum: no foreign bodies and No vaginal bleeding Course Vital Signs Vital signs: Vital Signs Temperature 36.9 C 08/22/23 13:33 Pulse 96 H 08/22/23 13:33 Respiratory Rate 15 08/22/23 13:33 Blood Pressure 160/98 H 08/22/23 13:33 Pulse Oximetry 98 08/22/23 13:33 Temperature 36.9 C 08/22/23 13:33 Temperature Source Oral 08/22/23 13:33 Pulse 96 H 08/22/23 13:33 Respiratory Rate 15 08/22/23 13:33 Respiratory Effort Normal, Non-Labored 08/22/23 13:43 Blood Pressure 160/98 H 08/22/23 13:33 Blood Pressure Position Sitting 08/22/23 13:33 Pulse Oximetry 98 08/22/23 13:33 Oxygen Delivery Method Room Air 08/22/23 13:33 Oxygen Flow Rate 0 01/02/24 13:33 Pain Level 6 08/22/23 13:43 Lab/Test Results Lab/Test Results: POC- Test(urine) Negative Medical Decision Making 33-year-old female presents to the ER with sensation of foreign body in her vagina, she reports that she was sleepwalking and may have doubled up on her tampon. She reports pressure in lower abdominal and pelvic cramping. She finished her menstrual period 4 days ago. She does have a history of vaginal herpes which she takes medication for it does appear that she is having an outbreak at this time. No significant discharge noted she does have herpes-like lesions noted to her external labia bilaterally. No foreign body noted on exam. Other past medical history includes hepatitis C, HSV, cystic fibrosis. Pelvic exam performed with Germaine MATTHEWS as witness, no swabs were obtained. She does have multiple nodular lesions noted to her bilateral labia which she reports that she does have herpes. They are tender with palpation no discharge or ulceration or vesicles noted. No vaginal foreign body was visualized. See the remainder of the physical exam. She denies any concerns for new STDs. Denies any nausea vomiting diarrhea. Patient reports that she cannot wait for results of her urinalysis. Patient is requesting be discharged prior to the completion of her workup. Urinalysis ordered which was not complete at the time of the visit. Patient left department without her discharge papers. This text was generated using Diff[employer] dictation system, please disregard any oddities of phrase or misspellings. Quality:SDOH Health Related Social Needs: No Data to Display Discharge Plan Disposition Patient Disposition: Home Condition: Stable Discharge Details Clinical Impression: Foreign body sensation, unspecified, Pelvic pain Primary Care Provider: Linda Mason ED Provider: Toshia Peres Home Meds and New Rx's Prescriptions: No Action Mirena 21 mcg/24 hours (8 yrs) 52 mg intrauterine device 1 device intrauterine ONCE Qty: 1 0RF ProAir RespiClick 90 MCG aerosol powdr breath activated 90 mcg Inhalation 2 inh q 4-6 hours albuterol sulfate 90 mcg/actuation aerosol powdr breath activated 2 inh IH Q4H PRN (Reason: shortness of breath or wheezing) Qty: 1 0RF ibuprofen 800 mg tablet 800 mg PO Q8H PRNQty: 60 0RF docusate sodium [Colace] 100 mg capsule 100 mg PO BID Qty: 30 0RF famotidine [Pepcid] 20 mg Tablet 20 mg PO DAILY buprenorphine-naloxone 8-2 mg tablet, sublingual SUBLINGUAL Patient Comments: PLACE TWO TABLETS UNDER THE TONGUE EVERY DAY FOR 7 DAYS Discharge Instructions Instructions: Pelvic Pain (ED) Additional Instructions: No evidence of retained foreign body noted on pelvic exam today. I was able to view your IUD strings. It does appear you are having a herpes outbreak at this time. At this time you have opted to be discharged prior to the urinalysis report so I cannot tell you if you need antibiotics or not. Follow up with primary care provider in 3-5 days. Return to ED sooner if any worsening or concerns. Increase oral fluids. Please take Tylenol or Ibuprofen with food every 4-6 hours as needed for pain and swelling. Referrals: Linda Mason [Primary Care Provider] - 5 days Discharge Data Discharge Date/Time-TO BE ENTERED AT DEPARTURE: 08/22/23 14:46
[2023-08-22 14:50] LABS: Bilirubin Negative (Negative); Blood Trace-intact (Negative); Clarity Clear (Clear); Glucose Negative (Negative); Ketones Negative (Negative); Leukocyte Esterase Negative (Negative); Nitrite Negative (Negative); Specific Gravity 1.025 (1.005-1.025); Urobilinogen 0.2 mg/dL (Up to 0.2); pH 5.5 (5-8)
[2023-08-22 14:59] LABS: Bacteria Moderate HPF (Negative); C & S Indicated? Yes; Casts Negative LPF (Negative); Crystals Negative HPF (Negative); Epithelial Cells Few HPF (Negative); Mucus Negative (Negative); RBC 0-2 HPF (0-2)
== END 2023-08-22 14:46 | disposition home or self-care (01) ==
PROVIDERS: Emergency Provider Registered Nurse Emergency; PCP Nurse Practitioner Family
DX: R10.2 Pelvic and perineal pain (principal); R09.A9 Foreign body sensation, other site
CPT/HCPCS: 81025; 87077; 99283; 81003; 81015; 87086; 87186

== ENCOUNTER 2023-10-26 13:52 | Outpatient (REF) | payer MEDICAID, SELFPAY | END 2023-10-26 13:53 | disposition home or self-care (01) | LOC: LBN 13:52 | PROVIDERS: PCP Nurse Practitioner Family; Visit Provider Advanced Practice Midwife | DX: R30.0 Dysuria (principal); N39.0 Urinary tract infection, site not specified | CPT/HCPCS: 87077; 87086; 87186 ==

== ENCOUNTER 2024-01-04 23:05 | Emergency (ER) | payer MEDICAID, SELFPAY ==
[2024-01-04 23:05] VITALS: BP 146/130; PULSE 97; RESP 18; TEMP 36.7; O2SAT 99
[2024-01-04 23:08] VITALS: RESP 18
--- NOTE | 2024-01-04 23:32 | W.ED.GENAD ---
Discharge Plan Disposition Patient Disposition: Home Condition: Good Discharge Details Chief Complaint: GenMedical Clinical Impression: Suspected exposure to potentially hazardous substance, Hypokalemia Primary Care Provider: iLnda Mason ED Provider: Cecilio Lemus Home Meds and New Rx's Prescriptions: No Action buprenorphine-naloxone 8-2 mg tablet, sublingual 2 tab SUBLINGUAL DAILY Patient Comments: PLACE TWO TABLETS UNDER THE TONGUE EVERY DAY FOR 7 DAYS Discharge Instructions Instructions: Hypokalemia (ED) Additional Instructions: At this time your workup has returned unremarkable. Your urine drug screen is negative for significant abnormality. Your potassium was slightly low. Please eat foods high in potassium for the next few days. If you notice any worsening of your symptoms, or any new symptoms such as vomiting, diarrhea, fever, chills, shortness of breath, chest pain, numbness, weakness, or fainting , please return immediately to the emergency department for reevaluation. Please follow up with your primary care provider as soon as possible for reassessment and reevaluation. As always, it was a pleasure participating in your medical care today. Referrals: Linda Mason [Primary Care Provider] - [facility] General Date/Time Provider Initiated Documentation: 01/04/24 23:10. HPI Narrative: 33-year-old female with a past medical history of tubal ligation, GERD, who is on chronic Suboxone, who presents today for evaluation of tingling. Patient states that at around 9:40 PM she was at work and found a $20 bill on the ground, she picked it up and immediately noticed tingling and burning sensation in her fingers and hands. She washed her hands, went home, and then began to eat chicken wings. Immediately upon taking the first bite and bring her fingers to her lip she also developed tingling and numbness in her face. She began to felt nauseous and dizzy. She did not pass out or syncopized. She felt quite weak. She called EMS and was brought to the ER for further assessment. Vital signs are stable. She admits to nausea but denies vomiting. She denies any diarrhea. She does smoke marijuana, last time she smoked was about an hour before her initial symptoms. She states that this is a regular normal type that she has been smoking for some time. No new dealers. Related Data Home Medications Medication Instructions Recorded Confirmed buprenorphine 8 mg-naloxone 2 mg 2 tab sublingual DAILY 08/22/23 01/04/24 sublingual tablet Allergies Allergy/AdvReac Type Severity Reaction Status Date / Time No Known Allergies Allergy Verified 01/04/24 23:10 General Stated Complaint: GenMedical LO: 4 Review of Systems All systems reviewed & are unremarkable except as noted in HPI and below Exam Narrative Exam Narrative: 1.Const: Well-nourished, Well-developed, appearing stated age 2.Eyes: PERRL, no conjunctival injection, and symmetrical lids. 3.ENT: Atraumatic external nose and ears. Notably dry MM. Neck: Symmetric, trachea midline, No thyromegaly. 4.CVS: +S1/S2, No murmurs or gallops. Peripheral pulses 2+ and equal in all extremities. Brisk capillary refill in all extremities. 5.RESP: Unlabored respiratory effort. Clear to auscultation bilaterally. No wheezes rales or rhonchi 6.GI: Soft, Nontender/Nondistended, No hepatosplenomegaly. No guarding or rebound. 7.MSK: Normocephalic/Atraumatic, Extremities w/o deformity or ttp No cyanosis or clubbing, Normal movement of all extremities 8.Skin: Warm, Dry. No rashes or lesions. 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 Sensation grossly intact, no focal neurologic deficits. Sensation intact throughout. No focal deficits. 10.Psych: (AAO) x3. Appropriate mood and affect Course Vital Signs Vital signs: Vital Signs Temperature 36.7 C 01/04/24 23:05 Pulse 97 H 01/04/24 23:05 Respiratory Rate 18 01/04/24 23:05 Blood Pressure 146/130 H 01/04/24 23:05 Pulse Oximetry 99 01/04/24 23:05 Temperature 36.7 C 01/04/24 23:05 Temperature Source Temporal Artery Scan 01/04/24 23:05 Pulse 97 H 01/04/24 23:05 Respiratory Rate 18 01/04/24 23:08 Respiratory Effort Non-Labored 01/04/24 23:08 Blood Pressure 146/130 H 01/04/24 23:05 Pulse Oximetry 99 01/04/24 23:05 Oxygen Delivery Method Room Air 01/04/24 23:05 Oxygen Flow Rate 0 05/16/24 23:05 Medical Decision Making 33-year-old female with a past medical history of tubal ligation, GERD, who is on chronic Suboxone, who presents today for evaluation of tingling. Patient states that at around 9:40 PM she was at work and found a $20 bill on the ground, she picked it up and immediately noticed tingling and burning sensation in her fingers and hands. She washed her hands, went home, and then began to eat chicken wings. Immediately upon taking the first bite and bring her fingers to her lip she also developed tingling and numbness in her face. She began to felt nauseous and dizzy. She did not pass out or syncopized. She felt quite weak. She called EMS and was brought to the ER for further assessment. Vital signs are stable. She admits to nausea but denies vomiting. She denies any diarrhea. She does smoke marijuana, last time she smoked was about an hour before her initial symptoms. She states that this is a regular normal type that she has been smoking for some time. No new dealers. Physical exam demonstrates well-appearing female, notably dry mucous membranes, no neurologic deficits, normal sensation throughout, subjective tingling is noted in the hands. No erythema edema or other abnormalities. Pupils are reactive, not overly dilated or pinpoint. Symptoms appear inconsistent with opiate overdose. Concern for potential acidic or basic substance that may have caused the initial tingling, however pharmaceutical substances certainly on the differential. Will get a UDS, rehydrate, give Zofran for nausea, monitor closely and reassess. 1:31 AM On reassessment the patient is feeling much better, she is asking to be discharged. Her tingling has improved, she states that she would just like to go home down to go to sleep. Laboratory workup shows mildly elevated white count of 13, electrolytes all normal aside for slightly low potassium at 3.2. Urine drug screen is negative for any abnormalities aside for THC, she does have 10-20 WBCs in her urine, however she has moderate epithelials, no nitrites. She denies any symptoms of dysuria frequency or painful urination. Symptoms inconsistent with UTI. Uncertain as to what the etiology was that the patient came in contact with, however symptoms appear to be resolved and she shows no signs of acute life-threatening etiology. Patient appears stable for discharge. Recommend fluids and continued hydration at home. She tolerated p.o. well here. I have extensively reviewed the treatment plan and discharge instructions with the patient. I have addressed all patient concerns at this time. The patient was made aware of what symptoms to monitor for that would warrant a return to the emergency department. Discussed the plan with the patient, they demonstrate verbal understanding and agreement with our assessment and plan at this time. The documentation in this chart was dictated using Ludia dictation software. Please excuse any dictation errors. Quality:SDOH Health Related Social Needs: No Data to Display PFSH All Active Problems (Updated 01/05/24 @ 01:27 by Cecilio Lemus DO) Hypokalemia (Acute) Suspected exposure to potentially hazardous substance (Acute) IUD surveillance (Acute 04/05/23) Mirena Status post bilateral salpingectomy (Acute) Obesity (Chronic) GERD (gastroesophageal reflux disease) (Chronic) Positive urine drug screen (Acute) initial UDS + opiates and THC, patient had reported THC use ASCUS (atypical squamous cells of undetermined significance) on gynecologic Papanicolaou smear complicating , antepartum (Acute) Repeat PAP PP High risk HPV infection (Acute) Other specified counseling (Acute) Medical History COVID-19 affecting in second trimester COVID-19 affecting in first trimester Cystic fibrosis carrier, antepartum Rash Fever Cannabinoid hyperemesis syndrome Cannabinoid hyperemesis syndrome Pt. states she quit smoking marajuana Migraine Hepatitis C antibody positive in blood (04/11/16) H/O herpes genitalis (04/11/16) HSV (herpes simplex virus) infection Palpitations Pt. denies this Surgical History Tonsillectomy and adenoidectomy Open Carpal Tunnel release 04/08/[address] Pemberton Family History Mother Diabetes Essential hypertension Hyperlipidemia Thyroid disease Asthma Grandmother Diabetes Breast cancer Grandmother Cancer Self Asthma Sister Essential hypertension Social History Smoking/Tobacco Use Status: Former Tobacco Use Quit Date: 08/10/21 Smoking risk assessment performed?: Yes Alcohol Intake: former Drug use: Daily Substance use type: marijuana Details: Hx IV drug use, clean x 12 years although opiates found in urine at 1st visit. None since Household members: other Details: Children: Castillo Barboza Number of Children: 2 current occupation: [employer]. Do you feel safe at home: Yes Do you feel safe in your relationship?: Yes Additional Social history: Pt denies Female Reproductive History Menstrual control method: progestin IUCD History History 4 Para 3 Hx # Term Pregnancies 1 Multiple births 0 Hx # Pregnancies 1 Ectopic pregnancies 0 AB induced 0 Hx Number of Living Children 3 AB spontaneous 0 Past Pregnancies Del. Date GA/Weeks # Preg Succ Route Wgt Sex Labor Lgth Anesthesia Location [facility] Compl 09/28/13 42 No vaginal 3543.69 g Female [address] [place] [address] [place] 05/06/16 39 No vaginal 3345.244 g Male [address] [place] [address] [facility] 04/19/22 39 No Yes vaginal 3770.487 g Male [facility] Delivery Date: 05/06/16 Last Updated by: Maxine Rodriguez CNM induced due to elevated BG's Delivery Date: 04/19/22 Last Updated by: KASH Diallo
[2024-01-04 23:50] LABS: Bilirubin Negative (Negative); Blood Negative (Negative); Clarity Clear (Clear); Glucose Negative (Negative); Ketones Negative (Negative); Leukocyte Esterase Small (Negative); Nitrite Negative (Negative); Specific Gravity >= 1.030 (1.005-1.025); Urobilinogen 0.2 mg/dL (Up to 0.2)
[2024-01-04 23:56] LABS: Bacteria Few HPF (Negative); C & S Indicated? No/Sq. Contamination; Casts Negative LPF (Negative); Crystals Negative HPF (Negative); Epithelial Cells Moderate HPF (Negative); Mucus Negative (Negative); RBC Negative HPF (0-2)
[2024-01-05] VITALS (7 sets, daily range): BP systolic 137–167; BP diastolic 80–96; PULSE 55–96; RESP 12–18; O2SAT 100
[2024-01-05 00:01] LABS: *AMPHETAMINES SCREEN URINE Negative (Negative); *BARBITURATES SCREEN URINE Negative (Negative); *BENZODIAZEPINES SCREEN URINE Negative (Negative); Cannabinoids THC Positive (Negative); Cocaine Screen,Urine Negative (Negative); METHADONE URINE SCREEN Negative (Negative); OPIATES URINE SCREEN Negative (Negative); Tricyclic Antidepressants Negative (Negative)
[2024-01-05 00:07] LABS: Abs Immature Grans 0.05 10^3/uL (0.0-0.06); Absolute Basophil Count 0.08 10^3/uL (0.0-0.2); Absolute Eosinophil Count 0.25 10^3/uL (0.0-0.7); Absolute Monocyte Count 0.68 10^3/uL (0.1-0.8); Absolute Neutrophil Count 10.16 10^3/uL (1.2-6.7); Basophils % 0.6 %; Eosinophils % 1.8 %; HGB 13.1 g/dL (11.2-15.7); Immature Grans % 0.4 %; Lymphocytes % 17.6 %; MCHC 32.8 % (32.0-36.0); MCV 89 fL (80-95); MPV 10.8 fL (8.0-11.0); Neutrophils % 74.6 %; Platelet Count 306 10^3/uL (130-400); RBC 4.52 10^6/uL (3.93-5.22); RDW 12.5 % (11.7-14.6); WBC 13.62 10^3/uL (4.4-10.8)
[2024-01-05] MEDS: Ondansetron 4 MG/2 ML VIAL IVP (00:07)
[2024-01-05] MEDS: Lactated Ringers 1,000 ML 1000 ML IV (00:07)
[2024-01-05 00:20] LABS: Acetaminophen < 2 ug/mL (10-30); Salicylate < 2.8 mg/dL (<2.8)
[2024-01-05 00:22] LABS: ALT 24 U/L (14-59); AST 15 U/L (15-37); Alkaline Phosphatase 75 U/L (46-116); Anion Gap 8.8 mmol/L (3-11); BUN 9 mg/dL (7-18); Bilirubin, Total 0.7 mg/dL (0.2-1.0); CO2 28.2 mmol/L (21.0-32.0); CREATININE 0.8 mg/dL (0.55-1.02); Calcium 8.7 mg/dL (8.5-10.1); Chloride 104 mmol/L (98-107); Estimated GFR 99.09 (mL/min/1.73m2); Glucose 104 mg/dL (74-106); Potassium 3.2 mmol/L (3.5-5.1); Sodium 141 mmol/L (136-145); Total Protein 8.1 g/dL (6.4-8.2)
[2024-01-05 00:31] LABS: ETHANOL BLOOD < 3.0 mg/dL (<10)
[2024-01-05] MEDS: Prochlorperazine 10 MG/2 ML VIAL IVP (00:54)
[2024-01-05] MEDS: POTASSIUM CHLORIDE 10 MEQ/100 ML BAG 100 MEQ IVINF (00:56)
[2024-01-05] MEDS: Potassium Chloride 20 MEQ TABCR 40 MEQ PO (01:01)
[2024-01-05] MEDS: Meclizine 25 MG TAB PO (01:02)
== END 2024-01-05 01:32 | disposition home or self-care (01) ==
PROVIDERS: Emergency Provider Student in an Organized Health Care Education/Training Program; PCP Nurse Practitioner Family
DX: R20.2 Paresthesia of skin (principal); R11.0 Nausea; R42 Dizziness and giddiness; T50.905A Adverse effect of unspecified drugs, medicaments and biological substances, initial encounter
CPT/HCPCS: 80053; 80307; 96361; 96374; 96375; 99284; 80320; 80329; 81003; 81015; 85025; 99283; J0780; J2405; J3480

== ENCOUNTER 2024-01-26 14:19 | Emergency (ER) | payer MEDICAID, SELFPAY ==
[2024-01-26 14:22] VITALS: BP 131/83; PULSE 82; RESP 18; TEMP 36.3; O2SAT 100
[2024-01-26 14:28] VITALS: RESP 20
--- NOTE | 2024-01-26 14:30 | RT.EKG_ITS ---
APPROVED REPORT Exam: Resting ECG Reason for Exam: Dizziness Patient Location: E HR:82 bpm ECG Measurements Heart Rate 82 AXIS SD 143 P 36 QRSd 95 QRS 54 QT 382 T 18 QTc 448 Conclusion Sinus rhythm...normal P axis, V-rate 60- 99
--- NOTE | 2024-01-26 14:33 | W.ED.GENAD ---
Discharge Plan Disposition Patient Disposition: Home Condition: Stable Discharge Details Clinical Impression: Nausea & vomiting Primary Care Provider: Linda Mason ED Provider: Leroy Nguyen Home Meds and New Rx's Prescriptions: Continued buprenorphine-naloxone 8-2 mg tablet, sublingual 2 tab SUBLINGUAL DAILY Patient Comments: PLACE TWO TABLETS UNDER THE TONGUE EVERY DAY FOR 7 DAYS Discharge Instructions Additional Instructions: Try to take small frequent sips of water and stay hydrated Follow-up with your primary care provider next week if still having symptoms If you feel more ill, have high fevers or persistent vomiting despite your Zofran return to the emergency department for reevaluation HPI General Mode of arrival: EMS. Date/Time Provider Initiated Documentation: 01/26/24 14:25. Limitations to Documentation: no limitations. Information obtained by: patient. History of Present Illness 33 year old F presents to the emergency department with the chief complaint of lightheaded, described as moderate, Patient started experiencing this day(s) (1) and it has been constant. No relieving factors improve symptom(s), No exacerbating factors reported . Patient notes denies chest pain and fever/chills. Patient did receive the following treatments prior to arrival, none Related Data Home Medications Medication Instructions Recorded Confirmed buprenorphine 8 mg-naloxone 2 mg 2 tab sublingual DAILY 08/22/23 01/04/24 sublingual tablet Allergies Allergy/AdvReac Type Severity Reaction Status Date / Time No Known Allergies Allergy Verified 01/04/24 23:10 General Stated Complaint: GenMedical LO: 3 Review of Systems All systems reviewed & are unremarkable except as noted in HPI and below Constitutional Constitutional: Denies chills, Denies fever(s) and Denies weakness Cardiovascular Cardiovascular: Denies chest pain and Denies dyspnea Respiratory Respiratory: Denies cough and Denies dyspnea Gastrointestinal Gastrointestinal: Denies abdominal pain and Reports vomiting Genitourinary Genitourinary: Denies dysuria Musculoskeletal Musculoskeletal: Denies joint swelling Integumentary/Breasts Skin/Breast: Denies rash Neurologic Neurologic: Denies weakness Allergic/Immunologic Allergic/Immunologic: Denies urticaria Exam Const General: anxious Orientation: alert HENNY Head: normal to inspection Ears: external ears normal General nose exam: external nose normal Mouth: moist mucous membranes Eyes General: appearance normal, both eyes and all related structures Neck Neck: normal visual inspection Resp Effort & Inspection: normal respiratory effort and able to speak in complete sentences Auscultation: clear to auscultation bilaterally Cardio Rate: regular rate Heart Sounds: no murmurs GI Palpation: soft and nontender Skin General skin exam: no rashes or lesions noted Neuro General: patient alert and patient oriented x3 Extrem General: normal to inspection Psych Mental Status: mental status grossly normal Course Vital Signs Vital signs: Vital Signs Temperature 36.3 C L 01/26/24 14:22 Pulse 82 01/26/24 14:22 Respiratory Rate 18 01/26/24 14:22 Blood Pressure 131/83 01/26/24 14:22 Pulse Oximetry 100 01/26/24 14:22 Temperature 36.3 C L 01/26/24 14:22 Pulse 82 01/26/24 14:22 Respiratory Rate 18 01/26/24 14:22 Blood Pressure 131/83 01/26/24 14:22 Pulse Oximetry 100 01/26/24 14:22 Oxygen Delivery Method Room Air 01/26/24 14:22 Oxygen Flow Rate 0 01/26/24 14:22 Medical Decision Making 33-year-old female with a history of prior substance abuse on Suboxone, states she is currently clean other than using marijuana, comes in with 1 day of nausea vomiting and feeling lightheaded. She denies any fevers, chest pain, severe abdominal pain. She has not had any fevers. She is alert and oriented on arrival speaking clearly though does appear anxious. She has clear lung sounds, soft nontender abdomen. No focal deficits on exam. Suspect this could be from marijuana use but will check CBC, CMP, Fluvid and treat her symptoms with fluids and droperidol and reassess. Given lack of abdominal tenderness doubt surgical pathology such as bowel obstruction. Labs show white count of 16, on lab review appears to have chronically elevated white count. Suspect this could be reactive from her vomiting. She is feeling significantly better, has no abdominal tenderness so do not feel any imaging indicated. She is stable for discharge, advised follow-up with her PCP and return precautions given Differential Diagnosis Differential Diagnosis: Gastroenteritis, cannabinoid hyperemesis syndrome, electrolyte abnormality Medical Records Medical records reviewed: Yes I reviewed the patient's medical records. Lab Data Lab results reviewed: Yes I reviewed the patient's lab results. ECG Data Attestation: I personally reviewed and interpreted this ECG (s) as follows: Prior ECG tracings: available for review Interpretation: Sinus rhythm, rate of 82, WI 143, no STEMI Quality:SDOH Health Related Social Needs: No Data to Display PFSH All Active Problems (Updated 01/26/24 @ 16:28 by Leroy Nguyen MD) Nausea & vomiting (Acute) Hypokalemia (Acute) Suspected exposure to potentially hazardous substance (Acute) IUD surveillance (Acute 04/05/23) Mirena Status post bilateral salpingectomy (Acute) Obesity (Chronic) GERD (gastroesophageal reflux disease) (Chronic) Positive urine drug screen (Acute) initial UDS + opiates and THC, patient had reported THC use ASCUS (atypical squamous cells of undetermined significance) on gynecologic Papanicolaou smear complicating , antepartum (Acute) Repeat PAP PP High risk HPV infection (Acute) Other specified counseling (Acute) Medical History COVID-19 affecting in second trimester COVID-19 affecting in first trimester Cystic fibrosis carrier, antepartum Rash Fever Cannabinoid hyperemesis syndrome Cannabinoid hyperemesis syndrome Pt. states she quit smoking marajuana Migraine Hepatitis C antibody positive in blood (04/11/16) H/O herpes genitalis (04/11/16) HSV (herpes simplex virus) infection Palpitations Pt. denies this Surgical History Tonsillectomy and adenoidectomy Open Carpal Tunnel release 04/08/[address] Pemberton Family History Mother Diabetes Essential hypertension Hyperlipidemia Thyroid disease Asthma Grandmother Diabetes Breast cancer Grandmother Cancer Self Asthma Sister Essential hypertension Social History Smoking/Tobacco Use Status: Former Tobacco Use Quit Date: 08/10/21 Smoking risk assessment performed?: Yes Alcohol Intake: former Drug use: Daily Substance use type: marijuana Details: Hx IV drug use, clean x 12 years although opiates found in urine at 1st visit. None since On [facility] takes every day 01/26/24 Household members: other Details: Children: Castillo Barboza Amador SOL Number of Children: 2 current occupation: [employer]. Do you feel safe at home: Yes Do you feel safe in your relationship?: Yes Additional Social history: Pt denies Female Reproductive History Menstrual control method: progestin IUCD History History 4 Para 3 Hx # Term Pregnancies 1 Multiple births 0 Hx # Pregnancies 1 Ectopic pregnancies 0 AB induced 0 Hx Number of Living Children 3 AB spontaneous 0 Past Pregnancies Del. Date GA/Weeks # Preg Succ Route Wgt Sex Labor Lgth Anesthesia Location Prov Complic 09/28/13 42 No vaginal 3543.69 g Female 24 [facility] [place] 05/06/16 39 No vaginal 3345.244 g Male [address] [place] [address] [facility] 04/19/22 39 No Yes vaginal 3770.487 g Male [facility] Delivery Date: 05/06/16 Last Updated by: Maxine Rodriguez CNM induced due to elevated BG's Delivery Date: 04/19/22 Last Updated by: KASH Diallo
[2024-01-26 15:19] LABS: Abs Immature Grans 0.07 10^3/uL (0.0-0.06); Absolute Basophil Count 0.05 10^3/uL (0.0-0.2); Absolute Lymphocyte Count 1.06 10^3/uL (1.2-3.4); Absolute Neutrophil Count 14.75 10^3/uL (1.2-6.7); Basophils % 0.3 %; HCT 40.6 % (36.0-46.0); HGB 13.5 g/dL (11.2-15.7); Immature Grans % 0.4 %; Lymphocytes % 6.5 %; MCH 29.2 pg (27.0-33.0); MCHC 33.3 % (32.0-36.0); MCV 88 fL (80-95); Monocytes % 2.6 %; Neutrophils % 90.2 %; Platelet Count 275 10^3/uL (130-400); RBC 4.62 10^6/uL (3.93-5.22); RDW 12.6 % (11.7-14.6); RDW-SD 40.4 fL; WBC 16.35 10^3/uL (4.4-10.8)
[2024-01-26 15:25] LABS: Absolute Monocyte Count 0.43 10^3/uL (0.1-0.8)
[2024-01-26 15:38] LABS: Bilirubin Negative (Negative); Blood Negative (Negative); Clarity Clear (Clear); Glucose Negative (Negative); Ketones Negative (Negative); Leukocyte Esterase Small (Negative); Nitrite Negative (Negative); Specific Gravity 1.015 (1.005-1.025); Urobilinogen 0.2 mg/dL (Up to 0.2); pH 8.5 (5-8)
[2024-01-26 15:39] LABS: HCG Qual (Serum) Negative
[2024-01-26 15:45] LABS: ALT 23 U/L (14-59); AST 16 U/L (15-37); Albumin 3.9 g/dL (3.4-5.0); Alkaline Phosphatase 69 U/L (46-116); Anion Gap 10.6 mmol/L (3-11); BUN 8 mg/dL (7-18); Bilirubin, Total 0.6 mg/dL (0.2-1.0); CO2 23.4 mmol/L (21.0-32.0); CREATININE 0.8 mg/dL (0.55-1.02); Calcium 9.2 mg/dL (8.5-10.1); Chloride 104 mmol/L (98-107); Estimated GFR 99.09 (mL/min/1.73m2); Glucose 138 mg/dL (74-106); Potassium 4.1 mmol/L (3.5-5.1); Sodium 138 mmol/L (136-145); TSH (W/Ref FT4) 0.74 uIU/mL (0.36-3.74)
[2024-01-26 15:51] LABS: Bacteria Few HPF (Negative); C & S Indicated? No; Casts Negative LPF (Negative); Crystals Negative HPF (Negative); Epithelial Cells Few HPF (Negative); Mucus Trace (Negative); RBC 0-2 HPF (0-2)
[2024-01-26] MEDS: Normal Saline 1,000 ML 1000 ML IV (16:00)
[2024-01-26] MEDS: Droperidol 5 MG/2 ML VIAL 2.5 MG IVP (16:09)
[2024-01-26 16:15] LABS: COVID-19 PCR Negative (Negative); Influenza A PCR Negative (Negative); Influenza B PCR Negative (Negative); RSV PCR Negative (Negative)
[2024-01-26 16:16] LABS: Source Nasopharynx
[2024-01-26 16:36] VITALS: BP 128/78; PULSE 81; RESP 16; TEMP 36.8; O2SAT 100
== END 2024-01-26 16:39 | disposition home or self-care (01) ==
PROVIDERS: Emergency Provider Emergency Medicine; PCP Nurse Practitioner Family
DX: R11.2 Nausea with vomiting, unspecified (principal); R42 Dizziness and giddiness
CPT/HCPCS: 80053; 87637; 93005; 96361; 96374; 99284; 81003; 81015; 83735; 84443; 84703; 85025; 93010; 99283; J1790

== ENCOUNTER 2024-07-10 23:08 | Emergency (ER) | payer MEDICAID, SELFPAY ==
[2024-07-10 23:11] VITALS: BP 190/99; PULSE 92; RESP 18; TEMP 36.2; O2SAT 100
[2024-07-10 23:25] VITALS: BP 190/99; PULSE 92; RESP 18; TEMP 36.2; O2SAT 100
[2024-07-10 23:50] LABS: Bilirubin Negative (Negative); Blood Trace-intact (Negative); Clarity Clear (Clear); Glucose Negative (Negative); Ketones Negative (Negative); Leukocyte Esterase Negative (Negative); Nitrite Negative (Negative); Specific Gravity 1.025 (1.005-1.025); Urobilinogen 0.2 mg/dL (Up to 0.2)
[2024-07-10 23:57] LABS: Bacteria Negative HPF (Negative); C & S Indicated? No; Casts Negative LPF (Negative); Crystals Negative HPF (Negative); Epithelial Cells Rare HPF (Negative); Mucus Negative (Negative); RBC 0-2 HPF (0-2); WBC 0-2 HPF (0-5)
--- NOTE | 2024-07-11 00:03 | ED.GENADUL_ITS ---
Discharge Plan Disposition Patient Disposition: Home Condition: Good Discharge Details Clinical Impression: Vomiting Primary Care Provider: Linda Mason ED Provider: Rachel Gil Home Meds and New Rx's Prescriptions: New ondansetron HCl 4 mg tablet 4 mg PO Q8H PRNQty: 14 0RF Continued buprenorphine-naloxone 8-2 mg tablet, sublingual 2 tab SUBLINGUAL DAILY Patient Comments: PLACE TWO TABLETS UNDER THE TONGUE EVERY DAY FOR 7 DAYS Discharge Instructions Instructions: Nausea and Vomiting, Adult ED Additional Instructions: Zofran up to every 8 hours as needed for vomiting. Call your primary care doctor today to schedule an appointment for within the next 72 hours to followup on your visit here. Return to the emergency department for new or worsening symptoms including fever, abdominal pain, inability to keep down fluids, or if you have any other concerns. Stand Alone Forms: Work Release HPI General Mode of arrival: ambulatory . Date/Time Provider Initiated Documentation: 07/10/24 23:11 . Limitations to Documentation: no limitations . Information obtained by: patient . HPI Narrative: 34yo F with hx GERD presenting with nausea & vomiting since 2099. Unable to keep down fluids. Nonbloody-nonbilious emesis. No abdominal pain. No sick contacts. Feels lightheaded, no sycnope. Otherwise in her usual state of health with no fevers, chills, rash, chest pain, shortness of breath, dysuria, hematuria, headache, neck pain, numbness, weakness, or other concerns. Related Data Home Medications ?Medication ?Instructions ?Recorded ?Confirmed buprenorphine 8 mg-naloxone 2 mg 2 tab sublingual DAILY 08/22/23 07/10/24 sublingual tablet ondansetron HCl 4 mg tablet 4 mg PO Q8H PRN #14 tabs 07/11/24 Previous Rx's ?Medication ?Instructions ?Recorded ondansetron HCl 4 mg tablet 4 mg PO Q8H PRN #14 tabs 07/11/24 Allergies Allergy/AdvReac Type Severity Reaction Status Date / Time Penicillins Allergy Intermediate Hives Verified 07/10/24 23:14 General Stated Complaint: Nausea/Vomit/Diar LO: 4 Review of Systems Narrative: see HPI Exam Narrative Exam Narrative: General: Alert, non-toxic, in no acute distress. Holding emesis bag. Head: Normocephalic, atraumatic Neck: Trachea midline, ?Neck supple. ENT: ?MMM.? No oropharygeal lesions or exudate. Cardiac: ?RRR, no murmurs appreciated Resp: No respiratory distress. CTAB. Abd: ?Soft, non-distended, nontender : ?No suprapubic tenderness. Extremities: ?No deformities.? No peripheral edema. Neurologic: GCS 15. ? Moves all extremities freely against gravity Course Vital Signs Vital signs: Vital Signs Temperature 36.2 C L 07/10/24 23:11 Pulse 92 H 07/10/24 23:11 Respiratory Rate 18 07/10/24 23:11 Blood Pressure 190/99 H 07/10/24 23:11 Pulse Oximetry 100 07/10/24 23:11 Temperature 36.2 C L 07/10/24 23:25 Temperature Source Temporal Artery Scan 07/10/24 23:25 Pulse 92 H 07/10/24 23:25 Respiratory Rate 18 07/10/24 23:25 Respiratory Effort Normal, Non-Labored 07/10/24 23:13 Blood Pressure 190/99 H 07/10/24 23:25 Blood Pressure Position Sitting 07/10/24 23:25 Pulse Oximetry 100 07/10/24 23:25 Oxygen Delivery Method Room Air 07/10/24 23:25 Oxygen Flow Rate 0 07/10/24 23:11 Pain Level 0 07/10/24 23:11 Lab/Test Results Lab/Test Results: Laboratory Tests Range/Units 07/10/24 23:35 Urine Color (Yellow) Yellow Urine Clarity (Clear) Clear Urine pH (5-8) 6.0 Ur Specific [place] (1.005-1.025) 1.025 Urine Protein (Neg-Trace) mg/dL Negative Urine Ketones (Negative) mg/dL Negative Urine Blood (Negative) Trace-intact H Urine Nitrite (Negative) Negative Urine Bilirubin (Negative) Negative Urine Urobilinogen (Up to 0.2) mg/dL 0.2 Ur Leukocyte Esterase (Negative) Negative Urine RBC (0-2) HPF 0-2 Urine WBC (0-5) HPF 0-2 Ur Epithelial Cells (Negative) HPF Rare Urine Crystals (Negative) HPF Negative Urine Bacteria (Negative) HPF Negative Urine Casts (Negative) LPF Negative Urine Mucus (Negative) Negative Ur Culture Indicated? No Urine Glucose (Negative) mg/dL Negative Medical Decision Making 34yo F with hx GERD presenting with nausea & vomiting since 2100, associated lightheadedness. No abdominal pain. Hypertensive on arrival, vital signs otherwise reassuring. No abdominal tenderness on exam. Not concerning for sepsis, bowel obstruction, appendicitis, cholecystitis, pancreatitis, meningitis, intracranial mass/bleed. Would not get CT imaging at this time. Will treat with IV zofran. Labs reviewed as below, CBC with moderate leukoctysois (nonspecfiic), CMP with no significant abnormalities, UA not infected, not . PO challenged and tolerated well. On reassessment she reports feeling much improved. Abdominal exam remains reassuring. Requesting discharge home which is reasonable; discharged with short course of zofran. Instructed to followup with PCP for possible HTN. D ischarge instructions and return precautions were reviewed with patient who verbalized understanding. All questions were answered and she is in full agreement with the plan. Lab Data Lab results reviewed: Yes I reviewed the patient's lab results. Labs: Laboratory Tests Range/Units 07/10/24 07/10/24 00:00 23:35 WBC (4.4-10.8) 10^3/uL 15.68 H RBC (3.93-5.22) 10^6/uL 4.61 Hgb (11.2-15.7) g/dL 13.2 Hct (36.0-46.0) % 40.7 MCV (80-95) fL 88 MCH (27.0-33.0) pg 28.6 MCHC (32.0-36.0) % 32.4 RDW (11.7-14.6) % 12.2 Plt Count (130-400) 10^3/uL 255 MPV (8.0-11.0) fL 11.4 H Immature Gran % % 0.4 Neutrophils % % 74.8 Lymphocytes % % 16.8 Monocytes % % 5.0 Eosinophils % % 2.4 Basophils % % 0.6 Nucleated RBC % (0.0-0.3) % 0.0 Absolute Neutrophils (1.2-6.7) 10^3/uL 11.73 H Absolute Lymphocytes (1.2-3.4) 10^3/uL 2.63 Absolute Monocytes (0.1-0.8) 10^3/uL 0.78 Absolute Eosinophils (0.0-0.7) 10^3/uL 0.38 Absolute Basophils (0.0-0.2) 10^3/uL 0.09 Sodium (136-145) mmol/L 139 Potassium (3.5-5.1) mmol/L 4.1 Chloride (98-107) mmol/L 104 Carbon Dioxide (21.0-32.0) mmol/L 25.8 Anion Gap (3-11) mmol/L 9.2 BUN (7-18) mg/dL 14 Creatinine (0.55-1.02) mg/dL 0.9 Est GFR (CKD-EPI 2020) (mL/min/1.73m2) 85.50 Glucose (74-106) mg/dL 116 H Calcium (8.5-10.1) mg/dL 9.0 Total Bilirubin (0.2-1.0) mg/dL 0.32 AST (15-37) U/L 25 ALT (14-59) U/L 19 Alkaline Phosphatase (46-116) U/L 71 Total Protein (6.4-8.2) g/dL 7.9 Albumin (3.4-5.0) g/dL 3.7 Serum HCG, Qual Negative Urine Color (Yellow) Yellow Urine Clarity (Clear) Clear Urine pH (5-8) 6.0 Ur Specific [place] (1.005-1.025) 1.025 Urine Protein (Neg-Trace) mg/dL Negative Urine Ketones (Negative) mg/dL Negative Urine Blood (Negative) Trace-intact H Urine Nitrite (Negative) Negative Urine Bilirubin (Negative) Negative Urine Urobilinogen (Up to 0.2) mg/dL 0.2 Ur Leukocyte Esterase (Negative) Negative Urine RBC (0-2) HPF 0-2 Urine WBC (0-5) HPF 0-2 Ur Epithelial Cells (Negative) HPF Rare Urine Crystals (Negative) HPF Negative Urine Bacteria (Negative) HPF Negative Urine Casts (Negative) LPF Negative Urine Mucus (Negative) Negative Ur Culture Indicated? No Urine Glucose (Negative) mg/dL Negative Quality:SDOH Health Related Social Needs: No Data to Display PFSH All Active Problems (Updated 07/11/24 @ 01:12 by Rachel Gil MD) Vomiting (Acute) IUD surveillance (Acute 04/05/23) Mirena Status post bilateral salpingectomy (Acute) Obesity (Chronic) GERD (gastroesophageal reflux disease) (Chronic) Positive urine drug screen (Acute) initial UDS + opiates and THC, patient had reported THC use ASCUS (atypical squamous cells of undetermined significance) on gynecologic Papanicolaou smear complicating , antepartum (Acute) Repeat PAP PP High risk HPV infection (Acute) Other specified counseling (Acute) Medical History COVID-19 affecting in second trimester COVID-19 affecting in first trimester Cystic fibrosis carrier, antepartum Rash Fever Cannabinoid hyperemesis syndrome Cannabinoid hyperemesis syndrome Pt. states she quit smoking marajuana Migraine Hepatitis C antibody positive in blood (04/11/16) H/O herpes genitalis (04/11/16) HSV (herpes simplex virus) infection Palpitations Pt. denies this Surgical History Tonsillectomy and adenoidectomy Open Carpal Tunnel release 04/08/[address] Pemberton Family History Mother Diabetes Essential hypertension Hyperlipidemia Thyroid disease Asthma Grandmother Diabetes Breast cancer Grandmother Cancer Self Asthma Sister Essential hypertension Social History Smoking/Tobacco Use Status: Former Tobacco Use Quit Date: 08/10/21 Smoking risk assessment performed?: Yes Alcohol Intake: former Drug use: Daily Substance use type: marijuana Details: Hx IV drug use, clean x 12 years although opiates found in urine at 1st visit. None since On [facility] takes every day 01/26/24 Household members: other Details: Children: Castillo Barboza FOB Number of Children: 2 current occupation: [employer]. Do you feel safe at home: Yes Do you feel safe in your relationship?: Yes Additional Social history: Pt denies Female Reproductive History Menstrual control method: progestin IUCD History History 4 Para 3 Hx # Term Pregnancies 1 Multiple births 0 Hx # Pregnancies 1 Ectopic pregnancies 0 AB induced 0 Hx Number of Living Children 3 AB spontaneous 0 Past Pregnancies Del. Date GA/Weeks # Preg Succ Route Wgt Sex Labor Lgth Anesth esia Location [facility] 09/28/13 42 No vaginal 3543.69 g Female [facility] [place] 05/06/16 39 No vaginal 3345.244 g Male [facility] [place] [facility] 04/19/22 39 No Yes vaginal 3770.487 g Male regional Tesfaye Agrawal CNM Delivery Date: 05/06/16 Last Updated by: Maxine Rodriguez CNM induced due to elevated BG's Delivery Date: 04/19/22 Last Updated by: KASH Diallo
[2024-07-11] MEDS: Ondansetron 4 MG/2 ML VIAL IVP (00:07)
[2024-07-11 00:13] LABS: Abs Immature Grans 0.07 10^3/uL (0.0-0.06); Absolute Eosinophil Count 0.38 10^3/uL (0.0-0.7); Basophils % 0.6 %; Eosinophils % 2.4 %; HCT 40.7 % (36.0-46.0); HGB 13.2 g/dL (11.2-15.7); Immature Grans % 0.4 %; Lymphocytes % 16.8 %; MCH 28.6 pg (27.0-33.0); MCHC 32.4 % (32.0-36.0); MCV 88 fL (80-95); MPV 11.4 fL (8.0-11.0); Neutrophils % 74.8 %; Platelet Count 255 10^3/uL (130-400); RBC 4.61 10^6/uL (3.93-5.22); RDW 12.2 % (11.7-14.6); RDW-SD 39.5 fL; WBC 15.68 10^3/uL (4.4-10.8)
[2024-07-11 00:18] LABS: Absolute Basophil Count 0.09 10^3/uL (0.0-0.2); Absolute Lymphocyte Count 2.63 10^3/uL (1.2-3.4); Absolute Monocyte Count 0.78 10^3/uL (0.1-0.8); Absolute Neutrophil Count 11.73 10^3/uL (1.2-6.7)
[2024-07-11 00:26] LABS: HCG Qual (Serum) Negative
[2024-07-11 00:28] LABS: ALT 19 U/L (14-59); AST 25 U/L (15-37); Albumin 3.7 g/dL (3.4-5.0); Alkaline Phosphatase 71 U/L (46-116); Anion Gap 9.2 mmol/L (3-11); BUN 14 mg/dL (7-18); Bilirubin, Total 0.32 mg/dL (0.2-1.0); CO2 25.8 mmol/L (21.0-32.0); CREATININE 0.9 mg/dL (0.55-1.02); Chloride 104 mmol/L (98-107); Glucose 116 mg/dL (74-106); Potassium 4.1 mmol/L (3.5-5.1); Sodium 139 mmol/L (136-145); Total Protein 7.9 g/dL (6.4-8.2)
[2024-07-11 01:18] VITALS: BP 162/78; PULSE 78; RESP 16; O2SAT 100
== END 2024-07-11 01:25 | disposition home or self-care (01) ==
PROVIDERS: Emergency Provider Student in an Organized Health Care Education/Training Program; PCP Nurse Practitioner Family
DX: R42 Dizziness and giddiness; R11.2 Nausea with vomiting, unspecified; Z87.19 Personal history of other diseases of the digestive system; Z87.891 Personal history of nicotine dependence
CPT/HCPCS: 36415; 80053; 96374; 99284; 81003; 81015; 84703; 85025; 99283; J2405

== ENCOUNTER 2024-10-03 11:09 | Emergency (ER) | payer MEDICAID, SELFPAY ==
[2024-10-03 11:29] VITALS: BP 163/91; PULSE 86; RESP 18; TEMP 36.7; O2SAT 98
--- NOTE | 2024-10-03 11:38 | W.ED.GENAD ---
Discharge Plan Disposition Patient Disposition: Home Condition: Stable Discharge Details Clinical Impression: Right otitis media Primary Care Provider: Linda Mason ED Provider: Cecilio Escobedo Home Meds and New Rx's Prescriptions: New cefpodoxime 200 mg tablet 200 mg PO BID 10 Days Qty: 20 0RF Rx Instructions: must administer with a meal/food Continued ondansetron HCl 4 mg tablet 4 mg PO Q8H PRNQty: 14 0RF buprenorphine-naloxone 8-2 mg tablet, sublingual 2 tab SUBLINGUAL DAILY Patient Comments: PLACE TWO TABLETS UNDER THE TONGUE EVERY DAY FOR 7 DAYS Discharge Instructions Instructions: Cefpodoxime, Ear Infection ED Additional Instructions: You were seen in the emergency department for right ear pain after [place] time [place] park about a week ago. I am treating you for ear infection with the antibiotic cefpodoxime sent to your pharmacy. I suggest you take [id number] decongestants like Mucinex as well. Please use therapeutic dosing of Tylenol (acetamenophen) & Advil (ibuprofen) in an alternating fashion as follows: Take 1000mg of Tylenol every 6 hours without missing doses- that is 4 times per day. Mcc in between the Tylenol dosings, take 400-600mg of Advil also on a 6 hour schedule, that is also 4 times per day. The daily maximum dosing of Tylenol is 4000mg, and the daily maximum dosing of Advil is 2400mg. This is safe to do for weeks. Please note that some common cold medications & prescription pain medications may contain acetamenophen and you need to read OTC drug labels and factor that in to maximum daily dosings. Please follow-up with your primary care provider or urgent care for matters like this in the future. Please return to the emergency department for complete loss of hearing, severe increase in pain, high fevers, nausea, vertigo or other neurologic abnormality Referrals: Linda Mason [Primary Care Provider] - Discharge Data Discharge Date/Time-TO BE ENTERED AT DEPARTURE: 10/03/24 11:59 HPI General Date/Time Provider Initiated Documentation: 10/03/24 11:38. HPI Narrative: 34 year-old female presents to ED today by POV/ambulating with a chief complaint of R ear pain, mild L ear pain after swimming at the [facility] waterpark on 09/28/24. Quality described as R ear pain, muffled hearing bilaterally, more mild on L side, no radiation to neck swelling, cough, severe headache, respiratory distress, nausea/vomiting, fevers. Severity is described as moderate. Palliating factors include nothing specific attempted. Provoking factors include nothing specific. Events leading up to the incident/Associated Symptoms: Patient denies ear discharge in the week since swimming. Patient not anticoagulated. Related Data Home Medications ?Medication ?Instructions ?Recorded ?Confirmed buprenorphine 8 mg-naloxone 2 mg 2 tab sublingual DAILY 08/22/23 10/03/24 sublingual tablet ondansetron HCl 4 mg tablet 4 mg PO Q8H PRN #14 tabs 07/11/24 10/03/24 cefpodoxime 200 mg tablet 200 mg PO BID 10 days #20 tabs 10/03/24 Previous Rx's ?Medication ?Instructions ?Recorded ondansetron HCl 4 mg tablet 4 mg PO Q8H PRN #14 tabs 07/11/24 cefpodoxime 200 mg tablet 200 mg PO BID 10 days #20 tabs 10/03/24 Allergies Allergy/AdvReac Type Severity Reaction Status Date / Time Penicillins Allergy Intermediate Hives Verified 10/03/24 11:32 General Stated Complaint: EarProblem LO: 4 Review of Systems All systems reviewed & are unremarkable except as noted in HPI and below Exam Narrative Exam Narrative: GENERAL APPEARANCE: Well-nourished, non-toxic, awake and alert, atraumatic, no acute distress. SKIN: Warm, pink, dry, intact, without rashes/lesions/ulcerations. HEAD: Normocephalic, atraumatic, normal hair distribution for gender/age. EYES: Normal conjunctiva, no exudates on lids/lashes. ENT: Nares patent, no circumoral cyanosis, no facial swelling, right ear TM bulging without severe erythema or purulent effusion, no severe ear canal erythema, L TM within normal limits, benign posterior oropharynx, uvula midline, no mastoid tenderness bilaterally NECK: Supple, trachea midline, painless cervical ROM. LUNGS/CHEST: Lungs CTA bilaterally-no rhonchi/rales/wheezes diffusely, non-labored respirations, normal A/P diameter, symmetrical expansion, no chest wall deformity HEART (CV/PV): Regular rate and rhythm without murmur, no peripheral edema, no JVD. ABDOMEN: Non-distended, no guarding. MSK: Normal ROM, no swelling/deformity to bilateral UEs or LEs, moving all extremities without weakness, no cyanosis, spine midline without tenderness, normal curvature. NEURO: Mental Status AAOx4 - alert to person, place, time, events No facial droop, no forehead involvement. Motor: No focal weakness - strength 5/5 in bilateral UEs and LEs, proximal and distal, symmetric. Sensory: sensation intact to light touch globally. Gait normal: patient ambulated without ataxia into ED room. PSYCH: euthymic, cooperative, pleasant, appropriate speech Course Vital Signs Vital signs: Vital Signs Temperature 36.7 C 10/03/24 11:29 Pulse 86 10/03/24 11:29 Respiratory Rate 18 10/03/24 11:29 Blood Pressure 163/91 H 10/03/24 11:29 Pulse Oximetry 98 10/03/24 11:29 Temperature 36.7 C 10/03/24 11:29 Temperature Source Oral 10/03/24 11:29 Pulse 86 10/03/24 11:29 Respiratory Rate 18 10/03/24 11:29 Blood Pressure 163/91 H 10/03/24 11:29 Blood Pressure Position Sitting 10/03/24 11:29 Pulse Oximetry 98 10/03/24 11:29 Oxygen Delivery Method Room Air 10/03/24 11:29 Oxygen Flow Rate 0 10/03/24 11:29 Pain Level 5 10/03/24 11:29 Medical Decision Making This dictation utilizes [id number] dictation software and may contain unedited grammatical errors. 34 year-old female presents to ED today by POV/ambulating with a chief complaint of R ear pain, mild L ear pain after swimming at the [facility] on 09/28/24. Quality described as R ear pain, muffled hearing bilaterally, more mild on L side, no radiation to neck swelling, cough, severe headache, respiratory distress, nausea/vomiting, fevers. Severity is described as moderate. Palliating factors include nothing specific attempted. Provoking factors include nothing specific. Events leading up to the incident/Associated Symptoms: Patient denies ear discharge in the week since swimming. Patients' medical history: Noncontributory. Family and social history: Noncontributory. Pertinent exam findings / vital signs include R TM bulging without severe erythema or purulent effusion, benign posterior oropharynx, no respiratory distress, L TM within normal limits, no mastoid tenderness bilaterally. Differential / pathologies of concern include otitis media, otitis externa, not mastoiditis. Diagnostic studies of: -None. Interventions of: -Rx for cefpodoxime for empiric treatment for right otitis media. ED Course/Assessment/Plan: 34-year-old otherwise healthy female presents with right ear pain after water [place] [employer] [place], has no TM rupture, no purulent effusion, has some bulging to the right TM and treating empirically for right otitis media, no evidence of severe otitis externa, no respiratory distress, strict return criteria for any severe increase in pain, complete loss of hearing, progression despite treatment, or other emergent concerns. Findings not consistent with otitis externa, mastoiditis, toxic presentation, respiratory distress, trismus. Disposition of right otitis media. Patient verbalized understanding of the plan and return to ED criteria and engaged in shared decision making. Medical Records Medical records reviewed: Yes I reviewed the patient's medical records. 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 states she quit smoking marajuana Migraine Hepatitis C antibody positive in blood (04/11/16) H/O herpes genitalis (04/11/16) HSV (herpes simplex virus) infection Palpitations Pt. denies this Surgical History Tonsillectomy and adenoidectomy Open Carpal Tunnel release 04/08/[address] Pemberton Family History Mother Diabetes Essential hypertension Hyperlipidemia Thyroid disease Asthma Grandmother Diabetes Breast cancer Grandmother Cancer Self Asthma Sister Essential hypertension Social History Smoking/Tobacco Use Status: Former Tobacco Use Quit Date: 08/10/21 Smoking risk assessment performed?: Yes Alcohol Intake: former Drug use: Daily Substance use type: marijuana Details: Hx IV drug use, clean x 12 years although opiates found in urine at 1st visit. 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 Do you feel safe at home: Yes Do you feel safe in your relationship?: Yes Additional Social history: Pt denies Female Reproductive History Menstrual control method: progestin IUCD History History 4 Para 3 Hx # Term Pregnancies 1 Multiple births 0 Hx # Pregnancies 1 Ectopic pregnancies 0 AB induced 0 Hx Number of Living Children 3 AB spontaneous 0 Past Pregnancies Del. Date GA/Weeks # Preg Succ Route Wgt Sex Labor Lgth Anesthesia Location [facility] 09/28/13 42 No vaginal 3543.69 g Female 24 [facility] [place] 05/06/16 39 No vaginal 3345.244 g Male [address] [place] [id number] [place] 04/19/22 39 No Yes vaginal 3770.487 g Male [facility] BOB [place] Delivery Date: 05/06/16 Last Updated by: Maxine Rodriguez CNM induced due to elevated BG's Delivery Date: 04/19/22 Last Updated by: KASH Diallo
== END 2024-10-03 11:59 | disposition home or self-care (01) ==
LOC: ER 12:29
PROVIDERS: Emergency Provider Physician Assistant; PCP Nurse Practitioner Family
DX: H66.91 Otitis media, unspecified, right ear (principal)
CPT/HCPCS: 99283

== ENCOUNTER 2025-07-14 13:45 | Outpatient (REF) | payer MEDICAID, SELFPAY ==
--- NOTE | 2025-07-14 13:30 | PAPFT_PTH ---
PATIENT: Anais Kim LOC: [facility] U#:[id number] AGE/SX: 35/F ROOM: RE07/14/[address]: Barbra Nguyen NP : 1990 BED: DIS: 07/14/2025 SPEC #: [id number] RECD: 07/14/25 18:09 STATUS: RAVINDER RERenetta #: [id number] NATASHA: 07/14/25 13:[address]: Wendy STEPHEN,Barbra DEPT: [facility] Cytology RECD BY: Kamilla Villalobos ENTERED: 07/14/25 18:09 SP TYPE: PAPFT OTHR DR: Linda Mason Tissues: 1 - CX/ENDOCX FOR PAP SMEARS Procedures: PAP THIN PREP/UVM Screening HPV DNA PROBE Comments: [id number] (HPV 16 & 18/45)
== END 2025-07-14 13:46 | disposition home or self-care (01) ==
LOC: LBN 13:45
PROVIDERS: PCP Nurse Practitioner Family; Visit Provider Nurse Practitioner Women's Health
DX: N89.8 Other specified noninflammatory disorders of vagina (principal); Z12.4 Encounter for screening for malignant neoplasm of cervix
CPT/HCPCS: 88142; 87480; 87510; 87624; 87660